=== PATIENT | male | born 1950 | race Caucasian/White ===

== ENCOUNTER → 2020-10-25 | Outpatient (CLI) | payer OTHER ==
[2020-10-25 14:40] LABS: HGB 14.5 gm/dL (13.0-17.5); MCV 93.8 fL (80.0-100.0); Mean Platelet Volume 6.9; Platelet Count 216 k/uL (150-450); RBC 4.69 m/uL (4.30-5.90); WBC 6.5 k/uL (3.8-10.6)
[2020-10-25 14:48] LABS: Potassium 4.5 mmol/L (3.5-5.1)
== END | disposition home or self-care (01) ==
LOC: LABPAT 14:10
PROVIDERS: ATTEND Internal Medicine Interventional Cardiology
DX: Z01.818 Encounter for other preprocedural examination (principal)
CPT/HCPCS: 36415; 80051; 82565; 84520; 85027

== ENCOUNTER 2020-11-03 06:25 | Day surgery (SDC) | payer OTHER ==
[2020-10-31 11:20] VITALS: BMI 23.3
[~2020-11-03 06:25] MED LIST: ALPRAZolam 0.25 MG TAB PO PRN; ALPRAZolam 0.5 MG TAB PO PRN; ASPIRIN 325 MG TAB PO STA; ATORVASTATIN 80 MG TAB PO STA; HEPARIN SODIUM,PORCINE 10,000 UNIT in SODIUM CHLORIDE 0.9% 1,000 ML IRRIGATION PRN; HEPARIN SODIUM,PORCINE 2,500 UNIT in SODIUM CHLORIDE 0.9% 250 ML IRRIGATION PRN; NITROGLYCERIN SL TABS 0.4 MG TAB SUBLINGUAL PRN; SODIUM CHLORIDE 0.9% 1,000 ML in EMPTY BAG 1 BAG IV ONE
[2020-11-03] MEDS ORDERED: fentaNYL (PF) 50 MCG/ML 2 ML AMP ONE (07:14)
[2020-11-03 07:17] VITALS: TEMP 98.1
[2020-11-03] MEDS ORDERED: SODIUM CHLORIDE 0.9% 1,000 ML IV ONE (07:24)
[2020-11-03] MEDS ORDERED: BENZOCAINE SPRAY 1 CAN TOPICAL ONE (07:24)
[2020-11-03] MEDS ORDERED: fentaNYL (PF) 50 MCG/ML 2 ML AMP IV ONE (07:31)
[2020-11-03] MEDS ORDERED: MIDAZOLAM 2 MG/2 ML VIAL IV ONE ×2 (07:31→07:40)
[2020-11-03 07:48] VITALS: RESP 17
[2020-11-03] MEDS ORDERED: LIDOCAINE 1% INJ 10MG/ML (20 ML MDV) ONE (07:57)
[2020-11-03] MEDS ORDERED: VERAPAMIL 2.5 MG/ML 2 ML AMP ONE (07:57)
--- NOTE | 2020-11-03 08:11 | P.TEE ---
Indications for Procedure(s): Assessment the mitral regurgitation Date of Procedure: 11/03/20 Preoperative Diagnosis: Nonrheumatic mitral regurgitation Postoperative Diagnosis: 3-4+ mitral regurgitation. Prolapse of the posterior leaflet with possible ruptured cord. Left atrial enlargement. Moderate aortic stenosis Procedure(s) Performed: JOSE Description of Procedure(s): INDICATION: This 70-year-old gentleman with history of non-rheumatic mitral regurgitation who is been experiencing exertional shortness of breath. A JOSE examination is recommended to assess mitral regurgitation CONSENT: . Informed consent was obtained from the patient verbally PROCEDURE: Patient was brought to the lab in a fasting state. He was prepped and draped in the usual fashion. The throat was sprayed with Hurricaine. A lubricated Omni probe was introduced in the oropharynx and was advanced into the esophagus. Multiple views were obtained both from the stomach and esophagus. Patient tolerated the procedure well. There were multiple attempts at intubation. Color, pulsed and continuous Doppler studies were performed. Saline contrast bubble injection was also performed. FINDINGS: The aortic valve is tricuspid with mild calcification and restricted opening. By planimetry valve area of 1.32 cm was obtained. A peak gradient of about 35 was obtained suggestive of moderate aortic stenosis. The mitral valve showed evidence of mild coarctation with eccentric mitral regurgitation directed anteriorly and toward septum.PISA value was about 0.8-1 cm. There appears to be prolapsing of the middle scallop of the posterior leaflet with possibly small ruptured chordae. The left atrium is severely enlarged. The left atrial appendage is free of any clot. The interatrial septum appeared to be intact without any spontaneous shunt. Saline contrast bubble injection did not reveal crossing of the bubbles across the interatrial septum. Left ankle function appear to be normal. A peak gradient of about 35 was obtained across the aortic valve with mean value of about 20-22 suggestive of moderate aortic stenosis IMPRESSION: . #1. 3-4+ eccentric mitral regurgitation with evidence of prolapse of the middle scallop of the posterior leaflet, probably small ruptured chordae #2. Moderate aortic stenosis. #3. Left atrial enlargement #4. No PFO #5. No clot in the left atrial appendage. #5. Preserved LV function. #6. No plaque in the aorta PLAN: Proceed with cardiac catheterization. May require mitral valve repair plus or minus aortic valve replacement.
[2020-11-03] MEDS ORDERED: SODIUM CHLORIDE 0.9% 1,000 ML IV SCH ×2 (08:15→10:00)
[2020-11-03] MEDS ORDERED: LIDOCAINE 1% INJ 10MG/ML (20 ML MDV) SQ ONE (08:40)
[2020-11-03] MEDS ORDERED: HEPARIN SODIUM 1,000 UN/ML (10ML VL) IV ONE (08:46)
[2020-11-03] MEDS ORDERED: VERAPAMIL SYRINGE (5 MG/10 ML) INTRAARTER ONE (08:48)
[2020-11-03] MEDS ORDERED: NITROGLYCERIN 1000MCG/10ML SYRINGE INTRAARTER ONE (08:58)
[2020-11-03 08:59] LABS: O2 Sat Blood Gas 96.3 %
[2020-11-03 09:01] LABS: O2 Sat Blood Gas 75.5 %
[2020-11-03] MEDS ORDERED: IOPAMIDOL-370 100ML BTL INJ ONE (09:12)
--- NOTE | 2020-11-03 10:13 | CC ---
CARDIAC CATHETERIZATION REPORT DATE OF SERVICE: 11/03/2020 PROCEDURE: Right and left heart catheterization and coronary angiography. PERFORMED BY: Dr. Jenny Galindo. Moderate conscious sedation time was 40 minutes. Patient was administered Versed. Oxygen saturation, hemodynamics and EKG were monitored closely. CLINICAL INFORMATION: Mr. Eloy Aguilar is a 70-year-old gentleman with a known history of mitral valve prolapse syndrome, which was being followed noninvasively. He also has a moderate aortic stenosis with a gradient in the mid 20s. Because of a change in his symptomatology with more shortness of breath, I evaluated him in the office, performed an echocardiogram and advised coronary angiography. His complaints were increasing fatigue and shortness of breath. He had a transesophageal echo which revealed severe mitral regurgitation with prolapse of the posterior mitral leaflet middle scallop. He was advised right and left heart catheterization. On the transesophageal echo, there was moderate aortic stenosis with a gradient of about 27 mmHg. PROCEDURE NOTE: Under local anesthesia and strict aseptic precautions, a 6-Tamazight introducer was placed in the right radial artery using a micropuncture needle technique. There was already a brachial IV in place and through this IV using the micropuncture needle, I exchanged and placed a 6-Tamazight introducer in the right brachial artery. Right heart catheterization was performed using a 6-Tamazight balloon tipped catheter and the hemodynamics and saturations were obtained. Subsequently I performed coronary angiography with a JL3.5 and JR4 catheters and the same right catheter was used to check LV pressures but LV gram was not performed. I used a Glidewire because of some spasm. The patient tolerated the procedure well without complications. The TR band was applied as per protocol and manual compression used for the venous site. Saturation of the fingers of the right hand was 94%. Results were discussed with the patient as well as his . CARDIAC CATHETERIZATION FINDINGS: The right atrial pressure was 4 mmHg, right ventricular pressure was 35/4. Pulmonary artery pressure was 35/11 with a mean of 20. Pulmonary capillary wedge pressure was 10 mmHg. The left ventricular end-diastolic pressure was 10 mmHg and a gradient across the aortic valve, mean gradient was about 25 mmHg. The radial arterial saturation was 96%. Pulmonary artery saturation was 75% and right atrial saturation was 79%. There was no oxygen step-up. The thermodilution cardiac output was 6.5 L and the Anthony cardiac output was 7.7 L. CORONARY ANGIOGRAPHY FINDINGS: RIGHT CORONARY ARTERY: Large dominant vessel. No significant disease. Bifurcates into a large PDA and PLV system, both of which supplies a sizable amount of myocardium. No significant disease. LEFT MAIN CORONARY ARTERY: Short patent vessel free of significant disease that bifurcates into LAD and circumflex. LEFT ANTERIOR DESCENDING CORONARY ARTERY: This gives off a large diagonal branch proximally, runs all the way to the apex supplying a sizable amount of myocardium. It gives off septal and diagonal branches. No significant disease in the very good caliber large distribution LAD system. LEFT POSTERIOR CIRCUMFLEX CORONARY ARTERY: Small nondominant vessel small in caliber and distribution. No significant disease, gives off a single obtuse marginal that runs laterally. Circumflex is therefore nondominant. No significant disease. LEFT VENTRICULOGRAM: LV-gram was not performed. FINAL IMPRESSION: 1. This patient has no significant pulmonary hypertension. 2. Cardiac output is normal. 3. There is no oxygen step-up. 4. There is moderate aortic stenosis of 25 mmHg mean gradient across aortic valve. 5. No significant obstructive coronary artery disease noted. 6. A right-dominant system. Transesophageal echo however revealed severe mitral regurgitation. RECOMMENDATION: Patient will require elective mitral valve repair and aortic valve replacement. No coronary intervention will be necessary. Findings were discussed with the patient and his . I will speak to the cardiac surgeon and make an appointment electively. I expect he will be discharged today and I will see him on Saturday. MMODL / IJN: [id number] /
--- NOTE | 2020-11-03 11:27 | US ---
EXAMINATION TYPE: US carotid duplex BILAT DATE OF EXAM: 11/03/2020 COMPARISON: NONE CLINICAL HISTORY: R/O CAROTID DX. open heart surgery EXAM MEASUREMENTS: RIGHT: Peak Systolic Velocity (PSV) cm/sec ----- Right CCA: 57.5 ----- Right ICA: 105.5 ----- Right ECA: 130.2 ICA/CCA ratio: 1.8 RIGHT: End Diastole cm/sec ----- Right CCA: 18.3 ----- Right ICA: 37.2 ----- Right ECA: 17.1 LEFT: Peak Systolic Velocity (PSV) cm/sec ----- Left CCA: 65.6 ----- Left ICA: 93.0 ----- Left ECA: 107.6 ICA/CCA ratio: 1.4 LEFT: End Diastole cm/sec ----- Left CCA: 18.7 ----- Left ICA: 33.3 ----- Left ECA: 15.5 VERTEBRALS (direction of flow): Right Vertebral: Antegrade Left Vertebral: Antegrade Rhythm: Normal Grayscale, color Doppler, spectral Doppler imaging performed of the carotid arteries. Waveform analys is does not show significant stenosis of the proximal internal carotid arteries. Atheromatous changes are present in carotid bulbs. No significant stenosis seen IMPRESSION: No hemodynamic significant stenosis of the proximal internal carotid arteries by Doppler criteria, an indirect measurement of carotid stenosis Criteria for Assigning % of Stenosis / Diameter reduction (Estimation based on the indirect measurements of the internal carotid artery velocities (ICA PSV). 1. Normal (no stenosis)=ICA PSV < 125 cm/s: ratio < 2.0: ICA EDV<40 cm/s. 2. Less than 50% stenosis=ICA PSV < 125 cm/s: ratio < 2.0: ICA EDV<40 cm/s. 3. 50 to 69% stenosis=ICA PSV of 125 to 230 cm/s: ration 2.0 ? 4.0: ICA EDV 40-100 cm/s. 4. Greater than 70% stenosis to near occlusion= ICA PSV > 230 cm/s: ratio > 4.0: ICA EDV > 100 cm/s. 5. Near occlusion= ICA PSV velocities may be low or undetectable: variable ratio and ICA EDV. 6. Total occlusion=unable to detect flow.
--- NOTE | 2020-11-03 11:40 | XR ---
EXAMINATION TYPE: XR chest 1V portable DATE OF EXAM: 11/03/2020 COMPARISON: Prior chest x-ray dated 05/12/2012 HISTORY: Preop valve surgery TECHNIQUE: Single frontal view of the chest is obtained. FINDINGS: There is no focal air space opacity, pleural effusion, or pneumothorax seen. The cardiac silhouette size is within normal limits. The aorta is dense. The osseous structures are intact. IMPRESSION: No acute process. Stable exam.
--- NOTE | 2020-11-03 12:00 | ECHOF ---
Referral Reason:R/O VALVE DX MEASUREMENTS -------- HEIGHT: 167.6 cm WEIGHT: 65.8 kg BP: 122/67 RVIDd: 2.9 cm (< 3.3) IVSd: 1.2 cm (0.6 - 1.1) LVIDd: 4.8 cm (3.9 - 5.3) LVPWd: 1.3 cm (0.6 - 1.1) IVSs: 1.6 cm LVIDs: 3.0 cm LVPWs: 1.5 cm LAESV Index (A-L): 64.24 ml/m Ao Diam: 2.2 cm (2.0 - 3.7) AV Cusp: 0.8 cm (1.5 - 2.6) MV EXCURSION: 14.378 mm (> 18.000) MV EF SLOPE: 77 mm/s (70 - 150) EPSS: 0.3 cm MV E José: 1.20 m/s MV DecT: 298 ms MV A José: 1.21 m/s MV E/A Ratio: 0.99 AV maxP.16 mmHg AV meanP.87 mmHg RAP: 5.00 mmHg RVSP: 41.06 mmHg FINDINGS -------- Sinus rhythm. This was a technically adequate study. The left ventricular size is normal. There is mild concentric left ventricular hypertrophy. Overa ll left ventricular systolic function is normal with, an EF between 55 - 60 %. Left ventricular noel limg pressure cannot be estimated due to severe mitral regurgitation. The right ventricle is normal in size. LA is severely dilated >40 ml/m2 The right atrium is mildly enlarged. Interatrial and interventricular septum intact. There is no evidence of aortic regurgitation. There is mild aortic stenosis present. Peak/mean gr adient across the Aortic Valve is 30.16mmHg / 13.87mmHg. Severe mitral regurgitation is present. Moderate prolapse of the posterior mitral valve leaflet. Moderate tricuspid regurgitation present. There is mild pulmonary hypertension. The right ventric ular systolic pressure, as measured by Doppler, is 41.06mmHg. There is no pulmonic regurgitation present. The aortic root size is normal. Normal inferior vena cava with normal inspiratory collapse consistent with estimated right atrial pre ssure of 5 mmHg. There is no pericardial effusion. CONCLUSIONS -------- 1. There is mild concentric left ventricular hypertrophy. 2. Overall left ventricular systolic function is normal with, an EF between 55 - 60 %. 3. LA is severely dilated >40 ml/m2 4. There is mild aortic stenosis present. 5. Peak/mean gradient across the Aortic Valve is 30.16mmHg / 13.87mmHg. 6. Severe mitral regurgitation is present. 7. Moderate prolapse of the posterior mitral valve leaflet. 8. Moderate tricuspid regurgitation present. 9. There is mild pulmonary hypertension. 10. There is no pericardial effusion. COIL TESTER: Yanely Galeano RDCS
[2020-11-03 12:21] LABS: Appearance,Urine Clear (Clear); Bilirubin,Urine Negative (Negative); Blood,Urine Negative (Negative); Color,Urine Light Yellow; Glucose,Urine (UA) Negative (Negative); Ketones,Urine Negative (Negative); Leukocyte Esterase,Urine Negative (Negative); Nitrite,Urine Negative (Negative); Protein,Urine Negative (Negative); Urobilinogen,Urine <2.0 mg/dL (<2.0)
--- NOTE | 2020-11-03 12:57 | P.GSCN ---
History of Present Illness Consult date: 11/03/20 Reason for Consult: Aortic stenosis, mitral regurgitation Requesting physician: Joseph Galindo History of present illness: This is a 70-year-old active gentleman who follows on an outpatient basis with Dr. Crowell for primary care and Dr. SHEREE Galindo for cardiology. He has a previous medical history of mitral valve prolapse with mitral regurgitation, obstructive sleep apnea without CPAP use, previous tobacco dependence, left knee surgery, and recent tooth extraction. He states he has been in normal health except that he has had increased fatigue lately. He denies any chest pain or pressure, shortness of breath, lightheadedness or dizziness, or any syncopal episodes. He has been following routinely with Dr. Galindo for his mitral valve, had a recent transthoracic echocardiogram revealing moderate to severe mitral regurgitation with myxomatous mitral valve and prolapse, no significant pulmonary hypertension. Due to his symptom of increasing fatigue and findings on echocardiogram the patient was recommended to undergo transesophageal echocardiogram and cardiac catheterization for further evaluation. He was brought in today electively. His heart catheterization demonstrated no significant obstructive coronary artery disease. Transesophageal echocardiogram demonstrated 3-4+ anteriorly directed mitral regurgitation, prolapse of the posterior leaflet with possible ruptured chordae, left atrial enlargement, and moderate aortic stenosis with aortic valve area 1.32 cm by planimetry and peak gradient 35 mmHg. Due to these findings the patient was referred to Dr. Ortiz for surgical recommendations. Review of Systems Review of systems was completed and was negative except as noted - Constitutional Reports as per HPI, Reports fatigue - Cardiovascular Cardiovascular Comment(s): Denies chest pain, shortness of breath, syncope - Gastrointestinal Gastrointestinal Comment(s): Denies any GI symptoms - Musculoskeletal Musculoskeleta Comment(s): Denies musculoskeletal symptoms - Neurological Neurologic Comment(s): Denies neurological symptoms Past Medical History Past Medical History: Mitral Valve Prolapse (MVP), Sleep Apnea/CPAP/BIPAP Additional Past Medical History / Comment(s): aortic stenosis, short term memory issues and [place]- request to be present for consents and instructions; moderate aortic stenosis, severe mitral regurgitation History of Any Multi-Drug Resistant Organisms: None Reported Past Surgical History: Appendectomy, Orthopedic Surgery, Tonsillectomy Additional Past Surgical History / Comment(s): knee surgery meniscus. colonoscopy Past Anesthesia/Blood Transfusion Reactions: No Reported Reaction, Motion Sickness Additional Past Anesthesia/Blood Transfusion Reaction / Comm: blood transfusion without reaction Past Psychological History: No Psychological Hx Reported Smoking Status: Former smoker Past Alcohol Use History: None Reported Past Drug Use History: None Reported Additional History: No known family history of premature coronary artery disease - Past Family History Mother Family Medical History: No Reported History Additional Family Medical History / Comment(s): Mother at 70 of unknown reasons Father Family Medical History: COPD, Coronary Artery Disease (CAD) Additional Family Medical History / Comment(s): Father at 82 Medications and Allergies Home Medications Medication Instructions Recorded Confirmed Type Furosemide [Lasix] 20 mg PO DAILY 10/31/20 11/03/20 History Losartan [Cozaar] 25 mg PO HS 10/31/20 11/03/20 History Allergies Allergy/AdvReac Type Severity Reaction Status Date / Time Penicillins Allergy Unknown Verified 11/03/20 06:50 Surgical - Exam Vital Signs Temp Pulse Resp BP Pulse Ox 98.1 F 75 18 131/73 97 11/03/20 07:16 11/03/20 07:16 11/03/20 07:16 11/03/20 07:16 11/03/20 07:16 - General well developed, well nourished, no distress, no pain - Eyes PERRL, normal ocular movement - ENT decreased hearing - Neck no masses, trachea midline carotid bruit: bilateral - Respiratory Lungs sounds clear bilaterally. Respirations even, nonlabored. Currently on room air with oxygen saturation 96%. No chest wall deformities. No clubbing or cyanosis present. - Cardiovascular S1 present, quite S2 present. Loud systolic murmur present. Regular rate and rhythm, sinus rhythm on telemetry. Palpable peripheral pulses bilaterally. No edema present. No calf pain or tenderness noted. - Abdomen Abdomen: soft, non tender, bowel sounds - Genitourinary Deferred - Rectum Deferred - Integumentary no rash, no growths - Neurologic normal coordination, normal sensation - Musculoskeletal normal posture - Psychiatric oriented to time, oriented to person, oriented to place, speech is normal Results - Imaging Chest x-ray: report reviewed, image reviewed Additional studies: Cardiac catheterization films, transesophageal echocardiogram, and carotid Doppler studies reviewed Assessment and Plan Assessment: 1. Severe anterior lead directed mitral regurgitation, prolapse of the posterior leaflet with possible ruptured chordae, left atrial enlargement, and moderate aortic stenosis per JOSE 2. History of obstructive sleep apnea without CPAP use 3. Previous tobacco dependence 4. Recent tooth extraction without regular dental visits Plan: The patient was seen and examined in the extended stay unit. Chart cyst diagnostics were discussed with Dr. Ortiz and Dr. Galindo. The usual perioperative course of open heart surgery was discussed in detail with the patient and his , risks and benefits were reviewed, all questions were answered. Preoperative testing was initiated. The patient may be discharged to home to follow-up in the office next week, November [address] Ortiz to discuss valve surgery. The patient was encouraged to obtain dental clearance. Our contact information was given to the patient and his . We'll calculate STS risk score. Continue current medication regimen. More recommendations to follow once seen by Dr. Ortiz. Thank you Dr. Galindo for this consult. Time with Patient: Greater than 30
[2020-11-03 14:51] LABS: Albumin 3.6 g/dL (3.5-5.0); Calcium 8.6 mg/dL (8.4-10.2); Potassium 4.3 mmol/L (3.5-5.1); Total Bilirubin 0.4 mg/dL (0.2-1.3); Total Protein 6.1 g/dL (6.3-8.2)
[2020-11-03 14:53] LABS: Partial Thromboplastin Time 27.6 sec (22.0-30.0); Prothrombin Time 10.8 sec (9.0-12.0)
[2020-11-03 14:54] VITALS: BP 132/68; PULSE 68
[2020-11-03 23:53] LABS: Hemoglobin A1C 5.1 % (4.0-6.0)
[2020-11-04 12:31] LABS: Hepatitis A Antibody IgM Non-Reactive (Non-Reactive); Hepatitis B Core IgM Non-Reactive (Non-Reactive); Hepatitis B Surface Antigen Non-Reactive (Non-Reactive); Hepatitis C IgG Antibody Non-Reactive (Non-Reactive)
== END 2020-11-03 14:42 | disposition home or self-care (01) ==
LOC: CATHCVL 06:25
PROVIDERS: ATTEND Internal Medicine Cardiovascular Disease
DX: I08.3 Combined rheumatic disorders of mitral, aortic and tricuspid valves (principal); R00.2 Palpitations; G47.33 Obstructive sleep apnea (adult) (pediatric); Z72.0 Tobacco use
CPT/HCPCS: 94150; 93312; 93320; 93325; 93460; 80061; 80053; 80074; 85018; 84443; 82810; 83735; 85610; 85730; 81003; 83036; 71045; 93880; C1769 ×3; C1751; C1894 ×2; J2250; J2001; J3010; J1644; Q9967; 93306

== ENCOUNTER → 2020-12-05 | Outpatient (CLI) | payer OTHER ==
[2020-12-05 10:47] LABS: HCT 44.6 % (39.0-53.0); HGB 14.1 gm/dL (13.0-17.5); MCH 29.8 pg (25.0-35.0); MCHC 31.6 g/dL (31.0-37.0); MCV 94.4 fL (80.0-100.0); Mean Platelet Volume 7.1; Platelet Count 209 k/uL (150-450); RBC 4.72 m/uL (4.30-5.90); RDW 13.4 % (11.5-15.5); WBC 4.5 k/uL (3.8-10.6)
[2020-12-05 10:52] LABS: Partial Thromboplastin Time 27.3 sec (22.0-30.0); Prothrombin Time 10.7 sec (9.0-12.0)
[2020-12-05 10:53] LABS: Albumin 4.3 g/dL (3.5-5.0); Potassium 4.4 mmol/L (3.5-5.1); Total Bilirubin 0.5 mg/dL (0.2-1.3); Total Protein 7.1 g/dL (6.3-8.2)
--- NOTE | 2020-12-05 11:05 | XR ---
EXAMINATION TYPE: XR chest 2V DATE OF EXAM: 12/05/2020 COMPARISON: NONE TECHNIQUE: PA and lateral views submitted. HISTORY: Presurgical FINDINGS: The lungs are clear and there is no pneumothorax, pleural effusion, or focal pneumonia. Atheroscler otic change of the aorta. No overt failure. Hypertrophic change of the spine. IMPRESSION: 1. No acute process.
== END | disposition home or self-care (01) ==
LOC: LABPAT 07:54
PROVIDERS: ATTEND Thoracic Surgery (Cardiothoracic Vascular Surgery)
DX: Z01.812 Encounter for preprocedural laboratory examination (principal); U07.1 COVID-19; R00.1 Bradycardia, unspecified
CPT/HCPCS: 80053; 85027; 85610; 85730; 87070; 71046; 93005; 36415; U0003; C9803; U0005

== ENCOUNTER 2020-12-09 08:00 | Inpatient (IN) | payer OTHER ==
[2021-01-30] MEDS ORDERED: propofoL 1,000 MG/100 ML VIAL IV ONE (05:00)
[2021-01-30] MEDS ORDERED: NITROGLYCERIN SL TABS 0.4 MG TAB SUBLINGUAL ONE (05:00)
[2021-01-30] MEDS ORDERED: MANNITOL 25% 12.5 GM/50 ML VIAL IV ONE (05:00)
[2021-01-30] MEDS ORDERED: PHENYLEPHRINE 10 MG/ML VIAL IV ONE (05:00)
[2021-01-30] MEDS ORDERED: ATORVASTATIN 10 MG TAB PO ONE (05:00)
[2021-01-30] MEDS ORDERED: NITROGLYCERIN-D5W PMX 50 MG in DEXTROSE/WATER 1 250ML.BAG IV ONE (05:00)
[2021-01-30] MEDS ORDERED: CALCIUM CHLORIDE 100 MG/ML 10 ML SYRINGE IV ONE (05:00)
[2021-01-30] MEDS ORDERED: ASPIRIN 325 MG TAB PO ONE (05:00)
[2021-01-30] MEDS ORDERED: NOREPINEPHRINE 4 MG in SODIUM CHLORIDE 0.9% 250 ML IV ONE (05:00)
[2021-01-30] MEDS ORDERED: NITROGLYCERIN-D5W PMX 25 MG/250 ML BTL IV ONE (05:00)
[2021-01-30] MEDS ORDERED: ELECTROLYTE-A SOLUTION 1,000 ML with POTASSIUM CHLORIDE 40 MEQ, MAGNESIUM SULFATE 16 ME... IV ONE ×5 (05:00)
[2021-01-30] MEDS ORDERED: ALBUMIN HUMAN 5% 500 ML IVPB ONE (05:00)
[2021-01-30] MEDS ORDERED: PAPAVERINE 360 MG in SODIUM CHLORIDE 0.9% 90 ML IV ONE (05:00)
[2021-01-30] MEDS ORDERED: INSULIN REGULAR 100 UNIT in SODIUM CHLORIDE 0.9% 100 ML IV ONE (05:00)
[2021-01-30] MEDS ORDERED: METOPROLOL TARTRATE 12.5 MG TAB PO ONE (05:00)
[2021-01-30] MEDS ORDERED: MAGNESIUM SULFATE MG 500 MG/ML IV ONE (05:00)
[2021-01-30] MEDS ORDERED: ELECTROLYTE-A SOLUTION 1,000 ML with POTASSIUM CHLORIDE 100 MEQ, MAGNESIUM SULFATE 16 M... IV ONE ×5 (05:00)
[2021-01-30] MEDS ORDERED: SODIUM CHLORIDE 0.9% 1,000 ML IV ONE (05:00)
[2021-01-30] MEDS ORDERED: CLEVIDIPINE BUTYRATE 25 MG in EMPTY BAG 1 BAG IV ONE (05:00)
[2021-01-30] MEDS ORDERED: PROTAMINE SULFATE 10 MG/ML 25 ML VIAL IV ONE ×2 (05:00→07:12)
[2021-01-30] MEDS ORDERED: HEPARIN SODIUM 1,000 UN/ML (10ML VL) IV ONE (05:00)
[2021-01-30] MEDS ORDERED: HEPARIN SODIUM,PORCINE 5,000 UNIT in SODIUM CHLORIDE 0.9% 500 ML 500 ML IV ONE (05:00)
[2021-01-30] MEDS ORDERED: ALBUMIN HUMAN 25% 50 ML IV ONE (05:00)
[2021-01-30] MEDS ORDERED: CHLORHEXIDINE GLUCONATE 15 ML CUP MUCOUS MEM ONE (05:00)
[2021-01-30] MEDS ORDERED: PROTAMINE SULFATE 250 MG in EMPTY BAG 1 BAG IV ONE (05:00)
[2021-01-30] MEDS ORDERED: SODIUM BICARB 8.4% 50 ML SYR (1 MEQ/ML) IV ONE (05:00)
[2021-01-30] MEDS ORDERED: LACTATED RINGERS 1,000 ML IV ONE ×2 (05:00→06:10)
[2021-01-30] MEDS ORDERED: ceFAZolin 1,000 MG in SODIUM CHLORIDE 0.9% IRRIGATIO 1,000 ML IRRIGATION ONE (05:00)
[2021-01-30] MEDS ORDERED: TRANEXAMIC ACID 2,000 MG in SODIUM CHLORIDE 0.9% 80 ML IV ONE (05:00)
[2021-01-30] MEDS ORDERED: PHENYLEPHRINE 40 MG in SODIUM CHLORIDE 0.9% 250 ML IV ONE (05:00)
[2021-01-30] MEDS ORDERED: PROPOFOL 10 MG/ML 20 ML VIAL IV ONE (07:12)
[2021-01-30] MEDS ORDERED: HEPARIN SODIUM,PORCINE 10,000 UNIT/ML 1 ML VIAL ONE (07:12)
[2021-01-30] MEDS ORDERED: LIDOCAINE 2% SYG (PF) 100 MG/5 ML ONE (07:12)
[2021-01-30] MEDS ORDERED: fentaNYL (PF) 50 MCG/ML 50 ML VIAL ONE (07:12)
[2021-01-30] MEDS ORDERED: fentaNYL (PF) 50 MCG/ML 2 ML AMP ONE (07:12)
[2021-01-30] MEDS ORDERED: SODIUM CHLORIDE 0.9% (PF) 10 ML VIAL ONE (07:12)
[2021-01-30] MEDS ORDERED: MIDAZOLAM 2 MG/2 ML VIAL ONE (07:12)
[2021-01-30] MEDS ORDERED: METOPROLOL TARTRATE 5 MG/5 ML VIAL IVP ONE (07:12)
[2021-01-30] MEDS ORDERED: SODIUM CHLORIDE 0.9% IRRIG 1,000 ML BTL IRRIGATION ONE (07:12)
[2021-01-30] MEDS ORDERED: MAGNESIUM SULFATE 4 MEQ/ML 10ML VIAL ONE (07:12)
[2021-01-30] MEDS ORDERED: NITROGLYCERIN-D5W PMX 50 MG/250 ML BOTTLE IV ONE (07:12)
[2021-01-30] MEDS ORDERED: ELECTROLYTE-R (PH 7.4) 1,000 ML IV.SOLN IV ONE (07:12)
[2021-01-30] MEDS ORDERED: ALBUMIN HUMAN 5% (25gm) 500 ML VIAL IVPB ONE (07:12)
[2021-01-30] MEDS ORDERED: VECURONIUM 10 MG VIAL IV ONE (07:12)
[2021-01-30] MEDS ORDERED: TRANEXAMIC ACID 1,000 MG/10 ML VIAL ONE (07:12)
[2021-01-30] MEDS ORDERED: CALCIUM CHLORIDE 100 MG/ML 10 ML SYRINGE ONE (07:12)
[2021-01-30] MEDS ORDERED: SODIUM CHLORIDE 0.9% 250 ML BAG ONE (07:12)
[2021-01-30] MEDS ORDERED: EPINEPHrine 4 MG in DEXTROSE 5% IN WATER 250 ML IV SCH ×2 (08:45)
[2021-01-30 08:56] LABS: ABG Base Excess 3.7 mmol/L; ABG Glucose Whole Blood 88 mg/dL (75-99); ABG HCO3 28 mmol/L (21-25); ABG Hematocrit 37 % (34.0-46.0); ABG Ionized Calcium 4.6 mg/dL (4.5-5.3); ABG Lactic Acid Whole Blood 0.9 mmol/L (0.5-1.6); ABG PCO2 43 mmHg (35-45); ABG PH 7.43 (7.35-7.45); ABG Sodium Whole Blood 141 mmol/L (135-146); ABG TCO2 30 mmol/L (19-24)
[2021-01-30 09:35] LABS: ABG Base Excess 2.8 mmol/L; ABG Glucose Whole Blood 108 mg/dL (75-99); ABG HCO3 26 mmol/L (21-25); ABG Hematocrit 34 % (34.0-46.0); ABG Ionized Calcium 4.5 mg/dL (4.5-5.3); ABG Lactic Acid Whole Blood 1.7 mmol/L (0.5-1.6); ABG PCO2 35 mmHg (35-45); ABG PH 7.49 (7.35-7.45); ABG Sodium Whole Blood 139 mmol/L (135-146); ABG TCO2 27 mmol/L (19-24)
[2021-01-30 10:02] LABS: ABG Base Excess 1.6 mmol/L; ABG Glucose Whole Blood 110 mg/dL (75-99); ABG HCO3 26 mmol/L (21-25); ABG Hematocrit 26 % (34.0-46.0); ABG Lactic Acid Whole Blood 1.2 mmol/L (0.5-1.6); ABG PCO2 39 mmHg (35-45); ABG PH 7.43 (7.35-7.45); ABG PO2 414 mmHg (83-108); ABG Potassium Whole Blood 4.9 mmol/L (3.4-4.5); ABG Sodium Whole Blood 137 mmol/L (135-146); ABG TCO2 27 mmol/L (19-24)
[2021-01-30 10:40] LABS: ABG Base Excess 2.2 mmol/L; ABG Glucose Whole Blood 116 mg/dL (75-99); ABG HCO3 27 mmol/L (21-25); ABG Hematocrit 26 % (34.0-46.0); ABG Ionized Calcium 4.2 mg/dL (4.5-5.3); ABG Lactic Acid Whole Blood 1.2 mmol/L (0.5-1.6); ABG PCO2 41 mmHg (35-45); ABG PH 7.43 (7.35-7.45); ABG PO2 308 mmHg (83-108); ABG Potassium Whole Blood 4.7 mmol/L (3.4-4.5); ABG Sodium Whole Blood 138 mmol/L (135-146); ABG TCO2 28 mmol/L (19-24)
--- NOTE | 2021-01-30 10:45 | P.ANPRN ---
Procedure Note - Anesthesia - Invasive Line Right Central Line Time Out Performed: Yes Date of Procedure: 01/30/21 Time of Procedure: 07:28 Location of Patient: Phase I Preparation: Sterile Prep, Sterile Dressing Ultrasound Used: Yes Purpose - Visualization and Identification of Vasculature: Yes Needle Guage: 18 Image Stored and Saved: Yes Narrative: Central line placement per sterile protocol utilized. Left Arterial Line Time Out Performed: Yes Date of Procedure: 01/30/21 Time of Procedure: 07:15 Location of Patient: Phase II Preparation: Sterile Prep, Sterile Dressing Arterial Line Location: Radial Ultrasound Used: No Needle Guage: 20 Narrative: Radial arterial line placement under sterile conditions by [employer] Right Sims Willem Time Out Performed: Yes Date of Procedure: 01/30/21 Time of Procedure: 07:35 Location of Patient: Phase II Preparation: Sterile Prep, Sterile Dressing Narrative: R Sims Willem placed via cordis w/o difficulty. All ports flushed and balloon tested. Line advanced until RV and then PA waveform obtained. Secured at 40 cm
[2021-01-30 11:04] LABS: ABG Base Excess 2.4 mmol/L; ABG Glucose Whole Blood 118 mg/dL (75-99); ABG HCO3 28 mmol/L (21-25); ABG Hematocrit 27 % (34.0-46.0); ABG Ionized Calcium 4.3 mg/dL (4.5-5.3); ABG PCO2 46 mmHg (35-45); ABG PH 7.39 (7.35-7.45); ABG PO2 287 mmHg (83-108); ABG Potassium Whole Blood 4.8 mmol/L (3.4-4.5); ABG Sodium Whole Blood 139 mmol/L (135-146); ABG TCO2 29 mmol/L (19-24)
[2021-01-30 12:06] LABS: ABG Base Excess 2.5 mmol/L; ABG Glucose Whole Blood 126 mg/dL (75-99); ABG HCO3 26 mmol/L (21-25); ABG Hematocrit 31 % (34.0-46.0); ABG Ionized Calcium 3.9 mg/dL (4.5-5.3); ABG Lactic Acid Whole Blood 1.8 mmol/L (0.5-1.6); ABG PCO2 36 mmHg (35-45); ABG PH 7.47 (7.35-7.45); ABG Potassium Whole Blood 4.3 mmol/L (3.4-4.5); ABG Sodium Whole Blood 140 mmol/L (135-146); ABG TCO2 27 mmol/L (19-24)
[2021-01-30 12:15] LABS: ABG PO2 >420 mmHg (83-108)
[2021-01-30 12:15] LABS: ABG PO2 >420 mmHg (83-108)
[2021-01-30 12:17] LABS: ABG PO2 >420 mmHg (83-108)
[2021-01-30] MEDS ORDERED: BENZOCAINE/MENTHOL LOZENG 1 EACH LOZENGE MUCOUS MEM PRN (12:28)
[2021-01-30] MEDS ORDERED: hydrALAZINE HCL 20 MG/ML 1 ML VIAL IVP PRN (12:28)
[2021-01-30] MEDS ORDERED: DEXTROSE 5% IN WATER 100 ML with AMIODARONE 150 MG IV PRN (12:28)
[2021-01-30] MEDS ORDERED: INSULIN REGULAR 100 UNIT in SODIUM CHLORIDE 0.9% 100 ML IV SCH (12:28)
[2021-01-30] MEDS ORDERED: Phosphorus Replacement Protoco 1 EACH MISC MISCELLANE PRN (12:28)
[2021-01-30] MEDS ORDERED: IPRATROPIUM-ALBUTEROL 3 ML NEB INHALATION PRN (12:28)
[2021-01-30] MEDS ORDERED: Potassium Replacement Protocol 1 EACH MISC MISCELLANE PRN (12:28)
[2021-01-30] MEDS ORDERED: AMIODARONE 450 MG in DEXTROSE 5% IN WATER 250 ML IV PRN ×2 (12:28)
[2021-01-30] MEDS ORDERED: DEXMEDETOMIDINE/0.9% NACL(PMX) 400 MCG in EMPTY BAG 1 BAG IV SCH (12:28)
[2021-01-30] MEDS ORDERED: ALPRAZolam 0.25 MG TAB PO PRN (12:28)
[2021-01-30] MEDS ORDERED: METOCLOPRAMIDE 5 MG/ML 2 ML VIAL IVP PRN (12:28)
[2021-01-30] MEDS ORDERED: Magnesium Replacement Protocol 1 EACH MISC MISCELLANE PRN (12:28)
[2021-01-30] MEDS ORDERED: CALCIUM GLUCONATE 2 GM in SODIUM CHLORIDE 0.9% 100 ML IVPB PRN (12:28)
[2021-01-30 13:13] LABS: Glucose,Whole Blood 106 mg/dL (75-99)
[2021-01-30] MEDS: CLEVIDIPINE BUTYRATE 25 MG in EMPTY BAG 1 BAG IV SCH ×3 (13:20→22:43)
--- NOTE | 2021-01-30 13:34 | P.ANPRN ---
Procedure Note - Anesthesia - JOSE Intraop Pre Bypass JOSE Intraop - Anesthesia Indication: Mitral regurgitation and aortic stenosis Date of Procedure: 01/30/21 Pre-operative Diagnosis: MR and Post-operative Diagnosis: Same Surgeon: Alex Ortiz Left Ventricle: EF 65%, LVH Ejection Fraction: Normal Regional Wall Motion Abnormalities: None Left Ventricle Hypertrophy: Yes R. Ventricle Function: Normal Anatomy: Trileaflet Aortic Stenosis: Moderate Aortic Regurgitation: None Mitral Valve: Cord rupture with flail P2 Mitral Stenosis: None Mitral Regurgitation: Severe Tricuspid Stenosis: None Tricuspid Regurgitation: None Pulmonic Stenosis: None Pulmonic Regurgitation: None R. Atrial PFO: No L. Atrial Dilation: Yes Aortic Dissection: No Aortic Calcification: Mild Plural Effusion: None - JOSE Intraop Post Bypass JOSE Intraop Post Bypass Procedure Performed: Quadrangular MV resection w/ Annuloplasty + bioprosthetic AVR 21 mm Left Ventricle: 65% + LVH Ejection Fraction: Normal Regional Wall Motion Abnormalities: None R. Ventricle Function: Normal Aortic Valve: Bioprosthetic AV Peak 14 mmHg Mean 8 mm Hg. No perivalvular leak. Mitral Valve: No MR. Peak 11 mm Hg mean 6 mmHg Tricuspid: Mild TR Pulmonic: Unchanged Aortic Dissection: No
[2021-01-30 13:41] LABS: Basophils % (A) 0 %; Eosinophils # (A) 0.1 k/uL (0-0.7); Eosinophils % (A) 1 %; HCT 26.8 % (39.0-53.0); Lymphocytes % (A) 14 %; MCHC 34.2 g/dL (31.0-37.0); MCV 90.5 fL (80.0-100.0); Mean Platelet Volume 7.7; Monocytes # (A) 0.3 k/uL (0-1.0); Monocytes % (A) 4 %; Neutrophils # (A) 5.8 k/uL (1.3-7.7); Neutrophils % (A) 81 %; RBC 2.96 m/uL (4.30-5.90); WBC 7.1 k/uL (3.8-10.6)
--- NOTE | 2021-01-30 13:42 | XR ---
EXAMINATION TYPE: XR chest 1V portable DATE OF EXAM: 01/30/2021 COMPARISON: 12/05/2020 HISTORY: Postop TECHNIQUE: Single frontal view of the chest is obtained. FINDINGS: ET tube 4.5 cm above wilman. NG tube seen in extending into the stomach. Epicardial lead, mediastinal tube and [place]-Willem catheter are noted. Coarsened interstitium with no sizable pneumothora x. Linear changes involving the lungs most typical of atelectasis. Heart size normal. Air along the s oft tissues of the neck compatible soft tissue emphysema and suspected small amount of pneumomediasti num. IMPRESSION: 1. Suspect a small amount of pneumomediastinum with soft tissue emphysema along the soft tissues left neck correlate clinically. 2. Postsurgical changes. 3. Correlate for chronic interstitial lung disease or mild venous congestion.
[2021-01-30 13:44] LABS: ABG Base Excess 2.4 mmol/L; ABG HCO3 26 mmol/L (21-25); ABG Oxygen Saturation 99.4 % (94-97); ABG PCO2 38 mmHg (35-45); ABG PH 7.45 (7.35-7.45); ABG PO2 >400 mmHg (83-108); ABG TCO2 28 mmol/L (19-24)
[2021-01-30] MEDS: LACTATED RINGERS 1,000 ML IV SCH (13:45)
[2021-01-30 13:46] LABS: Allen Test Performed? no
[2021-01-30 13:50] LABS: HGB 9.2 gm/dL (13.0-17.5)
[2021-01-30 13:52] LABS: Glucose,Whole Blood 101 mg/dL (75-99)
[2021-01-30 13:57] LABS: INR 1.4 (<1.2); Partial Thromboplastin Time 43.1 sec (22.0-30.0)
[2021-01-30 14:01] LABS: Ionized Calcium 4.6 mg/dL (4.5-5.3)
[2021-01-30] MEDS: ALBUMIN HUMAN 5% 250 ML in EMPTY BAG 1 BAG IVPB PRN (14:05)
[2021-01-30 14:13] LABS: ALT 11 U/L (4-49); AST 41 U/L (17-59); African American GFR (CKD) >90 (>60 ml/min/1.73 sqM); Albumin 2.3 g/dL (3.5-5.0); Alkaline Phosphatase 40 U/L (38-126); Anion Gap 4 mmol/L; Blood Urea Nitrogen 12 mg/dL (9-20); Calcium 8.1 mg/dL (8.4-10.2); Carbon Dioxide 25 mmol/L (22-30); Chloride 108 mmol/L (98-107); Glucose 94 mg/dL (74-99); Magnesium 2.3 mg/dL (1.6-2.3); Non-African American GFR(CKD) >90 (>60 ml/min/1.73 sqM); Potassium 4.2 mmol/L (3.5-5.1); Sodium 137 mmol/L (137-145); Total Bilirubin 0.6 mg/dL (0.2-1.3)
[2021-01-30 14:15] LABS: Platelet Count 94 k/uL (150-450)
--- NOTE | 2021-01-30 14:45 | P.CNPUL ---
History of Present Illness Consult date: 01/30/21 Requesting physician: Alex Ortiz Chief complaint: ICU management, ventilator management. History of present illness: Pulmonary consult dated 01/30/2021. 70-year-old male, postop day #0, status post aortic valve replacement and mitral valve repair. The surgery was done by Dr. Ortiz. Currently, the patient's resting comfortably in the ICU. He is obviously still on the ventilator. He is getting lactated Ringer's at 50 mL an hour, Cleveprex at 4 mg an hour, and propofol at 25 mcg/kg/m. The patient's vent settings include the volume assist control, rate 12, tidal volume 500, FiO2 40%, and PEEP of 5. Blood gases show pO2 of greater than 400, a pCO2 38, and a pH is 7.45. The FiO2 was turned down to 40%. Currently, the patient is hemodynamically stable and a bit hypertensive. Hence, the Cleveprex. He initially came back from the operating room on IV nitroglycerin. The patient's home medications include only on losartan, and Tylenol. In addition, the patient has a history of mitral valve prolapse, mitral regurgitation, obstructive sleep apnea syndrome, and previous history of tobacco use. His cardiac catheterization revealed no significant a productive coronary disease, the patient had 3-4+ mitral regurgitation, and moderate aortic stenosis with a valve surface area of 1.32 cm. Review of Systems Patient is currently sedated and on the ventilator. The patient cannot provide any review of systems at this time. Past Medical History Past Medical History: Memory Impairment, Mitral Valve Prolapse (MVP), Sleep Apnea/CPAP/BIPAP Additional Past Medical History / Comment(s): no CPAP use, aortic stenosis, short term memory issues & [place] per spouse, mitral regurgitation, some SOB w/exertion @times, fully vaccinated for covid History of Any Multi-Drug Resistant Organisms: None Reported Past Surgical History: Appendectomy, Heart Catheterization, Orthopedic Surgery, Tonsillectomy Additional Past Surgical History / Comment(s): meniscus knee surg., colonoscopy, recent cardiac cath. & JOSE Past Anesthesia/Blood Transfusion Reactions: No Reported Reaction, Motion Sickness Additional Past Anesthesia/Blood Transfusion Reaction / Comment(s): blood transfusion without reaction Smoking Status: Former smoker - Past Family History Mother Family Medical History: No Reported History Father Family Medical History: COPD, Coronary Artery Disease (CAD) Medications and Allergies Home Medications Medication Instructions Recorded Confirmed Type Losartan [Cozaar] 25 mg PO HS 10/31/20 01/20/21 History Acetaminophen Tab [Tylenol] 650 mg PO Q6H PRN 12/06/20 01/20/21 History Allergies Allergy/AdvReac Type Severity Reaction Status Date / Time Penicillins Allergy Unknown Verified 01/20/21 09:11 Physical Exam Osteopathic Statement: *. No significant issues noted on an osteopathic structural exam other than those noted in the History and Physical/Consult. Vitals: Vital Signs Temp Pulse Pulse Resp BP BP Pulse Ox 01/30/21 14:15 75 12 98 01/30/21 14:00 75 12 118/75 97 01/30/21 13:45 73 12 98 01/30/21 13:30 73 12 98 01/30/21 13:15 93.9 F L 71 12 104/70 99 01/30/21 06:00 97.8 F 62 18 154/86 97 Intake and Output 01/29/21 01/30/21 01/30/21 22:59 06:59 14:59 Intake Total 100 53 Output Total 1600 Balance 100 -1547 Intake: IV 100 53 Output: Urine 600 Estimated Blood Loss 1000 Other: Weight 65.7 kg ABP, PAP, CO, CI - Last 8 Hours Arterial Blood Pressure 110/55 Arterial Blood Pressure 104/53 Arterial Blood Pressure 106/52 Arterial Blood Pressure 139/66 Arterial Blood Pressure 132/70 Pulmonary Artery Pressure 27/19 Pulmonary Artery Pressure 26/18 Pulmonary Artery Pressure 27/19 Pulmonary Artery Pressure 22/15 Pulmonary Artery Pressure 35/19 Cardiac Output 5.0 Cardiac Output 5.4 Cardiac Output 4.8 Cardiac Index 2.9 Cardiac Index 3.1 Cardiac Index 2.7 No acute distress, sedated, with an orally placed endotracheal tube. HEENT examination is grossly unremarkable. Neck supple. Full range of motion. No adenopathy thyromegaly or neck vein distention. Cardiovascular examination reveals regular rhythm rate. S1-S2 normal. No S3 or S4. No discernible murmur noted. Lungs reveal clear breath sounds. Breath sounds are equal bilaterally. No adventitious lung sounds including wheezes rhonchi or crackles. Abdomen soft bowel sounds are heard. No masses or tenderness. Extremities are intact. No cyanosis clubbing or edema. Skin is without rash or lesion. Neurologic examination could not be assessed. Results - Laboratory Findings CBC and BMP: 01/30/21 13:15 01/30/21 13:15 ABG ABG pH 7.45 (7.35-7.45) 01/30/21 13:41 ABG pCO2 38 mmHg (35-45) 01/30/21 13:41 ABG pO2 >400 mmHg (83-108) H 01/30/21 13:41 ABG O2 Saturation 99.4 % (94-97) H 01/30/21 13:41 PT/INR, D-dimer PT 14.0 sec (9.0-12.0) H 01/30/21 13:15 INR 1.4 (<1.2) H 01/30/21 13:15 Abnormal lab findings: Abnormal Labs 12/05/20 01/20/21 01/30/21 09:00 07:58 08:58 RBC Hgb Hct Plt Count PT INR APTT ABG pH ABG pCO2 ABG pO2 >420 H ABG HCO3 28 H ABG Total CO2 30 H ABG O2 Saturation 100.0 H ABG Hematocrit ABG Potassium ABG Ionized Calcium ABG Glucose ABG Lactic Acid Hemoglobin 12.1 L Chloride POC Glucose (mg/dL) Calcium Total Protein Albumin Arterial Blood Potassium Arterial Blood Glucose Crossmatch See Detail See Detail 01/30/21 01/30/21 01/30/21 09:37 10:04 10:42 RBC Hgb Hct Plt Count PT INR APTT ABG pH 7.49 H ABG pCO2 ABG pO2 >420 H 414 H 308 H ABG HCO3 26 H 26 H 27 H ABG Total CO2 27 H 27 H 28 H ABG O2 Saturation 100.0 H 100.0 H 100.0 H ABG Hematocrit 26 L 26 L ABG Potassium 4.9 H 4.7 H ABG Ionized Calcium 4.0 L 4.2 L ABG Glucose 108 H 110 H 116 H ABG Lactic Acid 1.7 H Hemoglobin 11.0 L 8.6 L 8.6 L Chloride POC Glucose (mg/dL) Calcium Total Protein Albumin Arterial Blood Potassium 4.9 H 4.7 H Arterial Blood Glucose 108 H 110 H 116 H Crossmatch 01/30/21 01/30/21 01/30/21 11:06 12:08 13:11 RBC Hgb Hct Plt Count PT INR APTT ABG pH 7.47 H ABG pCO2 46 H ABG pO2 287 H >420 H ABG HCO3 28 H 26 H ABG Total CO2 29 H 27 H ABG O2 Saturation 100.0 H 100.0 H ABG Hematocrit 27 L 31 L ABG Potassium 4.8 H ABG Ionized Calcium 4.3 L 3.9 L ABG Glucose 118 H 126 H ABG Lactic Acid 1.8 H Hemoglobin 8.7 L 10.1 L Chloride POC Glucose (mg/dL) 106 H Calcium Total Protein Albumin Arterial Blood Potassium 4.8 H Arterial Blood Glucose 118 H 126 H Crossmatch 01/30/21 01/30/21 01/30/21 13:15 13:15 13:15 RBC 2.96 L Hgb 9.2 L D Hct 26.8 L Plt Count 94 L D PT 14.0 H INR 1.4 H APTT 43.1 H ABG pH ABG pCO2 ABG pO2 ABG HCO3 ABG Total CO2 ABG O2 Saturation ABG Hematocrit ABG Potassium ABG Ionized Calcium ABG Glucose ABG Lactic Acid Hemoglobin Chloride 108 H POC Glucose (mg/dL) Calcium 8.1 L Total Protein 4.0 L Albumin 2.3 L Arterial Blood Potassium Arterial Blood Glucose Crossmatch 01/30/21 01/30/21 13:41 13:41 RBC Hgb Hct Plt Count PT INR APTT ABG pH ABG pCO2 ABG pO2 >400 H ABG HCO3 26 H ABG Total CO2 28 H ABG O2 Saturation 99.4 H ABG Hematocrit ABG Potassium ABG Ionized Calcium ABG Glucose ABG Lactic Acid Hemoglobin Chloride POC Glucose (mg/dL) 101 H Calcium Total Protein Albumin Arterial Blood Potassium Arterial Blood Glucose Crossmatch - Diagnostic Findings Chest x-ray: image reviewed Assessment and Plan Assessment: Postop day #0, status post mitral valve repair and aortic valve replacement. Routine postoperative ventilator management. History of sleep apnea syndrome. History of myxomatous mitral valve prolapse and mitral regurgitation. History of moderate aortic stenosis. History of prior tobacco dependence. Plan: Plan dated 01/30/2021. The patient's initial oxygenation was excellent. His blood gases showed a pO2 greater than 400, PaCO2 38, and a pH is 7.448. The patient is currently on Cleveprex for blood pressure control. The patient should be able to be weaned and extubated rapidly. Additional recommendations and suggestions are forthcoming. We will continue to follow make recommendations along the way. Time with Patient: Greater than 30
[2021-01-30 14:50] LABS: Glucose,Whole Blood 111 mg/dL (75-99)
[2021-01-30 15:14] LABS: Glucose,Whole Blood 119 mg/dL (75-99)
[2021-01-30] MEDS ORDERED: fentaNYL (PF) 50 MCG/ML 2 ML AMP IVP ONE (15:48)
[2021-01-30] MEDS ORDERED: IPRATROPIUM-ALBUTEROL 3 ML NEB INHALATION SCH (16:00)
[2021-01-30 16:16] LABS: Glucose,Whole Blood 146 mg/dL (75-99)
[2021-01-30 16:21] LABS: Basophils % (A) 0 %; Eosinophils # (A) 0.1 k/uL (0-0.7); Eosinophils % (A) 1 %; HCT 32.2 % (39.0-53.0); HGB 11.2 gm/dL (13.0-17.5); Lymphocytes # (A) 0.8 k/uL (1.0-4.8); Lymphocytes % (A) 9 %; MCH 31.3 pg (25.0-35.0); MCHC 34.8 g/dL (31.0-37.0); Mean Platelet Volume 7.4; Monocytes # (A) 0.5 k/uL (0-1.0); Monocytes % (A) 5 %; Neutrophils % (A) 84 %; Platelet Count 119 k/uL (150-450); RBC 3.58 m/uL (4.30-5.90); RDW 12.9 % (11.5-15.5); WBC 9.5 k/uL (3.8-10.6)
[2021-01-30] MEDS: HEPARIN SODIUM,PORCINE/PF 5,000 UNIT/0.5 ML SYRINGE SQ SCH (16:25)
[2021-01-30] MEDS: ACETAMINOPHEN IV (For NPO) 1,000 MG in EMPTY BAG 1 BAG IVPB SCH (16:26)
[2021-01-30 17:07] LABS: Glucose,Whole Blood 152 mg/dL (75-99)
[2021-01-30 18:28] LABS: Glucose,Whole Blood 152 mg/dL (75-99)
[2021-01-30] MEDS: KETOROLAC 15 MG/ML 1 ML VIAL IVP SCH ×2 (18:46→23:02)
[2021-01-30] MEDS: IPRATROPIUM-ALBUTEROL 3 ML NEB INHALATION SCH (19:02)
[2021-01-30 19:12] LABS: Glucose,Whole Blood 139 mg/dL (75-99)
[2021-01-30 19:20] LABS: Basophils % (A) 0 %; Eosinophils % (A) 0 %; HCT 33.2 % (39.0-53.0); HGB 11.5 gm/dL (13.0-17.5); Lymphocytes # (A) 0.3 k/uL (1.0-4.8); Lymphocytes % (A) 4 %; MCH 31.3 pg (25.0-35.0); MCHC 34.6 g/dL (31.0-37.0); MCV 90.5 fL (80.0-100.0); Mean Platelet Volume 8.4; Monocytes # (A) 0.3 k/uL (0-1.0); Monocytes % (A) 4 %; Neutrophils # (A) 7.8 k/uL (1.3-7.7); Neutrophils % (A) 91 %; RBC 3.67 m/uL (4.30-5.90); WBC 8.5 k/uL (3.8-10.6)
[2021-01-30 19:23] LABS: Platelet Count 97 k/uL (150-450)
[2021-01-30 20:03] LABS: Glucose,Whole Blood 126 mg/dL (75-99)
[2021-01-30 20:28] LABS: ABG Base Excess 0.9 mmol/L; ABG HCO3 25 mmol/L (21-25); ABG Oxygen Saturation 99.5 % (94-97); ABG PCO2 36 mmHg (35-45); ABG PH 7.45 (7.35-7.45); ABG PO2 175 mmHg (83-108); ABG TCO2 26 mmol/L (19-24); Allen Test Performed? Yes
[2021-01-30] MEDS: CHLORHEXIDINE GLUCONATE 15 ML CUP MUCOUS MEM SCH (21:04)
[2021-01-30 21:08] LABS: Glucose,Whole Blood 105 mg/dL (75-99)
[2021-01-30] MEDS: POTASSIUM CHLORIDE 10 MEQ in WATER FOR INJECTION 1 100ML.BAG IVPB SCH ×2 (21:36→23:07)
--- NOTE | 2021-01-30 21:37 | OP ---
OPERATIVE REPORT DATE OF PROCEDURE: 01/30/2021. ATTENDING SURGEON: Dr. Alex Ortiz. ASSIST: Gus Dunham and Mariam. PREOPERATIVE DIAGNOSIS: Severe eccentric mitral regurgitation, moderate aortic stenosis. POSTOPERATIVE DIAGNOSIS: Torn chordae P2 of the posterior leaflet with moderate degenerative aortic stenosis. PROCEDURE: Aortic valve replacement with a #21 mm Mckeon in Spheris bioprosthetic aortic valve complex mitral valve repair with ring using a #30 mm [employer] annular flex band, quadrangular resection of P2 of the posterior leaflet and closure of P1, P2 cleft, clip ligation of the left atrial appendage with a 35 mm AtriClip and intraoperative JOSE. ANESTHESIA: General. BLOOD LOSS: 500 mL. DESCRIPTION OF PROCEDURE: The patient was brought to the operating room, placed in supine position. After administration of general endotracheal anesthetic, placement of [place]m catheter arterial line adequate IV access, Fisher catheter, patient is carefully prepped and draped in a sterile fashion using chlorhexidine paint and sterile towels. A midline incision in the chest made sternum divided pericardium was opened. Heart size was normal caliber. The aorta was soft. The patient was heparinized in ACT rhythm for the aorta. Two single stage venous cannulas were placed antegrade and retrograde cardioplegic catheters positioned in the ascending aorta and the coronary sinus. The patient is placed on bypass, cross-clamp placed, heart arrested with 1 L of antegrade followed by 500 mL retrograde cardioplegia. Retrograde cardioplegia was delivered 300- 500 mL at the end of each 20 minute intervals. First the base of the left atrial appendage was measured, a 35 mm AtriClip was secured at the base officially obliterating the left atrial appendage. Next the left atrium was entered at the junction of the right superior pulmonary vein. A handheld retractor was placed. The mitral valve was identified and there was a torn chordae right at the midportion of P2. Quadrangular triangular type resection was done down to the P2 anulus and the resected segment was sent to pathology. At this point, the edges were primarily closed with interrupted 5-0 Prolene horizontal mattress sutures, followed by a running 5-0 Prolene suture. At this point, it sized to 0 mm [employer] annular flex band. Dictation ended here. MMODL / IJN: [id number] /
--- NOTE | 2021-01-30 21:49 | P.CONS ---
History of Present Illness - Reason for Consult Consult date: 01/30/21 Medical management Requesting physician: Alex Ortiz - Chief Complaint Valvular surgery - History of Present Illness Consultation: This is a pleasant 70-year-old patient who follows with Dr. Paul Crowell. Patient has undergone bioprosthetic aortic valve replacement and a annuloplasty for mitral valve replacement. Currently in the ICU. 2 mediastinal chest tubes in place. Sinus rhythm. Patient had previously undergone a JOSE that showed: 3- 4+ mitral regurgitation, mitral valve flow prolapse of the posterior leaf left and a possibly ruptured chordae. Moderate aortic stenosis with the area of 1.32 cm with a negative bubble study. Cardiac catheterization was unremarkable. Patient's currently got a Fisher catheter. Tired, awake. Chronic stable medical conditions include some hard of hearing, obstructive sleep apnea does not use CPAP, some memory impairment. Review of systems: Cannot be done patient rather tired. Past medical history to include: Memory impairment, 3-4+ mitral valve regurgitation with posterior leaflet prolapse, moderate aortic stenosis, obstructive sleep apnea does not use CPAP, short term memory loss, hard of hearing, Social history: Patient stopped smoking in 1970. No alcohol. . Family history: Reviewed, noncontributory to presentation Physical examination: VITAL SIGNS: Afebrile, 80, 16, 129/73, 99% on nasal cannula] GENERAL: BMI 23.4, reclining in bed, tired. EYES: Pupils equal. Conjunctiva normal. HEENT: External appearance of nose and ears normal, oral cavity grossly normal. NECK: JVD not raised; masses not palpable. HEART: First and second heart sounds are normal; no edema. LUNGS: Respiratory rate increased decreased breath sounds. , 2 mediastinal chest tubes ABDOMEN: Soft, nontender, liver spleen not palpable, no masses palpable. Fisher catheter PSYCH: [Lethargic but arousable, rest cannot be assessed l. NEUROLOGICAL: Cranial nerves grossly intact; no facial asymmetry, power and sensation grossly intact. LYMPHATICS: No lymph nodes palpable in the axilla and neck INVESTIGATIONS, reviewed in the clinical context: WBC 8.5 hemoglobin 11.5 platelets 97 Potassium 3.6 creatinine 0.71 albumin 2.3 Chest x-ray: Small amount of pneumomediastinum, soft tissue emphysema along the soft tissue left neck, postsurgical changes course interstitium Labs from 01/20/2021: Hemoglobin 14.1 platelets 226 Assessment and plan: -Bioprosthetic aortic valve replacement for moderate aortic stenosis with the preoperative 80 of 1.2 cm -Mitral valvular pro-air with annuloplasty for mitral regurgitation 3-4+, posterior leaflet prolapse, possible ruptured cord -Cognitive impairment -Chronic hard of hearing -Acute postprocedure blood loss anemia, as expected from surgery Follow H&H -Dilutional thrombocytopenia, following surgery Follow H&H -Essential hypertension On Cozaar at home. Currently on Lopressor. Follow closely Diet to be advanced per surgery as tolerated. Continue supportive care. H&H to be followed. Thank you Dr. Ortiz Past Medical History Past Medical History: Memory Impairment, Mitral Valve Prolapse (MVP), Sleep Apnea/CPAP/BIPAP Additional Past Medical History / Comment(s): no CPAP use, aortic stenosis, short term memory issues & FOND DU LAC per spouse, mitral regurgitation, some SOB w/exertion @times, fully vaccinated for covid History of Any Multi-Drug Resistant Organisms: None Reported Past Surgical History: Appendectomy, Heart Catheterization, Orthopedic Surgery, Tonsillectomy Additional Past Surgical History / Comment(s): meniscus knee surg., colonoscopy, recent cardiac cath. & JOSE Past Anesthesia/Blood Transfusion Reactions: No Reported Reaction, Motion Sickness Additional Past Anesthesia/Blood Transfusion Reaction / Comm: blood transfusion without reaction Smoking Status: Former smoker - Past Family History Mother Family Medical History: No Reported History Father Family Medical History: COPD, Coronary Artery Disease (CAD) Medications and Allergies Home Medications Medication Instructions Recorded Confirmed Type Losartan [Cozaar] 25 mg PO HS 10/31/20 01/20/21 History Acetaminophen Tab [Tylenol] 650 mg PO Q6H PRN 12/06/20 01/20/21 History Allergies Allergy/AdvReac Type Severity Reaction Status Date / Time Penicillins Allergy Unknown Verified 01/20/21 09:11 Physical Exam Vitals: Vital Signs Temp Pulse Pulse Resp BP BP Pulse Ox 01/30/21 21:00 77 14 115/76 98 01/30/21 20:30 79 12 115/76 98 01/30/21 20:00 79 12 114/59 99 01/30/21 19:30 82 14 127/76 99 01/30/21 19:18 80 01/30/21 19:02 80 01/30/21 19:00 80 16 129/73 99 01/30/21 18:45 80 16 99 01/30/21 18:30 81 18 90/54 99 01/30/21 18:15 80 17 98 01/30/21 18:00 81 16 139/78 100 01/30/21 17:45 84 16 100 01/30/21 17:30 84 18 135/77 100 01/30/21 17:15 86 18 135/77 100 01/30/21 17:00 85 20 124/71 100 01/30/21 16:45 84 20 100 01/30/21 16:30 85 19 100 01/30/21 16:15 85 21 99 01/30/21 16:00 82 25 H 110/62 100 01/30/21 15:45 84 18 97 01/30/21 15:30 84 15 98 01/30/21 15:26 82 01/30/21 15:15 81 12 102/63 99 01/30/21 15:00 78 12 101/64 97 01/30/21 14:58 78 01/30/21 14:45 78 12 98 01/30/21 14:30 77 12 98 01/30/21 14:15 75 12 98 01/30/21 14:00 75 12 118/75 97 01/30/21 13:45 73 12 98 01/30/21 13:30 73 12 98 01/30/21 13:15 93.9 F L 71 12 104/70 99 01/30/21 06:00 97.8 F 62 18 154/86 97 Intake and Output 01/30/21 01/30/21 01/30/21 06:59 14:59 22:59 Intake Total 100 496.127 836.613 Output Total 1790 1370 Balance 100 -1293.873 -533.387 Intake: IV 100 481 723 ACETAMINOPHEN IV (For NPO 100 ) 1,000 mg In Empty Bag 1 bag @ 400 mls/hr IVPB Q6HR GISELLA Rx#:[id number] Albumin Human 5% 250 ml 250 In Empty Bag 1 bag @ 250 mls/hr IVPB Q1HR PRN Rx#: [id number] CO/CI 60 160 Lactated Ringers 1,000 ml 100 350 @ 50 mls/hr IV .Q20H GISELLA Rx#:[id number] Pressure Bags 18 63 ceFAZolin 2 gm In Sodium 50 Chloride 0.9% 50 ml @ 100 mls/hr IVPB Q8H GISELLA Rx#: [id number] Intake, IV Titration 15.127 113.613 Amount Clevidipine Butyrate 25 5.6 71.466 mg In Empty Bag 1 bag @ 1 MG/HR 2 mls/hr IV .Q24H GISELLA Rx#:[id number] Dexmedetomidine/0.9% NaCl 23.955 (Pmx) 400 mcg In Empty Bag 1 bag @ Titrate IV . Q0M GISELLA Rx#:[id number] Insulin Regular 100 unit 11.491 In Sodium Chloride 0.9% 100 ml @ Per Protocol IV .Q0M GISELLA Rx#:[id number] propofoL 1,000 mg In 9.527 6.701 Empty Bag 1 bag @ Titrate IV .Q0M GISELLA Rx#: [id number] Output: Chest Tube Drainage 90 220 Mediastinal 90 220 Urine 700 1150 Estimated Blood Loss 1000 Other: Voiding Method Indwelling Catheter Weight 65.7 kg ABP, PAP, CO, CI - Last 8 Hours Arterial Blood Pressure 135/63 Arterial Blood Pressure 127/62 Arterial Blood Pressure 108/51 Arterial Blood Pressure 135/64 Arterial Blood Pressure 145/69 Arterial Blood Pressure 131/62 Arterial Blood Pressure 88/46 Arterial Blood Pressure 109/53 Arterial Blood Pressure 121/58 Arterial Blood Pressure 147/71 Arterial Blood Pressure 143/69 Arterial Blood Pressure 141/67 Arterial Blood Pressure 132/64 Arterial Blood Pressure 122/60 Arterial Blood Pressure 156/79 Arterial Blood Pressure 136/69 Arterial Blood Pressure 122/60 Arterial Blood Pressure 97/53 Arterial Blood Pressure 124/62 Arterial Blood Pressure 103/52 Arterial Blood Pressure 108/54 Arterial Blood Pressure 110/55 Arterial Blood Pressure 110/55 Arterial Blood Pressure 104/53 Arterial Blood Pressure 106/52 Pulmonary Artery Pressure 30/16 Pulmonary Artery Pressure 29/17 Pulmonary Artery Pressure 27/19 Pulmonary Artery Pressure 25/18 Pulmonary Artery Pressure 26/19 Pulmonary Artery Pressure 27/18 Pulmonary Artery Pressure 26/17 Pulmonary Artery Pressure 30/20 Pulmonary Artery Pressure 33/21 Pulmonary Artery Pressure 33/24 Pulmonary Artery Pressure 38/23 Pulmonary Artery Pressure 36/24 Pulmonary Artery Pressure 35/23 Pulmonary Artery Pressure 34/23 Pulmonary Artery Pressure 39/25 Pulmonary Artery Pressure 33/24 Pulmonary Artery Pressure 36/22 Pulmonary Artery Pressure 31/19 Pulmonary Artery Pressure 29/20 Pulmonary Artery Pressure 32/19 Pulmonary Artery Pressure 31/21 Pulmonary Artery Pressure 30/19 Pulmonary Artery Pressure 27/19 Pulmonary Artery Pressure 26/18 Pulmonary Artery Pressure 27/19 Cardiac Output 5.2 Cardiac Output 5.8 Cardiac Output 5.3 Cardiac Output 5.7 Cardiac Output 5.5 Cardiac Output 5.8 Cardiac Output 5.8 Cardiac Output 5.0 Cardiac Output 5.4 Cardiac Index 3.0 Cardiac Index 3.3 Cardiac Index 3.0 Cardiac Index 3.3 Cardiac Index 3.1 Cardiac Index 3.3 Cardiac Index 3.3 Cardiac Index 2.9 Cardiac Index 3.1 Results CBC & Chem 7: 01/30/21 19:10 01/30/21 19:10 Labs: Abnormal Lab Results - Last 24 Hours (Table) 01/20/21 01/30/21 01/30/21 Range/Units 07:58 08:58 09:37 RBC (4.30-5.90) m/uL Hgb (13.0-17.5) gm/dL Hct (39.0-53.0) % Plt Count (150-450) k/uL Neutrophils # (1.3-7.7) k/uL Lymphocytes # (1.0-4.8) k/uL PT (9.0-12.0) sec INR (<1.2) APTT (22.0-30.0) sec ABG pH 7.49 H (7.35-7.45) ABG pCO2 (35-45) mmHg ABG pO2 >420 H >420 H (83-108) mmHg ABG HCO3 28 H 26 H (21-25) mmol/L ABG Total CO2 30 H 27 H (19-24) mmol/L ABG O2 Saturation 100.0 H 100.0 H (94-97) % ABG Hematocrit (34.0-46.0) % ABG Potassium (3.4-4.5) mmol/L ABG Ionized Calcium (4.5-5.3) mg/dL ABG Glucose 108 H (75-99) mg/dL ABG Lactic Acid 1.7 H (0.5-1.6) mmol/L Hemoglobin 12.1 L 11.0 L (13.0-17.5) gm/dL Chloride (98-107) mmol/L POC Glucose (mg/dL) (75-99) mg/dL Calcium (8.4-10.2) mg/dL Total Protein (6.3-8.2) g/dL Albumin (3.5-5.0) g/dL Arterial Blood Potassium (3.4-4.5) mmol/L Arterial Blood Glucose 108 H (75-99) mg/dL Crossmatch See Detail 01/30/21 01/30/21 01/30/21 Range/Units 10:04 10:42 11:06 RBC (4.30-5.90) m/uL Hgb (13.0-17.5) gm/dL Hct (39.0-53.0) % Plt Count (150-450) k/uL Neutrophils # (1.3-7.7) k/uL Lymphocytes # (1.0-4.8) k/uL PT (9.0-12.0) sec INR (<1.2) APTT (22.0-30.0) sec ABG pH (7.35-7.45) ABG pCO2 46 H (35-45) mmHg ABG pO2 414 H 308 H 287 H (83-108) mmHg ABG HCO3 26 H 27 H 28 H (21-25) mmol/L ABG Total CO2 27 H 28 H 29 H (19-24) mmol/L ABG O2 Saturation 100.0 H 100.0 H 100.0 H (94-97) % ABG Hematocrit 26 L 26 L 27 L (34.0-46.0) % ABG Potassium 4.9 H 4.7 H 4.8 H (3.4-4.5) mmol/L ABG Ionized Calcium 4.0 L 4.2 L 4.3 L (4.5-5.3) mg/dL ABG Glucose 110 H 116 H 118 H (75-99) mg/dL ABG Lactic Acid (0.5-1.6) mmol/L Hemoglobin 8.6 L 8.6 L 8.7 L (13.0-17.5) gm/dL Chloride (98-107) mmol/L POC Glucose (mg/dL) (75-99) mg/dL Calcium (8.4-10.2) mg/dL Total Protein (6.3-8.2) g/dL Albumin (3.5-5.0) g/dL Arterial Blood Potassium 4.9 H 4.7 H 4.8 H (3.4-4.5) mmol/L Arterial Blood Glucose 110 H 116 H 118 H (75-99) mg/dL Crossmatch 01/30/21 01/30/21 01/30/21 Range/Units 12:08 13:11 13:15 RBC 2.96 L (4.30-5.90) m/uL Hgb 9.2 L D (13.0-17.5) gm/dL Hct 26.8 L (39.0-53.0) % Plt Count 94 L D (150-450) k/uL Neutrophils # (1.3-7.7) k/uL Lymphocytes # (1.0-4.8) k/uL PT (9.0-12.0) sec INR (<1.2) APTT (22.0-30.0) sec ABG pH 7.47 H (7.35-7.45) ABG pCO2 (35-45) mmHg ABG pO2 >420 H (83-108) mmHg ABG HCO3 26 H (21-25) mmol/L ABG Total CO2 27 H (19-24) mmol/L ABG O2 Saturation 100.0 H (94-97) % ABG Hematocrit 31 L (34.0-46.0) % ABG Potassium (3.4-4.5) mmol/L ABG Ionized Calcium 3.9 L (4.5-5.3) mg/dL ABG Glucose 126 H (75-99) mg/dL ABG Lactic Acid 1.8 H (0.5-1.6) mmol/L Hemoglobin 10.1 L (13.0-17.5) gm/dL Chloride (98-107) mmol/L POC Glucose (mg/dL) 106 H (75-99) mg/dL Calcium (8.4-10.2) mg/dL Total Protein (6.3-8.2) g/dL Albumin (3.5-5.0) g/dL Arterial Blood Potassium (3.4-4.5) mmol/L Arterial Blood Glucose 126 H (75-99) mg/dL Crossmatch 01/30/21 01/30/21 01/30/21 Range/Units 13:15 13:15 13:41 RBC (4.30-5.90) m/uL Hgb (13.0-17.5) gm/dL Hct (39.0-53.0) % Plt Count (150-450) k/uL Neutrophils # (1.3-7.7) k/uL Lymphocytes # (1.0-4.8) k/uL PT 14.0 H (9.0-12.0) sec INR 1.4 H (<1.2) APTT 43.1 H (22.0-30.0) sec ABG pH (7.35-7.45) ABG pCO2 (35-45) mmHg ABG pO2 >400 H (83-108) mmHg ABG HCO3 26 H (21-25) mmol/L ABG Total CO2 28 H (19-24) mmol/L ABG O2 Saturation 99.4 H (94-97) % ABG Hematocrit (34.0-46.0) % ABG Potassium (3.4-4.5) mmol/L ABG Ionized Calcium (4.5-5.3) mg/dL ABG Glucose (75-99) mg/dL ABG Lactic Acid (0.5-1.6) mmol/L Hemoglobin (13.0-17.5) gm/dL Chloride 108 H (98-107) mmol/L POC Glucose (mg/dL) (75-99) mg/dL Calcium 8.1 L (8.4-10.2) mg/dL Total Protein 4.0 L (6.3-8.2) g/dL Albumin 2.3 L (3.5-5.0) g/dL Arterial Blood Potassium (3.4-4.5) mmol/L Arterial Blood Glucose (75-99) mg/dL Crossmatch 01/30/21 01/30/21 01/30/21 Range/Units 13:41 14:39 15:03 RBC (4.30-5.90) m/uL Hgb (13.0-17.5) gm/dL Hct (39.0-53.0) % Plt Count (150-450) k/uL Neutrophils # (1.3-7.7) k/uL Lymphocytes # (1.0-4.8) k/uL PT (9.0-12.0) sec INR (<1.2) APTT (22.0-30.0) sec ABG pH (7.35-7.45) ABG pCO2 (35-45) mmHg ABG pO2 (83-108) mmHg ABG HCO3 (21-25) mmol/L ABG Total CO2 (19-24) mmol/L ABG O2 Saturation (94-97) % ABG Hematocrit (34.0-46.0) % ABG Potassium (3.4-4.5) mmol/L ABG Ionized Calcium (4.5-5.3) mg/dL ABG Glucose (75-99) mg/dL ABG Lactic Acid (0.5-1.6) mmol/L Hemoglobin (13.0-17.5) gm/dL Chloride (98-107) mmol/L POC Glucose (mg/dL) 101 H 111 H 119 H (75-99) mg/dL Calcium (8.4-10.2) mg/dL Total Protein (6.3-8.2) g/dL Albumin (3.5-5.0) g/dL Arterial Blood Potassium (3.4-4.5) mmol/L Arterial Blood Glucose (75-99) mg/dL Crossmatch 01/30/21 01/30/21 01/30/21 Range/Units 16:04 16:15 17:01 RBC 3.58 L (4.30-5.90) m/uL Hgb 11.2 L (13.0-17.5) gm/dL Hct 32.2 L (39.0-53.0) % Plt Count 119 L (150-450) k/uL Neutrophils # 8.0 H (1.3-7.7) k/uL Lymphocytes # 0.8 L (1.0-4.8) k/uL PT (9.0-12.0) sec INR (<1.2) APTT (22.0-30.0) sec ABG pH (7.35-7.45) ABG pCO2 (35-45) mmHg ABG pO2 (83-108) mmHg ABG HCO3 (21-25) mmol/L ABG Total CO2 (19-24) mmol/L ABG O2 Saturation (94-97) % ABG Hematocrit (34.0-46.0) % ABG Potassium (3.4-4.5) mmol/L ABG Ionized Calcium (4.5-5.3) mg/dL ABG Glucose (75-99) mg/dL ABG Lactic Acid (0.5-1.6) mmol/L Hemoglobin (13.0-17.5) gm/dL Chloride (98-107) mmol/L POC Glucose (mg/dL) 146 H 152 H (75-99) mg/dL Calcium (8.4-10.2) mg/dL Total Protein (6.3-8.2) g/dL Albumin (3.5-5.0) g/dL Arterial Blood Potassium (3.4-4.5) mmol/L Arterial Blood Glucose (75-99) mg/dL Crossmatch 01/30/21 01/30/21 01/30/21 Range/Units 18:17 19:03 19:10 RBC 3.67 L (4.30-5.90) m/uL Hgb 11.5 L (13.0-17.5) gm/dL Hct 33.2 L (39.0-53.0) % Plt Count 97 L (150-450) k/uL Neutrophils # 7.8 H (1.3-7.7) k/uL Lymphocytes # 0.3 L (1.0-4.8) k/uL PT (9.0-12.0) sec INR (<1.2) APTT (22.0-30.0) sec ABG pH (7.35-7.45) ABG pCO2 (35-45) mmHg ABG pO2 (83-108) mmHg ABG HCO3 (21-25) mmol/L ABG Total CO2 (19-24) mmol/L ABG O2 Saturation (94-97) % ABG Hematocrit (34.0-46.0) % ABG Potassium (3.4-4.5) mmol/L ABG Ionized Calcium (4.5-5.3) mg/dL ABG Glucose (75-99) mg/dL ABG Lactic Acid (0.5-1.6) mmol/L Hemoglobin (13.0-17.5) gm/dL Chloride (98-107) mmol/L POC Glucose (mg/dL) 152 H 139 H (75-99) mg/dL Calcium (8.4-10.2) mg/dL Total Protein (6.3-8.2) g/dL Albumin (3.5-5.0) g/dL Arterial Blood Potassium (3.4-4.5) mmol/L Arterial Blood Glucose (75-99) mg/dL Crossmatch 01/30/21 01/30/21 01/30/21 Range/Units 20:00 20:24 21:07 RBC (4.30-5.90) m/uL Hgb (13.0-17.5) gm/dL Hct (39.0-53.0) % Plt Count (150-450) k/uL Neutrophils # (1.3-7.7) k/uL Lymphocytes # (1.0-4.8) k/uL PT (9.0-12.0) sec INR (<1.2) APTT (22.0-30.0) sec ABG pH (7.35-7.45) ABG pCO2 (35-45) mmHg ABG pO2 175 H (83-108) mmHg ABG HCO3 (21-25) mmol/L ABG Total CO2 26 H (19-24) mmol/L ABG O2 Saturation 99.5 H (94-97) % ABG Hematocrit (34.0-46.0) % ABG Potassium (3.4-4.5) mmol/L ABG Ionized Calcium (4.5-5.3) mg/dL ABG Glucose (75-99) mg/dL ABG Lactic Acid (0.5-1.6) mmol/L Hemoglobin (13.0-17.5) gm/dL Chloride (98-107) mmol/L POC Glucose (mg/dL) 126 H 105 H (75-99) mg/dL Calcium (8.4-10.2) mg/dL Total Protein (6.3-8.2) g/dL Albumin (3.5-5.0) g/dL Arterial Blood Potassium (3.4-4.5) mmol/L Arterial Blood Glucose (75-99) mg/dL Crossmatch
--- NOTE | 2021-01-30 22:09 | OP ---
OPERATIVE REPORT DATE OF THE OPERATION: 01/30/2021. ATTENDING SURGEON: Dr. Alex Ortiz. ASSISTANTS: Melody and Macey. POSTOP DIAGNOSIS: Severe eccentric mitral regurgitation and moderate aortic stenosis. POSTOPERATIVE: Torn chordate P2 of the posterior leaflet and moderate degenerative aortic stenosis. PROCEDURE: 1. Aortic valve replacement with a #21 mm mid Mckeon Inspira bioprosthetic aortic valve. 2. Complex mitral valve repair with a 30 mm Carbomedics annular flex band. 3. Quadrangular resection of P2 of the posterior leaflet. 4. Closure of P1 and P2 cleft posteriorly. 5. Ring annuloplasty. 6. Clip ligation of the left atrial appendage with a 35 mm AtriClip and intraoperative JOSE. ANESTHESIA: General. BLOOD LOSS: 500 mL. SUMMARY: Patient was brought to the operating room, placed supine position. From jew of a general endotracheal anesthetic, placement of a [place]-Willem catheter arterial line adequate IV access and a Fisher catheter, patient was carefully prepped and draped in normal sterile fashion using chlorhexidine paint and sterile towels. Midline incision in the chest made, sternum divided. Pericardium was opened. Heart size was mildly enlarged. The aorta was soft. The patient was heparinized to an ACT of greater than 480. The aorta and vena cava were cannulated with 2 single stage venous cannulas. Antegrade and retrograde cardioplegic catheters positioned in the ascending aorta and the coronary sinus. The patient was placed on bypass cross-clamp placed. Heart arrested with 1 L of antegrade followed by 500 mL of retrograde cardioplegia. Retrograde cardioplegia was delivered 3-500 mL at the end of each 20 minute interval. First the base of the left atrial appendage was measured. A 35 mm AtriClip was secured at the base officially obliterating the left atrial appendage. Next, the left atrium was entered at the junction of the right superior pulmonary vein in the interatrial groove. A handheld retractor was placed. The mitral valve was identified. There was definitely a torn cord right at the midportion of P2 of the posterior leaflet. A quadrangular to triangular type resection of the midportion of P2 was performed and the edges were reapproximated using interrupted 5-0 Prolene horizontal mattress followed by a 5-0 Prolene running suture. Next a cleft between P1 and P2 was closed with interrupted horizontal mattress 5-0 Prolene suture. It sized to a 30 mm Shippteromedics AnnuloFlex band. 2-0 Tycron non pledgeted sutures were placed from trigone to trigone along the posterior anulus. This was then passed through the band, which was seated and seated well. All sutures were then secured using the cor knot ligature system device. They tested with a handheld gillian and tested well. The left atrium was then closed in a double layered pledgeted 4 Prolene vertical mattress followed by an over- and over stitch from both sites. At this point, a transverse aortotomy incision was made 2 cm distal to the takeoff of the right coronary artery. Handheld retractors was placed. The aortic valve was a trileaflet and moderately calcified valve. All 3 leaflets were excised. The anulus debrided and it was irrigated copiously with 2 L of cold saline. It sized to a 21 mm Mckeon Inspira bioprosthetic aortic valve. 2-0 Tycron pledgeted sutures were placed ventricularly based circumferentially. These were then passed through the sewing cuff of the valve which was seated and seated well. All sutures were then secured, tied and cut using the cor knot ligature system device. At this point, it was irrigated again and the aortotomy incision was closed with 2 felt strips on the edges buttresses using a 4-0 Prolene vertical mattress followed by an over- and over stitch from both sides. At this point, the patient was placed head down complete de-airing maneuvers performed three times. 1 L of warm blood retrograde cardioplegia was run. Cross-clamp was then removed. The patient was de-aired some more than once beating normal sinus rhythm, he was brought. Came off bypass uneventfully with good hemodynamics. Protamine delivered. Patient decannulated. Atrial ventricular pacing wires were placed. Mediastinal chest tubes x2 were placed. At this point, the sternum was closed with 4 #6 sternal wires and 2 [id number] Dodge sternal cable closure devices. Skin clips to the subcutaneous tissue, fascia closed in 3 layers. No complications. Patient the procedure well. Postoperative JOSE showed excellent mitral valve function with no mitral regurgitation. Mild mitral stenosis and the aortic valve was well functioning, well seated with no perivalvular leak. MMODL / IJN: [id number] /
[2021-01-30 22:11] LABS: Glucose,Whole Blood 119 mg/dL (75-99)
[2021-01-30] MEDS: ONDANSETRON 4 MG/2 ML VIAL IVP PRN (22:18)
[2021-01-30 23:08] LABS: Glucose,Whole Blood 172 mg/dL (75-99)
[2021-01-31] MEDS: HEPARIN SODIUM,PORCINE/PF 5,000 UNIT/0.5 ML SYRINGE SQ SCH ×3 (00:04→15:51)
[2021-01-31] MEDS: ACETAMINOPHEN IV (For NPO) 1,000 MG in EMPTY BAG 1 BAG IVPB SCH (00:04)
[2021-01-31 00:10] LABS: Glucose,Whole Blood 166 mg/dL (75-99)
[2021-01-31] MEDS ORDERED: HYDROcodone/APAP 5-325MG 1 EACH TAB PO PRN (00:15)
[2021-01-31] MEDS: HYDROcodone/APAP 5-325MG 1 EACH TAB PO PRN ×4 (01:03→15:51)
[2021-01-31 01:05] LABS: Glucose,Whole Blood 161 mg/dL (75-99)
[2021-01-31 01:50] LABS: Glucose,Whole Blood 146 mg/dL (75-99)
[2021-01-31] MEDS: POTASSIUM CHLORIDE 10 MEQ in WATER FOR INJECTION 1 100ML.BAG IVPB SCH ×2 (02:50→04:22)
[2021-01-31 03:07] LABS: Glucose,Whole Blood 130 mg/dL (75-99)
[2021-01-31] MEDS: CLEVIDIPINE BUTYRATE 25 MG in EMPTY BAG 1 BAG IV SCH ×4 (03:16→10:28)
[2021-01-31 04:11] LABS: Glucose,Whole Blood 136 mg/dL (75-99)
[2021-01-31 04:31] LABS: Basophils % (A) 0 %; Eosinophils % (A) 0 %; HCT 35.9 % (39.0-53.0); HGB 12.5 gm/dL (13.0-17.5); Lymphocytes # (A) 0.3 k/uL (1.0-4.8); Lymphocytes % (A) 2 %; MCH 31.6 pg (25.0-35.0); MCHC 34.7 g/dL (31.0-37.0); MCV 91.1 fL (80.0-100.0); Mean Platelet Volume 7.6; Monocytes # (A) 0.7 k/uL (0-1.0); Monocytes % (A) 5 %; Neutrophils # (A) 13.5 k/uL (1.3-7.7); Neutrophils % (A) 92 %; Platelet Count 117 k/uL (150-450); RBC 3.95 m/uL (4.30-5.90); WBC 14.6 k/uL (3.8-10.6)
[2021-01-31 04:41] LABS: Ionized Calcium 4.9 mg/dL (4.5-5.3)
[2021-01-31 04:49] LABS: ALT 19 U/L (4-49); AST 74 U/L (17-59); African American GFR (CKD) >90 (>60 ml/min/1.73 sqM); Albumin 3.8 g/dL (3.5-5.0); Alkaline Phosphatase 46 U/L (38-126); Anion Gap 6 mmol/L; Blood Urea Nitrogen 12 mg/dL (9-20); Calcium 8.6 mg/dL (8.4-10.2); Carbon Dioxide 27 mmol/L (22-30); Chloride 103 mmol/L (98-107); Glucose 120 mg/dL (74-99); Magnesium 1.8 mg/dL (1.6-2.3); Non-African American GFR(CKD) >90 (>60 ml/min/1.73 sqM); Sodium 136 mmol/L (137-145); Total Bilirubin 0.6 mg/dL (0.2-1.3); Total Protein 5.8 g/dL (6.3-8.2)
[2021-01-31 05:27] LABS: Glucose,Whole Blood 120 mg/dL (75-99)
[2021-01-31 06:04] LABS: Glucose,Whole Blood 119 mg/dL (75-99)
--- NOTE | 2021-01-31 06:22 | P.PN ---
Subjective Progress Note Date: 01/31/21 Principal diagnosis: Status post aortic valve replacement. Pulmonary consult dated 01/30/2021. 70-year-old male, postop day #0, status post aortic valve replacement and mitral valve repair. The surgery was done by Dr. Ortiz. Currently, the patient's resting comfortably in the ICU. He is obviously still on the ventilator. He is getting lactated Ringer's at 50 mL an hour, Cleveprex at 4 mg an hour, and propofol at 25 mcg/kg/m. The patient's vent settings include the volume assist control, rate 12, tidal volume 500, FiO2 40%, and PEEP of 5. Blood gases show pO2 of greater than 400, a pCO2 38, and a pH is 7.45. The FiO2 was turned down to 40%. Currently, the patient is hemodynamically stable and a bit hypertensive. Hence, the Cleveprex. He initially came back from the operating room on IV nitroglycerin. The patient's home medications include only on losartan, and Tylenol. In addition, the patient has a history of mitral valve prolapse, mitral regurgitation, obstructive sleep apnea syndrome, and previous history of tobacco use. His cardiac catheterization revealed no significant a productive coronary disease, the patient had 3-4+ mitral regurgitation, and moderate aortic stenosis with a valve surface area of 1.32 cm. Progress note dated 01/31/2021. This is a 70-year-old male postop day #1, status post aortic valve replacement and mitral valve repair. The surgery was done by Dr. Ortiz. Currently, the patient's doing well. He was extubated fairly quickly. The patient is on 2 L nasal cannula. He's receiving lactated Ringer's at 50 mL an hour. He is on an insulin drip at 3.5 units per hour, and receiving Cleveprex for blood pressure control and 18 mg an hour. White count 14.6, hemoglobin 12.5, hematocrit 35.9, platelet count 117,000. Sodium 136, with a normal potassium, chloride, CO2, anion gap, BUN, and creatinine. Chest x-ray is currently pending. Objective - Vital Signs Vital signs: Vital Signs Temp 93.9 F L 01/30/21 13:15 Pulse 80 01/31/21 03:00 Resp 12 01/31/21 03:00 BP 143/73 01/31/21 03:00 Pulse Ox 98 01/31/21 03:00 Intake & Output 01/30/21 01/30/21 01/31/21 06:59 18:59 06:59 Intake Total 100 3246.964 5638.634 Output Total 2725 1510 Balance 100 -1657.035 -313.366 Weight 65.7 kg Intake: IV 100 967 979 ACETAMINOPHEN IV (For NPO 100 ) 1,000 mg In Empty Bag 1 bag @ 400 mls/hr IVPB Q6HR [facility] Rx#:[id number] Albumin Human 5% 250 ml 250 In Empty Bag 1 bag @ 250 mls/hr IVPB Q1HR PRN Rx#: [id number] CO/CI 160 100 Lactated Ringers 1,000 ml 300 480 @ 50 mls/hr IV .Q20H [facility] Rx#:[id number] Potassium Chloride 10 meq 200 In Water For Injection 1 100ml.bag @ 100 mls/hr IVPB Q1H [facility] Rx#: [id number] Pressure Bags 54 99 ceFAZolin 2 gm In Sodium 50 100 Chloride 0.9% 50 ml @ 100 mls/hr IVPB Q8H [facility] Rx#: [id number] Intake, IV Titration 100.965 117.634 Amount Clevidipine Butyrate 25 69.733 70.067 mg In Empty Bag 1 bag @ 1 MG/HR 2 mls/hr IV .Q24H [facility] Rx#:[id number] Dexmedetomidine/0.9% NaCl 11.471 12.484 (Pmx) 400 mcg In Empty Bag 1 bag @ Titrate IV . Q0M [facility] Rx#:[id number] Insulin Regular 100 unit 3.533 35.083 In Sodium Chloride 0.9% 100 ml @ Per Protocol IV .Q0M [facility] Rx#:[id number] propofoL 1,000 mg In 16.228 Empty Bag 1 bag @ Titrate IV .Q0M [facility] Rx#: [id number] Oral 100 Output: Chest Tube Drainage 250 225 Mediastinal 250 225 Urine 1475 1285 Estimated Blood Loss 1000 Other: Voiding Method Indwelling Catheter Indwelling Catheter ABP, PAP, CO, CI - Last Documented Arterial Blood Pressure 146/54 Pulmonary Artery Pressure 28/10 Cardiac Output 5.5 Cardiac Index 3.1 - Exam No acute distress, oriented 3. Currently on 2 L nasal cannula. HEENT examination is grossly unremarkable. Neck supple. Full range of motion. No adenopathy thyromegaly or neck vein distention. Cardiovascular examination reveals regular rhythm rate. S1-S2 normal. No S3 or S4. No discernible murmur noted. Heart rate 80 bpm. Heart sounds are distant. Lungs reveal mild scattered rhonchi. No wheezes or crackles. Breath sounds are diminished bilaterally. Breath sounds are equal bilaterally. Abdomen soft bowel sounds are heard. No masses or tenderness. Extremities are intact. No cyanosis clubbing or edema. Skin is without rash or lesion. Neurologic examination is brief but nonfocal. - Labs CBC & Chem 7: 01/31/21 04:05 01/31/21 04:05 Labs: Abnormal Lab Results - Last 24 Hours (Table) 01/20/21 01/30/21 01/30/21 Range/Units 07:58 08:58 09:37 WBC (3.8-10.6) k/uL RBC (4.30-5.90) m/uL Hgb (13.0-17.5) gm/dL Hct (39.0-53.0) % Plt Count (150-450) k/uL Neutrophils # (1.3-7.7) k/uL Lymphocytes # (1.0-4.8) k/uL PT (9.0-12.0) sec INR (<1.2) APTT (22.0-30.0) sec ABG pH 7.49 H (7.35-7.45) ABG pCO2 (35-45) mmHg ABG pO2 >420 H >420 H (83-108) mmHg ABG HCO3 28 H 26 H (21-25) mmol/L ABG Total CO2 30 H 27 H (19-24) mmol/L ABG O2 Saturation 100.0 H 100.0 H (94-97) % ABG Hematocrit (34.0-46.0) % ABG Potassium (3.4-4.5) mmol/L ABG Ionized Calcium (4.5-5.3) mg/dL ABG Glucose 108 H (75-99) mg/dL ABG Lactic Acid 1.7 H (0.5-1.6) mmol/L Hemoglobin 12.1 L 11.0 L (13.0-17.5) gm/dL Sodium (137-145) mmol/L Chloride (98-107) mmol/L Glucose (74-99) mg/dL POC Glucose (mg/dL) (75-99) mg/dL Calcium (8.4-10.2) mg/dL AST (17-59) U/L Total Protein (6.3-8.2) g/dL Albumin (3.5-5.0) g/dL Arterial Blood Potassium (3.4-4.5) mmol/L Arterial Blood Glucose 108 H (75-99) mg/dL Crossmatch See Detail 01/30/21 01/30/21 01/30/21 Range/Units 10:04 10:42 11:06 WBC (3.8-10.6) k/uL RBC (4.30-5.90) m/uL Hgb (13.0-17.5) gm/dL Hct (39.0-53.0) % Plt Count (150-450) k/uL Neutrophils # (1.3-7.7) k/uL Lymphocytes # (1.0-4.8) k/uL PT (9.0-12.0) sec INR (<1.2) APTT (22.0-30.0) sec ABG pH (7.35-7.45) ABG pCO2 46 H (35-45) mmHg ABG pO2 414 H 308 H 287 H (83-108) mmHg ABG HCO3 26 H 27 H 28 H (21-25) mmol/L ABG Total CO2 27 H 28 H 29 H (19-24) mmol/L ABG O2 Saturation 100.0 H 100.0 H 100.0 H (94-97) % ABG Hematocrit 26 L 26 L 27 L (34.0-46.0) % ABG Potassium 4.9 H 4.7 H 4.8 H (3.4-4.5) mmol/L ABG Ionized Calcium 4.0 L 4.2 L 4.3 L (4.5-5.3) mg/dL ABG Glucose 110 H 116 H 118 H (75-99) mg/dL ABG Lactic Acid (0.5-1.6) mmol/L Hemoglobin 8.6 L 8.6 L 8.7 L (13.0-17.5) gm/dL Sodium (137-145) mmol/L Chloride (98-107) mmol/L Glucose (74-99) mg/dL POC Glucose (mg/dL) (75-99) mg/dL Calcium (8.4-10.2) mg/dL AST (17-59) U/L Total Protein (6.3-8.2) g/dL Albumin (3.5-5.0) g/dL Arterial Blood Potassium 4.9 H 4.7 H 4.8 H (3.4-4.5) mmol/L Arterial Blood Glucose 110 H 116 H 118 H (75-99) mg/dL Crossmatch 01/30/21 01/30/21 01/30/21 Range/Units 12:08 13:11 13:15 WBC (3.8-10.6) k/uL RBC 2.96 L (4.30-5.90) m/uL Hgb 9.2 L D (13.0-17.5) gm/dL Hct 26.8 L (39.0-53.0) % Plt Count 94 L D (150-450) k/uL Neutrophils # (1.3-7.7) k/uL Lymphocytes # (1.0-4.8) k/uL PT (9.0-12.0) sec INR (<1.2) APTT (22.0-30.0) sec ABG pH 7.47 H (7.35-7.45) ABG pCO2 (35-45) mmHg ABG pO2 >420 H (83-108) mmHg ABG HCO3 26 H (21-25) mmol/L ABG Total CO2 27 H (19-24) mmol/L ABG O2 Saturation 100.0 H (94-97) % ABG Hematocrit 31 L (34.0-46.0) % ABG Potassium (3.4-4.5) mmol/L ABG Ionized Calcium 3.9 L (4.5-5.3) mg/dL ABG Glucose 126 H (75-99) mg/dL ABG Lactic Acid 1.8 H (0.5-1.6) mmol/L Hemoglobin 10.1 L (13.0-17.5) gm/dL Sodium (137-145) mmol/L Chloride (98-107) mmol/L Glucose (74-99) mg/dL POC Glucose (mg/dL) 106 H (75-99) mg/dL Calcium (8.4-10.2) mg/dL AST (17-59) U/L Total Protein (6.3-8.2) g/dL Albumin (3.5-5.0) g/dL Arterial Blood Potassium (3.4-4.5) mmol/L Arterial Blood Glucose 126 H (75-99) mg/dL Crossmatch 01/30/21 01/30/21 01/30/21 Range/Units 13:15 13:15 13:41 WBC (3.8-10.6) k/uL RBC (4.30-5.90) m/uL Hgb (13.0-17.5) gm/dL Hct (39.0-53.0) % Plt Count (150-450) k/uL Neutrophils # (1.3-7.7) k/uL Lymphocytes # (1.0-4.8) k/uL PT 14.0 H (9.0-12.0) sec INR 1.4 H (<1.2) APTT 43.1 H (22.0-30.0) sec ABG pH (7.35-7.45) ABG pCO2 (35-45) mmHg ABG pO2 >400 H (83-108) mmHg ABG HCO3 26 H (21-25) mmol/L ABG Total CO2 28 H (19-24) mmol/L ABG O2 Saturation 99.4 H (94-97) % ABG Hematocrit (34.0-46.0) % ABG Potassium (3.4-4.5) mmol/L ABG Ionized Calcium (4.5-5.3) mg/dL ABG Glucose (75-99) mg/dL ABG Lactic Acid (0.5-1.6) mmol/L Hemoglobin (13.0-17.5) gm/dL Sodium (137-145) mmol/L Chloride 108 H (98-107) mmol/L Glucose (74-99) mg/dL POC Glucose (mg/dL) (75-99) mg/dL Calcium 8.1 L (8.4-10.2) mg/dL AST (17-59) U/L Total Protein 4.0 L (6.3-8.2) g/dL Albumin 2.3 L (3.5-5.0) g/dL Arterial Blood Potassium (3.4-4.5) mmol/L Arterial Blood Glucose (75-99) mg/dL Crossmatch 01/30/21 01/30/21 01/30/21 Range/Units 13:41 14:39 15:03 WBC (3.8-10.6) k/uL RBC (4.30-5.90) m/uL Hgb (13.0-17.5) gm/dL Hct (39.0-53.0) % Plt Count (150-450) k/uL Neutrophils # (1.3-7.7) k/uL Lymphocytes # (1.0-4.8) k/uL PT (9.0-12.0) sec INR (<1.2) APTT (22.0-30.0) sec ABG pH (7.35-7.45) ABG pCO2 (35-45) mmHg ABG pO2 (83-108) mmHg ABG HCO3 (21-25) mmol/L ABG Total CO2 (19-24) mmol/L ABG O2 Saturation (94-97) % ABG Hematocrit (34.0-46.0) % ABG Potassium (3.4-4.5) mmol/L ABG Ionized Calcium (4.5-5.3) mg/dL ABG Glucose (75-99) mg/dL ABG Lactic Acid (0.5-1.6) mmol/L Hemoglobin (13.0-17.5) gm/dL Sodium (137-145) mmol/L Chloride (98-107) mmol/L Glucose (74-99) mg/dL POC Glucose (mg/dL) 101 H 111 H 119 H (75-99) mg/dL Calcium (8.4-10.2) mg/dL AST (17-59) U/L Total Protein (6.3-8.2) g/dL Albumin (3.5-5.0) g/dL Arterial Blood Potassium (3.4-4.5) mmol/L Arterial Blood Glucose (75-99) mg/dL Crossmatch 01/30/21 01/30/21 01/30/21 Range/Units 16:04 16:15 17:01 WBC (3.8-10.6) k/uL RBC 3.58 L (4.30-5.90) m/uL Hgb 11.2 L (13.0-17.5) gm/dL Hct 32.2 L (39.0-53.0) % Plt Count 119 L (150-450) k/uL Neutrophils # 8.0 H (1.3-7.7) k/uL Lymphocytes # 0.8 L (1.0-4.8) k/uL PT (9.0-12.0) sec INR (<1.2) APTT (22.0-30.0) sec ABG pH (7.35-7.45) ABG pCO2 (35-45) mmHg ABG pO2 (83-108) mmHg ABG HCO3 (21-25) mmol/L ABG Total CO2 (19-24) mmol/L ABG O2 Saturation (94-97) % ABG Hematocrit (34.0-46.0) % ABG Potassium (3.4-4.5) mmol/L ABG Ionized Calcium (4.5-5.3) mg/dL ABG Glucose (75-99) mg/dL ABG Lactic Acid (0.5-1.6) mmol/L Hemoglobin (13.0-17.5) gm/dL Sodium (137-145) mmol/L Chloride (98-107) mmol/L Glucose (74-99) mg/dL POC Glucose (mg/dL) 146 H 152 H (75-99) mg/dL Calcium (8.4-10.2) mg/dL AST (17-59) U/L Total Protein (6.3-8.2) g/dL Albumin (3.5-5.0) g/dL Arterial Blood Potassium (3.4-4.5) mmol/L Arterial Blood Glucose (75-99) mg/dL Crossmatch 01/30/21 01/30/21 01/30/21 Range/Units 18:17 19:03 19:10 WBC (3.8-10.6) k/uL RBC 3.67 L (4.30-5.90) m/uL Hgb 11.5 L (13.0-17.5) gm/dL Hct 33.2 L (39.0-53.0) % Plt Count 97 L (150-450) k/uL Neutrophils # 7.8 H (1.3-7.7) k/uL Lymphocytes # 0.3 L (1.0-4.8) k/uL PT (9.0-12.0) sec INR (<1.2) APTT (22.0-30.0) sec ABG pH (7.35-7.45) ABG pCO2 (35-45) mmHg ABG pO2 (83-108) mmHg ABG HCO3 (21-25) mmol/L ABG Total CO2 (19-24) mmol/L ABG O2 Saturation (94-97) % ABG Hematocrit (34.0-46.0) % ABG Potassium (3.4-4.5) mmol/L ABG Ionized Calcium (4.5-5.3) mg/dL ABG Glucose (75-99) mg/dL ABG Lactic Acid (0.5-1.6) mmol/L Hemoglobin (13.0-17.5) gm/dL Sodium (137-145) mmol/L Chloride (98-107) mmol/L Glucose (74-99) mg/dL POC Glucose (mg/dL) 152 H 139 H (75-99) mg/dL Calcium (8.4-10.2) mg/dL AST (17-59) U/L Total Protein (6.3-8.2) g/dL Albumin (3.5-5.0) g/dL Arterial Blood Potassium (3.4-4.5) mmol/L Arterial Blood Glucose (75-99) mg/dL Crossmatch 01/30/21 01/30/21 01/30/21 Range/Units 20:00 20:24 21:07 WBC (3.8-10.6) k/uL RBC (4.30-5.90) m/uL Hgb (13.0-17.5) gm/dL Hct (39.0-53.0) % Plt Count (150-450) k/uL Neutrophils # (1.3-7.7) k/uL Lymphocytes # (1.0-4.8) k/uL PT (9.0-12.0) sec INR (<1.2) APTT (22.0-30.0) sec ABG pH (7.35-7.45) ABG pCO2 (35-45) mmHg ABG pO2 175 H (83-108) mmHg ABG HCO3 (21-25) mmol/L ABG Total CO2 26 H (19-24) mmol/L ABG O2 Saturation 99.5 H (94-97) % ABG Hematocrit (34.0-46.0) % ABG Potassium (3.4-4.5) mmol/L ABG Ionized Calcium (4.5-5.3) mg/dL ABG Glucose (75-99) mg/dL ABG Lactic Acid (0.5-1.6) mmol/L Hemoglobin (13.0-17.5) gm/dL Sodium (137-145) mmol/L Chloride (98-107) mmol/L Glucose (74-99) mg/dL POC Glucose (mg/dL) 126 H 105 H (75-99) mg/dL Calcium (8.4-10.2) mg/dL AST (17-59) U/L Total Protein (6.3-8.2) g/dL Albumin (3.5-5.0) g/dL Arterial Blood Potassium (3.4-4.5) mmol/L Arterial Blood Glucose (75-99) mg/dL Crossmatch 01/30/21 01/30/21 01/31/21 Range/Units 22:10 23:07 00:08 WBC (3.8-10.6) k/uL RBC (4.30-5.90) m/uL Hgb (13.0-17.5) gm/dL Hct (39.0-53.0) % Plt Count (150-450) k/uL Neutrophils # (1.3-7.7) k/uL Lymphocytes # (1.0-4.8) k/uL PT (9.0-12.0) sec INR (<1.2) APTT (22.0-30.0) sec ABG pH (7.35-7.45) ABG pCO2 (35-45) mmHg ABG pO2 (83-108) mmHg ABG HCO3 (21-25) mmol/L ABG Total CO2 (19-24) mmol/L ABG O2 Saturation (94-97) % ABG Hematocrit (34.0-46.0) % ABG Potassium (3.4-4.5) mmol/L ABG Ionized Calcium (4.5-5.3) mg/dL ABG Glucose (75-99) mg/dL ABG Lactic Acid (0.5-1.6) mmol/L Hemoglobin (13.0-17.5) gm/dL Sodium (137-145) mmol/L Chloride (98-107) mmol/L Glucose (74-99) mg/dL POC Glucose (mg/dL) 119 H 172 H 166 H (75-99) mg/dL Calcium (8.4-10.2) mg/dL AST (17-59) U/L Total Protein (6.3-8.2) g/dL Albumin (3.5-5.0) g/dL Arterial Blood Potassium (3.4-4.5) mmol/L Arterial Blood Glucose (75-99) mg/dL Crossmatch 01/31/21 01/31/21 01/31/21 Range/Units 01:04 01:48 03:06 WBC (3.8-10.6) k/uL RBC (4.30-5.90) m/uL Hgb (13.0-17.5) gm/dL Hct (39.0-53.0) % Plt Count (150-450) k/uL Neutrophils # (1.3-7.7) k/uL Lymphocytes # (1.0-4.8) k/uL PT (9.0-12.0) sec INR (<1.2) APTT (22.0-30.0) sec ABG pH (7.35-7.45) ABG pCO2 (35-45) mmHg ABG pO2 (83-108) mmHg ABG HCO3 (21-25) mmol/L ABG Total CO2 (19-24) mmol/L ABG O2 Saturation (94-97) % ABG Hematocrit (34.0-46.0) % ABG Potassium (3.4-4.5) mmol/L ABG Ionized Calcium (4.5-5.3) mg/dL ABG Glucose (75-99) mg/dL ABG Lactic Acid (0.5-1.6) mmol/L Hemoglobin (13.0-17.5) gm/dL Sodium (137-145) mmol/L Chloride (98-107) mmol/L Glucose (74-99) mg/dL POC Glucose (mg/dL) 161 H 146 H 130 H (75-99) mg/dL Calcium (8.4-10.2) mg/dL AST (17-59) U/L Total Protein (6.3-8.2) g/dL Albumin (3.5-5.0) g/dL Arterial Blood Potassium (3.4-4.5) mmol/L Arterial Blood Glucose (75-99) mg/dL Crossmatch 01/31/21 01/31/21 01/31/21 Range/Units 04:05 04:05 04:09 WBC 14.6 H (3.8-10.6) k/uL RBC 3.95 L (4.30-5.90) m/uL Hgb 12.5 L (13.0-17.5) gm/dL Hct 35.9 L (39.0-53.0) % Plt Count 117 L (150-450) k/uL Neutrophils # 13.5 H (1.3-7.7) k/uL Lymphocytes # 0.3 L (1.0-4.8) k/uL PT (9.0-12.0) sec INR (<1.2) APTT (22.0-30.0) sec ABG pH (7.35-7.45) ABG pCO2 (35-45) mmHg ABG pO2 (83-108) mmHg ABG HCO3 (21-25) mmol/L ABG Total CO2 (19-24) mmol/L ABG O2 Saturation (94-97) % ABG Hematocrit (34.0-46.0) % ABG Potassium (3.4-4.5) mmol/L ABG Ionized Calcium (4.5-5.3) mg/dL ABG Glucose (75-99) mg/dL ABG Lactic Acid (0.5-1.6) mmol/L Hemoglobin (13.0-17.5) gm/dL Sodium 136 L (137-145) mmol/L Chloride (98-107) mmol/L Glucose 120 H (74-99) mg/dL POC Glucose (mg/dL) 136 H (75-99) mg/dL Calcium (8.4-10.2) mg/dL AST 74 H (17-59) U/L Total Protein 5.8 L (6.3-8.2) g/dL Albumin (3.5-5.0) g/dL Arterial Blood Potassium (3.4-4.5) mmol/L Arterial Blood Glucose (75-99) mg/dL Crossmatch 01/31/21 01/31/21 Range/Units 05:26 06:04 WBC (3.8-10.6) k/uL RBC (4.30-5.90) m/uL Hgb (13.0-17.5) gm/dL Hct (39.0-53.0) % Plt Count (150-450) k/uL Neutrophils # (1.3-7.7) k/uL Lymphocytes # (1.0-4.8) k/uL PT (9.0-12.0) sec INR (<1.2) APTT (22.0-30.0) sec ABG pH (7.35-7.45) ABG pCO2 (35-45) mmHg ABG pO2 (83-108) mmHg ABG HCO3 (21-25) mmol/L ABG Total CO2 (19-24) mmol/L ABG O2 Saturation (94-97) % ABG Hematocrit (34.0-46.0) % ABG Potassium (3.4-4.5) mmol/L ABG Ionized Calcium (4.5-5.3) mg/dL ABG Glucose (75-99) mg/dL ABG Lactic Acid (0.5-1.6) mmol/L Hemoglobin (13.0-17.5) gm/dL Sodium (137-145) mmol/L Chloride (98-107) mmol/L Glucose (74-99) mg/dL POC Glucose (mg/dL) 120 H 119 H (75-99) mg/dL Calcium (8.4-10.2) mg/dL AST (17-59) U/L Total Protein (6.3-8.2) g/dL Albumin (3.5-5.0) g/dL Arterial Blood Potassium (3.4-4.5) mmol/L Arterial Blood Glucose (75-99) mg/dL Crossmatch Assessment and Plan Assessment: Postop day #1, status post mitral valve repair and aortic valve replacement. Routine postoperative ventilator management, status post extubation on 01/30/2021. History of sleep apnea syndrome. History of myxomatous mitral valve prolapse and mitral regurgitation. History of moderate aortic stenosis. History of prior tobacco dependence. Plan: Plan dated 01/30/2021. The patient's initial oxygenation was excellent. His blood gases showed a pO2 greater than 400, PaCO2 38, and a pH is 7.448. The patient is currently on Cl eveprex for blood pressure control. The patient should be able to be weaned and extubated rapidly. Additional recommendations and suggestions are forthcoming. We will continue to follow make recommendations along the way. Plan dated 01/31/2021. The patient was extubated without difficulty. The patient's currently on 2 L nasal cannula. He remains on an insulin drip at 3.5 units an hour and Cleveprex at 18 mg an hour. The patient's receiving lactated Ringer's at 50 mL an hour. X-rays, labs and medications are all reviewed. Prognosis remains guarded. We will continue to follow this patient and make recommendations were appropriate. We do encourage deep breathing, coughing, and clearing of secretions, as well as hourly use of the incentive spirometer. Time with Patient: Less than 30
[2021-01-31] MEDS: KETOROLAC 15 MG/ML 1 ML VIAL IVP SCH ×3 (06:41→18:34)
[2021-01-31 07:11] LABS: Glucose,Whole Blood 115 mg/dL (75-99)
[2021-01-31] MEDS: IPRATROPIUM-ALBUTEROL 3 ML NEB INHALATION SCH ×4 (08:04→20:53)
[2021-01-31 08:15] LABS: Glucose,Whole Blood 115 mg/dL (75-99)
--- NOTE | 2021-01-31 08:17 | XR ---
EXAMINATION TYPE: XR chest 1V portable DATE OF EXAM: 01/31/2021 COMPARISON: 01/30/2021 HISTORY: Postop TECHNIQUE: Single frontal view of the chest is obtained. FINDINGS: Epicardial lead, mediastinal tube and [place]-Willem catheter are noted. Coarsened interstitium with no sizable pneumothorax. Linear changes involving the lungs most typical of atelectasis. Heart size normal. Air along the soft tissues of the neck compatible soft tissue emphysema and suspected sm all amount of pneumomediastinum. ET and NG tube have been IMPRESSION: 1. Bibasilar atelectasis favored over infiltrate correlate clinically.
[2021-01-31] MEDS: MAGNESIUM SULFATE-D5W PMX 1 GM in DEXTROSE/WATER 1 100ML.BAG IVPB SCH ×2 (08:24→09:51)
[2021-01-31] MEDS: ATORVASTATIN 40 MG TAB PO SCH (08:25)
[2021-01-31] MEDS: ASPIRIN 325 MG TAB PO SCH (08:25)
[2021-01-31] MEDS: LACTATED RINGERS 1,000 ML IV SCH ×2 (08:25→22:39)
[2021-01-31] MEDS: CHLORHEXIDINE GLUCONATE 15 ML CUP MUCOUS MEM SCH (08:25)
[2021-01-31] MEDS: CLOPIDOGREL 75 MG TAB PO SCH (08:25)
[2021-01-31] MEDS: METOPROLOL TARTRATE 25 MG TAB PO SCH ×2 (08:26→21:39)
[2021-01-31] MEDS: ONDANSETRON 4 MG/2 ML VIAL IVP PRN (08:30)
[2021-01-31] MEDS: MAGNESIUM HYDROXIDE 2,400 MG/10 ML CUP PO PRN (08:30)
[2021-01-31] MEDS ORDERED: PANTOPRAZOLE 40 MG/10 ML VIAL IVP SCH (09:00)
[2021-01-31] MEDS ORDERED: METOPROLOL TARTRATE 12.5 MG TAB PO SCH (09:00)
[2021-01-31 09:29] LABS: Glucose,Whole Blood 144 mg/dL (75-99)
[2021-01-31 09:43] VITALS: BMI 25.3
--- NOTE | 2021-01-31 09:47 | P.PN ---
Subjective Progress Note Date: 01/31/21 Principal diagnosis: Moderate degenerative aortic stenosis, severe eccentric mitral regurgitation with torn chordae P2 of the posterior leaflet. History of hypertension, objective sleep apnea without CPAP use, previous tobacco dependence, significant short-term memory loss. Patient did Covid vaccine. POD #1 aortic valve replacement with a #21 mm Mckeon Inspiris bioprosthetic aortic valve, complex mitral valve repair with a 30 mm CarboMedics AnnuloFlex band, quadrangular resection of P2 of the posterior leaflet, closure of PEEP 1 and P2 cleft posteriorly, ring annuloplasty, clip ligation of the left atrial appendage with a 35 mm AtriClip and intraoperative transesophageal echocardiogram Postoperative acute blood loss anemia and thrombocytopenia, expected outcomes di lution and cardiopulmonary bypass pump The patient is currently sitting up in a recliner in the intensive care unit in no acute distress. He was successfully extubated last night at 20:49. Currentl y in normal sinus rhythm, hemodynamically stable although a little hypertensive likely pain related, on IV Cleviprex. He does complain of postoperative pain and difficulty taking a deep breath. He is oxygenating well on room air and able to achieve 1500 mL on his incentive spirometry. He had a relatively uneventful night. Mediastinal chest tube, right internal jugular [place]/Cordis, left radial arterial line all present. No other new concerns. Objective - Vital Signs Vital signs: Vital Signs Temp 93.9 F L 01/30/21 13:15 Pulse 87 01/31/21 08:12 Resp 9 L 01/31/21 08:00 BP 126/66 01/31/21 07:00 Pulse Ox 96 01/31/21 08:00 Intake & Output 01/30/21 01/31/21 01/31/21 18:59 06:59 18:59 Intake Total 6371.651 2482.634 259.391 Output Total 2725 1635 160 Balance -1657.035 -139.366 99.391 Weight 71.3 kg Intake: IV 967 1128 158 ACETAMINOPHEN IV (For NPO 100 ) 1,000 mg In Empty Bag 1 bag @ 400 mls/hr IVPB Q6HR GISELLA Rx#:[id number] Albumin Human 5% 250 ml 250 In Empty Bag 1 bag @ 250 mls/hr IVPB Q1HR PRN Rx#: [id number] CO/CI 160 100 40 Lactated Ringers 1,000 ml 300 520 100 @ 20 mls/hr IV .Q24H GISELLA Rx#:[id number] Potassium Chloride 10 meq 300 In Water For Injection 1 100ml.bag @ 100 mls/hr IVPB Q1H GISELLA Rx#: [id number] Pressure Bags 54 108 18 ceFAZolin 2 gm In Sodium 50 100 Chloride 0.9% 50 ml @ 100 mls/hr IVPB Q8H GISELLA Rx#: [id number] Intake, IV Titration 100.965 167.634 101.391 Amount Clevidipine Butyrate 25 69.733 120.067 90.133 mg In Empty Bag 1 bag @ 1 MG/HR 2 mls/hr IV .Q24H GISELLA Rx#:[id number] Dexmedetomidine/0.9% NaCl 11.471 12.484 (Pmx) 400 mcg In Empty Bag 1 bag @ Titrate IV . Q0M GISELLA Rx#:[id number] Insulin Regular 100 unit 3.533 35.083 11.258 In Sodium Chloride 0.9% 100 ml @ Per Protocol IV .Q0M GISELLA Rx#:[id number] propofoL 1,000 mg In 16.228 Empty Bag 1 bag @ Titrate IV .Q0M GISELLA Rx#: [id number] Oral 200 Output: Chest Tube Drainage 250 275 70 Mediastinal 250 275 70 Urine 1475 1360 90 Estimated Blood Loss 1000 Other: Voiding Method Indwelling Catheter Indwelling Catheter ABP, PAP, CO, CI - Last Documented Arterial Blood Pressure 152/52 Pulmonary Artery Pressure 29/12 Cardiac Output 6.3 Cardiac Index 3.5 - Exam CONSTITUTIONAL: Appears comfortable, cooperative, no acute distress RESPIRATORY: Lungs sounds diminished bilaterally. Respirations even, nonlabored. Currently on room air with oxygen saturation 100%. Able to achieve 1500 mL on incentive spirometry. Strong cough. CARDIOVASCULAR: S1, S2 present. Regular rate and rhythm, sinus rhythm on telemetry. Sternum stable. Palpable peripheral pulses bilaterally. No edema present. No calf pain or tenderness noted. Heart hugger in place with patient demonstrating appropriate use. Antiembolism stockings, SCDs present. GASTROINTESTINAL: Abdomen soft, nontender, nondistended. Active bowel sounds present 4 quadrants. Tolerating minimal clear liquids. Negative flatus GENITOURINARY: Fisher present draining clear, yellow urine. Output overnight 80-150 mL per hour INTEGUMENTARY: Skin is warm and dry with evidence of good perfusion. Anterior chest incision well approximated and covered with dry intact dressing. EVH site well approximated without redness or drainage. NEUROLOGIC: Cranial nerves II through XII intact MUSKULOSKELETAL: Able to move all extremities, strength equal bilaterally, gait normal PSYCHIATRIC: Alert and oriented to person place and time, appropriate affect, intact judgment and insight INVASIVE LINES AND TUBES: Mediastinal chest tube present and connected to wall suction, no air leaks present, 184 mL serosanguineous drainage overnight, 550 mL since surgery. A/V epicardial pacemaker wires present, connected to generator, AAI mode with backup rate 50 bpm. Right internal jugular [place]/Cordis, left radial arterial line present. Last CO/CI 5.5/3.1, PA , CVP 7. - Labs CBC & Chem 7: 01/31/21 04:05 01/31/21 04:05 Labs: Abnormal Lab Results - Last 24 Hours (Table) 01/20/21 01/30/21 01/30/21 Range/Units 07:58 08:58 09:37 WBC (3.8-10.6) k/uL RBC (4.30-5.90) m/uL Hgb (13.0-17.5) gm/dL Hct (39.0-53.0) % Plt Count (150-450) k/uL Neutrophils # (1.3-7.7) k/uL Lymphocytes # (1.0-4.8) k/uL PT (9.0-12.0) sec INR (<1.2) APTT (22.0-30.0) sec ABG pH 7.49 H (7.35-7.45) ABG pCO2 (35-45) mmHg ABG pO2 >420 H >420 H (83-108) mmHg ABG HCO3 28 H 26 H (21-25) mmol/L ABG Total CO2 30 H 27 H (19-24) mmol/L ABG O2 Saturation 100.0 H 100.0 H (94-97) % ABG Hematocrit (34.0-46.0) % ABG Potassium (3.4-4.5) mmol/L ABG Ionized Calcium (4.5-5.3) mg/dL ABG Glucose 108 H (75-99) mg/dL ABG Lactic Acid 1.7 H (0.5-1.6) mmol/L Hemoglobin 12.1 L 11.0 L (13.0-17.5) gm/dL Sodium (137-145) mmol/L Chloride (98-107) mmol/L Glucose (74-99) mg/dL POC Glucose (mg/dL) (75-99) mg/dL Calcium (8.4-10.2) mg/dL AST (17-59) U/L Total Protein (6.3-8.2) g/dL Albumin (3.5-5.0) g/dL Arterial Blood Potassium (3.4-4.5) mmol/L Arterial Blood Glucose 108 H (75-99) mg/dL Crossmatch See Detail 01/30/21 01/30/21 01/30/21 Range/Units 10:04 10:42 11:06 WBC (3.8-10.6) k/uL RBC (4.30-5.90) m/uL Hgb (13.0-17.5) gm/dL Hct (39.0-53.0) % Plt Count (150-450) k/uL Neutrophils # (1.3-7.7) k/uL Lymphocytes # (1.0-4.8) k/uL PT (9.0-12.0) sec INR (<1.2) APTT (22.0-30.0) sec ABG pH (7.35-7.45) ABG pCO2 46 H (35-45) mmHg ABG pO2 414 H 308 H 287 H (83-108) mmHg ABG HCO3 26 H 27 H 28 H (21-25) mmol/L ABG Total CO2 27 H 28 H 29 H (19-24) mmol/L ABG O2 Saturation 100.0 H 100.0 H 100.0 H (94-97) % ABG Hematocrit 26 L 26 L 27 L (34.0-46.0) % ABG Potassium 4.9 H 4.7 H 4.8 H (3.4-4.5) mmol/L ABG Ionized Calcium 4.0 L 4.2 L 4.3 L (4.5-5.3) mg/dL ABG Glucose 110 H 116 H 118 H (75-99) mg/dL ABG Lactic Acid (0.5-1.6) mmol/L Hemoglobin 8.6 L 8.6 L 8.7 L (13.0-17.5) gm/dL Sodium (137-145) mmol/L Chloride (98-107) mmol/L Glucose (74-99) mg/dL POC Glucose (mg/dL) (75-99) mg/dL Calcium (8.4-10.2) mg/dL AST (17-59) U/L Total Protein (6.3-8.2) g/dL Albumin (3.5-5.0) g/dL Arterial Blood Potassium 4.9 H 4.7 H 4.8 H (3.4-4.5) mmol/L Arterial Blood Glucose 110 H 116 H 118 H (75-99) mg/dL Crossmatch 01/30/21 01/30/21 01/30/21 Range/Units 12:08 13:11 13:15 WBC (3.8-10.6) k/uL RBC 2.96 L (4.30-5.90) m/uL Hgb 9.2 L D (13.0-17.5) gm/dL Hct 26.8 L (39.0-53.0) % Plt Count 94 L D (150-450) k/uL Neutrophils # (1.3-7.7) k/uL Lymphocytes # (1.0-4.8) k/uL PT (9.0-12.0) sec INR (<1.2) APTT (22.0-30.0) sec ABG pH 7.47 H (7.35-7.45) ABG pCO2 (35-45) mmHg ABG pO2 >420 H (83-108) mmHg ABG HCO3 26 H (21-25) mmol/L ABG Total CO2 27 H (19-24) mmol/L ABG O2 Saturation 100.0 H (94-97) % ABG Hematocrit 31 L (34.0-46.0) % ABG Potassium (3.4-4.5) mmol/L ABG Ionized Calcium 3.9 L (4.5-5.3) mg/dL ABG Glucose 126 H (75-99) mg/dL ABG Lactic Acid 1.8 H (0.5-1.6) mmol/L Hemoglobin 10.1 L (13.0-17.5) gm/dL Sodium (137-145) mmol/L Chloride (98-107) mmol/L Glucose (74-99) mg/dL POC Glucose (mg/dL) 106 H (75-99) mg/dL Calcium (8.4-10.2) mg/dL AST (17-59) U/L Total Protein (6.3-8.2) g/dL Albumin (3.5-5.0) g/dL Arterial Blood Potassium (3.4-4.5) mmol/L Arterial Blood Glucose 126 H (75-99) mg/dL Crossmatch 01/30/21 01/30/21 01/30/21 Range/Units 13:15 13:15 13:41 WBC (3.8-10.6) k/uL RBC (4.30-5.90) m/uL Hgb (13.0-17.5) gm/dL Hct (39.0-53.0) % Plt Count (150-450) k/uL Neutrophils # (1.3-7.7) k/uL Lymphocytes # (1.0-4.8) k/uL PT 14.0 H (9.0-12.0) sec INR 1.4 H (<1.2) APTT 43.1 H (22.0-30.0) sec ABG pH (7.35-7.45) ABG pCO2 (35-45) mmHg ABG pO2 >400 H (83-108) mmHg ABG HCO3 26 H (21-25) mmol/L ABG Total CO2 28 H (19-24) mmol/L ABG O2 Saturation 99.4 H (94-97) % ABG Hematocrit (34.0-46.0) % ABG Potassium (3.4-4.5) mmol/L ABG Ionized Calcium (4.5-5.3) mg/dL ABG Glucose (75-99) mg/dL ABG Lactic Acid (0.5-1.6) mmol/L Hemoglobin (13.0-17.5) gm/dL Sodium (137-145) mmol/L Chloride 108 H (98-107) mmol/L Glucose (74-99) mg/dL POC Glucose (mg/dL) (75-99) mg/dL Calcium 8.1 L (8.4-10.2) mg/dL AST (17-59) U/L Total Protein 4.0 L (6.3-8.2) g/dL Albumin 2.3 L (3.5-5.0) g/dL Arterial Blood Potassium (3.4-4.5) mmol/L Arterial Blood Glucose (75-99) mg/dL Crossmatch 01/30/21 01/30/21 01/30/21 Range/Units 13:41 14:39 15:03 WBC (3.8-10.6) k/uL RBC (4.30-5.90) m/uL Hgb (13.0-17.5) gm/dL Hct (39.0-53.0) % Plt Count (150-450) k/uL Neutrophils # (1.3-7.7) k/uL Lymphocytes # (1.0-4.8) k/uL PT (9.0-12.0) sec INR (<1.2) APTT (22.0-30.0) sec ABG pH (7.35-7.45) ABG pCO2 (35-45) mmHg ABG pO2 (83-108) mmHg ABG HCO3 (21-25) mmol/L ABG Total CO2 (19-24) mmol/L ABG O2 Saturation (94-97) % ABG Hematocrit (34.0-46.0) % ABG Potassium (3.4-4.5) mmol/L ABG Ionized Calcium (4.5-5.3) mg/dL ABG Glucose (75-99) mg/dL ABG Lactic Acid (0.5-1.6) mmol/L Hemoglobin (13.0-17.5) gm/dL Sodium (137-145) mmol/L Chloride (98-107) mmol/L Glucose (74-99) mg/dL POC Glucose (mg/dL) 101 H 111 H 119 H (75-99) mg/dL Calcium (8.4-10.2) mg/dL AST (17-59) U/L Total Protein (6.3-8.2) g/dL Albumin (3.5-5.0) g/dL Arterial Blood Potassium (3.4-4.5) mmol/L Arterial Blood Glucose (75-99) mg/dL Crossmatch 01/30/21 01/30/21 01/30/21 Range/Units 16:04 16:15 17:01 WBC (3.8-10.6) k/uL RBC 3.58 L (4.30-5.90) m/uL Hgb 11.2 L (13.0-17.5) gm/dL Hct 32.2 L (39.0-53.0) % Plt Count 119 L (150-450) k/uL Neutrophils # 8.0 H (1.3-7.7) k/uL Lymphocytes # 0.8 L (1.0-4.8) k/uL PT (9.0-12.0) sec INR (<1.2) APTT (22.0-30.0) sec ABG pH (7.35-7.45) ABG pCO2 (35-45) mmHg ABG pO2 (83-108) mmHg ABG HCO3 (21-25) mmol/L ABG Total CO2 (19-24) mmol/L ABG O2 Saturation (94-97) % ABG Hematocrit (34.0-46.0) % ABG Potassium (3.4-4.5) mmol/L ABG Ionized Calcium (4.5-5.3) mg/dL ABG Glucose (75-99) mg/dL ABG Lactic Acid (0.5-1.6) mmol/L Hemoglobin (13.0-17.5) gm/dL Sodium (137-145) mmol/L Chloride (98-107) mmol/L Glucose (74-99) mg/dL POC Glucose (mg/dL) 146 H 152 H (75-99) mg/dL Calcium (8.4-10.2) mg/dL AST (17-59) U/L Total Protein (6.3-8.2) g/dL Albumin (3.5-5.0) g/dL Arterial Blood Potassium (3.4-4.5) mmol/L Arterial Blood Glucose (75-99) mg/dL Crossmatch 01/30/21 01/30/21 01/30/21 Range/Units 18:17 19:03 19:10 WBC (3.8-10.6) k/uL RBC 3.67 L (4.30-5.90) m/uL Hgb 11.5 L (13.0-17.5) gm/dL Hct 33.2 L (39.0-53.0) % Plt Count 97 L (150-450) k/uL Neutrophils # 7.8 H (1.3-7.7) k/uL Lymphocytes # 0.3 L (1.0-4.8) k/uL PT (9.0-12.0) sec INR (<1.2) APTT (22.0-30.0) sec ABG pH (7.35-7.45) ABG pCO2 (35-45) mmHg ABG pO2 (83-108) mmHg ABG HCO3 (21-25) mmol/L ABG Total CO2 (19-24) mmol/L ABG O2 Saturation (94-97) % ABG Hematocrit (34.0-46.0) % ABG Potassium (3.4-4.5) mmol/L ABG Ionized Calcium (4.5-5.3) mg/dL ABG Glucose (75-99) mg/dL ABG Lactic Acid (0.5-1.6) mmol/L Hemoglobin (13.0-17.5) gm/dL Sodium (137-145) mmol/L Chloride (98-107) mmol/L Glucose (74-99) mg/dL POC Glucose (mg/dL) 152 H 139 H (75-99) mg/dL Calcium (8.4-10.2) mg/dL AST (17-59) U/L Total Protein (6.3-8.2) g/dL Albumin (3.5-5.0) g/dL Arterial Blood Potassium (3.4-4.5) mmol/L Arterial Blood Glucose (75-99) mg/dL Crossmatch 01/30/21 01/30/21 01/30/21 Range/Units 20:00 20:24 21:07 WBC (3.8-10.6) k/uL RBC (4.30-5.90) m/uL Hgb (13.0-17.5) gm/dL Hct (39.0-53.0) % Plt Count (150-450) k/uL Neutrophils # (1.3-7.7) k/uL Lymphocytes # (1.0-4.8) k/uL PT (9.0-12.0) sec INR (<1.2) APTT (22.0-30.0) sec ABG pH (7.35-7.45) ABG pCO2 (35-45) mmHg ABG pO2 175 H (83-108) mmHg ABG HCO3 (21-25) mmol/L ABG Total CO2 26 H (19-24) mmol/L ABG O2 Saturation 99.5 H (94-97) % ABG Hematocrit (34.0-46.0) % ABG Potassium (3.4-4.5) mmol/L ABG Ionized Calcium (4.5-5.3) mg/dL ABG Glucose (75-99) mg/dL ABG Lactic Acid (0.5-1.6) mmol/L Hemoglobin (13.0-17.5) gm/dL Sodium (137-145) mmol/L Chloride (98-107) mmol/L Glucose (74-99) mg/dL POC Glucose (mg/dL) 126 H 105 H (75-99) mg/dL Calcium (8.4-10.2) mg/dL AST (17-59) U/L Total Protein (6.3-8.2) g/dL Albumin (3.5-5.0) g/dL Arterial Blood Potassium (3.4-4.5) mmol/L Arterial Blood Glucose (75-99) mg/dL Crossmatch 01/30/21 01/30/21 01/31/21 Range/Units 22:10 23:07 00:08 WBC (3.8-10.6) k/uL RBC (4.30-5.90) m/uL Hgb (13.0-17.5) gm/dL Hct (39.0-53.0) % Plt Count (150-450) k/uL Neutrophils # (1.3-7.7) k/uL Lymphocytes # (1.0-4.8) k/uL PT (9.0-12.0) sec INR (<1.2) APTT (22.0-30.0) sec ABG pH (7.35-7.45) ABG pCO2 (35-45) mmHg ABG pO2 (83-108) mmHg ABG HCO3 (21-25) mmol/L ABG Total CO2 (19-24) mmol/L ABG O2 Saturation (94-97) % ABG Hematocrit (34.0-46.0) % ABG Potassium (3.4-4.5) mmol/L ABG Ionized Calcium (4.5-5.3) mg/dL ABG Glucose (75-99) mg/dL ABG Lactic Acid (0.5-1.6) mmol/L Hemoglobin (13.0-17.5) gm/dL Sodium (137-145) mmol/L Chloride (98-107) mmol/L Glucose (74-99) mg/dL POC Glucose (mg/dL) 119 H 172 H 166 H (75-99) mg/dL Calcium (8.4-10.2) mg/dL AST (17-59) U/L Total Protein (6.3-8.2) g/dL Albumin (3.5-5.0) g/dL Arterial Blood Potassium (3.4-4.5) mmol/L Arterial Blood Glucose (75-99) mg/dL Crossmatch 01/31/21 01/31/21 01/31/21 Range/Units 01:04 01:48 03:06 WBC (3.8-10.6) k/uL RBC (4.30-5.90) m/uL Hgb (13.0-17.5) gm/dL Hct (39.0-53.0) % Plt Count (150-450) k/uL Neutrophils # (1.3-7.7) k/uL Lymphocytes # (1.0-4.8) k/uL PT (9.0-12.0) sec INR (<1.2) APTT (22.0-30.0) sec ABG pH (7.35-7.45) ABG pCO2 (35-45) mmHg ABG pO2 (83-108) mmHg ABG HCO3 (21-25) mmol/L ABG Total CO2 (19-24) mmol/L ABG O2 Saturation (94-97) % ABG Hematocrit (34.0-46.0) % ABG Potassium (3.4-4.5) mmol/L ABG Ionized Calcium (4.5-5.3) mg/dL ABG Glucose (75-99) mg/dL ABG Lactic Acid (0.5-1.6) mmol/L Hemoglobin (13.0-17.5) gm/dL Sodium (137-145) mmol/L Chloride (98-107) mmol/L Glucose (74-99) mg/dL POC Glucose (mg/dL) 161 H 146 H 130 H (75-99) mg/dL Calcium (8.4-10.2) mg/dL AST (17-59) U/L Total Protein (6.3-8.2) g/dL Albumin (3.5-5.0) g/dL Arterial Blood Potassium (3.4-4.5) mmol/L Arterial Blood Glucose (75-99) mg/dL Crossmatch 01/31/21 01/31/21 01/31/21 Range/Units 04:05 04:05 04:09 WBC 14.6 H (3.8-10.6) k/uL RBC 3.95 L (4.30-5.90) m/uL Hgb 12.5 L (13.0-17.5) gm/dL Hct 35.9 L (39.0-53.0) % Plt Count 117 L (150-450) k/uL Neutrophils # 13.5 H (1.3-7.7) k/uL Lymphocytes # 0.3 L (1.0-4.8) k/uL PT (9.0-12.0) sec INR (<1.2) APTT (22.0-30.0) sec ABG pH (7.35-7.45) ABG pCO2 (35-45) mmHg ABG pO2 (83-108) mmHg ABG HCO3 (21-25) mmol/L ABG Total CO2 (19-24) mmol/L ABG O2 Saturation (94-97) % ABG Hematocrit (34.0-46.0) % ABG Potassium (3.4-4.5) mmol/L ABG Ionized Calcium (4.5-5.3) mg/dL ABG Glucose (75-99) mg/dL ABG Lactic Acid (0.5-1.6) mmol/L Hemoglobin (13.0-17.5) gm/dL Sodium 136 L (137-145) mmol/L Chloride (98-107) mmol/L Glucose 120 H (74-99) mg/dL POC Glucose (mg/dL) 136 H (75-99) mg/dL Calcium (8.4-10.2) mg/dL AST 74 H (17-59) U/L Total Protein 5.8 L (6.3-8.2) g/dL Albumin (3.5-5.0) g/dL Arterial Blood Potassium (3.4-4.5) mmol/L Arterial Blood Glucose (75-99) mg/dL Crossmatch 01/31/21 01/31/21 01/31/21 Range/Units 05:26 06:04 07:09 WBC (3.8-10.6) k/uL RBC (4.30-5.90) m/uL Hgb (13.0-17.5) gm/dL Hct (39.0-53.0) % Plt Count (150-450) k/uL Neutrophils # (1.3-7.7) k/uL Lymphocytes # (1.0-4.8) k/uL PT (9.0-12.0) sec INR (<1.2) APTT (22.0-30.0) sec ABG pH (7.35-7.45) ABG pCO2 (35-45) mmHg ABG pO2 (83-108) mmHg ABG HCO3 (21-25) mmol/L ABG Total CO2 (19-24) mmol/L ABG O2 Saturation (94-97) % ABG Hematocrit (34.0-46.0) % ABG Potassium (3.4-4.5) mmol/L ABG Ionized Calcium (4.5-5.3) mg/dL ABG Glucose (75-99) mg/dL ABG Lactic Acid (0.5-1.6) mmol/L Hemoglobin (13.0-17.5) gm/dL Sodium (137-145) mmol/L Chloride (98-107) mmol/L Glucose (74-99) mg/dL POC Glucose (mg/dL) 120 H 119 H 115 H (75-99) mg/dL Calcium (8.4-10.2) mg/dL AST (17-59) U/L Total Protein (6.3-8.2) g/dL Albumin (3.5-5.0) g/dL Arterial Blood Potassium (3.4-4.5) mmol/L Arterial Blood Glucose (75-99) mg/dL Crossmatch 01/31/21 01/31/21 Range/Units 08:13 09:27 WBC (3.8-10.6) k/uL RBC (4.30-5.90) m/uL Hgb (13.0-17.5) gm/dL Hct (39.0-53.0) % Plt Count (150-450) k/uL Neutrophils # (1.3-7.7) k/uL Lymphocytes # (1.0-4.8) k/uL PT (9.0-12.0) sec INR (<1.2) APTT (22.0-30.0) sec ABG pH (7.35-7.45) ABG pCO2 (35-45) mmHg ABG pO2 (83-108) mmHg ABG HCO3 (21-25) mmol/L ABG Total CO2 (19-24) mmol/L ABG O2 Saturation (94-97) % ABG Hematocrit (34.0-46.0) % ABG Potassium (3.4-4.5) mmol/L ABG Ionized Calcium (4.5-5.3) mg/dL ABG Glucose (75-99) mg/dL ABG Lactic Acid (0.5-1.6) mmol/L Hemoglobin (13.0-17.5) gm/dL Sodium (137-145) mmol/L Chloride (98-107) mmol/L Glucose (74-99) mg/dL POC Glucose (mg/dL) 115 H 144 H (75-99) mg/dL Calcium (8.4-10.2) mg/dL AST (17-59) U/L Total Protein (6.3-8.2) g/dL Albumin (3.5-5.0) g/dL Arterial Blood Potassium (3.4-4.5) mmol/L Arterial Blood Glucose (75-99) mg/dL Crossmatch - Imaging and Cardiology Chest x-ray: report reviewed, image reviewed Assessment and Plan Assessment: 1. Moderate degenerative aortic stenosis, status post bioprosthetic aortic valve replacement 2. Severe eccentric mitral regurgitation with torn chordae P2 of the posterior leaflet, status post complex mitral valve repair 3. Hypertension 4. Obstructive sleep apnea without CPAP use 5. Previous tobacco dependence, preoperative FEV1 95% of predicted 6. Significant short-term memory loss. 7. Postoperative acute blood loss anemia and thrombocytopenia Plan: 1. Continue aspirin, statin, Plavix, beta kike therapy. Will increase beta kike therapy as tolerated. Will start low-dose ARB for afterload reduction 2. Wean O2 as tolerated. Encourage incentive spirometry use 10 times every hour while awake. Bronchodilators per pulmonology 3. Increase activity, ambulate as tolerated. PT/OT/cardiac rehab consulted 4. Will monitor daily labs and x-rays. Electrolyte replacement per protocol. 5. GI/DVT prophylaxis 6. Pain control with current medication regimen 7. Insulin management per primary care service. Patient is not diabetic, preoperative hemoglobin A1c 5.1% 8. Discontinue [place]. Connect Cordis to continuous CVP monitoring 9. Continue mediastinal chest tube, Cordis, arterial line for another 24 hours 10. Continue Fisher catheter for another 24 hours for strict accurate intake and output. Daily weights 11. More recommendations to follow based on patient's progress Time with Patient: Greater than 30
[2021-01-31 10:26] LABS: Glucose,Whole Blood 138 mg/dL (75-99)
--- NOTE | 2021-01-31 10:41 | P.CRDCN ---
History of Present Illness History of present illness: HISTORY OF PRESENTING ILLNESS This is a pleasant 70-year-old male past medical history significant for obstructive sleep apnea, former smoker, severe mitral valve regurgitation with prolapse of posterior mitral leaflet, moderate aortic stenosis. He follows in the office with Dr. Galindo. We have been asked to see in consultation for post cardiac surgery management. Patient is POD #1 aortic valve replacement, mitral valve repair, quadrangular resection of P2 of the posterior leaflet, closure of PEEP 1 and P2 cleft posteriorly, ring annuloplasty, clip ligation of the left atrial appendage and intraoperative transesophageal echocardiogram. Patient is seen and examined in the intensive care unit. Sitting up in the bedside recliner. He was extubated yesterday night. He is currently maintaining sinus mechanism. He is hemodynamically stable. He does have some chest pain and some mild shortness of breath. He is using his incentive spirometer with 1500mL. He is currently being maintained on aspirin 325 mg daily, atorvastatin 40 mg daily, IV Cleviprex, Plavix 75 mg daily, metoprolol 25 mg twice a day, losartan 12.5mg daily DIAGNOSTICS JOSE 10/2020- 3-4+ eccentric mitral regurgitation with evidence of prolapse of the middle scallop of the posterior leaflet, probably small ruptured chordae, moderate aortic stenosis, left atrial enlargement Cardiac Catheterization 10/2020- moderate aortic stenosis of 25mmHg mean gradient, no significant obstructive coronary artery disease, no significant pulmonary hypertension Carotid Doppler 10/2020- no significant stenosis of the proximal internal carotid arteries Echocardiogram 10/2020- EF 55-60%, LA severely dilated, severe mitral regur gitation, mild aortic stenosis with peak/mean gradient 30mmHg/13mmHg, moderate prolapse of the posterior mitral valve leaflet, moderate tricuspid regurgitation Telemetry tracings indicate sinus mechanism Hr 70-80s Chest xray 01/31 bibasal atelectasis Laboratory reviewed, WBC 14.6, hemoglobin 12.5, platelets 117, sodium 136, potassium 4.0, BUN 12, serum creatinine 0.67, magnesium 1.8 Current home cardiac medications include losartan 25mg nightly REVIEW OF SYSTEMS At the time of my exam: CONSTITUTIONAL: Denies fever or chills. CARDIOVASCULAR: +postoperative chest pain, + shortness of breath, Denies orthopnea, PND or palpitations. RESPIRATORY: Denies cough. GASTROINTESTINAL: Denies abdominal pain, diarrhea, constipation, nausea or vomiting. MUSCULOSKELETAL: Denies myalgias. NEUROLOGIC: Denies numbness, tingling, headacbe or weakness. ENDOCRINE: Denies fatigue, weight change, polydipsia or polyurina. GENITOURINARY: Denies burning, hematuria or urgency with micturation. HEMATOLOGIC: Denies history of anemia or bleeding. PHYSICAL EXAMINATION Blood pressure 145/53 heart rate 81 afebrile and maintaining oxygen saturation 98% on room air CONSTITUTIONAL: No apparent distress. HEENT: Head is normocephalic. Pupils are equal, round. Sclerae anicteric. Mucous membranes of the mouth are moist. No JVD. Left IJ swan/cordis catheter present. CHEST EXAMINATION: Lungs are clear to auscultation. No chest wall tenderness is noted on palpation or with deep breathing. Anterior chest incision covered in dressing, clean dry intact. Mediastinal chest tube present with serosanguinous drainage. HEART EXAMINATION: Regular rate and rhythm. S1, S2 heard. Systolic murmur, no gallops or rub. Epicardial pacemaker wires present. ABDOMEN: Soft, nontender. Positive bowel sounds. EXTREMITIES: 2+ peripheral pulses, no lower extremity edema and no calf tenderness. Left radial A line present NEUROLOGIC EXAMINATION: Patient is awake, alert and oriented x3. ASSESSMENT -Moderate aortic stenosis, status post bioprosthetic aortic valve replacement -Severe mitral regurgitation with prolapse of posterior mitral leaflet, status post mitral valve repair -Hypertension -Obstructive sleep apnea PLAN -Continue current medical therapy with aspirin 325 mg daily, atorvastatin 40 mg daily, Plavix 75 mg daily, metoprolol 25 mg twice a day -Post operative management per CT surgery -Continue incentive spirometer every hour -Increase activity as tolerated -We will continue to follow patient Nurse Practitioner note has been reviewed, I agree with a documented findings and plan of care. Patient was seen and examined. Past Medical History Past Medical History: Memory Impairment, Mitral Valve Prolapse (MVP), Sleep Apnea/CPAP/BIPAP Additional Past Medical History / Comment(s): no CPAP use, aortic stenosis, short term memory issues & [place] per spouse, mitral regurgitation, some SOB w/exertion @times, fully vaccinated for covid History of Any Multi-Drug Resistant Organisms: None Reported Past Surgical History: Appendectomy, Heart Catheterization, Orthopedic Surgery, Tonsillectomy Additional Past Surgical History / Comment(s): meniscus knee surg., colonoscopy, recent cardiac cath. & JOSE Past Anesthesia/Blood Transfusion Reactions: No Reported Reaction, Motion Sickness Additional Past Anesthesia/Blood Transfusion Reaction / Comment(s): blood transfusion without reaction Smoking Status: Former smoker - Past Family History Mother Family Medical History: No Reported History Father Family Medical History: COPD, Coronary Artery Disease (CAD) Medications and Allergies Home Medications Medication Instructions Recorded Confirmed Type Losartan [Cozaar] 25 mg PO HS 10/31/20 01/20/21 History Acetaminophen Tab [Tylenol] 650 mg PO Q6H PRN 12/06/20 01/20/21 History Allergies Allergy/AdvReac Type Severity Reaction Status Date / Time Penicillins Allergy Unknown Verified 01/20/21 09:11 Physical Exam Vitals: Vital Signs Temp Pulse Resp BP Pulse Ox 01/31/21 10:00 81 15 120/63 92 L 01/31/21 09:30 81 18 94 L 01/31/21 09:00 89 21 98 01/31/21 08:30 82 14 97 01/31/21 08:12 87 01/31/21 08:06 86 01/31/21 08:00 84 9 L 96 01/31/21 07:30 81 18 97 01/31/21 07:00 80 18 126/66 94 L 01/31/21 06:30 82 12 95 01/31/21 06:00 83 8 L 94 L 01/31/21 05:30 80 13 99 01/31/21 05:00 81 11 L 99 01/31/21 04:30 80 19 98 01/31/21 04:00 82 19 143/73 98 01/31/21 03:30 80 18 97 01/31/21 03:00 80 12 143/73 98 01/31/21 02:30 81 14 99 01/31/21 02:00 80 21 143/73 99 01/31/21 01:30 82 15 98 01/31/21 01:00 80 17 98 01/31/21 00:30 80 18 99 01/31/21 00:00 79 17 148/75 99 01/30/21 23:30 76 12 98 01/30/21 23:00 77 21 154/80 98 01/30/21 22:30 77 22 98 01/30/21 22:00 74 14 124/71 98 06/07/21 21:30 75 12 97 01/30/21 21:00 77 14 115/76 98 01/30/21 20:30 79 12 98 01/30/21 20:00 79 12 114/59 99 01/30/21 19:30 82 14 127/76 99 01/30/21 19:18 80 01/30/21 19:02 80 01/30/21 19:00 80 16 129/73 99 01/30/21 18:45 80 16 99 01/30/21 18:30 81 18 90/54 99 01/30/21 18:15 80 17 98 01/30/21 18:00 81 16 139/78 100 01/30/21 17:45 84 16 100 01/30/21 17:30 84 18 135/77 100 01/30/21 17:15 86 18 135/77 100 01/30/21 17:00 85 20 124/71 100 01/30/21 16:45 84 20 100 01/30/21 16:30 85 19 100 01/30/21 16:15 85 21 99 01/30/21 16:00 82 25 H 110/62 100 01/30/21 15:45 84 18 97 01/30/21 15:30 84 15 98 01/30/21 15:26 82 01/30/21 15:15 81 12 102/63 99 01/30/21 15:00 78 12 101/64 97 01/30/21 14:58 78 01/30/21 14:45 78 12 98 01/30/21 14:30 77 12 98 01/30/21 14:15 75 12 98 01/30/21 14:00 75 12 118/75 97 01/30/21 13:45 73 12 98 01/30/21 13:30 73 12 98 01/30/21 13:15 93.9 F L 71 12 104/70 99 Intake and Output 01/30/21 01/31/21 01/31/21 22:59 06:59 14:59 Intake Total 722.882 6420.592 448.391 Output Total 1480 1090 280 Balance -567.120 64.592 168.391 Intake: IV 782 832 347 ACETAMINOPHEN IV (For NPO 100 ) 1,000 mg In Empty Bag 1 bag @ 400 mls/hr IVPB Q6HR [facility] Rx#:[id number] CO/CI 160 40 40 Lactated Ringers 1,000 ml 400 320 130 @ 20 mls/hr IV .Q24H [facility] Rx#:[id number] Magnesium Sulfate-D5w Pmx 100 1 gm In Dextrose/Water 1 100ml.bag @ 100 mls/hr IVPB Q1H [facility] Rx#: [id number] Potassium Chloride 10 meq 300 In Water For Injection 1 100ml.bag @ 100 mls/hr IVPB Q1H [facility] Rx#: [id number] Pressure Bags 72 72 27 ceFAZolin 2 gm In Sodium 50 100 50 Chloride 0.9% 50 ml @ 100 mls/hr IVPB Q8H [facility] Rx#: [id number] Intake, IV Titration 130.880 122.592 101.391 Amount Clevidipine Butyrate 25 88.733 95.467 90.133 mg In Empty Bag 1 bag @ 1 MG/HR 2 mls/hr IV .Q24H [facility] Rx#:[id number] Dexmedetomidine/0.9% NaCl 23.955 (Pmx) 400 mcg In Empty Bag 1 bag @ Titrate IV . Q0M [facility] Rx#:[id number] Insulin Regular 100 unit 11.491 27.125 11.258 In Sodium Chloride 0.9% 100 ml @ Per Protocol IV .Q0M [facility] Rx#:[id number] propofoL 1,000 mg In 6.701 Empty Bag 1 bag @ Titrate IV .Q0M [facility] Rx#: [id number] Oral 200 Output: Chest Tube Drainage 250 185 130 Mediastinal 250 185 130 Urine 1230 905 150 Other: Voiding Method Indwelling Catheter Indwelling Catheter Indwelling Catheter Weight 71.3 kg 71.3 kg ABP, PAP, CO, CI - Last 8 Hours Arterial Blood Pressure 145/53 Arterial Blood Pressure 141/50 Arterial Blood Pressure 154/54 Arterial Blood Pressure 149/58 Arterial Blood Pressure 152/52 Arterial Blood Pressure 155/55 Arterial Blood Pressure 136/56 Arterial Blood Pressure 127/49 Arterial Blood Pressure 119/48 Arterial Blood Pressure 141/52 Arterial Blood Pressure 138/51 Arterial Blood Pressure 147/50 Arterial Blood Pressure 152/52 Arterial Blood Pressure 154/57 Arterial Blood Pressure 146/54 Arterial Blood Pressure 155/56 Pulmonary Artery Pressure 35/17 Pulmonary Artery Pressure 30/16 Pulmonary Artery Pressure 29/12 Pulmonary Artery Pressure 32/10 Pulmonary Artery Pressure 29/11 Pulmonary Artery Pressure 28/12 Pulmonary Artery Pressure 30/8 Pulmonary Artery Pressure 31/10 Pulmonary Artery Pressure 28/9 Pulmonary Artery Pressure 27/10 Pulmonary Artery Pressure 29/9 Pulmonary Artery Pressure 29/11 Pulmonary Artery Pressure 28/10 Pulmonary Artery Pressure 32/10 Cardiac Output 6.3 Cardiac Output 5.5 Cardiac Output 5.8 Cardiac Index 3.5 Cardiac Index 3.1 Cardiac Index 3.3 Results 01/31/21 04:05 01/31/21 04:05 Cardiac Enzymes 01/30/21 01/31/21 Range/Units 13:15 04:05 AST 41 74 H (17-59) U/L Coagulation 01/30/21 Range/Units 13:15 PT 14.0 H (9.0-12.0) sec APTT 43.1 H (22.0-30.0) sec CBC 01/30/21 01/30/21 01/30/21 Range/Units 13:15 16:15 19:10 WBC 7.1 9.5 8.5 (3.8-10.6) k/uL RBC 2.96 L 3.58 L 3.67 L (4.30-5.90) m/uL Hgb 9.2 L D 11.2 L 11.5 L (13.0-17.5) gm/dL Hct 26.8 L 32.2 L 33.2 L (39.0-53.0) % Plt Count 94 L D 119 L 97 L (150-450) k/uL 01/31/21 Range/Units 04:05 WBC 14.6 H (3.8-10.6) k/uL RBC 3.95 L (4.30-5.90) m/uL Hgb 12.5 L (13.0-17.5) gm/dL Hct 35.9 L (39.0-53.0) % Plt Count 117 L (150-450) k/uL Comprehensive Metabolic Panel 01/30/21 01/30/21 01/31/21 Range/Units 13:15 19:10 01:49 Sodium 137 (137-145) mmol/L Potassium 4.2 3.6 3.8 (3.5-5.1) mmol/L Chloride 108 H (98-107) mmol/L Carbon Dioxide 25 (22-30) mmol/L BUN 12 (9-20) mg/dL Creatinine 0.71 (0.66-1.25) mg/dL Glucose 94 (74-99) mg/dL Calcium 8.1 L (8.4-10.2) mg/dL AST 41 (17-59) U/L ALT 11 (4-49) U/L Alkaline Phosphatase 40 (38-126) U/L Total Protein 4.0 L (6.3-8.2) g/dL Albumin 2.3 L (3.5-5.0) g/dL 01/31/21 Range/Units 04:05 Sodium 136 L (137-145) mmol/L Potassium 4.0 (3.5-5.1) mmol/L Chloride 103 (98-107) mmol/L Carbon Dioxide 27 (22-30) mmol/L BUN 12 (9-20) mg/dL Creatinine 0.67 (0.66-1.25) mg/dL Glucose 120 H (74-99) mg/dL Calcium 8.6 (8.4-10.2) mg/dL AST 74 H (17-59) U/L ALT 19 (4-49) U/L Alkaline Phosphatase 46 (38-126) U/L Total Protein 5.8 L (6.3-8.2) g/dL Albumin 3.8 (3.5-5.0) g/dL Current Medications Generic Name Dose Route Start Last Admin Trade Name Freq PRN Reason Stop Dose Admin Acetaminophen 650 mg 01/31/21 07:40 Acetaminophen Tab 325 Mg Tab PO Q4HR PRN Fever and/ or Pain Hydrocodone Bitart/Acetaminophen 2 each 01/31/21 00:15 01/31/21 08:26 Hydrocodone/Apap 5-325mg 1 Each Tab PO 2 each Q4HR PRN Administration Severe Pain Hydrocodone Bitart/Acetaminophen 1 each 01/31/21 00:15 Hydrocodone/Apap 5-325mg 1 Each Tab PO Q4HR PRN Moderate Pain Albuterol/Ipratropium 3 ml 01/30/21 12:28 Ipratropium-Albuterol 3 Ml Neb INHALATION RT-Q2H PRN Shortness Of Breath Or Wheezing Albuterol/Ipratropium 3 ml 01/30/21 20:00 01/31/21 08:04 Ipratropium-Albuterol 3 Ml Neb INHALATION 3 ml RT-QID [facility] Administration Aspirin 325 mg 01/31/21 09:00 01/31/21 08:25 Aspirin 325 Mg Tab PO 325 mg DAILY [facility] Administration Atorvastatin Calcium 40 mg 01/31/21 09:00 01/31/21 08:25 Atorvastatin 40 Mg Tab PO 40 mg DAILY [facility] Administration Benzocaine/Menthol 1 each 01/30/21 12:28 Benzocaine/Menthol Lozeng 1 Each Lozenge MUCOUS MEM Q2H PRN Sore Throat Bisacodyl 10 mg 01/31/21 09:00 Bisacodyl 10 Mg Supp RECTAL DAILY PRN Constipation Clopidogrel Bisulfate 75 mg 01/31/21 09:00 01/31/21 08:25 Clopidogrel 75 Mg Tab PO 75 mg DAILY [facility] Administration Heparin Sodium (Porcine) 5,000 unit 01/30/21 16:00 01/31/21 08:24 Heparin Sodium,Porcine/Pf 5,000 Unit/0.5 Ml Syringe SQ 5,000 unit Q8HR [facility] Administration Hydralazine HCl 10 mg 01/30/21 12:28 Hydralazine Hcl 20 Mg/Ml 1 Ml Vial IVP Q1H PRN Blood Pressure - High Amiodarone HCl 150 mg/ 103 mls @ 618 mls/hr 01/30/21 12:28 Dextrose/Water IV .Q10M PRN A.FIB/FLUTTER Protocol Albumin Human 250 ml/ IV 250 mls @ 250 mls/hr 01/30/21 12:28 01/30/21 14:05 Solution IVPB 02/01/21 12:29 250 mls/hr Q1HR PRN Administration For Volume Clevidipine 25 mg/ IV Solution 50 mls @ 2 mls/hr 01/30/21 12:28 01/31/21 08:40 IV 21 mg/hr .Q24H [facility] 42 mls/hr Titration Protocol 1 MG/HR Amiodarone HCl 360 mg/ 207.2 mls @ 34.533 mls/hr 01/30/21 12:28 Dextrose/Water IV .Q6H PRN A.FIB/FLUTTER Protocol 1 MG/MIN Amiodarone HCl 450 mg/ 250 mls @ 16.667 mls/hr 01/30/21 12:28 Dextrose/Water IV .Q15H PRN A.FIB/FLUTTER Protocol 0.5 MG/MIN Lactated Ringer's 1,000 mls @ 20 mls/hr 01/30/21 12:28 01/31/21 08:25 Lactated Ringers IV 20 mls/hr .Q24H [facility] Administration Calcium Gluconate 2 gm/ Sodium 120 mls @ 100 mls/hr 01/30/21 12:28 Chloride IVPB 02/22/21 12:29 ONCE PRN Ionized Calcium less than 4.4 Insulin Human Regular 100 unit 101 mls @ 0 mls/hr 01/30/21 12:28 01/31/21 08:40 / Sodium Chloride IV 3.5 ml/hr .Q0M [facility] 3.5 mls/hr Titration Protocol Per Protocol Ketorolac Tromethamine 15 mg 01/30/21 18:00 01/31/21 06:41 Ketorolac 15 Mg/Ml 1 Ml Vial IVP 02/02/21 16:26 15 mg Q6HR [facility] Administration Losartan Potassium 12.5 mg 01/31/21 12:00 Losartan 25 Mg Tab PO DAILY@1200 [facility] Magnesium Hydroxide 2,400 mg 01/31/21 09:00 01/31/21 08:30 Magnesium Hydroxide 2,400 Mg/10 Ml Cup PO 2,400 mg BID PRN Administration Constipation Metoclopramide HCl 10 mg 01/30/21 12:28 Metoclopramide 5 Mg/Ml 2 Ml Vial IVP Q4H PRN Nausea And Vomiting Metoprolol Tartrate 25 mg 01/31/21 09:00 01/31/21 08:26 Metoprolol Tartrate 25 Mg Tab PO 25 mg BID [facility] Administration Miscellaneous Information 1 each 01/30/21 12:28 Potassium Replacement Protocol 1 Each Misc MISCELLANE DAILY PRN Per Protocol Protocol Miscellaneous Information 1 each 01/30/21 12:28 Magnesium Replacement Protocol 1 Each Misc MISCELLANE DAILY PRN Per Protocol Protocol Miscellaneous Information 1 each 01/30/21 12:28 Phosphorus Replacement Protoco 1 Each Misc MISCELLANE DAILY PRN Per Protocol Protocol Ondansetron HCl 4 mg 01/30/21 12:28 01/31/21 08:30 Ondansetron 4 Mg/2 Ml Vial IVP 4 mg Q6HR PRN Administration Nausea And Vomiting Pantoprazole Sodium 40 mg 02/01/21 07:30 Pantoprazole 40 Mg Tablet PO [id number] [facility] Senna/Docusate Sodium 2 each 01/31/21 21:00 Sennosides-Docusate Sodium 1 Each Tab PO HS [facility] Sodium Chloride 10 ml 01/30/21 21:00 01/31/21 08:26 Sodium Chloride 0.9% Flush 10 Ml Syringe IV 10 ml BID [facility] Administration Intake and Output 01/30/21 01/31/21 01/31/21 22:59 06:59 14:59 Intake Total 510.814 4594.592 448.391 Output Total 1480 1090 280 Balance -567.120 64.592 168.391 Intake: IV 782 832 347 ACETAMINOPHEN IV (For NPO 100 ) 1,000 mg In Empty Bag 1 bag @ 400 mls/hr IVPB Q6HR [facility] Rx#:[id number] CO/CI 160 40 40 Lactated Ringers 1,000 ml 400 320 130 @ 20 mls/hr IV .Q24H [facility] Rx#:[id number] Magnesium Sulfate-D5w Pmx 100 1 gm In Dextrose/Water 1 100ml.bag @ 100 mls/hr IVPB Q1H [facility] Rx#: [id number] Potassium Chloride 10 meq 300 In Water For Injection 1 100ml.bag @ 100 mls/hr IVPB Q1H [facility] Rx#: [id number] Pressure Bags 72 72 27 ceFAZolin 2 gm In Sodium 50 100 50 Chloride 0.9% 50 ml @ 100 mls/hr IVPB Q8H [facility] Rx#: [id number] Intake, IV Titration 130.880 122.592 101.391 Amount Clevidipine Butyrate 25 88.733 95.467 90.133 mg In Empty Bag 1 bag @ 1 MG/HR 2 mls/hr IV .Q24H [facility] Rx#:[id number] Dexmedetomidine/0.9% NaCl 23.955 (Pmx) 400 mcg In Empty Bag 1 bag @ Titrate IV . Q0M [facility] Rx#:[id number] Insulin Regular 100 unit 11.491 27.125 11.258 In Sodium Chloride 0.9% 100 ml @ Per Protocol IV .Q0M [facility] Rx#:[id number] propofoL 1,000 mg In 6.701 Empty Bag 1 bag @ Titrate IV .Q0M [facility] Rx#: [id number] Oral 200 Output: Chest Tube Drainage 250 185 130 Mediastinal 250 185 130 Urine 1230 905 150 Other: Voiding Method Indwelling Catheter Indwelling Catheter Indwelling Catheter Weight 71.3 kg 71.3 kg Patient Weight 02/01/21 06:59 Weight 71.3 kg 01/31/21 04:05 01/31/21 04:05
[2021-01-31 11:31] LABS: Glucose,Whole Blood 140 mg/dL (75-99)
[2021-01-31 12:10] LABS: Glucose,Whole Blood 114 mg/dL (75-99)
[2021-01-31] MEDS: LOSARTAN 25 MG TAB PO SCH (12:18)
[2021-01-31 17:01] LABS: Glucose,Whole Blood 100 mg/dL (75-99)
[2021-01-31] MEDS: INSULIN ASPART (NovoLOG) 100 UNIT/ML VIAL SQ SCH ×2 (18:32→21:38)
[2021-01-31 20:51] LABS: Glucose,Whole Blood 116 mg/dL (75-99)
--- NOTE | 2021-01-31 21:12 | P.PN ---
Progress Note - Text Progress Note Date: 01/31/21 - Chief Complaint Valvular surgery - History of Present Illness Consultation: This is a pleasant 70-year-old patient who follows with Dr. Paul Crowell. Patient has undergone bioprosthetic aortic valve replacement and a annuloplasty for mitral valve replacement. Currently in the ICU. 2 mediastinal chest tubes in place. Sinus rhythm. Patient had previously undergone a JOSE that showed: 3- 4+ mitral regurgitation, mitral valve flow prolapse of the posterior leaf left and a possibly ruptured chordae. Moderate aortic stenosis with the area of 1.32 cm with a negative bubble study. Cardiac catheterization was unremarkable. Patient's currently got a Fisher catheter. Tired, awake. Chronic stable medical conditions include some hard of hearing, obstructive sleep apnea does not use CPAP, some memory impairment. Today: Sitting up in a chair. Nasal cannula. On insulin drip. Some shortness of breath. Review of systems: Was done for constitutional, cardiovascular, GI, pulmonary. relevant finding as above Active Medications Acetaminophen (Acetaminophen Tab 325 Mg Tab) 650 mg PO Q4HR PRN PRN Reason: Fever and/ or Pain Hydrocodone Bitart/Acetaminophen (Hydrocodone/Apap 5-325mg 1 Each Tab) 2 each PO Q4HR PRN PRN Reason: Severe Pain Last Admin: 01/31/21 15:51 Dose: 2 each Documented by: Hydrocodone Bitart/Acetaminophen (Hydrocodone/Apap 5-325mg 1 Each Tab) 1 each PO Q4HR PRN PRN Reason: Moderate Pain Albuterol/Ipratropium (Ipratropium-Albuterol 3 Ml Neb) 3 ml INHALATION RT-Q2H PRN PRN Reason: Shortness Of Breath Or Wheezing Albuterol/Ipratropium (Ipratropium-Albuterol 3 Ml Neb) 3 ml INHALATION RT-QID [facility] Last Admin: 01/31/21 20:53 Dose: Not Given Documented by: Aspirin (Aspirin 325 Mg Tab) 325 mg PO DAILY [facility] Last Admin: 01/31/21 08:25 Dose: 325 mg Documented by: Atorvastatin Calcium (Atorvastatin 40 Mg Tab) 40 mg PO DAILY [facility] Last Admin: 01/31/21 08:25 Dose: 40 mg Documented by: Benzocaine/Menthol (Benzocaine/Menthol Lozeng 1 Each Lozenge) 1 each MUCOUS MEM Q2H PRN PRN Reason: Sore Throat Bisacodyl (Bisacodyl 10 Mg Supp) 10 mg RECTAL DAILY PRN PRN Reason: Constipation Clopidogrel Bisulfate (Clopidogrel 75 Mg Tab) 75 mg PO DAILY [facility] Last Admin: 01/31/21 08:25 Dose: 75 mg Documented by: Heparin Sodium (Porcine) (Heparin Sodium,Porcine/Pf 5,000 Unit/0.5 Ml Syringe) 5,000 unit SQ Q8HR [facility] Last Admin: 01/31/21 15:51 Dose: 5,000 unit Documented by: Hydralazine HCl (Hydralazine Hcl 20 Mg/Ml 1 Ml Vial) 10 mg IVP Q1H PRN PRN Reason: Blood Pressure - High Last Admin: 01/31/21 10:33 Dose: 10 mg Documented by: Amiodarone HCl 150 mg/ (Dextrose/Water) 103 mls @ 618 mls/hr IV .Q10M PRN; Protocol PRN Reason: A.FIB/FLUTTER Albumin Human 250 ml/ IV (Solution) 250 mls @ 250 mls/hr IVPB Q1HR PRN PRN Reason: For Volume Stop: 02/01/21 12:29 Last Admin: 01/30/21 14:05 Dose: 250 mls/hr Documented by: Clevidipine 25 mg/ IV Solution 50 mls @ 2 mls/hr IV .Q24H [facility]; Protocol Last Titration: 01/31/21 10:50 Dose: 0 mg/hr, 0 mls/hr Documented by: Amiodarone HCl 360 mg/ (Dextrose/Water) 207.2 mls @ 34.533 mls/hr IV .Q6H PRN; Protocol PRN Reason: A.FIB/FLUTTER Amiodarone HCl 450 mg/ (Dextrose/Water) 250 mls @ 16.667 mls/hr IV .Q15H PRN; Protocol PRN Reason: A.FIB/FLUTTER Lactated Ringer's (Lactated Ringers) 1,000 mls @ 20 mls/hr IV .Q24H [facility] Last Admin: 01/31/21 08:25 Dose: 20 mls/hr Documented by: Calcium Gluconate 2 gm/ Sodium (Chloride) 120 mls @ 100 mls/hr IVPB ONCE PRN PRN Reason: Ionized Calcium less than 4.4 Stop: 02/22/21 12:29 Insulin Aspart (Insulin Aspart (Novolog) 100 Unit/Ml Vial) 0 unit SQ [facility]; Protocol Last Admin: 01/31/21 18:32 Dose: Not Given Documented by: Ketorolac Tromethamine (Ketorolac 15 Mg/Ml 1 Ml Vial) 15 mg IVP Q6HR [facility] Stop: 02/02/21 16:26 Last Admin: 01/31/21 18:34 Dose: 15 mg Documented by: Losartan Potassium (Losartan 25 Mg Tab) 12.5 mg PO DAILY@1200 [facility] Last Admin: 01/31/21 12:18 Dose: 12.5 mg Documented by: Magnesium Hydroxide (Magnesium Hydroxide 2,400 Mg/10 Ml Cup) 2,400 mg PO BID PRN PRN Reason: Constipation Last Admin: 01/31/21 08:30 Dose: 2,400 mg Documented by: Metoclopramide HCl (Metoclopramide 5 Mg/Ml 2 Ml Vial) 10 mg IVP Q4H PRN PRN Reason: Nausea And Vomiting Metoprolol Tartrate (Metoprolol Tartrate 25 Mg Tab) 25 mg PO BID [facility] Last Admin: 01/31/21 08:26 Dose: 25 mg Documented by: Miscellaneous Information (Potassium Replacement Protocol 1 Each Misc) 1 each MISCELLANE DAILY PRN; Protocol PRN Reason: Per Protocol Miscellaneous Information (Magnesium Replacement Protocol 1 Each Misc) 1 each MISCELLANE DAILY PRN; Protocol PRN Reason: Per Protocol Miscellaneous Information (Phosphorus Replacement Protoco 1 Each Misc) 1 each MISCELLANE DAILY PRN; Protocol PRN Reason: Per Protocol Ondansetron HCl (Ondansetron 4 Mg/2 Ml Vial) 4 mg IVP Q6HR PRN PRN Reason: Nausea And Vomiting Last Admin: 01/31/21 08:30 Dose: 4 mg Documented by: Pantoprazole Sodium (Pantoprazole 40 Mg Tablet) 40 mg PO AC-BRKFST [facility] Senna/Docusate Sodium (Sennosides-Docusate Sodium 1 Each Tab) 2 each PO HS [facility] Sodium Chloride (Sodium Chloride 0.9% Flush 10 Ml Syringe) 10 ml IV BID [facility] Last Admin: 01/31/21 08:26 Dose: 10 ml Documented by: Past medical history to include: Memory impairment, 3-4+ mitral valve regurgitation with posterior leaflet prolapse, moderate aortic stenosis, obstructive sleep apnea does not use CPAP, short term memory loss, hard of hearing, Social history: Patient stopped smoking in 1970. No alcohol. . Family history: Reviewed, noncontributory to presentation Physical examination: VITAL SIGNS: 97.1, 93, 16, 109/46, 94% GENERAL: Sitting up in a chair, awake, tired. EYES: Pupils equal. Conjunctiva pale. HEENT: External appearance of nose and ears normal, oral cavity grossly normal. NECK: JVD unable to assess; masses not palpable. HEART: First and second heart sounds are normal; no edema. LUNGS: Respiratory rate increased decreased breath sounds. , 2 mediastinal chest tubes ABDOMEN: Soft, nontender, liver spleen not palpable, no masses palpable. Fisher catheter PSYCH: Answering questions INVESTIGATIONS, reviewed in the clinical context: January 31: WBC 14.6 hemoglobin 12.5 platelets 117 potassium 4 creatinine 0.67 WBC 8.5 hemoglobin 11.5 platelets 97 Potassium 3.6 creatinine 0.71 albumin 2.3 Chest x-ray: Small amount of pneumomediastinum, soft tissue emphysema along the soft tissue left neck, postsurgical changes course interstitium Labs from 01/20/2021: Hemoglobin 14.1 platelets 226 Assessment and plan: -Bioprosthetic aortic valve replacement for moderate aortic stenosis with the preoperative area of 1.2 cm -Mitral valvular repair with annuloplasty for mitral regurgitation 3-4+, posterior leaflet prolapse, possible ruptured cord -Mild Cognitive impairment -Chronic hard of hearing -Acute postprocedure blood loss anemia, as expected from surgery Follow H&H -Dilutional thrombocytopenia, following surgery Follow H&H -Essential hypertension Cozaar, Lopressor. Follow closely Diet advanced this afternoon. Will DC Lasix drip. Follow Accu-Cheks with sliding scale. Thank you Dr. Ortiz
[2021-01-31] MEDS: SENNOSIDES-DOCUSATE SODIUM 1 EACH TAB PO SCH (21:34)
[2021-01-31] MEDS: ALBUMIN HUMAN 5% 250 ML in EMPTY BAG 1 BAG IVPB PRN ×2 (21:46→22:37)
[2021-02-01] MEDS: HEPARIN SODIUM,PORCINE/PF 5,000 UNIT/0.5 ML SYRINGE SQ SCH ×4 (00:24→23:50)
[2021-02-01] MEDS: KETOROLAC 15 MG/ML 1 ML VIAL IVP SCH (00:24)
[2021-02-01 04:34] LABS: Basophils % (A) 0 %; Eosinophils % (A) 0 %; HCT 28.4 % (39.0-53.0); Lymphocytes # (A) 0.7 k/uL (1.0-4.8); Lymphocytes % (A) 6 %; MCHC 33.7 g/dL (31.0-37.0); MCV 92.1 fL (80.0-100.0); Mean Platelet Volume 8.7; Monocytes # (A) 0.5 k/uL (0-1.0); Monocytes % (A) 4 %; Neutrophils # (A) 11.7 k/uL (1.3-7.7); Neutrophils % (A) 90 %; RBC 3.08 m/uL (4.30-5.90); RDW 13.5 % (11.5-15.5); WBC 13.1 k/uL (3.8-10.6)
[2021-02-01 04:37] LABS: Ionized Calcium 4.7 mg/dL (4.5-5.3)
[2021-02-01 04:45] LABS: Albumin 3.3 g/dL (3.5-5.0); Calcium 8.4 mg/dL (8.4-10.2); Magnesium 2.7 mg/dL (1.6-2.3); Potassium 4.8 mmol/L (3.5-5.1); Total Bilirubin 0.6 mg/dL (0.2-1.3); Total Protein 5.1 g/dL (6.3-8.2)
[2021-02-01 04:59] LABS: HGB 9.6 gm/dL (13.0-17.5)
[2021-02-01 06:05] LABS: Platelet Count 86 k/uL (150-450)
[2021-02-01 06:37] LABS: Glucose,Whole Blood 126 mg/dL (75-99)
[2021-02-01] MEDS: PANTOPRAZOLE 40 MG TABLET PO SCH (06:41)
[2021-02-01] MEDS: IPRATROPIUM-ALBUTEROL 3 ML NEB INHALATION SCH ×4 (07:56→21:52)
--- NOTE | 2021-02-01 08:44 | XR ---
EXAMINATION TYPE: XR chest 1V portable DATE OF EXAM: 02/01/2021 COMPARISON: 01/31/2021 HISTORY: Postop TECHNIQUE: Single frontal view of the chest is obtained. FINDINGS: Compton-Willem catheter is been removed. Mediastinal drain and cardiomegaly persist with bilate ral infiltrate and pleural effusion. Mild central interstitial prominence. Subcutaneous emphysema du ng the left neck drain noted. There is no sizable pneumothorax. Heart size stable. Arthropathy of the shoulders. IMPRESSION: 1. Correlate for mild CHF. 2. Postsurgical changes
[2021-02-01] MEDS: ASPIRIN 325 MG TAB PO SCH (08:45)
[2021-02-01] MEDS: MAGNESIUM HYDROXIDE 2,400 MG/10 ML CUP PO PRN (08:45)
[2021-02-01] MEDS: METOPROLOL TARTRATE 25 MG TAB PO SCH ×2 (08:45→21:18)
[2021-02-01] MEDS: ATORVASTATIN 40 MG TAB PO SCH (08:45)
[2021-02-01] MEDS: CLOPIDOGREL 75 MG TAB PO SCH (08:45)
[2021-02-01] MEDS: INSULIN ASPART (NovoLOG) 100 UNIT/ML VIAL SQ SCH ×4 (08:45→21:13)
[2021-02-01] MEDS: HYDROcodone/APAP 5-325MG 1 EACH TAB PO PRN ×2 (08:46→21:18)
--- NOTE | 2021-02-01 09:11 | P.PN ---
Subjective Progress Note Date: 02/01/21 Principal diagnosis: Moderate degenerative aortic stenosis, severe eccentric mitral regurgitation with torn chordae P2 of the posterior leaflet. History of hypertension, objective sleep apnea without CPAP use, previous tobacco dependence, significant short-term memory loss. Patient did Covid vaccine. POD #2 aortic valve replacement with a #21 mm Mckeon Inspiris bioprosthetic aortic valve, complex mitral valve repair with a 30 mm CarboMedics AnnuloFlex band, quadrangular resection of P2 of the posterior leaflet, closure of PEEP 1 and P2 cleft posteriorly, ring annuloplasty, clip ligation of the left atrial appendage with a 35 mm AtriClip and intraoperative transesophageal echocardiogram Postoperative acute blood loss anemia and thrombocytopenia, expected outcomes di lution and cardiopulmonary bypass pump The patient is currently sitting up in a recliner in the intensive care unit in no acute distress. Currently in normal sinus rhythm, hemodynamically stable. S taterika pain is controlled on current medication regimen, denies shortness of breath. He is oxygenating well on room air and able to achieve 1000 mL on his incentive spirometry. Mediastinal chest tube, right internal jugular Cordis, left radial arterial line all present. He did ambulate this morning with nursing staff. No other new concerns. Objective - Vital Signs Vital signs: Vital Signs Temp 98.4 F 02/01/21 04:00 Pulse 88 02/01/21 07:58 Resp 19 02/01/21 07:00 BP 87/55 01/31/21 20:00 Pulse Ox 94 L 02/01/21 07:00 Intake & Output 01/31/21 02/01/21 02/01/21 18:59 06:59 18:59 Intake Total 431.923 9904 Output Total 695 408 Balance 196.658 860 Weight 71.3 kg 72.6 kg Intake: IV 765 968 Albumin Human 5% 250 ml 500 In Empty Bag 1 bag @ 250 mls/hr IVPB Q1HR PRN Rx#: [id number] CO/CI 40 Lactated Ringers 1,000 ml 400 390 @ 20 mls/hr IV .Q24H [facility] Rx#:[id number] Magnesium Sulfate-D5w Pmx 200 1 gm In Dextrose/Water 1 100ml.bag @ 100 mls/hr IVPB Q1H [facility] Rx#: [id number] Pressure Bags 75 78 ceFAZolin 2 gm In Sodium 50 Chloride 0.9% 50 ml @ 100 mls/hr IVPB Q8H [facility] Rx#: [id number] Intake, IV Titration 126.658 Amount Clevidipine Butyrate 25 115.400 mg In Empty Bag 1 bag @ 1 MG/HR 2 mls/hr IV .Q24H [facility] Rx#:[id number] Insulin Regular 100 unit 11.258 In Sodium Chloride 0.9% 100 ml @ Per Protocol IV .Q0M [facility] Rx#:[id number] Oral 300 Output: Chest Tube Drainage 210 130 Mediastinal 210 130 Urine 485 278 Other: Voiding Method Indwelling Catheter Indwelling Catheter ABP, PAP, CO, CI - Last Documented Arterial Blood Pressure 143/53 Pulmonary Artery Pressure 35/17 Cardiac Output 6.1 Cardiac Index 3.5 - Exam CONSTITUTIONAL: Appears comfortable, cooperative, no acute distress RESPIRATORY: Lungs sounds diminished bilaterally. Respirations even, nonlabored. Currently on room air with oxygen saturation 94%. Able to achieve 1000 mL on incentive spirometry. Strong cough. CARDIOVASCULAR: S1, S2 present. Regular rate and rhythm, sinus rhythm on telem etry. Sternum stable. Palpable peripheral pulses bilaterally. No edema present. No calf pain or tenderness noted. Heart hugger in place with patient demonstrating appropriate use. Antiembolism stockings, SCDs present. GASTROINTESTINAL: Abdomen soft, nontender, nondistended. Active bowel sounds present 4 quadrants. Tolerating diet. Negative flatus GENITOURINARY: Fisher present draining clear, yellow urine. Output overnight 30 mL per hour INTEGUMENTARY: Skin is warm and dry with evidence of good perfusion. Anterior chest incision well approximated and covered with dry intact dressing. NEUROLOGIC: Cranial nerves II through XII intact MUSKULOSKELETAL: Able to move all extremities, strength equal bilaterally, gait normal PSYCHIATRIC: Alert and oriented to person place and time, appropriate affect, intact judgment and insight INVASIVE LINES AND TUBES: Mediastinal chest tube present and connected to wall suction, no air leaks present, 60 mL serosanguineous drainage overnight, 250 mL in the last 24 hours. A/V epicardial pacemaker wires present, grounded. Right internal jugular Cordis, left radial arterial line present. - Labs CBC & Chem 7: 02/01/21 04:10 02/01/21 04:10 Labs: Abnormal Lab Results - Last 24 Hours (Table) 01/31/21 01/31/21 01/31/21 Range/Units 08:13 09:27 10:24 WBC (3.8-10.6) k/uL RBC (4.30-5.90) m/uL Hgb (13.0-17.5) gm/dL Hct (39.0-53.0) % Plt Count (150-450) k/uL Neutrophils # (1.3-7.7) k/uL Lymphocytes # (1.0-4.8) k/uL Sodium (137-145) mmol/L BUN (9-20) mg/dL Creatinine (0.66-1.25) mg/dL Glucose (74-99) mg/dL POC Glucose (mg/dL) 115 H 144 H 138 H (75-99) mg/dL Magnesium (1.6-2.3) mg/dL Total Protein (6.3-8.2) g/dL Albumin (3.5-5.0) g/dL 01/31/21 01/31/21 01/31/21 Range/Units 11:29 12:05 17:00 WBC (3.8-10.6) k/uL RBC (4.30-5.90) m/uL Hgb (13.0-17.5) gm/dL Hct (39.0-53.0) % Plt Count (150-450) k/uL Neutrophils # (1.3-7.7) k/uL Lymphocytes # (1.0-4.8) k/uL Sodium (137-145) mmol/L BUN (9-20) mg/dL Creatinine (0.66-1.25) mg/dL Glucose (74-99) mg/dL POC Glucose (mg/dL) 140 H 114 H 100 H (75-99) mg/dL Magnesium (1.6-2.3) mg/dL Total Protein (6.3-8.2) g/dL Albumin (3.5-5.0) g/dL 01/31/21 02/01/21 02/01/21 Range/Units 20:50 04:10 04:10 WBC 13.1 H (3.8-10.6) k/uL RBC 3.08 L (4.30-5.90) m/uL Hgb 9.6 L D (13.0-17.5) gm/dL Hct 28.4 L (39.0-53.0) % Plt Count 86 L (150-450) k/uL Neutrophils # 11.7 H (1.3-7.7) k/uL Lymphocytes # 0.7 L (1.0-4.8) k/uL Sodium 133 L (137-145) mmol/L BUN 27 H (9-20) mg/dL Creatinine 1.39 H (0.66-1.25) mg/dL Glucose 118 H (74-99) mg/dL POC Glucose (mg/dL) 116 H (75-99) mg/dL Magnesium 2.7 H (1.6-2.3) mg/dL Total Protein 5.1 L (6.3-8.2) g/dL Albumin 3.3 L (3.5-5.0) g/dL 02/01/21 Range/Units 06:35 WBC (3.8-10.6) k/uL RBC (4.30-5.90) m/uL Hgb (13.0-17.5) gm/dL Hct (39.0-53.0) % Plt Count (150-450) k/uL Neutrophils # (1.3-7.7) k/uL Lymphocytes # (1.0-4.8) k/uL Sodium (137-145) mmol/L BUN (9-20) mg/dL Creatinine (0.66-1.25) mg/dL Glucose (74-99) mg/dL POC Glucose (mg/dL) 126 H (75-99) mg/dL Magnesium (1.6-2.3) mg/dL Total Protein (6.3-8.2) g/dL Albumin (3.5-5.0) g/dL - Imaging and Cardiology Chest x-ray: report reviewed, image reviewed Assessment and Plan Assessment: 1. Moderate degenerative aortic stenosis, status post bioprosthetic aortic valve replacement 2. Severe eccentric mitral regurgitation with torn chordae P2 of the posterior leaflet, status post complex mitral valve repair 3. Hypertension 4. Obstructive sleep apnea without CPAP use 5. Previous tobacco dependence, preoperative FEV1 95% of predicted 6. Significant short-term memory loss. 7. Postoperative acute blood loss anemia and thrombocytopenia Plan: 1. Continue aspirin, statin, Plavix, Cozaar, beta kike therapy. Will increase beta kike therapy as tolerated. 2. Encourage incentive spirometry use 10 times every hour while awake. Bronchodilators per pulmonology 3. Increase activity, ambulate as tolerated. PT/OT/cardiac rehab consulted 4. Will monitor daily labs and x-rays. Electrolyte replacement per protocol. No Lasix today. 5. GI/DVT prophylaxis 6. Pain control with current medication regimen, Toradol discontinued due to elevated BUN/creatinine 7. Insulin management per primary care service. Patient is not diabetic, preoperative hemoglobin A1c 5.1% 8. Will get a limited echo to evaluate valves 9. Likely will discontinue mediastinal chest tube. Keep cordis, arterial line for another 24 hours 10. Discontinue Fisher catheter, made bladder scan and straight cath for greater than 300 mL residual 11. Strict accurate intake and output. Daily weights 12. More recommendations to follow based on patient's progress Time with Patient: Greater than 30
--- NOTE | 2021-02-01 09:13 | P.PN ---
Subjective Progress Note Date: 02/01/21 Principal diagnosis: Severe eccentric mitral regurgitation and moderate aortic stenosis, status post aortic valve replacement, mitral valve repair Pulmonary consult dated 01/30/2021. 70-year-old male, postop day #0, status post aortic valve replacement and mitral valve repair. The surgery was done by Dr. Ortiz. Currently, the patient's resting comfortably in the ICU. He is obviously still on the ventilator. He is getting lactated Ringer's at 50 mL an hour, Cleveprex at 4 mg an hour, and propofol at 25 mcg/kg/m. The patient's vent settings include the volume assist control, rate 12, tidal volume 500, FiO2 40%, and PEEP of 5. Blood gases show pO2 of greater than 400, a pCO2 38, and a pH is 7.45. The FiO2 was turned down to 40%. Currently, the patient is hemodynamically stable and a bit hypertensive. Hence, the Cleveprex. He initially came back from the operating room on IV nitroglycerin. The patient's home medications include only on losartan, and Tylenol. In addition, the patient has a history of mitral valve prolapse, mitral regurgitation, obstructive sleep apnea syndrome, and previous history of tobacco use. His cardiac catheterization revealed no significant a productive coronary disease, the patient had 3-4+ mitral regurgitation, and moderate aortic stenosis with a valve surface area of 1.32 cm. Progress note dated 01/31/2021. This is a 70-year-old male postop day #1, status post aortic valve replacement and mitral valve repair. The surgery was done by Dr. Ortiz. Currently, the patient's doing well. He was extubated fairly quickly. The patient is on 2 L nasal cannula. He's receiving lactated Ringer's at 50 mL an hour. He is on an insulin drip at 3.5 units per hour, and receiving Cleveprex for blood pressure control and 18 mg an hour. White count 14.6, hemoglobin 12.5, hematocrit 35.9, platelet count 117,000. Sodium 136, with a normal potassium, chloride, CO2, anion gap, BUN, and creatinine. Chest x-ray is currently pending. The patient is seen today 02/01/2021 in follow-up in the intensive care unit. This is postoperative day #2 of aortic valve replacement and mitral valve repair. He is currently sitting up in a chair at the bedside. Maintaining O2 saturations in the 90s on room air. Chest x-ray reveals mediastinal chest tube in place. Cardiomegaly with bilateral infiltrates/effusions. Mild central int erstitial prominence. Some subcutaneous emphysema along the left neck strain. No sizable pneumothorax. He has lactated Ringer's at 30 MLS per hour. No other drips. Off cleviprex. He is doing quite well. His pain is well managed. Working well with the incentive spirometer. Fisher catheters have been removed. Plan is for possible chest tube to be removed today. White count 13.1. Hemoglobin 9.6. Platelet count 86,000. Sodium 133. Potassium 4.8. Creatinine 1.39. Magnesium 2.7. He remains on bronchodilators, heparin for DVT prophylaxis. Protonix for GI prophylaxis. Objective - Vital Signs Vital signs: Vital Signs Temp 98.4 F 02/01/21 04:00 Pulse 85 02/01/21 08:04 Resp 19 02/01/21 07:00 BP 87/55 01/31/21 20:00 Pulse Ox 94 L 02/01/21 07:00 Intake & Output 01/31/21 02/01/21 02/01/21 18:59 06:59 18:59 Intake Total 810.243 1813 Output Total 695 408 Balance 196.658 860 Weight 71.3 kg 72.6 kg Intake: IV 765 968 Albumin Human 5% 250 ml 500 In Empty Bag 1 bag @ 250 mls/hr IVPB Q1HR PRN Rx#: [id number] CO/CI 40 Lactated Ringers 1,000 ml 400 390 @ 20 mls/hr IV .Q24H [facility] Rx#:[id number] Magnesium Sulfate-D5w Pmx 200 1 gm In Dextrose/Water 1 100ml.bag @ 100 mls/hr IVPB Q1H [facility] Rx#: [id number] Pressure Bags 75 78 ceFAZolin 2 gm In Sodium 50 Chloride 0.9% 50 ml @ 100 mls/hr IVPB Q8H [facility] Rx#: [id number] Intake, IV Titration 126.658 Amount Clevidipine Butyrate 25 115.400 mg In Empty Bag 1 bag @ 1 MG/HR 2 mls/hr IV .Q24H [facility] Rx#:[id number] Insulin Regular 100 unit 11.258 In Sodium Chloride 0.9% 100 ml @ Per Protocol IV .Q0M [facility] Rx#:[id number] Oral 300 Output: Chest Tube Drainage 210 130 Mediastinal 210 130 Urine 485 278 Other: Voiding Method Indwelling Catheter Indwelling Catheter ABP, PAP, CO, CI - Last Documented Arterial Blood Pressure 143/53 Pulmonary Artery Pressure 35/17 Cardiac Output 6.1 Cardiac Index 3.5 - Exam GENERAL EXAM: Alert, very pleasant 70-year-old gentleman, on room air, fairly comfortable in no apparent distress. HEAD: Normocephalic. EYES: Normal reaction of pupils, equal size. NOSE: Clear with pink turbinates. THROAT: No erythema or exudates. NECK: Cordis remains in place. No masses, no JVD. CHEST: Sternal dressing dry and intact. Heart and place. Mediastinal chest tube. LUNGS: Equal air entry with faint crackles in the posterior bases CVS: S1 and S2 normal with no audible murmur, regular rhythm. ABDOMEN: No hepatosplenomegaly, normal bowel sounds, no guarding or rigidity. SPINE: No scoliosis or deformity SKIN: No rashes CENTRAL NERVOUS SYSTEM: No focal deficits, tone is normal in all 4 extremities. EXTREMITIES: SCDs in place. There is no peripheral edema. No clubbing, no cyanosis. Peripheral pulses are intact. - Labs CBC & Chem 7: 02/01/21 04:10 02/01/21 04:10 Labs: Abnormal Lab Results - Last 24 Hours (Table) 01/31/21 01/31/21 01/31/21 Range/Units 09:27 10:24 11:29 WBC (3.8-10.6) k/uL RBC (4.30-5.90) m/uL Hgb (13.0-17.5) gm/dL Hct (39.0-53.0) % Plt Count (150-450) k/uL Neutrophils # (1.3-7.7) k/uL Lymphocytes # (1.0-4.8) k/uL Sodium (137-145) mmol/L BUN (9-20) mg/dL Creatinine (0.66-1.25) mg/dL Glucose (74-99) mg/dL POC Glucose (mg/dL) 144 H 138 H 140 H (75-99) mg/dL Magnesium (1.6-2.3) mg/dL Total Protein (6.3-8.2) g/dL Albumin (3.5-5.0) g/dL 01/31/21 01/31/21 01/31/21 Range/Units 12:05 17:00 20:50 WBC (3.8-10.6) k/uL RBC (4.30-5.90) m/uL Hgb (13.0-17.5) gm/dL Hct (39.0-53.0) % Plt Count (150-450) k/uL Neutrophils # (1.3-7.7) k/uL Lymphocytes # (1.0-4.8) k/uL Sodium (137-145) mmol/L BUN (9-20) mg/dL Creatinine (0.66-1.25) mg/dL Glucose (74-99) mg/dL POC Glucose (mg/dL) 114 H 100 H 116 H (75-99) mg/dL Magnesium (1.6-2.3) mg/dL Total Protein (6.3-8.2) g/dL Albumin (3.5-5.0) g/dL 02/01/21 02/01/21 02/01/21 Range/Units 04:10 04:10 06:35 WBC 13.1 H (3.8-10.6) k/uL RBC 3.08 L (4.30-5.90) m/uL Hgb 9.6 L D (13.0-17.5) gm/dL Hct 28.4 L (39.0-53.0) % Plt Count 86 L (150-450) k/uL Neutrophils # 11.7 H (1.3-7.7) k/uL Lymphocytes # 0.7 L (1.0-4.8) k/uL Sodium 133 L (137-145) mmol/L BUN 27 H (9-20) mg/dL Creatinine 1.39 H (0.66-1.25) mg/dL Glucose 118 H (74-99) mg/dL POC Glucose (mg/dL) 126 H (75-99) mg/dL Magnesium 2.7 H (1.6-2.3) mg/dL Total Protein 5.1 L (6.3-8.2) g/dL Albumin 3.3 L (3.5-5.0) g/dL Assessment and Plan Assessment: 1 Severe eccentric mitral regurgitation and moderate aortic stenosis. Status post aortic valve replacement, mitral valve repair. Postoperative day #2. 2 History of obstructive sleep apnea 3 History of previous tobacco dependence Plan: The patient was seen and evaluated by Dr. Andino Chest x-ray, labs reviewed Stable from the pulmonary standpoint, on room air Continues to work with the incentive spirometer Increase his activity as tolerated We'll continue to follow I, the cosigning physician, performed a history & physical examination of the patient. Lungs sounds faint crackles in the posterior bases. Maintaining good O2 saturations in the 90s on room air. I discussed the assessment and plan of care with my nurse practitioner, Destinee Mccurdy. I attest to the above note as dictated by her.
--- NOTE | 2021-02-01 09:51 | P.PN ---
Subjective This is a pleasant 70-year-old male past medical history significant for obstructive sleep apnea, former smoker, severe mitral valve regurgitation with prolapse of posterior mitral leaflet, moderate aortic stenosis. He follows in the office with Dr. Galindo. We have been asked to see in consultation for post cardiac surgery management. Patient is POD #2 aortic valve replacement, mitral valve repair, quadrangular resection of P2 of the posterior leaflet, closure of PEEP 1 and P2 cleft posteriorly, ring annuloplasty, clip ligation of the left atrial appendage and intraoperative transesophageal echocardiogram. 02/01/21 Patient is seen and examined in the intensive care unit. He was extubated 6/. Sitting up in the bedside recliner. He is currently maintaining sinus mechanism. He is hemodynamically stable. He continues to c/o abdominal bloating, feels constipated. Has not had a bowel movement. But is passing flatus. Feels that he is unable to take a deep breath. He is using his incentive spirometer with 1500mL. Currently maintaining sinus mechanism. Yesterday morning around 1030am patient was hypertensive BP 175/67 receiving 10mg IV hydralazine. Overnight the patient was hypotensive requiring 750mL of albumin. He is currently being maintained on aspirin 325 mg daily, atorvastatin 40 mg daily, Plavix 75 mg daily, metoprolol 25 mg twice a day, losartan 12.5mg daily. Laboratory reviewed, WBC 13.1, hemoglobin 9.6, platelets 86, sodium 133, potassium 4.8, BUN 27, serum creatinine 1.39, magnesium 2.7 PHYSICAL EXAMINATION Blood pressure 129/48 heart rate 88 afebrile and maintaining oxygen saturation 100% on room air. CVP is 13-14 at bedside CONSTITUTIONAL: No apparent distress. HEENT: Head is normocephalic. No JVD. Left IJ catheter present. CHEST EXAMINATION: Lungs are clear to auscultation. No chest wall tenderness is noted on palpation or with deep breathing. Anterior chest incision covered in dressing, clean dry intact. Mediastinal chest tube present with serosanguinous drainage. HEART EXAMINATION: Regular rate and rhythm. S1, S2 heard. Systolic murmur, no gallops or rub. ABDOMEN: Soft, Tenderness throughout. Positive bowel sounds. EXTREMITIES: 2+ peripheral pulses, no lower extremity edema and no calf tenderne ss. Left radial A line present NEUROLOGIC EXAMINATION: Patient is awake, alert and oriented x3. ASSESSMENT -Moderate aortic stenosis, status post bioprosthetic aortic valve replacement -Severe mitral regurgitation with prolapse of posterior mitral leaflet, status post mitral valve repair -Hypertension -Obstructive sleep apnea -Post operative constipation -Acute Kidney Injury PLAN -Continue current medical therapy with aspirin 325 mg daily, atorvastatin 40 mg daily, Plavix 75 mg daily, metoprolol 25 mg twice a day -Continue losartan -Plan for Repeat limited echocardiogram today -Post operative management per CT surgery -Continue incentive spirometer every hour -Increase activity as tolerated -We will continue to follow patient Nurse Practitioner note has been reviewed, I agree with a documented findings and plan of care. Patient was seen and examined. Objective - Vital Signs Vital signs: Vital Signs Temp 97.7 F 02/01/21 08:00 Pulse 85 02/01/21 08:04 Resp 8 L 02/01/21 08:00 BP 102/52 02/01/21 08:00 Pulse Ox 100 02/01/21 08:00 Intake & Output 01/31/21 02/01/21 02/01/21 18:59 06:59 18:59 Intake Total 676.532 8040 Output Total 695 408 Balance 196.658 860 Weight 71.3 kg 72.6 kg Intake: IV 765 968 Albumin Human 5% 250 ml 500 In Empty Bag 1 bag @ 250 mls/hr IVPB Q1HR PRN Rx#: [id number] CO/CI 40 Lactated Ringers 1,000 ml 400 390 @ 20 mls/hr IV .Q24H [facility] Rx#:[id number] Magnesium Sulfate-D5w Pmx 200 1 gm In Dextrose/Water 1 100ml.bag @ 100 mls/hr IVPB Q1H [facility] Rx#: [id number] Pressure Bags 75 78 ceFAZolin 2 gm In Sodium 50 Chloride 0.9% 50 ml @ 100 mls/hr IVPB Q8H [facility] Rx#: [id number] Intake, IV Titration 126.658 Amount Clevidipine Butyrate 25 115.400 mg In Empty Bag 1 bag @ 1 MG/HR 2 mls/hr IV .Q24H [facility] Rx#:[id number] Insulin Regular 100 unit 11.258 In Sodium Chloride 0.9% 100 ml @ Per Protocol IV .Q0M [facility] Rx#:[id number] Oral 300 Output: Chest Tube Drainage 210 130 Mediastinal 210 130 Urine 485 278 Other: Voiding Method Indwelling Catheter Indwelling Catheter ABP, PAP, CO, CI - Last Documented Arterial Blood Pressure 129/48 Pulmonary Artery Pressure 35/17 Cardiac Output 6.1 Cardiac Index 3.5 - Labs CBC & Chem 7: 02/01/21 04:10 02/01/21 04:10 Labs: Abnormal Lab Results - Last 24 Hours (Table) 01/31/21 01/31/21 01/31/21 Range/Units 10:24 11:29 12:05 WBC (3.8-10.6) k/uL RBC (4.30-5.90) m/uL Hgb (13.0-17.5) gm/dL Hct (39.0-53.0) % Plt Count (150-450) k/uL Neutrophils # (1.3-7.7) k/uL Lymphocytes # (1.0-4.8) k/uL Sodium (137-145) mmol/L BUN (9-20) mg/dL Creatinine (0.66-1.25) mg/dL Glucose (74-99) mg/dL POC Glucose (mg/dL) 138 H 140 H 114 H (75-99) mg/dL Magnesium (1.6-2.3) mg/dL Total Protein (6.3-8.2) g/dL Albumin (3.5-5.0) g/dL 01/31/21 01/31/21 02/01/21 Range/Units 17:00 20:50 04:10 WBC 13.1 H (3.8-10.6) k/uL RBC 3.08 L (4.30-5.90) m/uL Hgb 9.6 L D (13.0-17.5) gm/dL Hct 28.4 L (39.0-53.0) % Plt Count 86 L (150-450) k/uL Neutrophils # 11.7 H (1.3-7.7) k/uL Lymphocytes # 0.7 L (1.0-4.8) k/uL Sodium (137-145) mmol/L BUN (9-20) mg/dL Creatinine (0.66-1.25) mg/dL Glucose (74-99) mg/dL POC Glucose (mg/dL) 100 H 116 H (75-99) mg/dL Magnesium (1.6-2.3) mg/dL Total Protein (6.3-8.2) g/dL Albumin (3.5-5.0) g/dL 02/01/21 02/01/21 Range/Units 04:10 06:35 WBC (3.8-10.6) k/uL RBC (4.30-5.90) m/uL Hgb (13.0-17.5) gm/dL Hct (39.0-53.0) % Plt Count (150-450) k/uL Neutrophils # (1.3-7.7) k/uL Lymphocytes # (1.0-4.8) k/uL Sodium 133 L (137-145) mmol/L BUN 27 H (9-20) mg/dL Creatinine 1.39 H (0.66-1.25) mg/dL Glucose 118 H (74-99) mg/dL POC Glucose (mg/dL) 126 H (75-99) mg/dL Magnesium 2.7 H (1.6-2.3) mg/dL Total Protein 5.1 L (6.3-8.2) g/dL Albumin 3.3 L (3.5-5.0) g/dL
[2021-02-01 11:42] LABS: Glucose,Whole Blood 132 mg/dL (75-99)
[2021-02-01] MEDS: LOSARTAN 25 MG TAB PO SCH (12:04)
--- NOTE | 2021-02-01 12:55 | ECHOF ---
Referral Reason:assess AV, MV MEASUREMENTS -------- HEIGHT: 167.6 cm WEIGHT: 72.6 kg BP: 129/48 LAESV Index (A-L): 23.28 ml/m MV E José: 1.40 m/s MV DecT: 409 ms MV A José: 1.34 m/s MV E/A Ratio: 1.04 AV maxP.28 mmHg AV meanP.15 mmHg RAP: 5.00 mmHg RVSP: 38.18 mmHg FINDINGS -------- Sinus rhythm. Limited Study Left ventricular systolic function is hyperdynamic with an estimated EF of >70%. Echodensity was seen in the LVOT Peak/mean gradient across the Aortic Valve is 25.28mmHg / 14.15mmHg. Normally functioning bioprosth etic valve. The peak and mean MV gradients are 15.46mmHg 6.26mmHg as measured by doppler. MV Repair. Mild tricuspid regurgitation present. There is mild pulmonary hypertension. The right ventricular systolic pressure, as measured by Doppler, is 38.18mmHg. CONCLUSIONS -------- 1. Limited Study 2. Left ventricular systolic function is hyperdynamic with an estimated EF of >70%. 3. Echodensity was seen in the LVOT 4. Peak/mean gradient across the Aortic Valve is 25.28mmHg / 14.15mmHg. 5. Normally functioning bioprosthetic valve. 6. The peak and mean MV gradients are 15.46mmHg 6.26mmHg as measured by doppler. 7. MV Repair. 8. Mild tricuspid regurgitation present. 9. There is mild pulmonary hypertension. 10. The right ventricular systolic pressure, as measured by Doppler, is 38.18mmHg. SURVEYOR HELPER ROD: Isadora Restrepo RDCS
[2021-02-01] MEDS: bisacodyL 10 MG SUPP RECTAL PRN (13:17)
[2021-02-01 17:06] LABS: Glucose,Whole Blood 126 mg/dL (75-99)
--- NOTE | 2021-02-01 18:55 | P.PN ---
Progress Note - Text Progress Note Date: 02/01/21 - Chief Complaint Valvular surgery Consultation: This is a pleasant 70-year-old patient who follows with Dr. Paul Crowell. Patient has undergone bioprosthetic aortic valve replacement/annuloplasty for mitral valve replacement. Currently in the ICU. 2 mediastinal chest tubes in place. Sinus rhythm. Patient had previously undergone a JOSE that showed: 3-4+ mitral regurgitation, mitral valve flow prolapse of the posterior leaf left and a possibly ruptured chordae. Moderate aortic stenosis with the area of 1.32 cm with a negative bubble study. Cardiac catheterization was unremarkable. Chronic stable medical conditions include some hard of hearing, obstructive sleep apnea does not use CPAP, some memory impairment. Today: Sitting up in a chair. at the bedside. Chest tube in place. Sinus rhythm. Advanced to a regular diet. He did walk with the staff. Sinus rhythm. Review of systems: Was done for constitutional, cardiovascular, GI, pulmonary. relevant finding as above Active Medications Acetaminophen (Acetaminophen Tab 325 Mg Tab) 650 mg PO Q4HR PRN PRN Reason: Fever and/ or Pain Hydrocodone Bitart/Acetaminophen (Hydrocodone/Apap 5-325mg 1 Each Tab) 2 each PO Q4HR PRN PRN Reason: Severe Pain Last Admin: 02/01/21 08:46 Dose: 2 each Documented by: Hydrocodone Bitart/Acetaminophen (Hydrocodone/Apap 5-325mg 1 Each Tab) 1 each PO Q4HR PRN PRN Reason: Moderate Pain Albuterol/Ipratropium (Ipratropium-Albuterol 3 Ml Neb) 3 ml INHALATION RT-Q2H PRN PRN Reason: Shortness Of Breath Or Wheezing Albuterol/Ipratropium (Ipratropium-Albuterol 3 Ml Neb) 3 ml INHALATION RT-QID [facility] Last Admin: 02/01/21 15:02 Dose: 3 ml Documented by: Aspirin (Aspirin 325 Mg Tab) 325 mg PO DAILY [facility] Last Admin: 02/01/21 08:45 Dose: 325 mg Documented by: Atorvastatin Calcium (Atorvastatin 40 Mg Tab) 40 mg PO DAILY [facility] Last Admin: 02/01/21 08:45 Dose: 40 mg Documented by: Benzocaine/Menthol (Benzocaine/Menthol Lozeng 1 Each Lozenge) 1 each MUCOUS MEM Q2H PRN PRN Reason: Sore Throat Last Admin: 02/01/21 17:17 Dose: 1 each Documented by: Bisacodyl (Bisacodyl 10 Mg Supp) 10 mg RECTAL DAILY PRN PRN Reason: Constipation Last Admin: 02/01/21 13:17 Dose: 10 mg Documented by: Clopidogrel Bisulfate (Clopidogrel 75 Mg Tab) 75 mg PO DAILY [facility] Last Admin: 02/01/21 08:45 Dose: 75 mg Documented by: Heparin Sodium (Porcine) (Heparin Sodium,Porcine/Pf 5,000 Unit/0.5 Ml Syringe) 5,000 unit SQ Q8HR [facility] Last Admin: 02/01/21 17:10 Dose: 5,000 unit Documented by: Hydralazine HCl (Hydralazine Hcl 20 Mg/Ml 1 Ml Vial) 10 mg IVP Q1H PRN PRN Reason: Blood Pressure - High Last Admin: 01/31/21 10:33 Dose: 10 mg Documented by: Amiodarone HCl 150 mg/ (Dextrose/Water) 103 mls @ 618 mls/hr IV .Q10M PRN; Protocol PRN Reason: A.FIB/FLUTTER Amiodarone HCl 360 mg/ (Dextrose/Water) 207.2 mls @ 34.533 mls/hr IV .Q6H PRN; Protocol PRN Reason: A.FIB/FLUTTER Amiodarone HCl 450 mg/ (Dextrose/Water) 250 mls @ 16.667 mls/hr IV .Q15H PRN; Protocol PRN Reason: A.FIB/FLUTTER Lactated Ringer's (Lactated Ringers) 1,000 mls @ 20 mls/hr IV .Q24H [facility] Last Admin: 01/31/21 22:39 Dose: 20 mls/hr Documented by: Calcium Gluconate 2 gm/ Sodium (Chloride) 120 mls @ 100 mls/hr IVPB ONCE PRN PRN Reason: Ionized Calcium less than 4.4 Stop: 02/22/21 12:29 Insulin Aspart (Insulin Aspart (Novolog) 100 Unit/Ml Vial) 0 unit SQ ACHS [facility]; Protocol Last Admin: 02/01/21 17:11 Dose: Not Given Documented by: Losartan Potassium (Losartan 25 Mg Tab) 12.5 mg PO DAILY@1200 [facility] Last Admin: 02/01/21 12:04 Dose: Not Given Documented by: Magnesium Hydroxide (Magnesium Hydroxide 2,400 Mg/10 Ml Cup) 2,400 mg PO BID PRN PRN Reason: Constipation Last Admin: 02/01/21 08:45 Dose: 2,400 mg Documented by: Metoclopramide HCl (Metoclopramide 5 Mg/Ml 2 Ml Vial) 10 mg IVP Q4H PRN PRN Reason: Nausea And Vomiting Metoprolol Tartrate (Metoprolol Tartrate 25 Mg Tab) 25 mg PO BID [facility] Last Admin: 02/01/21 08:45 Dose: 25 mg Documented by: Miscellaneous Information (Potassium Replacement Protocol 1 Each Mis) 1 each MISCELLANE DAILY PRN; Protocol PRN Reason: Per Protocol Miscellaneous Information (Magnesium Replacement Protocol 1 Each [facility]) 1 each MISCELLANE DAILY PRN; Protocol PRN Reason: Per Protocol Miscellaneous Information (Phosphorus Replacement Protoco 1 Each [facility]) 1 each MISCELLANE DAILY PRN; Protocol PRN Reason: Per Protocol Ondansetron HCl (Ondansetron 4 Mg/2 Ml Vial) 4 mg IVP Q6HR PRN PRN Reason: Nausea And Vomiting Last Admin: 01/31/21 08:30 Dose: 4 mg Documented by: Pantoprazole Sodium (Pantoprazole 40 Mg Tablet) 40 mg PO AC-BRKFST [facility] Last Admin: 02/01/21 06:41 Dose: 40 mg Documented by: Senna/Docusate Sodium (Sennosides-Docusate Sodium 1 Each Tab) 2 each PO HS [facility] Last Admin: 01/31/21 21:34 Dose: 2 each Documented by: Sodium Chloride (Sodium Chloride 0.9% Flush 10 Ml Syringe) 10 ml IV BID [facility] Last Admin: 02/01/21 08:52 Dose: 10 ml Documented by: Past medical history to include: Memory impairment, 3-4+ mitral valve regurgitation with posterior leaflet prolapse, moderate aortic stenosis, obstructive sleep apnea does not use CPAP, short term memory loss, hard of hearing, Social history: Patient stopped smoking in 1970. No alcohol. . Family history: Reviewed, noncontributory to presentation Physical examination: VITAL SIGNS: 97.1, 90, 13, 123/54, 94% on nasal cannula GENERAL: Sitting up in a chair, awake, EYES: Pupils equal. Conjunctiva pale. HEENT: External appearance of nose and ears normal, oral cavity grossly normal. NECK: JVD unable to assess; masses not palpable. HEART: First and second heart sounds are normal; no edema. LUNGS: Respiratory rate increased decreased breath sounds. , mediastinal chest tubes ABDOMEN: Soft, nontender, liver spleen not palpable, no masses palpable. Fisher catheter PSYCH: AO - times three. Mood and affect normal INVESTIGATIONS, reviewed in the clinical context: February 01: WBC 13.1 hemoglobin 9.6 platelets 86 BUN 27 creatinine 1.39 January 31: WBC 14.6 hemoglobin 12.5 platelets 117 potassium 4 creatinine 0.67 WBC 8.5 hemoglobin 11.5 platelets 97 Potassium 3.6 creatinine 0.71 albumin 2.3 Chest x-ray: Small amount of pneumomediastinum, soft tissue emphysema along the soft tissue left neck, postsurgical changes course interstitium Labs from 01/20/2021: Hemoglobin 14.1 platelets 226 Assessment and plan: -Bioprosthetic aortic valve replacement for moderate aortic stenosis with the preoperative area of 1.2 cm -Mitral valvular repair with annuloplasty for mitral regurgitation 3-4+, posterior leaflet prolapse, possible ruptured cord -Mild Cognitive impairment -Chronic hard of hearing -Acute postprocedure blood loss anemia, as expected from surgery Follow H&H -Dilutional thrombocytopenia, following surgery Follow H&H -Essential hypertension Cozaar, Lopressor. Follow closely -Acute kidney injury, possibly cardiorenal. Creatinine has gone from 0.67-1.39 Continue Cozaar today. Repeat labs in the morning. The blood pressure still running low consider holding Cozaar. Repeat labs in the morning. Hold Cozaar if worsening of renal function. Follow eyes and nose. Discussed with the patient and his .. Thank you Dr. Ortiz
[2021-02-01 21:12] LABS: Glucose,Whole Blood 126 mg/dL (75-99)
[2021-02-01] MEDS: SENNOSIDES-DOCUSATE SODIUM 1 EACH TAB PO SCH (21:17)
[2021-02-01] MEDS: LACTATED RINGERS 1,000 ML IV SCH (21:19)
[2021-02-02] MEDS: HYDROcodone/APAP 5-325MG 1 EACH TAB PO PRN ×2 (03:37→15:35)
[2021-02-02 06:22] LABS: Basophils % (A) 0 %; Eosinophils % (A) 0 %; HGB 9.5 gm/dL (13.0-17.5); Lymphocytes # (A) 0.4 k/uL (1.0-4.8); Lymphocytes % (A) 5 %; MCH 31.6 pg (25.0-35.0); MCHC 33.8 g/dL (31.0-37.0); MCV 93.6 fL (80.0-100.0); Mean Platelet Volume 7.8; Monocytes # (A) 0.5 k/uL (0-1.0); Monocytes % (A) 6 %; Neutrophils # (A) 8.5 k/uL (1.3-7.7); Neutrophils % (A) 88 %; Platelet Count 102 k/uL (150-450); RDW 13.5 % (11.5-15.5); WBC 9.7 k/uL (3.8-10.6)
[2021-02-02 06:26] LABS: Albumin 3.1 g/dL (3.5-5.0); Calcium 8.1 mg/dL (8.4-10.2); Potassium 4.7 mmol/L (3.5-5.1); Total Bilirubin 0.7 mg/dL (0.2-1.3); Total Protein 5.1 g/dL (6.3-8.2)
[2021-02-02 06:34] LABS: Glucose,Whole Blood 110 mg/dL (75-99)
[2021-02-02] MEDS: INSULIN ASPART (NovoLOG) 100 UNIT/ML VIAL SQ SCH ×4 (06:35→21:12)
[2021-02-02] MEDS: PANTOPRAZOLE 40 MG TABLET PO SCH (06:37)
[2021-02-02] MEDS: IPRATROPIUM-ALBUTEROL 3 ML NEB INHALATION SCH ×4 (07:52→21:13)
--- NOTE | 2021-02-02 09:02 | P.PN ---
Subjective Progress Note Date: 02/02/21 Principal diagnosis: Moderate degenerative aortic stenosis, severe eccentric mitral regurgitation with torn chordae P2 of the posterior leaflet. Past medical history significant for hypertension, obstructive sleep apnea without CPAP use, previous tobacco dependence, significant short-term memory loss. Patient did Covid vaccine. POD #3 aortic valve replacement with a #21 mm Mckeon Inspiris bioprosthetic aortic valve, complex mitral valve repair with a 30 mm CarboMedics AnnuloFlex band, quadrangular resection of P2 of the posterior leaflet, closure of PEEP 1 and P2 cleft posteriorly, ring annuloplasty, clip ligation of the left atrial appendage with a 35 mm AtriClip and intraoperative transesophageal echocardiogram Postoperative acute blood loss anemia and thrombocytopenia, expected outcomes dilution and cardiopulmonary bypass pump The patient was seen in follow-up today 02/02/2021 at his bedside in the intensive care unit. Currently he is sitting up to the bedside chair, is awake, alert and oriented 3 and is in no acute distress. Denies any complaints of shortness of breath although is complaining of some surgical type pain to his chest tube insertion sites. Rating his pain 3 out of 10 on the pain scale. Bedside telemetry showing normal sinus rhythm heart rate 85 BPM. Oxygen saturation are 96% on 2 L nasal cannula and he is achieving 750 mL on his incentive spirometry. Right IJ Cordis in place with current CVP showing 16 mmHg. The patient reports he had been up ambulating in the intensive care unit hallway with minimal assistance from therapy and nursing staff. Mediastinal chest tubes remain in place to low continuous wall suction -20 cm H2O. No air leak is present. Draining thin serosanguineous drainage with 200 mL output in the last 8 hours and 600 mL output since surgery. Left radial arterial line in place and functioning. Objective - Vital Signs Vital signs: Vital Signs Temp 98.4 F 02/02/21 08:00 Pulse 88 02/02/21 08:01 Resp 17 02/02/21 08:00 BP 111/64 02/02/21 08:00 Pulse Ox 97 02/02/21 08:00 Intake & Output 02/01/21 02/02/21 02/02/21 18:59 06:59 18:59 Intake Total 396 253 252 Output Total 760 950 130 Balance -364 -697 122 Weight 73.2 kg Intake: IV 396 253 52 Lactated Ringers 1,000 ml 330 220 40 @ 20 mls/hr IV .Q24H [facility] Rx#:[id number] Pressure Bags 66 33 12 Oral 200 Output: Chest Tube Drainage 320 200 130 Mediastinal 320 200 130 Urine 440 750 Other: Voiding Method Toilet Toilet Urinal # Voids 1 # Bowel Movements 1 ABP, PAP, CO, CI - Last Documented Arterial Blood Pressure 100/83 Pulmonary Artery Pressure 35/17 Cardiac Output 6.1 Cardiac Index 3.5 - Exam CONSTITUTIONAL: Sitting up to the bedside chair in the intensive care unit, appears comfortable, cooperative, no apparent acute distress. HEENT: Neck is supple, no JVD, no lymphadenopathy. Right IJ Cordis in place and functioning. RESPIRATORY: Lungs sounds essentially clear throughout, diminished to his bilateral bases. Respirations are symmetrical and nonlabored. Currently on 2 L nasal cannula with oxygen saturations 96%. Able to achieve 750 mL on their incentive spirometry. Strong cough. CARDIOVASCULAR: Regular rhythm and rate. S1 and S2 present, negative for S3, gallop or murmur. Pericardial rub present. Sternum is stable. Palpable peripheral pulses bilaterally, No calf pain or tenderness noted. Heart hugger in place with patient demonstrating appropriate use. Knee-high JESSICA hose and sequential compression devices in place to his bilateral lower extremities. GASTROINTESTINAL: Abdomen soft, nontender, nondistended. Active bowel sounds present 4 quadrants. Tolerating diet. Passing flatus. No guarding or rigidity. GENITOURINARY: Continues to void. Output 750 mL in the last 8 hours. INTEGUMENTARY: Skin is warm and dry with evidence of good perfusion. Midline sternal incision clean dry and well approximated, covered with dry intact dressing. NEUROLOGIC: Cranial nerves II through XII intact. No focal deficits. MUSKULOSKELETAL: Able to move all extremities, strength equal bilaterally, generalized weakness. PSYCHIATRIC: Alert and oriented to person place and time, appropriate affect, intact judgment and insight. INVASIVE LINES AND TUBES: Mediastinal chest tubes present and connected to low continuous wall suction, no air leaks present. Mediastinal tube with 200 mL of thin serosanguineous drainage overnight, 600 mL output in the last 24 hours. Atrial and ventricular epicardial pacemaker wires present, are grounded. Right internal jugular Cordis with current CVP pressure 16 mmHg. Left radial arterial line present and functioning. - Labs CBC & Chem 7: 02/02/21 05:50 02/02/21 05:50 Labs: Abnormal Lab Results - Last 24 Hours (Table) 02/01/21 02/01/21 02/01/21 Range/Units 11:40 17:04 21:10 RBC (4.30-5.90) m/uL Hgb (13.0-17.5) gm/dL Hct (39.0-53.0) % Plt Count (150-450) k/uL Neutrophils # (1.3-7.7) k/uL Lymphocytes # (1.0-4.8) k/uL Sodium (137-145) mmol/L BUN (9-20) mg/dL Creatinine (0.66-1.25) mg/dL Glucose (74-99) mg/dL POC Glucose (mg/dL) 132 H 126 H 126 H (75-99) mg/dL Calcium (8.4-10.2) mg/dL AST (17-59) U/L Total Protein (6.3-8.2) g/dL Albumin (3.5-5.0) g/dL 02/02/21 02/02/21 02/02/21 Range/Units 05:50 05:50 06:32 RBC 3.00 L (4.30-5.90) m/uL Hgb 9.5 L (13.0-17.5) gm/dL Hct 28.0 L (39.0-53.0) % Plt Count 102 L (150-450) k/uL Neutrophils # 8.5 H (1.3-7.7) k/uL Lymphocytes # 0.4 L (1.0-4.8) k/uL Sodium 132 L (137-145) mmol/L BUN 33 H (9-20) mg/dL Creatinine 1.35 H (0.66-1.25) mg/dL Glucose 108 H (74-99) mg/dL POC Glucose (mg/dL) 110 H (75-99) mg/dL Calcium 8.1 L (8.4-10.2) mg/dL AST 60 H (17-59) U/L Total Protein 5.1 L (6.3-8.2) g/dL Albumin 3.1 L (3.5-5.0) g/dL Assessment and Plan Assessment: 1. Moderate degenerative aortic valve stenosis, status post bioprosthetic aortic valve replacement 2. Severe eccentric mitral regurgitation with torn chordae P2 of the posterior leaflet, status post complex mitral valve repair 3. Hypertension 4. Obstructive sleep apnea without CPAP use 5. Previous tobacco dependence, preoperative FEV1 95% of predicted 6. Significant short-term memory loss. 7. Postoperative acute blood loss anemia and thrombocytopenia Plan: 1. Continue aspirin, statin, Plavix, Cozaar, and beta kike. Will increase beta kike therapy as tolerated. 2. Wean oxygen as tolerated. Encourage incentive spirometry use 10 times every hour while awake. Bronchodilators per pulmonology 3. Increase activity, ambulate as tolerated. PT/OT/cardiac rehab following. 4. Will monitor daily labs and x-rays. Electrolyte replacement per protocol. 5. GI/DVT prophylaxis. 6. Pain control with current medication regimen, continue to hold Toradol due an elevated BUN/creatinine. 7. Insulin management per primary care service. Patient is not diabetic, preoperative hemoglobin A1c 5.1% 8. Remove right IJ Cordis. 9. Removed left radial arterial line. 10. Continue to record strict and accurate I's and O's. May bladder scan and straight cath for greater than 300 mL residual. 11. Continue to obtain daily weights. 12. Limited 2-D echocardiogram was completed yesterday which shows him to have a left ventricular systolic function to be hyperdynamic with an estimated ejection fraction of greater than 70%. Peak and mean gradient across aortic valve measured 25.28 mmHg /14.15 mmHg with a normally functioning bioprosthetic valve and the peak and mean gradient across his mitral valve showed 15.46 mmHg/6.26 mmHg. 13. Transferred to third floor cardiac stepdown unit orders placed. 14. Continued mediastinal chest tubes to low continuous wall suction -20 cm H2O. 15. More recommendations to follow based on patient's progress. Time with Patient: Greater than 30
[2021-02-02] MEDS: ASPIRIN 325 MG TAB PO SCH (09:05)
[2021-02-02] MEDS: HEPARIN SODIUM,PORCINE/PF 5,000 UNIT/0.5 ML SYRINGE SQ SCH ×3 (09:06→23:46)
[2021-02-02] MEDS: CLOPIDOGREL 75 MG TAB PO SCH (09:06)
[2021-02-02] MEDS: METOPROLOL TARTRATE 25 MG TAB PO SCH ×2 (09:06→21:14)
[2021-02-02] MEDS: ATORVASTATIN 40 MG TAB PO SCH (09:06)
--- NOTE | 2021-02-02 09:16 | P.PN ---
Subjective Progress Note Date: 02/02/21 Principal diagnosis: Severe eccentric mitral regurgitation and moderate aortic stenosis, status post aortic valve replacement, mitral valve repair Pulmonary consult dated 01/30/2021. 70-year-old male, postop day #0, status post aortic valve replacement and mitral valve repair. The surgery was done by Dr. Ortiz. Currently, the patient's resting comfortably in the ICU. He is obviously still on the ventilator. He is getting lactated Ringer's at 50 mL an hour, Cleveprex at 4 mg an hour, and propofol at 25 mcg/kg/m. The patient's vent settings include the volume assist control, rate 12, tidal volume 500, FiO2 40%, and PEEP of 5. Blood gases show pO2 of greater than 400, a pCO2 38, and a pH is 7.45. The FiO2 was turned down to 40%. Currently, the patient is hemodynamically stable and a bit hypertensive. Hence, the Cleveprex. He initially came back from the operating room on IV nitroglycerin. The patient's home medications include only on losartan, and Tylenol. In addition, the patient has a history of mitral valve prolapse, mitral regurgitation, obstructive sleep apnea syndrome, and previous history of tobacco use. His cardiac catheterization revealed no significant a productive coronary disease, the patient had 3-4+ mitral regurgitation, and moderate aortic stenosis with a valve surface area of 1.32 cm. Progress note dated 01/31/2021. This is a 70-year-old male postop day #1, status post aortic valve replacement and mitral valve repair. The surgery was done by Dr. Ortiz. Currently, the patient's doing well. He was extubated fairly quickly. The patient is on 2 L nasal cannula. He's receiving lactated Ringer's at 50 mL an hour. He is on an insulin drip at 3.5 units per hour, and receiving Cleveprex for blood pressure control and 18 mg an hour. White count 14.6, hemoglobin 12.5, hematocrit 35.9, platelet count 117,000. Sodium 136, with a normal potassium, chloride, CO2, anion gap, BUN, and creatinine. Chest x-ray is currently pending. The patient is seen today 02/01/2021 in follow-up in the intensive care unit. This is postoperative day #2 of aortic valve replacement and mitral valve repair. He is currently sitting up in a chair at the bedside. Maintaining O2 saturations in the 90s on room air. Chest x-ray reveals mediastinal chest tube in place. Cardiomegaly with bilateral infiltrates/effusions. Mild central int erstitial prominence. Some subcutaneous emphysema along the left neck strain. No sizable pneumothorax. He has lactated Ringer's at 30 MLS per hour. No other drips. Off cleviprex. He is doing quite well. His pain is well managed. Working well with the incentive spirometer. Fisher catheters have been removed. Plan is for possible chest tube to be removed today. White count 13.1. Hemoglobin 9.6. Platelet count 86,000. Sodium 133. Potassium 4.8. Creatinine 1.39. Magnesium 2.7. He remains on bronchodilators, heparin for DVT prophylaxis. Protonix for GI prophylaxis. The patient is seen today 02/02/2021 in follow-up in the intensive care unit. This is postoperative day #3 of aortic valve replacement and mitral valve repair. He is sitting up in a chair at the bedside. Awake and alert in no acute distress. Maintaining good O2 saturations in the 90s on 2 L/m per nasal cannula. Chest x-ray shows some limited bilateral infiltrates/effusions. He remains in sinus rhythm. He is afebrile. Hemodynamically stable. Lactated Ringer's at 20 mL per hour. No other drips. White count 9.7. Hemoglobin 9.5. Platelet count 102. Sodium 132. Potassium 4.7. Creatinine 1.35. Working well with the incentive spirometer. Up with assistance. Objective - Vital Signs Vital signs: Vital Signs Temp 98.4 F 02/02/21 08:00 Pulse 90 02/02/21 09:00 Resp 14 02/02/21 09:00 BP 117/60 02/02/21 09:00 Pulse Ox 95 02/02/21 09:00 Intake & Output 02/01/21 02/02/21 02/02/21 18:59 06:59 18:59 Intake Total 396 253 252 Output Total 760 950 150 Balance -352 -505 102 Weight 73.2 kg Intake: IV 396 253 52 Lactated Ringers 1,000 ml 330 220 40 @ 20 mls/hr IV .Q24H [facility] Rx#:[id number] Pressure Bags 66 33 12 Oral 200 Output: Chest Tube Drainage 320 200 150 Mediastinal 320 200 150 Urine 440 750 Other: Voiding Method Toilet Toilet Toilet Urinal Urinal # Voids 1 # Bowel Movements 1 ABP, PAP, CO, CI - Last Documented Arterial Blood Pressure 100/83 Pulmonary Artery Pressure 35/17 Cardiac Output 6.1 Cardiac Index 3.5 - Exam GENERAL EXAM: Alert, very pleasant 70-year-old gentleman, on 2 L nasal cannula, up in a chair, fairly comfortable in no apparent distress. HEAD: Normocephalic. EYES: Normal reaction of pupils, equal size. NOSE: Clear with pink turbinates. THROAT: No erythema or exudates. NECK: Cordis remains in place. No masses, no JVD. CHEST: Sternal dressing dry and intact. Heart and place. Mediastinal chest tube. LUNGS: Equal air entry with faint crackles in the posterior bases CVS: S1 and S2 normal with no audible murmur, regular rhythm. ABDOMEN: No hepatosplenomegaly, normal bowel sounds, no guarding or rigidity. SPINE: No scoliosis or deformity SKIN: No rashes CENTRAL NERVOUS SYSTEM: No focal deficits, tone is normal in all 4 extremities. EXTREMITIES: SCDs in place. There is no peripheral edema. No clubbing, no cyan osis. Peripheral pulses are intact. - Labs CBC & Chem 7: 02/02/21 05:50 02/02/21 05:50 Labs: Abnormal Lab Results - Last 24 Hours (Table) 02/01/21 02/01/21 02/01/21 Range/Units 11:40 17:04 21:10 RBC (4.30-5.90) m/uL Hgb (13.0-17.5) gm/dL Hct (39.0-53.0) % Plt Count (150-450) k/uL Neutrophils # (1.3-7.7) k/uL Lymphocytes # (1.0-4.8) k/uL Sodium (137-145) mmol/L BUN (9-20) mg/dL Creatinine (0.66-1.25) mg/dL Glucose (74-99) mg/dL POC Glucose (mg/dL) 132 H 126 H 126 H (75-99) mg/dL Calcium (8.4-10.2) mg/dL AST (17-59) U/L Total Protein (6.3-8.2) g/dL Albumin (3.5-5.0) g/dL 02/02/21 02/02/21 02/02/21 Range/Units 05:50 05:50 06:32 RBC 3.00 L (4.30-5.90) m/uL Hgb 9.5 L (13.0-17.5) gm/dL Hct 28.0 L (39.0-53.0) % Plt Count 102 L (150-450) k/uL Neutrophils # 8.5 H (1.3-7.7) k/uL Lymphocytes # 0.4 L (1.0-4.8) k/uL Sodium 132 L (137-145) mmol/L BUN 33 H (9-20) mg/dL Creatinine 1.35 H (0.66-1.25) mg/dL Glucose 108 H (74-99) mg/dL POC Glucose (mg/dL) 110 H (75-99) mg/dL Calcium 8.1 L (8.4-10.2) mg/dL AST 60 H (17-59) U/L Total Protein 5.1 L (6.3-8.2) g/dL Albumin 3.1 L (3.5-5.0) g/dL Assessment and Plan Assessment: 1 Severe eccentric mitral regurgitation and moderate aortic stenosis. Status post aortic valve replacement, mitral valve repair. Postoperative day #3. 2 History of obstructive sleep apnea 3 History of previous tobacco dependence Plan: The patient was seen and evaluated by Dr. Andino Chest x-ray, labs reviewed Continues to work with the incentive spirometer Titrate the FiO2 as tolerated Increase his activity as tolerated We'll continue to follow I, the cosigning physician, performed a history & physical examination of the patient. Lungs sounds faint crackles in the posterior bases. Maintaining good O2 saturations in the 90s on 2 L/m per nasal cannula. I discussed the assessment and plan of care with my nurse practitioner, Destinee Mccurdy. I attest to the above note as dictated by her.
--- NOTE | 2021-02-02 09:59 | XR ---
EXAMINATION TYPE: XR chest 1V portable DATE OF EXAM: 02/02/2021 COMPARISON: 02/01/2021 HISTORY: Postop TECHNIQUE: Single frontal view of the chest is obtained. FINDINGS: Moyers-Willem catheter has been removed. Bilateral infiltrate and pleural effusion with postop erative change. Epicardial lead and mediastinal drains. Findings are suggestive of the left 5% right apical pneumothorax new from prior exam. Underlying mild venous congestion suspected. IMPRESSION: 1. Less than 5% right apical pneumothorax is new. 2. Correlate for mild CHF with bilateral infiltrate and pleural effusion.
[2021-02-02 11:23] LABS: Glucose,Whole Blood 107 mg/dL (75-99)
[2021-02-02] MEDS: LOSARTAN 25 MG TAB PO SCH (12:18)
--- NOTE | 2021-02-02 14:05 | P.PN ---
Subjective This is a pleasant 70-year-old male past medical history significant for obstructive sleep apnea, former smoker, severe mitral valve regurgitation with prolapse of posterior mitral leaflet, moderate aortic stenosis. He follows in the office with Dr. Galindo. We have been asked to see in consultation for post cardiac surgery management. Patient is POD #3 aortic valve replacement, mitral valve repair, quadrangular resection of P2 of the posterior leaflet, closure of PEEP 1 and P2 cleft posteriorly, ring annuloplasty, clip ligation of the left atrial appendage and intraoperative transesophageal echocardiogram. 01/31: Morning around 1030am patient was hypertensive BP 175/67 receiving 10mg IV hydralazine. Overnight the patient was hypotensive requiring 750mL of albumin. 02/02/21 Patient is seen and examined in the intensive care unit. He was extubated 01/30. Sitting up in the bedside recliner. He is currently maintaining sinus mechanism. He is hemodynamically stable. He continues to c/o abdominal bloating, feels constipated. Able to have a small bowel movement yesterday. Is passing flatus. He states his breathing has improved from yesterday. He is using his incentive spirometer with 1000mL. Currently maintaining sinus mechanism. He is currently being maintained on aspirin 325 mg daily, atorvastatin 40 mg daily, Plavix 75 mg daily, metoprolol 25 mg twice a day, losartan 12.5mg daily. Laboratory reviewed, WBC 9.7, hemoglobin 9.5, platelets 102, sodium 132, potassium 4.7, BUN 33, serum creatinine 1.35. Limited 2-D echocardiogram was completed yesterday which shows him to have a left ventricular systolic function to be hyperdynamic with an estimated ejection fraction of greater than 70%. Peak and mean gradient across aortic valve measured 25.28 mmHg /14.15 mmHg with a normally functioning bioprosthetic valve and the peak and mean gradient across his mitral valve showed 15.46 mmHg/6.26 mmHg. PHYSICAL EXAMINATION Blood pressure 111/64 heart rate 86 afebrile and maintaining oxygen saturation 100% on room air. CONSTITUTIONAL: No apparent distress. HEENT: Head is normocephalic. No JVD. Left IJ catheter present. CHEST EXAMINATION: Lungs are clear to auscultation. No chest wall tenderness is noted on palpation or with deep breathing. Anterior chest incision covered in dressing, clean dry intact. Mediastinal chest tube present with serosanguinous drainage. HEART EXAMINATION: Regular rate and rhythm. S1, S2 heard. Systolic murmur, no gallops or rub. ABDOMEN: Soft, Tenderness throughout. Positive bowel sounds. EXTREMITIES: 2+ peripheral pulses, no lower extremity edema and no calf tenderness. Left radial A line present NEUROLOGIC EXAMINATION: Patient is awake, alert and oriented x3. ASSESSMENT -Moderate aortic stenosis, status post bioprosthetic aortic valve replacement -Severe mitral regurgitation with prolapse of posterior mitral leaflet, status post mitral valve repair -Hypertension -Obstructive sleep apnea -Post operative constipation -Acute Kidney Injury PLAN -Continue current medical therapy with aspirin 325 mg daily, atorvastatin 40 mg daily, Plavix 75 mg daily, metoprolol 25 mg twice a day -Continue losartan -Post operative management per CT surgery -Continue incentive spirometer every hour -Increase activity as tolerated -We will continue to follow patient Nurse Practitioner note has been reviewed, I agree with a documented findings and plan of care. Patient was seen and examined. Objective - Vital Signs Vital signs: Vital Signs Temp 98.5 F 02/02/21 12:00 Pulse 95 02/02/21 12:00 Resp 21 02/02/21 12:00 BP 121/71 02/02/21 12:00 Pulse Ox 96 02/02/21 12:00 Intake & Output 02/01/21 02/02/21 02/02/21 18:59 06:59 18:59 Intake Total 396 253 878 Output Total 760 950 595 Balance -364 -697 283 Weight 73.2 kg Intake: IV 396 253 78 Lactated Ringers 1,000 ml 330 220 60 @ 20 mls/hr IV .Q24H [facility] Rx#:[id number] Pressure Bags 66 33 18 Oral 800 Output: Chest Tube Drainage 320 200 345 Mediastinal 320 200 345 Urine 440 750 250 Other: Voiding Method Toilet Toilet Toilet Urinal Urinal # Voids 1 # Bowel Movements 1 ABP, PAP, CO, CI - Last Documented Arterial Blood Pressure 100/83 Pulmonary Artery Pressure 35/17 Cardiac Output 6.1 Cardiac Index 3.5 - Labs CBC & Chem 7: 02/02/21 05:50 02/02/21 05:50 Labs: Abnormal Lab Results - Last 24 Hours (Table) 02/01/21 02/01/21 02/02/21 Range/Units 17:04 21:10 05:50 RBC 3.00 L (4.30-5.90) m/uL Hgb 9.5 L (13.0-17.5) gm/dL Hct 28.0 L (39.0-53.0) % Plt Count 102 L (150-450) k/uL Neutrophils # 8.5 H (1.3-7.7) k/uL Lymphocytes # 0.4 L (1.0-4.8) k/uL Sodium (137-145) mmol/L BUN (9-20) mg/dL Creatinine (0.66-1.25) mg/dL Glucose (74-99) mg/dL POC Glucose (mg/dL) 126 H 126 H (75-99) mg/dL Calcium (8.4-10.2) mg/dL AST (17-59) U/L Total Protein (6.3-8.2) g/dL Albumin (3.5-5.0) g/dL 02/02/21 02/02/21 02/02/21 Range/Units 05:50 06:32 11:21 RBC (4.30-5.90) m/uL Hgb (13.0-17.5) gm/dL Hct (39.0-53.0) % Plt Count (150-450) k/uL Neutrophils # (1.3-7.7) k/uL Lymphocytes # (1.0-4.8) k/uL Sodium 132 L (137-145) mmol/L BUN 33 H (9-20) mg/dL Creatinine 1.35 H (0.66-1.25) mg/dL Glucose 108 H (74-99) mg/dL POC Glucose (mg/dL) 110 H 107 H (75-99) mg/dL Calcium 8.1 L (8.4-10.2) mg/dL AST 60 H (17-59) U/L Total Protein 5.1 L (6.3-8.2) g/dL Albumin 3.1 L (3.5-5.0) g/dL
--- NOTE | 2021-02-02 14:57 | P.PN ---
Progress Note - Text Progress Note Date: 02/02/21 - Chief Complaint Valvular surgery Consultation: This is a pleasant 70-year-old patient who follows with Dr. Paul Crowell. Patient has undergone bioprosthetic aortic valve replacement/annuloplasty for mitral valve replacement. Currently in the ICU. 2 medi[address] tubes in place. Sinus rhythm. Patient had previously undergone a JOSE that showed: 3-4+ mitral regurgitation, mitral valve flow prolapse of the posterior leaf left and a possibly ruptured chordae. Moderate aortic stenosis with the area of 1.32 cm with a negative bubble study. Cardiac catheterization was unremarkable. Chronic stable medical conditions include some hard of hearing, obstructive sleep apnea does not use CPAP, some memory impairment. Patient has developed acute kidney injury. Today: Sitting up in a chair. at the bedside. Chest tube in place. Sinus rhythm. Eating better. Did walk around the ICU. Breathing better. Mediastinal chest tube putting out about 200 mL in the last shift and 800 since surgery Review of systems: Was done for constitutional, cardiovascular, GI, pulmonary. relevant finding as above Active Medications Acetaminophen (Acetaminophen Tab 325 Mg Tab) 650 mg PO Q4HR PRN PRN Reason: Fever and/ or Pain Hydrocodone Bitart/Acetaminophen (Hydrocodone/Apap 5-325mg 1 Each Tab) 2 each PO Q4HR PRN PRN Reason: Severe Pain Last Admin: 02/02/21 03:37 Dose: 2 each Documented by: Hydrocodone Bitart/Acetaminophen (Hydrocodone/Apap 5-325mg 1 Each Tab) 1 each PO Q4HR PRN PRN Reason: Moderate Pain Albuterol/Ipratropium (Ipratropium-Albuterol 3 Ml Neb) 3 ml INHALATION RT-Q2H PRN PRN Reason: Shortness Of Breath Or Wheezing Albuterol/Ipratropium (Ipratropium-Albuterol 3 Ml Neb) 3 ml INHALATION RT-QID [facility] Last Admin: 02/02/21 11:24 Dose: 3 ml Documented by: Aspirin (Aspirin 325 Mg Tab) 325 mg PO DAILY [facility] Last Admin: 02/02/21 09:05 Dose: 325 mg Documented by: Atorvastatin Calcium (Atorvastatin 40 Mg Tab) 40 mg PO DAILY [facility] Last Admin: 02/02/21 09:06 Dose: 40 mg Documented by: Benzocaine/Menthol (Benzocaine/Menthol Lozeng 1 Each Lozenge) 1 each MUCOUS MEM Q2H PRN PRN Reason: Sore Throat Last Admin: 02/01/21 17:17 Dose: 1 each Documented by: Bisacodyl (Bisacodyl 10 Mg Supp) 10 mg RECTAL DAILY PRN PRN Reason: Constipation Last Admin: 02/01/21 13:17 Dose: 10 mg Documented by: Clopidogrel Bisulfate (Clopidogrel 75 Mg Tab) 75 mg PO DAILY [facility] Last Admin: 02/02/21 09:06 Dose: 75 mg Documented by: Heparin Sodium (Porcine) (Heparin Sodium,Porcine/Pf 5,000 Unit/0.5 Ml Syringe) 5,000 unit SQ Q8HR [facility] Last Admin: 02/02/21 09:06 Dose: 5,000 unit Documented by: Amiodarone HCl 150 mg/ (Dextrose/Water) 103 mls @ 618 mls/hr IV .Q10M PRN; Protocol PRN Reason: A.FIB/FLUTTER Amiodarone HCl 360 mg/ (Dextrose/Water) 207.2 mls @ 34.533 mls/hr IV .Q6H PRN; Protocol PRN Reason: A.FIB/FLUTTER Amiodarone HCl 450 mg/ (Dextrose/Water) 250 mls @ 16.667 mls/hr IV .Q15H PRN; Protocol PRN Reason: A.FIB/FLUTTER Insulin Aspart (Insulin Aspart (Novolog) 100 Unit/Ml Vial) 0 unit SQ ACHS [facility]; Protocol Last Admin: 02/02/21 11:31 Dose: Not Given Documented by: Losartan Potassium (Losartan 25 Mg Tab) 12.5 mg PO DAILY@1200 GISELLA Last Admin: 02/02/21 12:18 Dose: 12.5 mg Documented by: Magnesium Hydroxide (Magnesium Hydroxide 2,400 Mg/10 Ml Cup) 2,400 mg PO BID PRN PRN Reason: Constipation Last Admin: 02/01/21 08:45 Dose: 2,400 mg Documented by: Metoclopramide HCl (Metoclopramide 5 Mg/Ml 2 Ml Vial) 10 mg IVP Q4H PRN PRN Reason: Nausea And Vomiting Metoprolol Tartrate (Metoprolol Tartrate 25 Mg Tab) 25 mg PO BID [facility] Last Admin: 02/02/21 09:06 Dose: 25 mg Documented by: Miscellaneous Information (Potassium Replacement Protocol 1 Each Misc) 1 each MISCELLANE DAILY PRN; Protocol PRN Reason: Per Protocol Miscellaneous Information (Magnesium Replacement Protocol 1 Each Misc) 1 each MISCELLANE DAILY PRN; Protocol PRN Reason: Per Protocol Miscellaneous Information (Phosphorus Replacement Protoco 1 Each Mis) 1 each MISCELLANE DAILY PRN; Protocol PRN Reason: Per Protocol Ondansetron HCl (Ondansetron 4 Mg/2 Ml Vial) 4 mg IVP Q6HR PRN PRN Reason: Nausea And Vomiting Last Admin: 01/31/21 08:30 Dose: 4 mg Documented by: Pantoprazole Sodium (Pantoprazole 40 Mg Tablet) 40 mg PO AC-BRKFST [facility] Last Admin: 02/02/21 06:37 Dose: 40 mg Documented by: Senna/Docusate Sodium (Sennosides-Docusate Sodium 1 Each Tab) 2 each PO HS [facility] Last Admin: 02/01/21 21:17 Dose: 2 each Documented by: Sodium Chloride (Sodium Chloride 0.9% Flush 10 Ml Syringe) 10 ml IV BID [facility] Last Admin: 02/02/21 09:08 Dose: Not Given Documented by: Past medical history to include: Memory impairment, 3-4+ mitral valve regurgitation with posterior leaflet prolapse, moderate aortic stenosis, obstructive sleep apnea does not use CPAP, short term memory loss, hard of hearing, Social history: Patient stopped smoking in 1970. No alcohol. . Family history: Reviewed, noncontributory to presentation Physical examination: VITAL SIGNS: 98.5, 95, 21, 121/71, 96% on 2 L GENERAL: Sitting up in a chair, more comfortable EYES: Pupils equal. Conjunctiva pale. HEENT: External appearance of nose and ears normal, oral cavity grossly normal. NECK: JVD unable to assess; masses not palpable. HEART: First and second heart sounds are normal; no edema. LUNGS: Respiratory rate increased decreased breath sounds. , mediastinal chest tubes ABDOMEN: Soft, nontender, liver spleen not palpable, no masses palpable. Fisher catheter PSYCH: AO - times three. Mood and affect normal INVESTIGATIONS, reviewed in the clinical context: February 02: WBC 9.7 hemoglobin 9.5 platelets 102 potassium 4.7 creatinine 1.35 February 01: WBC 13.1 hemoglobin 9.6 platelets 86 BUN 27 creatinine 1.39 January 31: WBC 14.6 hemoglobin 12.5 platelets 117 potassium 4 creatinine 0.67 WBC 8.5 hemoglobin 11.5 platelets 97 Potassium 3.6 creatinine 0.71 albumin 2.3 Chest x-ray: Small amount of pneumomediastinum, soft tissue emphysema along the soft tissue left neck, postsurgical changes course interstitium Labs from 01/20/2021: Hemoglobin 14.1 platelets 226 Assessment and plan: -Bioprosthetic aortic valve replacement for moderate aortic stenosis with the preoperative area of 1.2 cm -Mitral valvular repair with annuloplasty for mitral regurgitation 3-4+, posterior leaflet prolapse, possible ruptured cord -Mild Cognitive impairment -Chronic hard of hearing -Acute postprocedure blood loss anemia, as expected from surgery Follow H&H -Dilutional thrombocytopenia, following surgery Follow H&H -Essential hypertension Cozaar, Lopressor. Follow closely -Acute kidney injury, possibly cardiorenal. Creatinine has gone from 0.67-1.39 Creatinine 1.35. Follow BMP. Continue current medication treatment plan. Thank you Dr. Ortiz
[2021-02-02] MEDS: bisacodyL 10 MG SUPP RECTAL PRN (15:35)
[2021-02-02 17:02] LABS: Glucose,Whole Blood 123 mg/dL (75-99)
[2021-02-02 21:12] LABS: Glucose,Whole Blood 108 mg/dL (75-99)
[2021-02-02] MEDS: SENNOSIDES-DOCUSATE SODIUM 1 EACH TAB PO SCH (21:14)
[2021-02-03 05:43] LABS: HCT 27.3 % (39.0-53.0); HGB 9.2 gm/dL (13.0-17.5); MCH 31.4 pg (25.0-35.0); MCHC 33.5 g/dL (31.0-37.0); MCV 93.7 fL (80.0-100.0); Mean Platelet Volume 8.1; Platelet Count 140 k/uL (150-450); RBC 2.91 m/uL (4.30-5.90); RDW 13.4 % (11.5-15.5); WBC 8.7 k/uL (3.8-10.6)
[2021-02-03 06:02] LABS: Albumin 3.1 g/dL (3.5-5.0); Calcium 8.5 mg/dL (8.4-10.2); Potassium 4.9 mmol/L (3.5-5.1); Total Bilirubin 0.9 mg/dL (0.2-1.3); Total Protein 5.3 g/dL (6.3-8.2)
--- NOTE | 2021-02-03 06:02 | P.PN ---
Subjective Progress Note Date: 02/03/21 Principal diagnosis: Status post aortic valve replacement. Pulmonary consult dated 01/30/2021. 70-year-old male, postop day #0, status post aortic valve replacement and mitral valve repair. The surgery was done by Dr. Ortiz. Currently, the patient's resting comfortably in the ICU. He is obviously still on the ventilator. He is getting lactated Ringer's at 50 mL an hour, Cleveprex at 4 mg an hour, and propofol at 25 mcg/kg/m. The patient's vent settings include the volume assist control, rate 12, tidal volume 500, FiO2 40%, and PEEP of 5. Blood gases show pO2 of greater than 400, a pCO2 38, and a pH is 7.45. The FiO2 was turned down to 40%. Currently, the patient is hemodynamically stable and a bit hypertensive. Hence, the Cleveprex. He initially came back from the operating room on IV nitroglycerin. The patient's home medications include only on losartan, and Tylenol. In addition, the patient has a history of mitral valve prolapse, mitral regurgitation, obstructive sleep apnea syndrome, and previous history of tobacco use. His cardiac catheterization revealed no significant a productive coronary disease, the patient had 3-4+ mitral regurgitation, and moderate aortic stenosis with a valve surface area of 1.32 cm. Progress note dated 01/31/2021. This is a 70-year-old male postop day #1, status post aortic valve replacement and mitral valve repair. The surgery was done by Dr. Ortiz. Currently, the patient's doing well. He was extubated fairly quickly. The patient is on 2 L nasal cannula. He's receiving lactated Ringer's at 50 mL an hour. He is on an insulin drip at 3.5 units per hour, and receiving Cleveprex for blood pressure control and 18 mg an hour. White count 14.6, hemoglobin 12.5, hematocrit 35.9, platelet count 117,000. Sodium 136, with a normal potassium, chloride, CO2, anion gap, BUN, and creatinine. Chest x-ray is currently pending. The patient is seen today 02/01/2021 in follow-up in the intensive care unit. This is postoperative day #2 of aortic valve replacement and mitral valve repair. He is currently sitting up in a chair at the bedside. Maintaining O2 saturations in the 90s on room air. Chest x-ray reveals mediastinal chest tube in place. Cardiomegaly with bilateral infiltrates/effusions. Mild central interstitial prominence. Some subcutaneous emphysema along the left neck strain. No sizable pneumothorax. He has lactated Ringer's at 30 MLS per hour. No other drips. Off cleviprex. He is doing quite well. His pain is well managed. Working well with the incentive spirometer. Fisher catheters have been removed. Plan is for possible chest tube to be removed today. White count 13.1. Hemoglobin 9.6. Platelet count 86,000. Sodium 133. Potassium 4.8. Creatinine 1.39. Magnesium 2.7. He remains on bronchodilators, heparin for DVT prophylaxis. Protonix for GI prophylaxis. The patient is seen today 02/02/2021 in follow-up in the intensive care unit. This is postoperative day #3 of aortic valve replacement and mitral valve repair. He is sitting up in a chair at the bedside. Awake and alert in no acute distress. Maintaining good O2 saturations in the 90s on 2 L/m per nasal cannula. Chest x-ray shows some limited bilateral infiltrates/effusions. He remains in sinus rhythm. He is afebrile. Hemodynamically stable. Lactated Ringer's at 20 mL per hour. No other drips. White count 9.7. Hemoglobin 9.5. Platelet count 102. Sodium 132. Potassium 4.7. Creatinine 1.35. Working well with the incentive spirometer. Up with assistance. Progress note dated 02/03/2021. This is a 70-year-old male, who is postop day #4, status post aortic valve replacement, and mitral valve repair. The patient is currently doing well. He is on 2 L nasal cannula. He's not receiving any IV fluids. He is seen this morning in room 255. He has no major complaints. He had an uneventful night according to the nurses. White count 8.7, hemoglobin 9.2, hematocrit 27.3, platelet count 140,000. Chest x-ray this morning shows postoperative changes including some basilar atelectasis and small bilateral pleural effusions. Objective - Vital Signs Vital signs: Vital Signs Temp 98.6 F 02/03/21 04:00 Pulse 85 02/03/21 04:00 Resp 14 02/03/21 04:00 BP 112/65 02/03/21 04:00 Pulse Ox 96 02/03/21 04:00 Intake & Output 02/02/21 02/02/21 02/03/21 06:59 18:59 06:59 Intake Total 253 878 Output Total 950 815 865 Balance -697 63 -865 Weight 73.2 kg Intake: IV 253 78 Lactated Ringers 1,000 ml 220 60 @ 20 mls/hr IV .Q24H [facility] Rx#:[id number] Pressure Bags 33 18 Oral 800 Output: Chest Tube Drainage 200 365 340 Mediastinal 200 365 340 Urine 750 450 525 Other: Voiding Method Toilet Toilet Toilet Urinal Urinal # Bowel Movements 1 ABP, PAP, CO, CI - Last Documented Arterial Blood Pressure 100/83 Pulmonary Artery Pressure 35/17 Cardiac Output 6.1 Cardiac Index 3.5 - Exam No acute distress, oriented 3. Currently on 2 L nasal cannula. HEENT examination is grossly unremarkable. Neck supple. Full range of motion. No adenopathy thyromegaly or neck vein distention. Cardiovascular examination reveals regular rhythm rate. S1-S2 normal. No S3 or S4. No discernible murmur noted. Heart rate 85 bpm. Heart sounds are distant. Lungs reveal mild scattered rhonchi. No wheezes or crackles. Breath sounds are diminished bilaterally. Breath sounds are equal bilaterally. Abdomen soft bowel sounds are heard. No masses or tenderness. Extremities are intact. No cyanosis clubbing or edema. Skin is without rash or lesion. Neurologic examination is brief but nonfocal. - Labs CBC & Chem 7: 02/03/21 05:03 02/02/21 05:50 Labs: Abnormal Lab Results - Last 24 Hours (Table) 02/02/21 02/02/21 02/02/21 Range/Units 05:50 05:50 06:32 RBC 3.00 L (4.30-5.90) m/uL Hgb 9.5 L (13.0-17.5) gm/dL Hct 28.0 L (39.0-53.0) % Plt Count 102 L (150-450) k/uL Neutrophils # 8.5 H (1.3-7.7) k/uL Lymphocytes # 0.4 L (1.0-4.8) k/uL Sodium 132 L (137-145) mmol/L BUN 33 H (9-20) mg/dL Creatinine 1.35 H (0.66-1.25) mg/dL Glucose 108 H (74-99) mg/dL POC Glucose (mg/dL) 110 H (75-99) mg/dL Calcium 8.1 L (8.4-10.2) mg/dL AST 60 H (17-59) U/L Total Protein 5.1 L (6.3-8.2) g/dL Albumin 3.1 L (3.5-5.0) g/dL 02/02/21 02/02/21 02/02/21 Range/Units 11:21 17:00 21:11 RBC (4.30-5.90) m/uL Hgb (13.0-17.5) gm/dL Hct (39.0-53.0) % Plt Count (150-450) k/uL Neutrophils # (1.3-7.7) k/uL Lymphocytes # (1.0-4.8) k/uL Sodium (137-145) mmol/L BUN (9-20) mg/dL Creatinine (0.66-1.25) mg/dL Glucose (74-99) mg/dL POC Glucose (mg/dL) 107 H 123 H 108 H (75-99) mg/dL Calcium (8.4-10.2) mg/dL AST (17-59) U/L Total Protein (6.3-8.2) g/dL Albumin (3.5-5.0) g/dL 02/03/21 Range/Units 05:03 RBC 2.91 L (4.30-5.90) m/uL Hgb 9.2 L (13.0-17.5) gm/dL Hct 27.3 L (39.0-53.0) % Plt Count 140 L (150-450) k/uL Neutrophils # (1.3-7.7) k/uL Lymphocytes # (1.0-4.8) k/uL Sodium (137-145) mmol/L BUN (9-20) mg/dL Creatinine (0.66-1.25) mg/dL Glucose (74-99) mg/dL POC Glucose (mg/dL) (75-99) mg/dL Calcium (8.4-10.2) mg/dL AST (17-59) U/L Total Protein (6.3-8.2) g/dL Albumin (3.5-5.0) g/dL Assessment and Plan Assessment: Postop day #4, status post mitral valve repair and aortic valve replacement. Routine postoperative ventilator management, status post extubation on 01/30/2021. History of sleep apnea syndrome. History of myxomatous mitral valve prolapse and mitral regurgitation. History of moderate aortic stenosis. History of prior tobacco dependence. Plan: Plan dated 01/30/2021. The patient's initial oxygenation was excellent. His blood gases showed a pO2 greater than 400, PaCO2 38, and a pH is 7.448. The patient is currently on Cleveprex for blood pressure control. The patient should be able to be weaned and extubated rapidly. Additional recommendations and suggestions are forthcoming. We will continue to follow make recommendations along the way. Plan dated 01/31/2021. The patient was extubated without difficulty. The patient's currently on 2 L nasal cannula. He remains on an insulin drip at 3.5 units an hour and Cleveprex at 18 mg an hour. The patient's receiving lactated Ringer's at 50 mL an hour. X-rays, labs and medications are all reviewed. Prognosis remains guarded. We will continue to follow this patient and make recommendations were appropriate. We do encourage deep breathing, coughing, and clearing of secretions, as well as hourly use of the incentive spirometer. Plan dated 02/03/2021. The patient continues to do well. He is on 2 L. No IV fluids. We encourage deep breathing, coughing, and clearing of secretions. He should also be using the incentive spirometer every hour while awake. Chest x-ray looks reasonable. This morning's CBC looks fine. We will continue to follow make recommendations where appropriate. Time with Patient: Less than 30
[2021-02-03 06:38] LABS: Glucose,Whole Blood 104 mg/dL (75-99)
[2021-02-03] MEDS: INSULIN ASPART (NovoLOG) 100 UNIT/ML VIAL SQ SCH ×4 (07:03→20:06)
[2021-02-03] MEDS: PANTOPRAZOLE 40 MG TABLET PO SCH (07:08)
[2021-02-03] MEDS: ACETAMINOPHEN TAB 325 MG TAB PO PRN (08:08)
[2021-02-03] MEDS: ATORVASTATIN 40 MG TAB PO SCH (08:08)
[2021-02-03] MEDS: ASPIRIN 325 MG TAB PO SCH (08:08)
[2021-02-03] MEDS: METOPROLOL TARTRATE 25 MG TAB PO SCH ×2 (08:09→20:06)
[2021-02-03] MEDS: MAGNESIUM HYDROXIDE 2,400 MG/10 ML CUP PO PRN (08:09)
[2021-02-03] MEDS: CLOPIDOGREL 75 MG TAB PO SCH (08:09)
[2021-02-03] MEDS: HEPARIN SODIUM,PORCINE/PF 5,000 UNIT/0.5 ML SYRINGE SQ SCH ×3 (08:09→22:57)
[2021-02-03] MEDS: IPRATROPIUM-ALBUTEROL 3 ML NEB INHALATION SCH ×4 (08:38→20:36)
--- NOTE | 2021-02-03 08:57 | XR ---
EXAMINATION TYPE: XR chest 1V portable DATE OF EXAM: 02/03/2021 COMPARISON: 02/02/2021 HISTORY: Post cardiac surgery TECHNIQUE: Single frontal view of the chest is obtained. FINDINGS: Bilateral infiltrate and pleural effusion stable. Interstitial pattern noted. Postsurgical changes with mediastinal drain and epicardial lead noted. No sizable pneumothorax. IMPRESSION: 1. Resolution Of 5% right-sided pneumothorax. 2. Stable bilateral infiltrate and pleural effusion correlate for mild venous congestion.
--- NOTE | 2021-02-03 09:52 | P.PN ---
Subjective Progress Note Date: 02/03/21 Principal diagnosis: Moderate degenerative aortic stenosis, severe eccentric mitral regurgitation with torn chordae P2 of the posterior leaflet. History of hypertension, objective sleep apnea without CPAP use, previous tobacco dependence, significant short-term memory loss. Patient did Covid vaccine. POD #4 aortic valve replacement with a #21 mm Mckeon Inspiris bioprosthetic aortic valve, complex mitral valve repair with a 30 mm CarboMedics AnnuloFlex band, quadrangular resection of P2 of the posterior leaflet, closure of PEEP 1 and P2 cleft posteriorly, ring annuloplasty, clip ligation of the left atrial appendage with a 35 mm AtriClip and intraoperative transesophageal echocardiogram Postoperative acute blood loss anemia and thrombocytopenia, expected outcome giv en hemodilution and cardiopulmonary bypass pump The patient is currently sitting up in a recliner in the intensive care unit in no acute distress. Currently in normal sinus rhythm, hemodynamically stable. States pain is controlled on current medication regimen, denies shortness of breath. He is oxygenating well on room air and able to achieve 1000 mL on his incentive spirometry. Mediastinal chest tube present. He has ambulated in the hallway without difficulty. No other new concerns. Objective - Vital Signs Vital signs: Vital Signs Temp 98.1 F 02/03/21 07:56 Pulse 88 02/03/21 08:47 Resp 15 02/03/21 07:56 BP 117/72 02/03/21 07:56 Pulse Ox 95 02/03/21 07:56 Intake & Output 02/02/21 02/03/21 02/03/21 18:59 06:59 18:59 Intake Total 878 Output Total 815 1165 Balance 63 -1165 Weight 72.9 kg Intake: IV 78 Lactated Ringers 1,000 ml 60 @ 20 mls/hr IV .Q24H [facility] Rx#:[id number] Pressure Bags 18 Oral 800 Output: Chest Tube Drainage 365 340 Mediastinal 365 340 Urine 450 825 Other: Voiding Method Toilet Toilet Toilet Urinal Urinal # Bowel Movements 1 ABP, PAP, CO, CI - Last Documented Arterial Blood Pressure 100/83 Pulmonary Artery Pressure 35/17 Cardiac Output 6.1 Cardiac Index 3.5 - Exam CONSTITUTIONAL: Appears comfortable, cooperative, no acute distress RESPIRATORY: Lungs sounds diminished bilaterally. Respirations even, nonlabored. Currently on room air with oxygen saturation 98%. Able to achieve 1000 mL on incentive spirometry. Strong cough. CARDIOVASCULAR: S1, S2 present. Regular rate and rhythm, sinus rhythm on telemetry. Sternum stable. Palpable peripheral pulses bilaterally. No edema present. No calf pain or tenderness noted. Heart hugger in place with patient demonstrating appropriate use. Antiembolism stockings, SCDs present. GASTROINTESTINAL: Abdomen soft, nontender, nondistended. Active bowel sounds present 4 quadrants. Tolerating diet. Positive bowel movement 6/10 GENITOURINARY: Voiding clear yellow urine INTEGUMENTARY: Skin is warm and dry with evidence of good perfusion. Anterior chest incision well approximated and covered with dry intact dressing. NEUROLOGIC: Cranial nerves II through XII intact MUSKULOSKELETAL: Able to move all extremities, strength equal bilaterally, gait normal PSYCHIATRIC: Alert and oriented to person place and time, appropriate affect, intact judgment and insight INVASIVE LINES AND TUBES: Mediastinal chest tube present and connected to wall suction, no air leaks present, 70 mL serous drainage overnight, [address] 24 hours. A/V epicardial pacemaker wires present, grounded. - Allied health notes Allied health notes reviewed: nursing - Labs CBC & Chem 7: 02/03/21 05:03 02/03/21 05:03 Labs: Abnormal Lab Results - Last 24 Hours (Table) 02/02/21 02/02/21 02/02/21 Range/Units 11: 17:00 21:11 RBC (4.30-5.90) m/uL Hgb (13.0-17.5) gm/dL Hct (39.0-53.0) % Plt Count (150-450) k/uL Sodium (137-145) mmol/L BUN (9-20) mg/dL Creatinine (0.66-1.25) mg/dL Glucose (74-99) mg/dL POC Glucose (mg/dL) 107 H 123 H 108 H (75-99) mg/dL Total Protein (6.3-8.2) g/dL Albumin (3.5-5.0) g/dL 02/03/21 02/03/21 02/03/21 Range/Units 05:03 05:03 06:36 RBC 2.91 L (4.30-5.90) m/uL Hgb 9.2 L (13.0-17.5) gm/dL Hct 27.3 L (39.0-53.0) % Plt Count 140 L (150-450) k/uL Sodium 132 L (137-145) mmol/L BUN 36 H (9-20) mg/dL Creatinine 1.35 H (0.66-1.25) mg/dL Glucose 100 H (74-99) mg/dL POC Glucose (mg/dL) 104 H (75-99) mg/dL Total Protein 5.3 L (6.3-8.2) g/dL Albumin 3.1 L (3.5-5.0) g/dL - Imaging and Cardiology Chest x-ray: report reviewed, image reviewed Assessment and Plan Assessment: 1. Moderate degenerative aortic stenosis, status post bioprosthetic aortic valve replacement 2. Severe eccentric mitral regurgitation with torn chordae P2 of the posterior leaflet, status post complex mitral valve repair 3. Hypertension 4. Obstructive sleep apnea without CPAP use 5. Previous tobacco dependence, preoperative FEV1 95% of predicted 6. Significant short-term memory loss. 7. Postoperative acute blood loss anemia and thrombocytopenia Plan: 1. Continue aspirin, statin, Plavix, Cozaar, beta kike therapy. Will increase beta kike therapy as tolerated. 2. Encourage incentive spirometry use 10 times every hour while awake. Bronchodilators per pulmonology 3. Increase activity, ambulate as tolerated. PT/OT/cardiac rehab consulted 4. Will monitor daily labs and x-rays. Electrolyte replacement per protocol. No Lasix today. 5. GI/DVT prophylaxis 6. Pain control with current medication regimen 7. Insulin management per primary care service. Patient is not diabetic, preoperative hemoglobin A1c 5.1% 8. Mediastinal chest tube discontinued without incident 9. Will discontinue epicardial pacemaker wires. To remain on bedrest for 1 hour post wire removal 10. Tranfer orders placed for cardiac stepdown yesterday, may transfer when bed available 11. Strict accurate intake and output. Daily weights 12. DC planning in progress. Anticipate discharge to home with home care in the next 24-48 hours 13. More recommendations to follow based on patient's progress Time with Patient: Greater than 30
[2021-02-03 11:18] LABS: Glucose,Whole Blood 126 mg/dL (75-99)
[2021-02-03] MEDS: LOSARTAN 25 MG TAB PO SCH (11:19)
--- NOTE | 2021-02-03 11:24 | PN ---
PROGRESS NOTE HISTORY: Eloy is a 70-year-old gentleman with history of aortic stenosis and mitral regurgitation and underwent aortic valve replacement with mitral valve repair. The patient is doing well and is free of symptoms. PHYSICAL EXAMINATION: On exam, heart rate is 88 beats per minute. Blood pressure is 107/72, respiratory rate is 15. O2 saturation is 95% on room air. There is no jugular venous distention. Carotid upstroke is normal. There is no bruit. Chest exam reveals good air entry bilaterally. Heart exam reveals first and second heart sounds. No gallop. Abdomen is soft. Examination of extremities did not reveal any edema. Peripheral pulses are felt. LABORATORY DATA: Lab show a potassium of 4.9, creatinine of 1.3. hemoglobin is 9.2. MEDICATIONS: The patient is currently on aspirin, Plavix, insulin, Cozaar and Lopressor. ASSESSMENT: 1. Aortic stenosis status post aortic valve replacement. 2. Mitral regurgitation status post mitral valve repair. PLAN: Patient is doing well. The patient is on aspirin, statin, and Plavix, Cozaar, and a beta kike. He has been encouraged to do incentive spirometry. Chest tubes have been removed. Stable to be transferred to [facility] care. MMODL / IJN: [id number] /
--- NOTE | 2021-02-03 16:42 | P.PN ---
Progress Note - Text Progress Note Date: 02/03/21 - Chief Complaint Valvular surgery Consultation: This is a pleasant 70-year-old patient who follows with Dr. Paul Crowell. Patient has undergone bioprosthetic aortic valve replacement/annuloplasty for mitral valve replacement. Currently in the ICU. [address] tubes in place. Sinus rhythm. Patient had previously undergone a JOSE that showed: 3-4+ mitral regurgitation, mitral valve flow prolapse of the posterior leaf left and a possibly ruptured chordae. Moderate aortic stenosis with the area of 1.32 cm with a negative bubble study. Cardiac catheterization was unremarkable. Chronic stable medical conditions include some hard of hearing, obstructive sleep apnea does not use CPAP, some memory impairment. Patient has developed acute kidney injury. Today: Mediastinal chest tube and epicardial lead wires removed earlier today. Oral intake improving. at the bedside. Did walk. Breathing better. Using incentive spirometry. Review of systems: Was done for constitutional, cardiovascular, GI, pulmonary. relevant finding as above Active Medications Acetaminophen (Acetaminophen Tab 325 Mg Tab) 650 mg PO Q4HR PRN PRN Reason: Fever and/ or Pain Last Admin: 02/03/21 08:08 Dose: 650 mg Documented by: Albuterol/Ipratropium (Ipratropium-Albuterol 3 Ml Neb) 3 ml INHALATION RT-Q2H PRN PRN Reason: Shortness Of Breath Or Wheezing Albuterol/Ipratropium (Ipratropium-Albuterol 3 Ml Neb) 3 ml INHALATION RT-QID [facility] Last Admin: 02/03/21 15:59 Dose: 3 ml Documented by: Aspirin (Aspirin 325 Mg Tab) 325 mg PO DAILY [facility] Last Admin: 02/03/21 08:08 Dose: 325 mg Documented by: Atorvastatin Calcium (Atorvastatin 40 Mg Tab) 40 mg PO DAILY [facility] Last Admin: 02/03/21 08:08 Dose: 40 mg Documented by: Benzocaine/Menthol (Benzocaine/Menthol Lozeng 1 Each Lozenge) 1 each MUCOUS MEM Q2H PRN PRN Reason: Sore Throat Last Admin: 02/01/21 17:17 Dose: 1 each Documented by: Bisacodyl (Bisacodyl 10 Mg Supp) 10 mg RECTAL DAILY PRN PRN Reason: Constipation Last Admin: 02/02/21 15:35 Dose: 10 mg Documented by: Clopidogrel Bisulfate (Clopidogrel 75 Mg Tab) 75 mg PO DAILY [facility] Last Admin: 02/03/21 08:09 Dose: 75 mg Documented by: Heparin Sodium (Porcine) (Heparin Sodium,Porcine/Pf 5,000 Unit/0.5 Ml Syringe) 5,000 unit SQ Q8HR [facility] Last Admin: 02/03/21 08:09 Dose: 5,000 unit Documented by: Amiodarone HCl 150 mg/ (Dextrose/Water) 103 mls @ 618 mls/hr IV .Q10M PRN; Protocol PRN Reason: A.FIB/FLUTTER Amiodarone HCl 360 mg/ (Dextrose/Water) 207.2 mls @ 34.533 mls/hr IV .Q6H PRN; Protocol PRN Reason: A.FIB/FLUTTER Amiodarone HCl 450 mg/ (Dextrose/Water) 250 mls @ 16.667 mls/hr IV .Q15H PRN; Protocol PRN Reason: A.FIB/FLUTTER Insulin Aspart (Insulin Aspart (Novolog) 100 Unit/Ml Vial) 0 unit SQ ACHS [facility]; Protocol Last Admin: 02/03/21 11:19 Dose: Not Given Documented by: Losartan Potassium (Losartan 25 Mg Tab) 12.5 mg PO DAILY@1200 [facility] Last Admin: 02/03/21 11:19 Dose: 12.5 mg Documented by: Magnesium Hydroxide (Magnesium Hydroxide 2,400 Mg/10 Ml Cup) 2,400 mg PO BID P RN PRN Reason: Constipation Last Admin: 02/03/21 08:09 Dose: 2,400 mg Documented by: Metoclopramide HCl (Metoclopramide 5 Mg/Ml 2 Ml Vial) 10 mg IVP Q4H PRN PRN Reason: Nausea And Vomiting Metoprolol Tartrate (Metoprolol Tartrate 25 Mg Tab) 25 mg PO BID [facility] Last Admin: 02/03/21 08:09 Dose: 25 mg Documented by: Miscellaneous Information (Potassium Replacement Protocol 1 Each Misc) 1 each MISCELLANE DAILY PRN; Protocol PRN Reason: Per Protocol Miscellaneous Information (Magnesium Replacement Protocol 1 Each Misc) 1 each MISCELLANE DAILY PRN; Protocol PRN Reason: Per Protocol Miscellaneous Information (Phosphorus Replacement Protoco 1 Each Misc) 1 each MISCELLANE DAILY PRN; Protocol PRN Reason: Per Protocol Ondansetron HCl (Ondansetron 4 Mg/2 Ml Vial) 4 mg IVP Q6HR PRN PRN Reason: Nausea And Vomiting Last Admin: 01/31/21 08:30 Dose: 4 mg Documented by: Pantoprazole Sodium (Pantoprazole 40 Mg Tablet) 40 mg PO AC-BRKFST [facility] Last Admin: 02/03/21 07:08 Dose: 40 mg Documented by: Senna/Docusate Sodium (Sennosides-Docusate Sodium 1 Each Tab) 2 each PO HS [facility] Last Admin: 02/02/21 21:14 Dose: 2 each Documented by: Sodium Chloride (Sodium Chloride 0.9% Flush 10 Ml Syringe) 10 ml IV BID [facility] Last Admin: 02/03/21 09:52 Dose: Not Given Documented by: Past medical history to include: Memory impairment, 3-4+ mitral valve regurgitation with posterior leaflet prolapse, moderate aortic stenosis, obstructive sleep apnea does not use CPAP, short term memory loss, hard of hearing, Social history: Patient stopped smoking in 1970. No alcohol. . Family history: Reviewed, noncontributory to presentation Physical examination: VITAL SIGNS: 98.2, 85, 15, 106/61, 95% on room air GENERAL: Sitting up in a chair, eating lunch EYES: Pupils equal. Conjunctiva pale. HEENT: External appearance of nose and ears normal, oral cavity grossly normal. NECK: JVD unable to assess; masses not palpable. HEART: First and second heart sounds are normal; no edema. LUNGS: Respiratory rate increased decreased breath sounds. ABDOMEN: Soft, nontender, liver spleen not palpable, no masses palpable. PSYCH: AO - times three. Mood and affect normal INVESTIGATIONS, reviewed in the clinical context: February 03: WBC 8.7 hemoglobin 9.2 platelets 140 potassium 4.9 creatinine 1.35 February 02: WBC 9.7 hemoglobin 9.5 platelets 102 potassium 4.7 creatinine 1.35 February 01: WBC 13.1 hemoglobin 9.6 platelets 86 BUN 27 creatinine 1.39 January 31: WBC 14.6 hemoglobin 12.5 platelets 117 potassium 4 creatinine 0.67 WBC 8.5 hemoglobin 11.5 platelets 97 Potassium 3.6 creatinine 0.71 albumin 2.3 Chest x-ray: Small amount of pneumomediastinum, soft tissue emphysema along the soft tissue left neck, postsurgical changes course interstitium Labs from 01/20/2021: Hemoglobin 14.1 platelets 226 Assessment and plan: -Bioprosthetic aortic valve replacement for moderate aortic stenosis with the preoperative area of 1.2 cm -Mitral valvular repair with annuloplasty for mitral regurgitation 3-4+, posterior leaflet prolapse, possible ruptured cord -Mild Cognitive impairment -Chronic hard of hearing -Acute postprocedure blood loss anemia, as expected from surgery Follow H&H -Dilutional thrombocytopenia, following surgery Follow H&H -Essential hypertension Cozaar, Lopressor. Follow closely -Acute kidney injury, possibly cardiorenal. Creatinine has gone from 0.67-1.39 Creatinine 1.35. No change in creatinine. We'll consult nephrology who can then follow the patient as an outpatient. Order renal ultrasound and a UA Continue current medication treatment plan. Thank you Dr. Ortiz
[2021-02-03 16:45] LABS: Glucose,Whole Blood 117 mg/dL (75-99)
[2021-02-03 19:14] LABS: Appearance,Urine Clear (Clear); Bilirubin,Urine Negative (Negative); Blood,Urine Negative (Negative); Color,Urine Yellow; Glucose,Urine (UA) Negative (Negative); Ketones,Urine Negative (Negative); Leukocyte Esterase,Urine Negative (Negative); Nitrite,Urine Negative (Negative); PH, Urine 5.5 (5.0-8.0); Protein,Urine Negative (Negative); Specific Gravity,Urine 1.016 (1.001-1.035); Urobilinogen,Urine <2.0 mg/dL (<2.0)
[2021-02-03] MEDS: SENNOSIDES-DOCUSATE SODIUM 1 EACH TAB PO SCH (20:06)
--- NOTE | 2021-02-03 20:37 | US ---
EXAMINATION TYPE: US kidneys/renal and bladder DATE OF EXAM: 02/03/2021 COMPARISON: NONE CLINICAL HISTORY: Acute kidney injury. abnormal labs EXAM MEASUREMENTS: Right Kidney: 9.6 x 4.8 x 5.2 cm Left Kidney: 9.1 x 4.3 x 5.5 cm Right Kidney: No hydronephrosis or masses seen Left Kidney: No hydronephrosis or masses seen Bladder: mildly distended Bilateral Jets not seen IMPRESSION: No evidence of renal mass or obstruction. Urinary bladder not well distended.
--- NOTE | 2021-02-04 05:34 | P.PN ---
Subjective Progress Note Date: 02/04/21 Principal diagnosis: Status post aortic valve replacement. Pulmonary consult dated 01/30/2021. 70-year-old male, postop day #0, status post aortic valve replacement and mitral valve repair. The surgery was done by Dr. Ortiz. Currently, the patient's resting comfortably in the ICU. He is obviously still on the ventilator. He is getting lactated Ringer's at 50 mL an hour, Cleveprex at 4 mg an hour, and propofol at 25 mcg/kg/m. The patient's vent settings include the volume assist control, rate 12, tidal volume 500, FiO2 40%, and PEEP of 5. Blood gases show pO2 of greater than 400, a pCO2 38, and a pH is 7.45. The FiO2 was turned down to 40%. Currently, the patient is hemodynamically stable and a bit hypertensive. Hence, the Cleveprex. He initially came back from the operating room on IV nitroglycerin. The patient's home medications include only on losartan, and Tylenol. In addition, the patient has a history of mitral valve prolapse, mitral regurgitation, obstructive sleep apnea syndrome, and previous history of tobacco use. His cardiac catheterization revealed no significant a productive coronary disease, the patient had 3-4+ mitral regurgitation, and moderate aortic stenosis with a valve surface area of 1.32 cm. Progress note dated 01/31/2021. This is a 70-year-old male postop day #1, status post aortic valve replacement and mitral valve repair. The surgery was done by Dr. Ortiz. Currently, the patient's doing well. He was extubated fairly quickly. The patient is on 2 L nasal cannula. He's receiving lactated Ringer's at 50 mL an hour. He is on an insulin drip at 3.5 units per hour, and receiving Cleveprex for blood pressure control and 18 mg an hour. White count 14.6, hemoglobin 12.5, hematocrit 35.9, platelet count 117,000. Sodium 136, with a normal potassium, chloride, CO2, anion gap, BUN, and creatinine. Chest x-ray is currently pending. The patient is seen today 02/01/2021 in follow-up in the intensive care unit. This is postoperative day #2 of aortic valve replacement and mitral valve repair. He is currently sitting up in a chair at the bedside. Maintaining O2 saturations in the 90s on room air. Chest x-ray reveals mediastinal chest tube in place. Cardiomegaly with bilateral infiltrates/effusions. Mild central interstitial prominence. Some subcutaneous emphysema along the left neck strain. No sizable pneumothorax. He has lactated Ringer's at 30 MLS per hour. No other drips. Off cleviprex. He is doing quite well. His pain is well managed. Working well with the incentive spirometer. Fisher catheters have been removed. Plan is for possible chest tube to be removed today. White count 13.1. Hemoglobin 9.6. Platelet count 86,000. Sodium 133. Potassium 4.8. Creatinine 1.39. Magnesium 2.7. He remains on bronchodilators, heparin for DVT prophylaxis. Protonix for GI prophylaxis. The patient is seen today 02/02/2021 in follow-up in the intensive care unit. This is postoperative day #3 of aortic valve replacement and mitral valve repair. He is sitting up in a chair at the bedside. Awake and alert in no acute distress. Maintaining good O2 saturations in the 90s on 2 L/m per nasal cannula. Chest x-ray shows some limited bilateral infiltrates/effusions. He remains in sinus rhythm. He is afebrile. Hemodynamically stable. Lactated Ringer's at 20 mL per hour. No other drips. White count 9.7. Hemoglobin 9.5. Platelet count 102. Sodium 132. Potassium 4.7. Creatinine 1.35. Working well with the incentive spirometer. Up with assistance. Progress note dated 02/03/2021. This is a 70-year-old male, who is postop day #4, status post aortic valve replacement, and mitral valve repair. The patient is currently doing well. He is on 2 L nasal cannula. He's not receiving any IV fluids. He is seen this morning in room 255. He has no major complaints. He had an uneventful night according to the nurses. White count 8.7, hemoglobin 9.2, hematocrit 27.3, platelet count 140,000. Chest x-ray this morning shows postoperative changes including some basilar atelectasis and small bilateral pleural effusions. Progress note dated 02/04/2021. 70-year-old male, seen in room 383. He is postop day #5, status post aortic valve replacement and mitral valve repair. He is currently doing well. He's not receiving any IV fluids. He is on 2 L nasal cannula. The patient has no major issues including chest pain, chest discomfort, shortness of breath, cough, wheezing, phlegm production, fever, or chills. Temperature 98.5, heart rate 82, respiratory rate 18, blood pressure 144/69, and room air saturation 98%. Labs and x-rays from today are pending. From yesterday, white count 8.7, hemoglobin 9.2, sodium 132, and BUN 36 with a creatinine of 1.35. Chest x-ray from yesterday showed resolution of the small right-sided pneumothorax. There was some evidence of bibasilar atelectasis. Objective - Vital Signs Vital signs: Vital Signs Temp 98.5 F 02/04/21 04:00 Pulse 82 02/04/21 04:00 Resp 18 02/04/21 04:00 BP 144/69 02/04/21 04:00 Pulse Ox 98 02/04/21 04:00 Intake & Output 02/03/21 02/03/21 02/04/21 06:59 18:59 06:59 Intake Total 1000 Output Total 1165 Balance -1165 1000 Weight 72.9 kg Intake: Oral 1000 Output: Chest Tube Drainage 340 Mediastinal 340 Urine 825 Other: Voiding Method Toilet Toilet Toilet Urinal # Voids 2 1 # Bowel Movements 1 ABP, PAP, CO, CI - Last Documented Arterial Blood Pressure 100/83 Pulmonary Artery Pressure 35/17 Cardiac Output 6.1 Cardiac Index 3.5 - Exam No acute distress, oriented 3. Currently on 2 L nasal cannula. Saturations 98%. HEENT examination is grossly unremarkable. Neck supple. Full range of motion. No adenopathy thyromegaly or neck vein distention. Cardiovascular examination reveals regular rhythm rate. S1-S2 normal. No S3 or S4. No discernible murmur noted. Heart rate 82 bpm. Heart sounds are distant. Lungs reveal mild scattered rhonchi. No wheezes or crackles. Breath sounds are diminished bilaterally. Breath sounds are equal bilaterally. Abdomen soft bowel sounds are heard. No masses or tenderness. Extremities are intact. No cyanosis clubbing or edema. Skin is without rash or lesion. Neurologic examination is brief but nonfocal. - Labs CBC & Chem 7: 02/03/21 05:03 02/03/21 05:03 Labs: Abnormal Lab Results - Last 24 Hours (Table) 02/03/21 02/03/21 02/03/21 Range/Units 05:03 05:03 06:36 RBC 2.91 L (4.30-5.90) m/uL Hgb 9.2 L (13.0-17.5) gm/dL Hct 27.3 L (39.0-53.0) % Plt Count 140 L (150-450) k/uL Sodium 132 L (137-145) mmol/L BUN 36 H (9-20) mg/dL Creatinine 1.35 H (0.66-1.25) mg/dL Glucose 100 H (74-99) mg/dL POC Glucose (mg/dL) 104 H (75-99) mg/dL Total Protein 5.3 L (6.3-8.2) g/dL Albumin 3.1 L (3.5-5.0) g/dL 02/03/21 02/03/21 Range/Units 11:16 16:43 RBC (4.30-5.90) m/uL Hgb (13.0-17.5) gm/dL Hct (39.0-53.0) % Plt Count (150-450) k/uL Sodium (137-145) mmol/L BUN (9-20) mg/dL Creatinine (0.66-1.25) mg/dL Glucose (74-99) mg/dL POC Glucose (mg/dL) 126 H 117 H (75-99) mg/dL Total Protein (6.3-8.2) g/dL Albumin (3.5-5.0) g/dL Assessment and Plan Assessment: Postop day #5, status post mitral valve repair and aortic valve replacement. Routine postoperative ventilator management, status post extubation on 01/30/2021. History of sleep apnea syndrome. History of myxomatous mitral valve prolapse and mitral regurgitation. History of moderate aortic stenosis. History of prior tobacco dependence. Plan: Plan dated 01/30/2021. The patient's initial oxygenation was excellent. His blood gases showed a pO2 greater than 400, PaCO2 38, and a pH is 7.448. The patient is currently on Cleveprex for blood pressure control. The patient should be able to be weaned a nd extubated rapidly. Additional recommendations and suggestions are forthcoming. We will continue to follow make recommendations along the way. Plan dated 01/31/2021. The patient was extubated without difficulty. The patient's currently on 2 L nasal cannula. He remains on an insulin drip at 3.5 units an hour and Cleveprex at 18 mg an hour. The patient's receiving lactated Ringer's at 50 mL an hour. X-rays, labs and medications are all reviewed. Prognosis remains guarded. We will continue to follow this patient and make recommendations were appropriate. We do encourage deep breathing, coughing, and clearing of secretions, as well as hourly use of the incentive spirometer. Plan dated 02/03/2021. The patient continues to do well. He is on 2 L. No IV fluids. We encourage deep breathing, coughing, and clearing of secretions. He should also be using the incentive spirometer every hour while awake. Chest x-ray looks reasonable. This morning's CBC looks fine. We will continue to follow make recommendations where appropriate. Plan dated 02/04/2021. The patient is on and off of oxygen. On 2 L, he is 98%. His vital signs are stable. He continues to do well on his incentive spirometer. He denies any chest pain, chest discomfort, shortness of breath, cough, wheezing, or phlegm production. There is no fever or chills. All in all, he's progressing nicely. We will continue to follow, and make recommendations where appropriate. Time with Patient: Less than 30
[2021-02-04] MEDS: AMIODARONE 360 MG in DEXTROSE 5% IN WATER 200 ML IV PRN ×4 (06:36→07:00)
[2021-02-04] MEDS: INSULIN ASPART (NovoLOG) 100 UNIT/ML VIAL SQ SCH ×4 (06:37→21:01)
[2021-02-04] MEDS: PANTOPRAZOLE 40 MG TABLET PO SCH (06:37)
[2021-02-04 06:40] LABS: Glucose,Whole Blood 104 mg/dL (75-99)
--- NOTE | 2021-02-04 08:10 | XR ---
EXAMINATION TYPE: XR chest 2V DATE OF EXAM: 02/04/2021 COMPARISON: 02/03/2021 HISTORY: 70-year-old male postcardiac surgery TECHNIQUE: PA and lateral views FINDINGS: Median sternotomy wires are present with prosthetic aortic valve. Heart mildly enlarged. Mild hyperin flation. Mild bilateral pleural effusions with adjacent bibasilar opacities. Interval removal of medi astinal drains. No appreciable pneumothorax. Dependent perihilar opacity. IMPRESSION: Cardiomegaly and COPD. Continued small pleural effusions with adjacent atelectasis and/or consolidati on. New perihilar bands of opacity, likely areas of atelectasis.
[2021-02-04] MEDS: IPRATROPIUM-ALBUTEROL 3 ML NEB INHALATION SCH ×4 (08:35→19:09)
--- NOTE | 2021-02-04 08:50 | P.NPCON ---
History of Present Illness - Reason for Consult acute renal failure - History of Present Illness Reason for consultation: Acute kidney injury History of present illness: Patient is a 70-year-old male seen in consultation for acute kidney injury. patient's baseline creatinine is near 1 and was up to 1.35 as of yesterday. patient underwent aortic valve replacement and mitral valve repair on 01/30/2021. currently sitting up in chair. Denies chest pain or shortness of breath. has been voiding. no hematuria or dysuria. denies use of nonsteroidals. hemodynamically stable. no history of diabetes. denies family history of renal disease. oral intake is fair. No vomiting or diarrhea. no edema. UA is benign. currently on amiodarone drip for A. fib with RVR. Vital signs are stable. General: The patient appeared well nourished and normally developed. HEENT: Head exam is unremarkable. Neck is without jugular venous distension. LUNGS: Breath sounds decreased. HEART: Rate and Rhythm are regular. delete ABDOMEN: soft, no distention. EXTREMITITES: No edema. Past Medical History Past Medical History: Memory Impairment, Mitral Valve Prolapse (MVP), Sleep Apne a/CPAP/BIPAP Additional Past Medical History / Comment(s): no CPAP use, aortic stenosis, short term memory issues & NINILCHIK per spouse, mitral regurgitation, some SOB w/exertion @times, fully vaccinated for covid History of Any Multi-Drug Resistant Organisms: None Reported Past Surgical History: Appendectomy, Heart Catheterization, Orthopedic Surgery, Tonsillectomy Additional Past Surgical History / Comment(s): meniscus knee surg., colonoscopy, recent cardiac cath. & JOSE Past Anesthesia/Blood Transfusion Reactions: No Reported Reaction, Motion Sickness Additional Past Anesthesia/Blood Transfusion Reaction / Comment(s): blood transfusion without reaction Smoking Status: Former smoker - Past Family History Mother Family Medical History: No Reported History Father Family Medical History: COPD, Coronary Artery Disease (CAD) Medications and Allergies Home Medications Medication Instructions Recorded Confirmed Type Losartan [Cozaar] 25 mg PO HS 10/31/20 01/20/21 History Acetaminophen Tab [Tylenol] 650 mg PO Q6H PRN 12/06/20 01/20/21 History Allergies Allergy/AdvReac Type Severity Reaction Status Date / Time Penicillins Allergy Unknown Verified 01/20/21 09:11 Physical Exam Vitals: Vital Signs Temp Pulse Pulse Pulse Resp BP Pulse Ox 02/04/21 08:37 80 02/04/21 04:00 98.5 F 82 18 144/69 98 02/04/21 01:13 91 16 02/03/21 23:22 98.0 F 91 18 129/60 97 02/03/21 20:00 98.3 F 99 17 109/62 96 02/03/21 16:12 90 02/03/21 16:00 98.2 F 93 15 103/60 95 02/03/21 15:59 88 02/03/21 11:17 98.2 F 85 15 106/61 95 02/03/21 08:47 88 Intake and Output 02/03/21 02/04/21 02/04/21 22:59 06:59 14:59 Intake Total 750 13.813 Balance 750 13.813 Intake: Intake, IV Titration 13.813 Amount Amiodarone 360 mg In 13.813 Dextrose 5% in Water 200 ml @ 1 MG/MIN 34.533 mls/ hr IV .Q6H PRN Rx#: [id number] Oral 750 Other: Voiding Method Toilet Toilet # Voids 2 1 # Bowel Movements 1 Weight 71.5 kg Results - Lab Results Most recent lab results ABG pH 7.45 (7.35-7.45) 01/30/21 20:24 ABG pCO2 36 mmHg (35-45) 01/30/21 20:24 ABG pO2 175 mmHg (83-108) H 01/30/21 20:24 ABG HCO3 25 mmol/L (21-25) 01/30/21 20:24 ABG O2 Saturation 99.5 % (94-97) H 01/30/21 20:24 Calcium 8.5 mg/dL (8.4-10.2) 02/03/21 05:03 Magnesium 2.7 mg/dL (1.6-2.3) H 02/01/21 04:10 02/03/21 05:03 02/03/21 05:03 Assessment and Plan Plan: assessment: 1. Acute kidney injury secondary to ATN secondary to hemodynamic instability. Baseline creatinine near 1 and up to 1.35 as of yesterday. UA benign. No hydronephrosis noted on kidney ultrasound. 2. Status post aortic valve replacement and mitral of repair on 01/30/2021. 3. A. fib with RVR maintained on amiodarone drip. 4. Benign hypertension. Stable. 5. Hyponatremia secondary to acute kidney injury. Plan: Remains off IV fluids and diuretics. Encouraged oral intake. Avoid nephrotoxins. Continue to monitor renal function and urine output. Thank you for the consultation. I will continue to follow the patient with you during his hospital stay.
[2021-02-04 09:01] LABS: Calcium 8.4 mg/dL (8.4-10.2); Potassium 4.8 mmol/L (3.5-5.1)
[2021-02-04 09:04] LABS: HCT 28.2 % (39.0-53.0); HGB 8.9 gm/dL (13.0-17.5); MCH 29.6 pg (25.0-35.0); MCHC 31.6 g/dL (31.0-37.0); MCV 93.6 fL (80.0-100.0); Mean Platelet Volume 7.6; Platelet Count 163 k/uL (150-450); RBC 3.01 m/uL (4.30-5.90); RDW 13.8 % (11.5-15.5); WBC 6.3 k/uL (3.8-10.6)
[2021-02-04] MEDS: ATORVASTATIN 40 MG TAB PO SCH (10:15)
[2021-02-04] MEDS: METOPROLOL TARTRATE 25 MG TAB PO SCH (10:15)
[2021-02-04] MEDS: CLOPIDOGREL 75 MG TAB PO SCH (10:15)
[2021-02-04] MEDS: ASPIRIN 325 MG TAB PO SCH (10:15)
[2021-02-04] MEDS: HEPARIN SODIUM,PORCINE/PF 5,000 UNIT/0.5 ML SYRINGE SQ SCH ×3 (10:16→23:05)
[2021-02-04] MEDS: ACETAMINOPHEN TAB 325 MG TAB PO PRN (10:16)
[2021-02-04] MEDS: AMIODARONE 200 MG TAB PO SCH ×2 (10:49→21:00)
--- NOTE | 2021-02-04 11:39 | P.PN ---
Subjective Progress Note Date: 02/04/21 Principal diagnosis: Moderate degenerative aortic stenosis, severe eccentric mitral regurgitation with torn chordae P2 of the posterior leaflet. Past medical history significant for hypertension, obstructive sleep apnea without CPAP use, previous tobacco dependence, significant short-term memory loss. Patient did Covid vaccine. POD #5 aortic valve replacement with a #21 mm Mckeon Inspiris bioprosthetic aortic valve, complex mitral valve repair with a 30 mm CarboMedics AnnuloFlex band, quadrangular resection of P2 of the posterior leaflet, closure of PEEP 1 and P2 cleft posteriorly, ring annuloplasty, clip ligation of the left atrial appendage with a 35 mm AtriClip and intraoperative transesophageal echocardiogram Postoperative acute blood loss anemia and thrombocytopenia, expected outcomes dilution and cardiopulmonary bypass pump. Paroxysmal atrial fibrillation, a known common occurrence after cardiac surgery. The patient was seen in follow-up today 02/04/2021 at his bedside on the cardiac stepdown unit. Currently he is sitting up to the bedside chair, is awake, alert and oriented 3 and is in no acute distress. The patient denies any complaints of pain or shortness of breath at this time although is complaining of some abdominal bloating and constipation. He reports his last bowel movement was on , 02/02/2021. The patient went into atrial fibrillation with RVR last evening and is currently showing normal sinus rhythm on his remote telemetry with a heart rate 89 BPM. Oxygen saturations are 98% on room air and he is achieving 1000 mL on his incentive spirometry with encouragement. The patient's is present at his bedside and has been updated on his care and discharge instructions have been reviewed with the patient and his . Laboratory results this morning show a WBC count 6.3, hemoglobin 8.9, hematocrit 28.2, platelets 163, sodium 135, BUN 35 and creatinine 1.33 which are trending down. Dr. Lee from nephrology has seen the patient this morning due to a slight elevation in his BUN and creatinine. The patient reports that he has not been a eating or drinking much since having his surgery. The patient atrial and ventricular epicardial pacemaker wires were removed yesterday without incident. Objective - Vital Signs Vital signs: Vital Signs Temp 98.5 F 02/04/21 04:00 Pulse 76 02/04/21 08:46 Resp 18 02/04/21 04:00 BP 144/69 02/04/21 04:00 Pulse Ox 98 02/04/21 04:00 Intake & Output 02/03/21 02/04/21 02/04/21 18:59 06:59 18:59 Intake Total 1000 13.813 Balance 1000 13.813 Weight 71.5 kg Intake: Intake, IV Titration 13.813 Amount Amiodarone 360 mg In 13.813 Dextrose 5% in Water 200 ml @ 1 MG/MIN 34.533 mls/ hr IV .Q6H PRN Rx#: [id number] Oral 1000 0 Other: Voiding Method Toilet Toilet # Voids 2 1 # Bowel Movements 1 ABP, PAP, CO, CI - Last Documented Arterial Blood Pressure 100/83 Pulmonary Artery Pressure 35/17 Cardiac Output 6.1 Cardiac Index 3.5 - Exam CONSTITUTIONAL: Sitting up to the bedside chair on the cardiac stepdown unit, appears comfortable, cooperative, no apparent acute distress. HEENT: Neck is supple, no JVD, no lymphadenopathy. RESPIRATORY: Lungs sounds essentially clear throughout, diminished to his bilateral bases. Respirations are symmetrical and nonlabored. Currently on room air with oxygen saturations 95%. Able to achieve 1000 mL on their incentive spirometry. Strong cough. CARDIOVASCULAR: Regular rhythm and rate. S1 and S2 present, negative for S3, gallop or murmur. Pericardial rub present. Sternum is stable. Palpable peripheral pulses bilaterally, No calf pain or tenderness noted. Heart hugger in place with patient demonstrating appropriate use. Remote telemetry showing normal sinus rhythm heart rate 89 BPM. Knee-high JESSICA hose and sequential compression devices in place to his bilateral lower extremities. GASTROINTESTINAL: Abdomen soft, nontender, nondistended. Active bowel sounds present 4 quadrants. Tolerating diet. Passing flatus. No guarding or rigidity. GENITOURINARY: Continues to void. INTEGUMENTARY: Skin is warm and dry with no clubbing or cyanosis. Midline ster nal incision clean dry and well approximated, covered with dry intact dressing. NEUROLOGIC: Cranial nerves II through XII intact. No focal deficits. MUSKULOSKELETAL: Able to move all extremities, strength equal bilaterally, generalized weakness. PSYCHIATRIC: Alert and oriented to person place and time, appropriate affect, intact judgment and insight. - Labs CBC & Chem 7: 02/04/21 08:26 02/04/21 08:26 Labs: Abnormal Lab Results - Last 24 Hours (Table) 02/03/21 02/04/21 02/04/21 Range/Units 16:43 06:27 08:26 RBC 3.01 L (4.30-5.90) m/uL Hgb 8.9 L (13.0-17.5) gm/dL Hct 28.2 L (39.0-53.0) % Sodium (137-145) mmol/L BUN (9-20) mg/dL Creatinine (0.66-1.25) mg/dL Glucose (74-99) mg/dL POC Glucose (mg/dL) 117 H 104 H (75-99) mg/dL Magnesium (1.6-2.3) mg/dL 02/04/21 02/04/21 Range/Units 08:26 08:26 RBC (4.30-5.90) m/uL Hgb (13.0-17.5) gm/dL Hct (39.0-53.0) % Sodium 135 L (137-145) mmol/L BUN 35 H (9-20) mg/dL Creatinine 1.33 H (0.66-1.25) mg/dL Glucose 100 H (74-99) mg/dL POC Glucose (mg/dL) (75-99) mg/dL Magnesium 2.7 H (1.6-2.3) mg/dL Assessment and Plan Assessment: 1. Moderate degenerative aortic valve stenosis, status post bioprosthetic aortic valve replacement 2. Severe eccentric mitral regurgitation with torn chordae P2 of the posterior leaflet, status post complex mitral valve repair 3. Hypertension 4. Obstructive sleep apnea without CPAP use 5. Previous tobacco dependence, preoperative FEV1 95% of predicted 6. Significant short-term memory loss. 7. Postoperative acute blood loss anemia and thrombocytopenia 8. Paroxysmal atrial fibrillation, a known common occurrence after cardiac surgery Plan: 1. Continue aspirin, statin, Plavix, Cozaar, and beta kike. Will increase beta kike as tolerated. 2. Encourage incentive spirometry use 10 times every hour while awake. Bronchodilators per pulmonology 3. Increase activity, ambulate as tolerated. PT/OT/cardiac rehab following. 4. Will monitor daily labs and x-rays. Electrolyte replacement per protocol. 5. GI/DVT prophylaxis. 6. Pain control with current medication regimen, continue to hold Toradol due an elevated BUN/creatinine. 7. Insulin management per primary care service. Patient is not diabetic, preoperative hemoglobin A1c 5.1% 8. Avoid nephrotoxic agents. Nephrology consult noted and appreciated. 9. Discontinue amiodarone drip, start amiodarone 400 mg by mouth twice a day for atrial fibrillation prophylaxis. 10. Continue to record strict and accurate I's and O's. May bladder scan and straight cath for greater than 300 mL residual. 11. Continue to obtain daily weights. 12. Anticipate discharge home with home health care in the next 24-48 hours. 13. More recommendations to follow based on patient's progress. Time with Patient: Greater than 30
[2021-02-04 12:05] LABS: Glucose,Whole Blood 105 mg/dL (75-99)
--- NOTE | 2021-02-04 12:12 | P.PN ---
Subjective Progress Note Date: 02/04/21 HISTORY OF PRESENT ILLNESS: This is a 70-year-old male, patient of Dr. Galindo, who underwent aortic valve replacement. Patient examined this morning at the bedside. Patient denies ch est pain or pressure. He denies shortness of breath. Patient has been up ambulate in the hallway with his spouse. Patient went into A. fib with RVR and was started on IV amiodarone. Patient has since converted to sinus mechanism. PHYSICAL EXAM: VITAL SIGNS: Reviewed. GENERAL: Well-developed in no acute distress. NECK: Supple. No JVD or thyromegaly LUNGS: Respirations even and unlabored. Lungs diminished bilaterally. HEART: Regular rate and rhythm. S1 and S2 heard. Heart hugger in place. EXTREMITIES: Normal range of motion. No clubbing or cyanosis. Peripheral pul ses intact. No lower extremity edema ASSESSMENT: Moderate degenerative aortic valve stenosis, status post bioprosthetic aortic valve replacement Severe eccentric mitral regurgitation with torn chordae P2 of the posterior leaflet, status post complex mitral valve repair Hypertension Obstructive sleep apnea without CPAP use Previous tobacco dependence Significant short-term memory loss. Postoperative acute blood loss anemia Thrombocytopenia Paroxysmal atrial fibrillation with RVR PLAN: Continue postoperative management per CTS Patient has been started on oral amio per CTS Continue additional cardiac medications Increase activity as tolerated Encourage use of incentive spirometer Further recommendations pending patient's course Nurse practitioner note has been reviewed by physician. Signing provider agrees with the documented findings, assessment, and plan of care. Objective - Vital Signs Vital signs: Vital Signs Temp 98.5 F 02/04/21 04:00 Pulse 76 02/04/21 08:46 Resp 18 02/04/21 08:00 BP 144/69 02/04/21 04:00 Pulse Ox 98 02/04/21 04:00 Intake & Output 02/03/21 02/04/21 02/04/21 18:59 06:59 18:59 Intake Total 1000 13.813 Balance 1000 13.813 Weight 71.5 kg Intake: Intake, IV Titration 13.813 Amount Amiodarone 360 mg In 13.813 Dextrose 5% in Water 200 ml @ 1 MG/MIN 34.533 mls/ hr IV .Q6H PRN Rx#: [id number] Oral 1000 0 Other: Voiding Method Toilet Toilet Toilet # Voids 2 1 # Bowel Movements 1 ABP, PAP, CO, CI - Last Documented Arterial Blood Pressure 100/83 Pulmonary Artery Pressure 35/17 Cardiac Output 6.1 Cardiac Index 3.5 - Labs CBC & Chem 7: 02/04/21 08:26 02/04/21 08:26 Labs: Abnormal Lab Results - Last 24 Hours (Table) 02/03/21 02/04/21 02/04/21 Range/Units 16:43 06:27 08:26 RBC 3.01 L (4.30-5.90) m/uL Hgb 8.9 L (13.0-17.5) gm/dL Hct 28.2 L (39.0-53.0) % Sodium (137-145) mmol/L BUN (9-20) mg/dL Creatinine (0.66-1.25) mg/dL Glucose (74-99) mg/dL POC Glucose (mg/dL) 117 H 104 H (75-99) mg/dL Magnesium (1.6-2.3) mg/dL 02/04/21 02/04/21 02/04/21 Range/Units 08:26 08:26 12:04 RBC (4.30-5.90) m/uL Hgb (13.0-17.5) gm/dL Hct (39.0-53.0) % Sodium 135 L (137-145) mmol/L BUN 35 H (9-20) mg/dL Creatinine 1.33 H (0.66-1.25) mg/dL Glucose 100 H (74-99) mg/dL POC Glucose (mg/dL) 105 H (75-99) mg/dL Magnesium 2.7 H (1.6-2.3) mg/dL
[2021-02-04] MEDS: LOSARTAN 25 MG TAB PO SCH (14:01)
--- NOTE | 2021-02-04 15:00 | P.PN ---
Progress Note - Text Progress Note Date: 02/04/21 - Chief Complaint Valvular surgery Consultation: This is a pleasant 70-year-old patient who follows with Dr. Paul Crowell. Patient has undergone bioprosthetic aortic valve replacement/annuloplasty for mitral valve replacement. Currently in the ICU. 2 medi[address] tubes in place. Sinus rhythm. Patient had previously undergone a JOSE that showed: 3-4+ mitral regurgitation, mitral valve flow prolapse of the posterior leaf left and a possibly ruptured chordae. Moderate aortic stenosis with the area of 1.32 cm with a negative bubble study. Cardiac catheterization was unremarkable. Chronic stable medical conditions include some hard of hearing, obstructive sleep apnea does not use CPAP, some memory impairment. Patient has developed acute kidney injury. Today: Not hungry for breakfast. Some shortness of breath. A bit tired. Review of systems: Was done for constitutional, cardiovascular, GI, pulmonary. relevant finding as above Active Medications Acetaminophen (Acetaminophen Tab 325 Mg Tab) 650 mg PO Q4HR PRN PRN Reason: Fever and/ or Pain Last Admin: 02/04/21 10:16 Dose: 650 mg Documented by: Albuterol/Ipratropium (Ipratropium-Albuterol 3 Ml Neb) 3 ml INHALATION RT-Q2H PRN PRN Reason: Shortness Of Breath Or Wheezing Albuterol/Ipratropium (Ipratropium-Albuterol 3 Ml Neb) 3 ml INHALATION RT-QID [facility] Last Admin: 02/04/21 12:04 Dose: 3 ml Documented by: Amiodarone HCl (Amiodarone 200 Mg Tab) 400 mg PO BID [facility] Last Admin: 02/04/21 10:49 Dose: 400 mg Documented by: Aspirin (Aspirin 325 Mg Tab) 325 mg PO DAILY [facility] Last Admin: 02/04/21 10:15 Dose: 325 mg Documented by: Atorvastatin Calcium (Atorvastatin 40 Mg Tab) 40 mg PO DAILY [facility] Last Admin: 02/04/21 10:15 Dose: 40 mg Documented by: Benzocaine/Menthol (Benzocaine/Menthol Lozeng 1 Each Lozenge) 1 each MUCOUS MEM Q2H PRN PRN Reason: Sore Throat Last Admin: 02/01/21 17:17 Dose: 1 each Documented by: Bisacodyl (Bisacodyl 10 Mg Supp) 10 mg RECTAL DAILY PRN PRN Reason: Constipation Last Admin: 02/02/21 15:35 Dose: 10 mg Documented by: Clopidogrel Bisulfate (Clopidogrel 75 Mg Tab) 75 mg PO DAILY [facility] Last Admin: 02/04/21 10:15 Dose: 75 mg Documented by: Heparin Sodium (Porcine) (Heparin Sodium,Porcine/Pf 5,000 Unit/0.5 Ml Syringe) 5,000 unit SQ Q8HR [facility] Last Admin: 02/04/21 10:16 Dose: 5,000 unit Documented by: Amiodarone HCl 150 mg/ (Dextrose/Water) 103 mls @ 618 mls/hr IV .Q10M PRN; Protocol PRN Reason: A.FIB/FLUTTER Insulin Aspart (Insulin Aspart (Novolog) 100 Unit/Ml Vial) 0 unit SQ ACHS [facility]; Protocol Last Admin: 02/04/21 12:16 Dose: Not Given Documented by: Losartan Potassium (Losartan 25 Mg Tab) 12.5 mg PO DAILY@1200 [facility] Last Admin: 02/04/21 14:01 Dose: 12.5 mg Documented by: Magnesium Hydroxide (Magnesium Hydroxide 2,400 Mg/10 Ml Cup) 2,400 mg PO BID PRN PRN Reason: Constipation Last Admin: 02/03/21 08:09 Dose: 2,400 mg Documented by: Metoclopramide HCl (Metoclopramide 5 Mg/Ml 2 Ml Vial) 10 mg IVP Q4H PRN PRN Reason: Nausea And Vomiting Last Admin: 02/03/21 20:06 Dose: 10 mg Documented by: Metoprolol Tartrate (Metoprolol Tartrate 50 Mg Tab) 50 mg PO BID [facility] Miscellaneous Information (Potassium Replacement Protocol 1 Each Misc) 1 each MISCELLANE DAILY PRN; Protocol PRN Reason: Per Protocol Miscellaneous Information (Magnesium Replacement Protocol 1 Each Misc) 1 each MISCELLANE DAILY PRN; Protocol PRN Reason: Per Protocol Miscellaneous Information (Phosphorus Replacement Protoco 1 Each Misc) 1 each MISCELLANE DAILY PRN; Protocol PRN Reason: Per Protocol Ondansetron HCl (Ondansetron 4 Mg/2 Ml Vial) 4 mg IVP Q6HR PRN PRN Reason: Nausea And Vomiting Last Admin: 01/31/21 08:30 Dose: 4 mg Documented by: Pantoprazole Sodium (Pantoprazole 40 Mg Tablet) 40 mg PO AC-BRKFST [facility] Last Admin: 02/04/21 06:37 Dose: 40 mg Documented by: Senna/Docusate Sodium (Sennosides-Docusate Sodium 1 Each Tab) 2 each PO HS [facility] Last Admin: 02/03/21 20:06 Dose: 2 each Documented by: Sodium Chloride (Sodium Chloride 0.9% Flush 10 Ml Syringe) 10 ml IV BID [facility] Last Admin: 02/03/21 20:06 Dose: 10 ml Documented by: Past medical history to include: Memory impairment, 3-4+ mitral valve regurgitation with posterior leaflet prolapse, moderate aortic stenosis, obstructive sleep apnea does not use CPAP, short term memory loss, hard of hearing, Social history: Patient stopped smoking in 1970. No alcohol. . Family history: Reviewed, noncontributory to presentation Physical examination: VITAL SIGNS: 98.6, 89, 18, 140/75, 93% room air GENERAL: Sitting up in a chair, awake EYES: Pupils equal. Conjunctiva pale. HEENT: External appearance of nose and ears normal, oral cavity grossly normal. NECK: JVD unable to assess; masses not palpable. HEART: First and second heart sounds are normal; no edema. LUNGS: Respiratory rate increased decreased breath sounds. ABDOMEN: Soft, nontender, liver spleen not palpable, no masses palpable. PSYCH: AO - times three. Mood and affect normal INVESTIGATIONS, reviewed in the clinical context: February 04: He will globin 8.9 creatinine 1.33 magnesium 2.7 UA: Negative Renal ultrasound: Unremarkable February 03: WBC 8.7 hemoglobin 9.2 platelets 140 potassium 4.9 creatinine 1.35 February 02: WBC 9.7 hemoglobin 9.5 platelets 102 potassium 4.7 creatinine 1.35 February 01: WBC 13.1 hemoglobin 9.6 platelets 86 BUN 27 creatinine 1.39 January 31: WBC 14.6 hemoglobin 12.5 platelets 117 potassium 4 creatinine 0.67 WBC 8.5 hemoglobin 11.5 platelets 97 Potassium 3.6 creatinine 0.71 albumin 2.3 Chest x-ray: Small amount of pneumomediastinum, soft tissue emphysema along the soft tissue left neck, postsurgical changes course interstitium Labs from 01/20/2021: Hemoglobin 14.1 platelets 226 Assessment and plan: -Bioprosthetic aortic valve replacement for moderate aortic stenosis with the preoperative area of 1.2 cm -Mitral valvular repair with annuloplasty for mitral regurgitation 3-4+, posterior leaflet prolapse, possible ruptured cord -Mild Cognitive impairment -Chronic hard of hearing -Acute postprocedure blood loss anemia, as expected from surgery Follow H&H -Dilutional thrombocytopenia, following surgery Follow H&H -Essential hypertension Cozaar, Lopressor. Follow closely -Acute kidney injury, ATN possibly cardiorenal. Creatinine has gone from 0.67- 1.39 Stabilized at 1.33. Stable weight from nephrotoxic agents. Discussed with the patient. Continue current medication. Plan. Activity as tolerated. Thank you Dr. Ortiz
[2021-02-04 17:15] LABS: Glucose,Whole Blood 115 mg/dL (75-99)
[2021-02-04 20:26] LABS: Glucose,Whole Blood 107 mg/dL (75-99)
[2021-02-04] MEDS: SENNOSIDES-DOCUSATE SODIUM 1 EACH TAB PO SCH (21:00)
[2021-02-04] MEDS: METOPROLOL TARTRATE 50 MG TAB PO SCH (21:00)
[2021-02-05 06:38] LABS: Glucose,Whole Blood 95 mg/dL (75-99)
[2021-02-05] MEDS: INSULIN ASPART (NovoLOG) 100 UNIT/ML VIAL SQ SCH ×3 (06:39→22:11)
[2021-02-05] MEDS: PANTOPRAZOLE 40 MG TABLET PO SCH (06:50)
--- NOTE | 2021-02-05 07:52 | XR ---
EXAMINATION TYPE: XR chest 1V portable DATE OF EXAM: 02/05/2021 Comparison: 02/04/2021 Clinical History: 70 year-old male Postoperative cardiac surgery Findings: Median sternotomy wires. No appreciable pneumothorax. Continued borderline to mild cardiomegaly, hype rinflation, and small bilateral pleural effusions. Impression: Continued small bilateral pleural effusions with adjacent atelectasis and/or consolidation. Perihilar bands of atelectasis have resolved. Background of COPD.
[2021-02-05] MEDS: IPRATROPIUM-ALBUTEROL 3 ML NEB INHALATION SCH ×4 (08:08→19:51)
[2021-02-05 08:57] LABS: HCT 26.2 % (39.0-53.0); HGB 8.9 gm/dL (13.0-17.5); MCH 31.6 pg (25.0-35.0); MCHC 33.9 g/dL (31.0-37.0); MCV 93.2 fL (80.0-100.0); Mean Platelet Volume 7.7; Platelet Count 211 k/uL (150-450); RBC 2.81 m/uL (4.30-5.90); RDW 13.3 % (11.5-15.5)
[2021-02-05] MEDS: HEPARIN SODIUM,PORCINE/PF 5,000 UNIT/0.5 ML SYRINGE SQ SCH ×3 (08:58→23:08)
[2021-02-05] MEDS: ASPIRIN 325 MG TAB PO SCH (08:58)
[2021-02-05] MEDS: CLOPIDOGREL 75 MG TAB PO SCH (08:58)
[2021-02-05] MEDS: AMIODARONE 200 MG TAB PO SCH ×2 (08:58→21:07)
[2021-02-05] MEDS: METOPROLOL TARTRATE 50 MG TAB PO SCH ×2 (08:58→21:07)
[2021-02-05] MEDS: ATORVASTATIN 40 MG TAB PO SCH (08:58)
[2021-02-05 09:06] LABS: Calcium 8.2 mg/dL (8.4-10.2); Magnesium 2.5 mg/dL (1.6-2.3); Potassium 4.9 mmol/L (3.5-5.1)
[2021-02-05] MEDS: ACETAMINOPHEN TAB 325 MG TAB PO PRN (09:10)
[2021-02-05] MEDS ORDERED: FUROSEMIDE 10 MG/ML 2 ML VIAL IV ONE (09:28)
--- NOTE | 2021-02-05 09:30 | P.PN ---
Subjective Patient is seen in follow-up for acute kidney injury. Renal function is fairly stable. Denies chest pain or shortness of breath. Good urine output. Oral intake is good. Vital signs are stable. General: The patient appeared well nourished and normally developed. HEENT: Head exam is unremarkable. Neck is without jugular venous distension. LUNGS: Breath sounds decreased. HEART: Rate and Rhythm are regular. ABDOMEN: Soft, no distention. EXTREMITITES: No edema. Objective - Vital Signs Vital signs: Vital Signs Temp 98.8 F 02/05/21 08:00 Pulse 84 02/05/21 08:21 Resp 18 02/05/21 08:00 BP 120/71 02/05/21 08:00 Pulse Ox 93 L 02/05/21 08:00 Intake & Output 02/04/21 02/05/21 02/05/21 18:59 06:59 18:59 Intake Total 253.813 240 Output Total 600 Balance 253.813 -360 Weight 72.4 kg Intake: Intake, IV Titration 13.813 Amount Amiodarone 360 mg In 13.813 Dextrose 5% in Water 200 ml @ 1 MG/MIN 34.533 mls/ hr IV .Q6H PRN Rx#: [id number] Oral 240 240 Output: Urine 600 Other: Voiding Method Toilet Toilet # Voids 1 ABP, PAP, CO, CI - Last Documented Arterial Blood Pressure 100/83 Pulmonary Artery Pressure 35/17 Cardiac Output 6.1 Cardiac Index 3.5 - Labs CBC & Chem 7: 02/05/21 07:40 02/05/21 07:40 Labs: Abnormal Lab Results - Last 24 Hours (Table) 02/04/21 02/04/21 02/04/21 Range/Units 08:26 12:04 17:13 RBC (4.30-5.90) m/uL Hgb (13.0-17.5) gm/dL Hct (39.0-53.0) % Sodium (137-145) mmol/L BUN (9-20) mg/dL Creatinine (0.66-1.25) mg/dL POC Glucose (mg/dL) 105 H 115 H (75-99) mg/dL Calcium (8.4-10.2) mg/dL Magnesium 2.7 H (1.6-2.3) mg/dL 02/04/21 02/05/21 02/05/21 Range/Units 20:23 07:40 07:40 RBC 2.81 L (4.30-5.90) m/uL Hgb 8.9 L (13.0-17.5) gm/dL Hct 26.2 L (39.0-53.0) % Sodium 132 L (137-145) mmol/L BUN 42 H (9-20) mg/dL Creatinine 1.41 H (0.66-1.25) mg/dL POC Glucose (mg/dL) 107 H (75-99) mg/dL Calcium 8.2 L (8.4-10.2) mg/dL Magnesium 2.5 H (1.6-2.3) mg/dL Assessment and Plan Plan: assessment: 1. Acute kidney injury secondary to ATN secondary to hemodynamic instability. Baseline creatinine near 1 and fairly stable at 1.4 today. UA benign. No hydronephrosis noted on kidney ultrasound. 2. Status post aortic valve replacement and mitral of repair on 01/30/2021. 3. A. fib with RVR maintained on amiodarone and lopressor. 4. Benign hypertension. Stable. 5. Hyponatremia secondary to acute kidney injury. Hypervolemic. 6. Volume overload. Plan: Lasix 20 mg IV once today. Encouraged oral intake. Avoid nephrotoxins. Continue to monitor renal function and urine output.
--- NOTE | 2021-02-05 09:37 | P.PN ---
Subjective Progress Note Date: 02/05/21 HISTORY OF PRESENT ILLNESS: This is a 70-year-old male, patient of Dr. Galindo, who underwent aortic valve replacement. Patient examined this morning at the bedside. Patient denies ch est pain or pressure. He denies shortness of breath. Patient has been up ambulate in the hallway with his spouse. Patient went into A. fib with RVR and was started on IV amiodarone. Patient has since converted to sinus mechanism. 02/05/2021 Patient examined this morning. He is sitting up in the chair. He denies chest pain or pressure. Denies shortness of breath. Telemetry reveals sinus mechanism. Patient pulling 1000cc on IS. Patient is anxious to be discharged home today. PHYSICAL EXAM: VITAL SIGNS: Reviewed. GENERAL: Well-developed in no acute distress. NECK: Supple. No JVD or thyromegaly LUNGS: Respirations even and unlabored. Lungs diminished bilaterally. HEART: Regular rate and rhythm. S1 and S2 heard. Heart hugger in place. EXTREMITIES: Normal range of motion. No clubbing or cyanosis. Peripheral pulses intact. No lower extremity edema ASSESSMENT: Moderate degenerative aortic valve stenosis, status post bioprosthetic aortic valve replacement Severe eccentric mitral regurgitation with torn chordae P2 of the posterior leaflet, status post complex mitral valve repair Hypertension Obstructive sleep apnea without CPAP use Previous tobacco dependence Significant short-term memory loss. Postoperative acute blood loss anemia Thrombocytopenia Paroxysmal atrial fibrillation with RVR PLAN: Continue postoperative management per CTS Continue current cardiac medications Increase activity as tolerated Encourage use of incentive spirometer Patient is stable for discharge home today from a cardiac standpoint Nurse practitioner note has been reviewed by physician. Signing provider agrees with the documented findings, assessment, and plan of care. Objective - Vital Signs Vital signs: Vital Signs Temp 98.8 F 02/05/21 08:00 Pulse 84 02/05/21 08:21 Resp 18 02/05/21 08:00 BP 120/71 02/05/21 08:00 Pulse Ox 93 L 02/05/21 08:00 Intake & Output 02/04/21 02/05/21 02/05/21 18:59 06:59 18:59 Intake Total 253.813 240 Output Total 600 Balance 253.813 -360 Weight 72.4 kg Intake: Intake, IV Titration 13.813 Amount Amiodarone 360 mg In 13.813 Dextrose 5% in Water 200 ml @ 1 MG/MIN 34.533 mls/ hr IV .Q6H PRN Rx#: [id number] Oral 240 240 Output: Urine 600 Other: Voiding Method Toilet Toilet # Voids 1 ABP, PAP, CO, CI - Last Documented Arterial Blood Pressure 100/83 Pulmonary Artery Pressure 35/17 Cardiac Output 6.1 Cardiac Index 3.5 - Labs CBC & Chem 7: 02/05/21 07:40 02/05/21 07:40 Labs: Abnormal Lab Results - Last 24 Hours (Table) 02/04/21 02/04/21 02/04/21 Range/Units 08:26 12:04 17:13 RBC (4.30-5.90) m/uL Hgb (13.0-17.5) gm/dL Hct (39.0-53.0) % Sodium (137-145) mmol/L BUN (9-20) mg/dL Creatinine (0.66-1.25) mg/dL POC Glucose (mg/dL) 105 H 115 H (75-99) mg/dL Calcium (8.4-10.2) mg/dL Magnesium 2.7 H (1.6-2.3) mg/dL 02/04/21 02/05/21 02/05/21 Range/Units 20:23 07:40 07:40 RBC 2.81 L (4.30-5.90) m/uL Hgb 8.9 L (13.0-17.5) gm/dL Hct 26.2 L (39.0-53.0) % Sodium 132 L (137-145) mmol/L BUN 42 H (9-20) mg/dL Creatinine 1.41 H (0.66-1.25) mg/dL POC Glucose (mg/dL) 107 H (75-99) mg/dL Calcium 8.2 L (8.4-10.2) mg/dL Magnesium 2.5 H (1.6-2.3) mg/dL
--- NOTE | 2021-02-05 11:44 | P.PN ---
Subjective Progress Note Date: 02/05/21 Principal diagnosis: Moderate degenerative aortic stenosis, severe eccentric mitral regurgitation with torn chordae P2 of the posterior leaflet. Past medical history significant for hypertension, obstructive sleep apnea without CPAP use, previous tobacco dependence, significant short-term memory loss. Patient did Covid vaccine. POD #6 aortic valve replacement with a #21 mm Mckeon Inspiris bioprosthetic aortic valve, complex mitral valve repair with a 30 mm CarboMedics AnnuloFlex band, quadrangular resection of P2 of the posterior leaflet, closure of PEEP 1 and P2 cleft posteriorly, ring annuloplasty, clip ligation of the left atrial appendage with a 35 mm AtriClip and intraoperative transesophageal echocardiogram Postoperative acute blood loss anemia and thrombocytopenia, expected outcomes dilution and cardiopulmonary bypass pump. Paroxysmal atrial fibrillation, a known common occurrence after cardiac surgery. The patient was seen in follow-up today 02/05/2021 at his bedside on the cardiac stepdown unit. Currently he is sitting up to the bedside chair, is awake, alert and oriented 3 and is in no acute distress. The patient denies any complaints of pain or shortness of breath at this time although continues to complain of abdominal bloating. He reports his bowels have been moving yesterday and also today, denies any diarrhea. His remote telemetry this morning is showing normal sinus rhythm heart rate 85 BPM and no further episodes of atrial fibrillation reported. He was started on amiodarone 400 mg by mouth twice a day yesterday for the atrial fibrillation and also continues on metoprolol 50 mg by mouth twice a day. Oxygen saturations are 93% on room air, he remains hemodynamically stable and is currently on no inotropic or pressor support. Laboratory results this morning show a WBC count 6.0, hemoglobin 8.9, hematocrit 26.2, platelets 211, sodium 132, potassium 4.9, BUN 42 and creatinine 1.41. He is achieving 1250 mL on his incentive spirometry up encouragement. Objective - Vital Signs Vital signs: Vital Signs Temp 98.8 F 02/05/21 08:00 Pulse 84 02/05/21 08:21 Resp 18 02/05/21 08:00 BP 120/71 02/05/21 08:00 Pulse Ox 93 L 02/05/21 08:00 Intake & Output 02/04/21 02/05/21 02/05/21 18:59 06:59 18:59 Intake Total 253.813 240 Output Total 600 Balance 253.813 -360 Weight 72.4 kg Intake: Intake, IV Titration 13.813 Amount Amiodarone 360 mg In 13.813 Dextrose 5% in Water 200 ml @ 1 MG/MIN 34.533 mls/ hr IV .Q6H PRN Rx#: [id number] Oral 240 240 Output: Urine 600 Other: Voiding Method Toilet Toilet # Voids 1 ABP, PAP, CO, CI - Last Documented Arterial Blood Pressure 100/83 Pulmonary Artery Pressure 35/17 Cardiac Output 6.1 Cardiac Index 3.5 - Exam CONSTITUTIONAL: Sitting up to the bedside chair on the cardiac stepdown unit, appears comfortable, cooperative, no apparent acute distress. HEENT: Neck is supple, no JVD, no lymphadenopathy. RESPIRATORY: Lungs sounds essentially clear throughout, diminished to his bilateral bases. Respirations are symmetrical and nonlabored. Currently on room air with oxygen saturations 93%. Able to achieve 1250 mL on their incentive spirometry. Strong cough. CARDIOVASCULAR: Regular rhythm and rate. S1 and S2 present, negative for S3, gallop or murmur. Sternum is stable. Palpable peripheral pulses bilaterally, No calf pain or tenderness noted. Heart hugger in place with patient demonstrating appropriate use. Remote telemetry showing normal sinus rhythm heart rate 85 BPM. Knee-high JESSICA hose and sequential compression devices in place to his bilateral lower extremities. GASTROINTESTINAL: Abdomen soft, nontender, nondistended. Active bowel sounds present 4 quadrants. Tolerating diet. Passing flatus. No guarding or rigidity. GENITOURINARY: Continues to void. 600 mL of urine output in the last 8 hours. INTEGUMENTARY: Skin is warm and dry with no clubbing or cyanosis. Midline sternal incision clean dry and well approximated, no drainage or redness is present. NEUROLOGIC: Cranial nerves II through XII intact. No focal deficits. MUSKULOSKELETAL: Able to move all extremities, strength equal bilaterally, generalized postoperative weakness. PSYCHIATRIC: Alert and oriented to person place and time, appropriate affect, intact judgment and insight. - Labs CBC & Chem 7: 02/05/21 07:40 02/05/21 07:40 Labs: Abnormal Lab Results - Last 24 Hours (Table) 02/04/21 02/04/21 02/04/21 Range/Units 12:04 17:13 20:23 RBC (4.30-5.90) m/uL Hgb (13.0-17.5) gm/dL Hct (39.0-53.0) % Sodium (137-145) mmol/L BUN (9-20) mg/dL Creatinine (0.66-1.25) mg/dL POC Glucose (mg/dL) 105 H 115 H 107 H (75-99) mg/dL Calcium (8.4-10.2) mg/dL Magnesium (1.6-2.3) mg/dL 02/05/21 02/05/21 Range/Units 07:40 07:40 RBC 2.81 L (4.30-5.90) m/uL Hgb 8.9 L (13.0-17.5) gm/dL Hct 26.2 L (39.0-53.0) % Sodium 132 L (137-145) mmol/L BUN 42 H (9-20) mg/dL Creatinine 1.41 H (0.66-1.25) mg/dL POC Glucose (mg/dL) (75-99) mg/dL Calcium 8.2 L (8.4-10.2) mg/dL Magnesium 2.5 H (1.6-2.3) mg/dL Assessment and Plan Assessment: 1. Moderate degenerative aortic valve stenosis, status post bioprosthetic aortic valve replacement 2. Severe eccentric mitral regurgitation with torn chordae P2 of the posterior leaflet, status post complex mitral valve repair 3. Hypertension 4. Obstructive sleep apnea without CPAP use 5. Previous tobacco dependence, preoperative FEV1 95% of predicted 6. Significant short-term memory loss. 7. Postoperative acute blood loss anemia and thrombocytopenia 8. Paroxysmal atrial fibrillation, a known common occurrence after cardiac surgery 9. Acute kidney injury Plan: 1. Continue aspirin, statin, Plavix, and beta kike. Will increase beta kike as tolerated. 2. Encourage incentive spirometry use 10 times every hour while awake. Bronchodilators per pulmonology 3. Increase activity, ambulate as tolerated. PT/OT/cardiac rehab following. 4. Will monitor daily labs and x-rays. Electrolyte replacement per protocol. 5. GI/DVT prophylaxis. 6. Pain control with current medication regimen. 7. Insulin management per primary care service. Patient is not diabetic, preoperative hemoglobin A1c 5.1% 8. Avoid nephrotoxic agents. Nephrology ordered Lasix 20 mg IV 1 today. 9. Continue amiodarone 400 mg by mouth twice a day for atrial fibrillation prophylaxis. 10. Continue to record strict and accurate I's and O's. May bladder scan and straight cath for greater than 300 mL residual. 11. Continue daily weights. 12. Anticipate discharge home with home health care in the next 24 hours. 13. Discontinue his Cozaar as his BUN and creatinine are trending up. 14. Obtain an ultrasound of his chest with marking 4 pleural effusions. 15. More recommendations to follow based on patient's progress. Time with Patient: Greater than 30
--- NOTE | 2021-02-05 11:49 | P.PN ---
Subjective Progress Note Date: 02/05/21 Principal diagnosis: Severe eccentric mitral regurgitation and moderate aortic stenosis, status post aortic valve replacement, mitral valve repair Pulmonary consult dated 01/30/2021. 70-year-old male, postop day #0, status post aortic valve replacement and mitral valve repair. The surgery was done by Dr. Ortiz. Currently, the patient's resting comfortably in the ICU. He is obviously still on the ventilator. He is getting lactated Ringer's at 50 mL an hour, Cleveprex at 4 mg an hour, and propofol at 25 mcg/kg/m. The patient's vent settings include the volume assist control, rate 12, tidal volume 500, FiO2 40%, and PEEP of 5. Blood gases show pO2 of greater than 400, a pCO2 38, and a pH is 7.45. The FiO2 was turned down to 40%. Currently, the patient is hemodynamically stable and a bit hypertensive. Hence, the Cleveprex. He initially came back from the operating room on IV nitroglycerin. The patient's home medications include only on losartan, and Tylenol. In addition, the patient has a history of mitral valve prolapse, mitral regurgitation, obstructive sleep apnea syndrome, and previous history of tobacco use. His cardiac catheterization revealed no significant a productive coronary disease, the patient had 3-4+ mitral regurgitation, and moderate aortic stenosis with a valve surface area of 1.32 cm. Progress note dated 01/31/2021. This is a 70-year-old male postop day #1, status post aortic valve replacement and mitral valve repair. The surgery was done by Dr. Ortiz. Currently, the patient's doing well. He was extubated fairly quickly. The patient is on 2 L nasal cannula. He's receiving lactated Ringer's at 50 mL an hour. He is on an insulin drip at 3.5 units per hour, and receiving Cleveprex for blood pressure control and 18 mg an hour. White count 14.6, hemoglobin 12.5, hematocrit 35.9, platelet count 117,000. Sodium 136, with a normal potassium, chloride, CO2, anion gap, BUN, and creatinine. Chest x-ray is currently pending. The patient is seen today 02/01/2021 in follow-up in the intensive care unit. This is postoperative day #2 of aortic valve replacement and mitral valve repair. He is currently sitting up in a chair at the bedside. Maintaining O2 saturations in the 90s on room air. Chest x-ray reveals mediastinal chest tube in place. Cardiomegaly with bilateral infiltrates/effusions. Mild central int erstitial prominence. Some subcutaneous emphysema along the left neck strain. No sizable pneumothorax. He has lactated Ringer's at 30 MLS per hour. No other drips. Off cleviprex. He is doing quite well. His pain is well managed. Working well with the incentive spirometer. Fisher catheters have been removed. Plan is for possible chest tube to be removed today. White count 13.1. Hemoglobin 9.6. Platelet count 86,000. Sodium 133. Potassium 4.8. Creatinine 1.39. Magnesium 2.7. He remains on bronchodilators, heparin for DVT prophylaxis. Protonix for GI prophylaxis. The patient is seen today 02/02/2021 in follow-up in the intensive care unit. This is postoperative day #3 of aortic valve replacement and mitral valve repair. He is sitting up in a chair at the bedside. Awake and alert in no acute distress. Maintaining good O2 saturations in the 90s on 2 L/m per nasal cannula. Chest x-ray shows some limited bilateral infiltrates/effusions. He remains in sinus rhythm. He is afebrile. Hemodynamically stable. Lactated Ringer's at 20 mL per hour. No other drips. White count 9.7. Hemoglobin 9.5. Platelet count 102. Sodium 132. Potassium 4.7. Creatinine 1.35. Working well with the incentive spirometer. Up with assistance. Progress note dated 02/03/2021. This is a 70-year-old male, who is postop day #4, status post aortic valve replacement, and mitral valve repair. The patient is currently doing well. He is on 2 L nasal cannula. He's not receiving any IV fluids. He is seen this morning in room 255. He has no major complaints. He had an uneventful night according to the nurses. White count 8.7, hemoglobin 9.2, hematocrit 27.3, platelet count 140,000. Chest x-ray this morning shows postoperative changes including some basilar atelectasis and small bilateral pleural effusions. Progress note dated 02/04/2021. 70-year-old male, seen in room 383. He is postop day #5, status post aortic valve replacement and mitral valve repair. He is currently doing well. He's not receiving any IV fluids. He is on 2 L nasal cannula. The patient has no m ajor issues including chest pain, chest discomfort, shortness of breath, cough, wheezing, phlegm production, fever, or chills. Temperature 98.5, heart rate 82, respiratory rate 18, blood pressure 144/69, and room air saturation 98%. Labs and x-rays from today are pending. From yesterday, white count 8.7, hemoglobin 9.2, sodium 132, and BUN 36 with a creatinine of 1.35. Chest x-ray from yesterd ay showed resolution of the small right-sided pneumothorax. There was some evidence of bibasilar atelectasis. The patient is seen today 02/05/2021 in follow-up on the selective care unit. Postoperative day #6 status post aortic valve replacement, mitral valve repair. He is currently sitting up in chair at the bedside. Doing very well. Alert and oriented in no acute distress. Maintaining O2 saturation in the 90s on room air. Chest x-ray shows small bilateral effusions with adjacent atelectasis. He continues to work well with the incentive spirometer. White count 6.0. Hemoglobin 8.9. Sodium 132. Potassium 4.9. Creatinine 1.41. Remains on bronchodilators. On oral Cordarone. Objective - Vital Signs Vital signs: Vital Signs Temp 98.8 F 02/05/21 08:00 Pulse 84 02/05/21 08:21 Resp 18 02/05/21 08:00 BP 120/71 02/05/21 08:00 Pulse Ox 93 L 02/05/21 08:00 Intake & Output 02/04/21 02/05/21 02/05/21 18:59 06:59 18:59 Intake Total 253.813 240 118 Output Total 600 Balance 253.813 -360 118 Weight 72.4 kg Intake: Intake, IV Titration 13.813 Amount Amiodarone 360 mg In .813 Dextrose 5% in Water 200 ml @ 1 MG/MIN 34.533 mls/ hr IV .Q6H PRN Rx#: [id number] Oral 240 240 118 Output: Urine 600 Other: Voiding Method Toilet Toilet # Voids 1 ABP, PAP, CO, CI - Last Documented Arterial Blood Pressure 100/83 Pulmonary Artery Pressure 35/17 Cardiac Output 6.1 Cardiac Index 3.5 - Exam GENERAL EXAM: Alert, very pleasant 70-year-old gentleman, on room air, up in a chair, fairly comfortable in no apparent distress. HEAD: Normocephalic. EYES: Normal reaction of pupils, equal size. NOSE: Clear with pink turbinates. THROAT: No erythema or exudates. NECK: No masses, no JVD. CHEST: Sternal dressing dry and intact. Heart and place. LUNGS: Equal air entry with faint crackles in the posterior bases CVS: S1 and S2 normal with no audible murmur, regular rhythm. ABDOMEN: No hepatosplenomegaly, normal bowel sounds, no guarding or rigidity. SPINE: No scoliosis or deformity SKIN: No rashes CENTRAL NERVOUS SYSTEM: No focal deficits, tone is normal in all 4 extremities. EXTREMITIES: SCDs in place. There is no peripheral edema. No clubbing, no cyanosis. Peripheral pulses are intact. - Labs CBC & Chem 7: 02/05/21 07:40 02/05/21 07:40 Labs: Abnormal Lab Results - Last 24 Hours (Table) 02/04/21 02/04/21 02/04/21 Range/Units 12:04 17:13 20:23 RBC (4.30-5.90) m/uL Hgb (13.0-17.5) gm/dL Hct (39.0-53.0) % Sodium (137-145) mmol/L BUN (9-20) mg/dL Creatinine (0.66-1.25) mg/dL POC Glucose (mg/dL) 105 H 115 H 107 H (75-99) mg/dL Calcium (8.4-10.2) mg/dL Magnesium (1.6-2.3) mg/dL 02/05/21 02/05/21 Range/Units 07:40 07:40 RBC 2.81 L (4.30-5.90) m/uL Hgb 8.9 L (13.0-17.5) gm/dL Hct 26.2 L (39.0-53.0) % Sodium 132 L (137-145) mmol/L BUN 42 H (9-20) mg/dL Creatinine 1.41 H (0.66-1.25) mg/dL POC Glucose (mg/dL) (75-99) mg/dL Calcium 8.2 L (8.4-10.2) mg/dL Magnesium 2.5 H (1.6-2.3) mg/dL Assessment and Plan Assessment: 1 Severe eccentric mitral regurgitation and moderate aortic stenosis. Status post aortic valve replacement, mitral valve repair. 2 History of obstructive sleep apnea 3 History of previous tobacco dependence 4 Bilateral pleural effusions 5 Postoperative atrial fibrillation, common occurrence after cardiac surgery, on oral amiodarone 6 Acute kidney injury Plan: The patient was seen and evaluated by Dr. Andino Chest x-ray, labs reviewed Ultrasound of the chest pending Lasix 20 mg IVP times one per nephrology Continues to work with the incentive spirometer Increase his activity as tolerated We'll continue to follow I, the cosigning physician, performed a history & physical examination of the patient. Lungs sounds faint crackles in the posterior bases. Maintaining good O2 saturations in the 90s on room air. I discussed the assessment and plan of care with my nurse practitioner, Destinee Mccurdy. I attest to the above note as dictated by her.
[2021-02-05 12:09] LABS: Glucose,Whole Blood 94 mg/dL (75-99)
--- NOTE | 2021-02-05 14:07 | US ---
EXAMINATION TYPE: US chest DATE OF EXAM: 02/05/2021 COMPARISON: Radiograph 02/05/2021 CLINICAL HISTORY: 70-year-old male pleural effusion TECHNIQUE: Targeted ultrasound of the posterior lower bilateral hemithoraces FINDINGS: EXAM MEASUREMENTS: Right Pleural Effusion pocket size: 10.3 cm Right skin surface to fluid distance: 2.9 cm Left Pleural Effusion pocket size: 9.1 cm Left skin surface to fluid distance: 2.1 cm Right side marked for possible thoracentesis outside the dept. Left side marked for possible thoracentesis outside the dept. Pulmonologists are able to review the images in the patient?s EMR. IMPRESSIONS: Moderate effusions left greater than right with underlying atelectatic lung.
[2021-02-05 17:22] LABS: Glucose,Whole Blood 99 mg/dL (75-99)
--- NOTE | 2021-02-05 18:18 | P.PN ---
Progress Note - Text Progress Note Date: 02/05/21 - Chief Complaint Valvular surgery Consultation: This is a pleasant 70-year-old patient who follows with Dr. Paul Crowell. Patient has undergone bioprosthetic aortic valve replacement/annuloplasty for mitral valve replacement. Currently in the ICU. 2 mediastinal chest tubes in place. Sinus rhythm. Patient had previously undergone a JOSE that showed: 3-4+ mitral regurgitation, mitral valve flow prolapse of the posterior leaf left and a possibly ruptured chordae. Moderate aortic stenosis with the area of 1.32 cm with a negative bubble study. Cardiac catheterization was unremarkable. Chronic stable medical conditions include some hard of hearing, obstructive sleep apnea does not use CPAP, some memory impairment. Patient has developed acute kidney injury. Today: Feeling better. Has been ambulating. 93% on room air. at the bedside. A bit disappointed because not going home. Pleural effusion on the x- ray. Review of systems: Was done for constitutional, cardiovascular, GI, pulmonary. relevant finding as above Active Medications Acetaminophen (Acetaminophen Tab 325 Mg Tab) 650 mg PO Q4HR PRN PRN Reason: Fever and/ or Pain Last Admin: 02/05/21 09:10 Dose: 650 mg Documented by: Albuterol/Ipratropium (Ipratropium-Albuterol 3 Ml Neb) 3 ml INHALATION RT-Q2H PRN PRN Reason: Shortness Of Breath Or Wheezing Albuterol/Ipratropium (Ipratropium-Albuterol 3 Ml Neb) 3 ml INHALATION RT-QID [facility] Last Admin: 02/05/21 15:11 Dose: Not Given Documented by: Amiodarone HCl (Amiodarone 200 Mg Tab) 400 mg PO BID [facility] Last Admin: 02/05/21 08:58 Dose: 400 mg Documented by: Aspirin (Aspirin 325 Mg Tab) 325 mg PO DAILY [facility] Last Admin: 02/05/21 08:58 Dose: 325 mg Documented by: Atorvastatin Calcium (Atorvastatin 40 Mg Tab) 40 mg PO DAILY [facility] Last Admin: 02/05/21 08:58 Dose: 40 mg Documented by: Benzocaine/Menthol (Benzocaine/Menthol Lozeng 1 Each Lozenge) 1 each MUCOUS MEM Q2H PRN PRN Reason: Sore Throat Last Admin: 02/01/21 17:17 Dose: 1 each Documented by: Bisacodyl (Bisacodyl 10 Mg Supp) 10 mg RECTAL DAILY PRN PRN Reason: Constipation Last Admin: 02/02/21 15:35 Dose: 10 mg Documented by: Clopidogrel Bisulfate (Clopidogrel 75 Mg Tab) 75 mg PO DAILY [facility] Last Admin: 02/05/21 08:58 Dose: 75 mg Documented by: Heparin Sodium (Porcine) (Heparin Sodium,Porcine/Pf 5,000 Unit/0.5 Ml Syringe) 5,000 unit SQ Q8HR [facility] Last Admin: 02/05/21 08:58 Dose: 5,000 unit Documented by: Amiodarone HCl 150 mg/ (Dextrose/Water) 103 mls @ 618 mls/hr IV .Q10M PRN; Protocol PRN Reason: A.FIB/FLUTTER Insulin Aspart (Insulin Aspart (Novolog) 100 Unit/Ml Vial) 0 unit SQ ACHS [facility]; Protocol Last Admin: 02/05/21 18:14 Dose: Not Given Documented by: Magnesium Hydroxide (Magnesium Hydroxide 2,400 Mg/10 Ml Cup) 2,400 mg PO BID PRN PRN Reason: Constipation Last Admin: 02/03/21 08:09 Dose: 2,400 mg Documented by: Metoclopramide HCl (Metoclopramide 5 Mg/Ml 2 Ml Vial) 10 mg IVP Q4H PRN PRN Reason: Nausea And Vomiting Last Admin: 02/03/21 20:06 Dose: 10 mg Documented by: Metoprolol Tartrate (Metoprolol Tartrate 50 Mg Tab) 50 mg PO BID [facility] Last Admin: 02/05/21 08:58 Dose: 50 mg Documented by: Miscellaneous Information (Potassium Replacement Protocol 1 Each Misc) 1 each MISCELLANE DAILY PRN; Protocol PRN Reason: Per Protocol Miscellaneous Information (Magnesium Replacement Protocol 1 Each Misc) 1 each MISCELLANE DAILY PRN; Protocol PRN Reason: Per Protocol Miscellaneous Information (Phosphorus Replacement Protoco 1 Each Misc) 1 each MISCELLANE DAILY PRN; Protocol PRN Reason: Per Protocol Ondansetron HCl (Ondansetron 4 Mg/2 Ml Vial) 4 mg IVP Q6HR PRN PRN Reason: Nausea And Vomiting Last Admin: 01/31/21 08:30 Dose: 4 mg Documented by: Pantoprazole Sodium (Pantoprazole 40 Mg Tablet) 40 mg PO AC-[id number] [facility] Last Admin: 02/05/21 06:50 Dose: 40 mg Documented by: Senna/Docusate Sodium (Sennosides-Docusate Sodium 1 Each Tab) 2 each PO HS [facility] Last Admin: 02/04/21 21:00 Dose: 2 each Documented by: Sodium Chloride (Sodium Chloride 0.9% Flush 10 Ml Syringe) 10 ml IV BID [facility] Last Admin: 02/05/21 08:58 Dose: 10 ml Documented by: Past medical history to include: Mild Memory impairment, 3-4+ mitral valve regurgitation with posterior leaflet prolapse, moderate aortic stenosis, obstructive sleep apnea does not use CPAP, short term memory loss, hard of hearing, Social history: Patient stopped smoking in 1970. No alcohol. . Family history: Reviewed, noncontributory to presentation Physical examination: VITAL SIGNS: aFebrile, 74, 120/76, 93% on room air GENERAL: Sitting up comfortable EYES: Pupils equal. Conjunctiva pale. HEENT: External appearance of nose and ears normal, oral cavity grossly normal. NECK: JVD unable to assess; masses not palpable. HEART: First and second heart sounds are normal; no edema. LUNGS: Respiratory rate normal decreased breath sounds. ABDOMEN: Soft, nontender, liver spleen not palpable, no masses palpable. PSYCH: AO - times three. Mood and affect normal INVESTIGATIONS, reviewed in the clinical context: February 05: Hemoglobin 8.9 creatinine 1.41 Chest x-ray film personally reviewed by me shows: Bilateral pleural effusion February 04: Hemoglobin 8.9 creatinine 1.33 magnesium 2.7 UA: Negative Renal ultrasound: Unremarkable February 03: WBC 8.7 hemoglobin 9.2 platelets 140 potassium 4.9 creatinine 1.35 February 02: WBC 9.7 hemoglobin 9.5 platelets 102 potassium 4.7 creatinine 1.35 February 01: WBC 13.1 hemoglobin 9.6 platelets 86 BUN 27 creatinine 1.39 January 31: WBC 14.6 hemoglobin 12.5 platelets 117 potassium 4 creatinine 0.67 WBC 8.5 hemoglobin 11.5 platelets 97 Potassium 3.6 creatinine 0.71 albumin 2.3 Chest x-ray: Small amount of pneumomediastinum, soft tissue emphysema along the soft tissue left neck, postsurgical changes course interstitium Labs from 01/20/2021: Hemoglobin 14.1 platelets 226 Assessment and plan: -Bioprosthetic aortic valve replacement for moderate aortic stenosis with the preoperative area of 1.2 cm -Mitral valvular repair with annuloplasty for mitral regurgitation 3-4+, posterior leaflet prolapse, possible ruptured cord -Mild Cognitive impairment -Chronic hard of hearing -Acute postprocedure blood loss anemia, as expected from surgery Follow H&H -Dilutional thrombocytopenia, following surgery Follow H&H -Essential hypertension Cozaar, Lopressor. Follow closely -Acute kidney injury, ATN possibly cardiorenal. Creatinine has gone from 0.67- 1.39 1.41. Avoid nephrotoxic agents. Cozaar discontinued by cardiothoracic surgery. -Bilateral pleural effusion, postsurgical Cozaar discontinued by cardiothoracic surgery. Other medications to continue. Discussed with the patient and . Follow Thank you Dr. Ortiz
[2021-02-05] MEDS: SENNOSIDES-DOCUSATE SODIUM 1 EACH TAB PO SCH (21:07)
[2021-02-05 21:20] LABS: Glucose,Whole Blood 98 mg/dL (75-99)
[2021-02-05] MEDS ORDERED: MELATONIN 3 MG TABLET PO PRN (23:11)
[2021-02-06] MEDS: PANTOPRAZOLE 40 MG TABLET PO SCH (06:19)
[2021-02-06] MEDS: ACETAMINOPHEN TAB 325 MG TAB PO PRN (06:20)
[2021-02-06 06:36] LABS: Glucose,Whole Blood 90 mg/dL (75-99)
[2021-02-06] MEDS: INSULIN ASPART (NovoLOG) 100 UNIT/ML VIAL SQ SCH ×3 (06:55→16:56)
[2021-02-06 08:11] LABS: HGB 8.8 gm/dL (13.0-17.5); MCH 31.7 pg (25.0-35.0); MCV 93.1 fL (80.0-100.0); Mean Platelet Volume 8.2; Platelet Count 229 k/uL (150-450); RBC 2.79 m/uL (4.30-5.90); RDW 13.4 % (11.5-15.5); WBC 7.1 k/uL (3.8-10.6)
[2021-02-06] MEDS: ATORVASTATIN 40 MG TAB PO SCH (08:56)
[2021-02-06] MEDS: METOPROLOL TARTRATE 50 MG TAB PO SCH (08:56)
[2021-02-06] MEDS: HEPARIN SODIUM,PORCINE/PF 5,000 UNIT/0.5 ML SYRINGE SQ SCH ×2 (08:56→16:44)
[2021-02-06] MEDS: CLOPIDOGREL 75 MG TAB PO SCH (08:56)
[2021-02-06] MEDS: ASPIRIN 325 MG TAB PO SCH (08:56)
[2021-02-06] MEDS: AMIODARONE 200 MG TAB PO SCH (08:56)
--- NOTE | 2021-02-06 09:02 | XR ---
EXAMINATION TYPE: XR chest 1V portable DATE OF EXAM: 02/06/2021 COMPARISON: 02/05/2021 HISTORY: Post open heart TECHNIQUE: Single frontal view of the chest is obtained. FINDINGS: Bilateral lower lobe infiltrate and small effusion. Heart size normal. Postoperative butler e. No pneumothorax. No interstitial edema. Diffuse osteopenia with arthropathy of the shoulders. IMPRESSION: 1. Bilateral lower lobe infiltrate and small effusion.
[2021-02-06] MEDS: IPRATROPIUM-ALBUTEROL 3 ML NEB INHALATION SCH ×3 (09:07→15:40)
[2021-02-06 09:10] LABS: Albumin 3.3 g/dL (3.5-5.0); Calcium 8.2 mg/dL (8.4-10.2); Potassium 4.5 mmol/L (3.5-5.1); Total Bilirubin 0.8 mg/dL (0.2-1.3); Total Protein 5.8 g/dL (6.3-8.2)
--- NOTE | 2021-02-06 11:17 | P.PN ---
Subjective Progress Note Date: 02/06/21 Severe eccentric mitral regurgitation and moderate aortic stenosis, status post aortic valve replacement, mitral valve repair Pulmonary consult dated 01/30/2021. 70-year-old male, postop day #0, status post aortic valve replacement and mitral valve repair. The surgery was done by Dr. Ortiz. Currently, the patient's resting comfortably in the ICU. He is obviously still on the ventilator. He is getting lactated Ringer's at 50 mL an hour, Cleveprex at 4 mg an hour, and propofol at 25 mcg/kg/m. The patient's vent settings include the volume assist control, rate 12, tidal volume 500, FiO2 40%, and PEEP of 5. Blood gases show pO2 of greater than 400, a pCO2 38, and a pH is 7.45. The FiO2 was turned down to 40%. Currently, the patient is hemodynamically stable and a bit hypertensive. Hence, the Cleveprex. He initially came back from the operating room on IV nitroglycerin. The patient's home medications include only on losartan, and Tylenol. In addition, the patient has a history of mitral valve prolapse, mitral regurgitation, obstructive sleep apnea syndrome, and previous history of tobacco use. His cardiac catheterization revealed no significant a productive coronary disease, the patient had 3-4+ mitral regurgitation, and moderate aortic stenosis with a valve surface area of 1.32 cm. Progress note dated 01/31/2021. This is a 70-year-old male postop day #1, status post aortic valve replacement and mitral valve repair. The surgery was done by Dr. Ortiz. Currently, the patient's doing well. He was extubated fairly quickly. The patient is on 2 L nasal cannula. He's receiving lactated Ringer's at 50 mL an hour. He is on an insulin drip at 3.5 units per hour, and receiving Cleveprex for blood pressure control and 18 mg an hour. White count 14.6, hemoglobin 12.5, hematocrit 35.9, platelet count 117,000. Sodium 136, with a normal potassium, chloride, CO2, anion gap, BUN, and creatinine. Chest x-ray is currently pending. The patient is seen today 02/01/2021 in follow-up in the intensive care unit. This is postoperative day #2 of aortic valve replacement and mitral valve repair. He is currently sitting up in a chair at the bedside. Maintaining O2 saturations in the 90s on room air. Chest x-ray reveals mediastinal chest tube in place. Cardiomegaly with bilateral infiltrates/effusions. Mild central interstitial prominence. Some subcutaneous emphysema along the left neck strain. No sizable pneumothorax. He has lactated Ringer's at 30 MLS per hour. No other drips. Off cleviprex. He is doing quite well. His pain is well managed. Working well with the incentive spirometer. Fisher catheters have been removed. Plan is for possible chest tube to be removed today. White count 13.1. Hemoglobin 9.6. Platelet count 86,000. Sodium 133. Potassium 4.8. Creatinine 1.39. Magnesium 2.7. He remains on bronchodilators, heparin for DVT prophylaxis. Protonix for GI prophylaxis. The patient is seen today 02/02/2021 in follow-up in the intensive care unit. This is postoperative day #3 of aortic valve replacement and mitral valve repair. He is sitting up in a chair at the bedside. Awake and alert in no acute distress. Maintaining good O2 saturations in the 90s on 2 L/m per nasal cannula. Chest x-ray shows some limited bilateral infiltrates/effusions. He remains in sinus rhythm. He is afebrile. Hemodynamically stable. Lactated Ringer's at 20 mL per hour. No other drips. White count 9.7. Hemoglobin 9.5. Platelet count 102. Sodium 132. Potassium 4.7. Creatinine 1.35. Working well with the incentive spirometer. Up with assistance. Progress note dated 02/03/2021. This is a 70-year-old male, who is postop day #4, status post aortic valve replacement, and mitral valve repair. The patient is currently doing well. He is on 2 L nasal cannula. He's not receiving any IV fluids. He is seen this morning in room 255. He has no major complaints. He had an uneventful night according to the nurses. White count 8.7, hemoglobin 9.2, hematocrit 27.3, platelet count 140,000. Chest x-ray this morning shows postoperative changes including some basilar atelectasis and small bilateral pleural effusions. Progress note dated 02/04/2021. 70-year-old male, seen in room 383. He is postop day #5, status post aortic fransico ve replacement and mitral valve repair. He is currently doing well. He's not receiving any IV fluids. He is on 2 L nasal cannula. The patient has no major issues including chest pain, chest discomfort, shortness of breath, cough, wheezing, phlegm production, fever, or chills. Temperature 98.5, heart rate 82, respiratory rate 18, blood pressure 144/69, and room air saturation 98%. Labs and x-rays from today are pending. From yesterday, white count 8.7, hemoglobin 9.2, sodium 132, and BUN 36 with a creatinine of 1.35. Chest x-ray from yesterday showed resolution of the small right-sided pneumothorax. There was some evidence of bibasilar atelectasis. The patient is seen today 02/05/2021 in follow-up on the selective care unit. Postoperative day #6 status post aortic valve replacement, mitral valve repair. He is currently sitting up in chair at the bedside. Doing very well. Alert and oriented in no acute distress. Maintaining O2 saturation in the 90s on room air. Chest x-ray shows small bilateral effusions with adjacent atelectasis. He continues to work well with the incentive spirometer. White count 6.0. Hemoglobin 8.9. Sodium 132. Potassium 4.9. Creatinine 1.41. Remains on bronchodilators. On oral Cordarone. 02/06/2021, the patient is on room air oxygen. Is postop day #7. He does have bilateral pleural effusion. Ultrasound markings have been done for thoracentesis. No other issues otherwise for now. Note chest pain. Surgical wound site is dry clean and intact. No nausea. No vomiting. No diarrhea. No abdominal pain. He is using the incentive spirometer and he is pulling approximately 1200 mL of air on his incentive spirometer. He remains on oral amiodarone. Renal function is stable at creatinine of 1.4. Rest of electrolytes are normal. White cell count is 7.1 with a hemoglobin of 8.8. No other significant events overnight. His cardiac rhythm is sinus. Objective - Vital Signs Vital signs: Vital Signs Temp 97.9 F 02/06/21 08:00 Pulse 82 02/06/21 08:00 Resp 18 02/06/21 08:00 BP 113/56 02/06/21 08:00 Pulse Ox 92 L 02/06/21 08:00 Intake & Output 02/05/21 02/06/21 02/06/21 18:59 06:59 18:59 Intake Total 2636 118 120 Output Total 405 800 Balance 2231 -682 120 Weight 72 kg Intake: Oral 2636 118 120 Output: Urine 405 800 Other: Voiding Method Toilet Toilet Toilet ABP, PAP, CO, CI - Last Documented Arterial Blood Pressure 100/83 Pulmonary Artery Pressure 35/17 Cardiac Output 6.1 Cardiac Index 3.5 - Exam GENERAL EXAM: Alert, very pleasant 70-year-old gentleman, on room air, up in a chair, fairly comfortable in no apparent distress. HEAD: Normocephalic. EYES: Normal reaction of pupils, equal size. NOSE: Clear with pink turbinates. THROAT: No erythema or exudates. NECK: No masses, no JVD. CHEST: Sternal dressing dry and intact. Heart and place. LUNGS: Equal air entry with faint crackles in the posterior bases CVS: S1 and S2 normal with no audible murmur, regular rhythm. ABDOMEN: No hepatosplenomegaly, normal bowel sounds, no guarding or rigidity. SPINE: No scoliosis or deformity SKIN: No rashes CENTRAL NERVOUS SYSTEM: No focal deficits, tone is normal in all 4 extremities. EXTREMITIES: SCDs in place. There is no peripheral edema. No clubbing, no cyanosis. Peripheral pulses are intact. - Labs CBC & Chem 7: 02/06/21 06:59 02/06/21 06:59 Labs: Abnormal Lab Results - Last 24 Hours (Table) 02/06/21 02/06/21 Range/Units 06:59 06:59 RBC 2.79 L (4.30-5.90) m/uL Hgb 8.8 L (13.0-17.5) gm/dL Hct 26.0 L (39.0-53.0) % Sodium 132 L (137-145) mmol/L BUN 36 H (9-20) mg/dL Creatinine 1.42 H (0.66-1.25) mg/dL Calcium 8.2 L (8.4-10.2) mg/dL Alkaline Phosphatase 205 H (38-126) U/L Total Protein 5.8 L (6.3-8.2) g/dL Albumin 3.3 L (3.5-5.0) g/dL Assessment and Plan Plan: 1 Severe eccentric mitral regurgitation and moderate aortic stenosis. Status post aortic valve replacement, mitral valve repair. 2 History of obstructive sleep apnea 3 History of previous tobacco dependence 4 Bilateral pleural effusions 5 Postoperative atrial fibrillation, common occurrence after cardiac surgery, on oral amiodarone 6 Acute kidney injury, creatinine stable Plan: Ultrasound marking of the chest has been obtained We'll proceed with a left-sided thoracentesis Chest x-ray is to follow Continues to work with the incentive spirometer Increase his activity as tolerated We'll continue to follow
--- NOTE | 2021-02-06 11:30 | P.PCN ---
Date of Procedure: 02/06/21 Preoperative Diagnosis: Left-sided pleural effusion Postoperative Diagnosis: Left-sided pleural effusion Procedure(s) Performed: Left-sided thoracentesis Anesthesia: local Surgeon: Sheldon Cheema Pathology: other Condition: stable Disposition: floor Operative Findings: A time out was performed and the chest x-ray was reviewed, the appropriate side was confirmed and marked. My hands were washed immediately prior to the procedure. I wore a surgical cap, mask with protective eyewear, sterile gown and sterile gloves throughout the procedure. The patient was prepped and draped in a sterile manner using chlorhexidine scrub after the appropriate level was percussed and confirmed by ultrasound. 1% lidocaine was used to anesthesize the skin, subcutaneous tissue, superior aspect of the rib periosteum and parietal pleura. A finder needle was then introduced over the superior aspect of the rib to locate the pleural fluid; 2colored fluid was aspirated at a depth of approximately 2 cm. A 10-blade scalpel was used to villa the skin at the insertion site. The Inal-r-Nrseufce needle was then introduced through the skin incision into the pleural space using negative aspiration pressure and the red colometric indicator to confirm appropriate positioning of the needle. The thoracentesis catheter was then threaded without difficulty. 200 ml of turbid colored fluid was removed without difficulty. The catheter was then removed. No immediate complications were noted during the procedure. A post-procedure chest x-ray is pending at the time of this note. The fluid will not be sent for studies. Estimated blood loss is 0cc
[2021-02-06 12:06] LABS: Glucose,Whole Blood 124 mg/dL (75-99)
--- NOTE | 2021-02-06 12:13 | XR ---
EXAMINATION TYPE: XR chest 1V portable DATE OF EXAM: 02/06/2021 COMPARISON: Earlier same date HISTORY: Status post left thoracentesis, status post CABG TECHNIQUE: Single frontal view of the chest is obtained. FINDINGS: There is blunting of the bilateral costophrenic angles which is consistent with bilateral pleural-parenchymal disease. Cardiac silhouette is unchanged with sternotomy changes. IMPRESSION: No significant change in bilateral pleural-parenchymal disease. No definite pneumothorax status post thoracentesis.
--- NOTE | 2021-02-06 13:23 | P.PN ---
Subjective This is a pleasant 70-year-old male past medical history significant for obstructive sleep apnea, former smoker, severe mitral valve regurgitation with prolapse of posterior mitral leaflet, moderate aortic stenosis. He follows in the office with Dr. Galindo. We have been asked to see in consultation for post cardiac surgery management. 01/30/2021 Patient underwent aortic valve replacement, mitral valve repair, quadrangular resection of P2 of the posterior leaflet, closure of PEEP 1 and P2 cleft posteriorly, ring annuloplasty, clip ligation of the left atrial appendage. Extubated 01/30. 01/31: Morning around 1030am patient was hypertensive BP 175/67 receiving 10mg IV hydralazine. Overnight the patient was hypotensive requiring 750mL of albumin. 02/01:Limited 2-D echocardiogram was completed which showed him to have a left ventricular systolic function to be hyperdynamic with an estimated ejection fraction of greater than 70%. Peak and mean gradient across aortic valve measured 25.28 mmHg /14.15 mmHg with a normally functioning bioprosthetic valve and the peak and mean gradient across his mitral valve showed 15.46 mmHg/6.26 mmHg. 02/06: Over the weekend patient went into A. fib with RVR and was started on IV amiodarone, now transitioned to amiodarone 400mg BID. Patient is seen and examined at bedside, no acute distress. Sitting up in the bedside chair. He is using his incentive spirometer with 1000mL. Currently maintaining sinus m echanism HR 70-80s. Chest xray today with bilateral lower lobe infiltrate and small effusion. He is currently being maintained on amiodarone 400mg BID, aspirin 325 mg daily, atorvastatin 40 mg daily, Plavix 75 mg daily, metoprolol 50 mg twice a day. Patient given IV Lasix 20mg dose yesterday. Laboratory reviewed, WBC 7.1, hemoglobin 8.8, platelets 229, sodium 132, potassium 4.5, BUN 36, serum creatinine 1.42. PHYSICAL EXAMINATION Blood pressure 111/64 heart rate 86 afebrile and maintaining oxygen saturation 100% on room air. CONSTITUTIONAL: No apparent distress. HEENT: Head is normocephalic. No JVD. CHEST EXAMINATION: Lungs are clear to auscultation. No chest wall tenderness is noted on palpation or with deep breathing. Anterior chest incision covered in dressing, clean dry intact. HEART EXAMINATION: Regular rate and rhythm. S1, S2 heard. Systolic murmur, no gallops or rub. ABDOMEN: Soft, Tenderness throughout. Positive bowel sounds. EXTREMITIES: 2+ peripheral pulses, no lower extremity edema and no calf tenderness. NEUROLOGIC EXAMINATION: Patient is awake, alert and oriented x3. ASSESSMENT -Moderate aortic stenosis, status post bioprosthetic aortic valve replacement -Severe mitral regurgitation with prolapse of posterior mitral leaflet, status post mitral valve repair -Hypertension -Obstructive sleep apnea -Post operative constipation -Acute Kidney Injury PLAN -Plan for bilateral thoracentesis with pulmonary today -Amiodarone 400mg BID started 6/ morning -Continue current medical therapy with aspirin 325 mg daily, atorvastatin 40 mg daily, Plavix 75 mg daily, metoprolol 50 mg twice a day -Losartan is held due to renal function -Post operative management per CT surgery -Continue incentive spirometer every hour -Increase activity as tolerated -We will continue to follow patient Nurse Practitioner note has been reviewed, I agree with a documented findings and plan of care. Patient was seen and examined. Objective - Vital Signs Vital signs: Vital Signs Temp 97.9 F 02/06/21 08:00 Pulse 82 02/06/21 08:00 Resp 18 02/06/21 08:00 BP 113/56 02/06/21 08:00 Pulse Ox 92 L 02/06/21 08:00 Intake & Output 02/05/21 02/06/21 02/06/21 18:59 06:59 18:59 Intake Total 2636 118 120 Output Total 405 800 Balance 2231 -682 120 Weight 72 kg Intake: Oral 2636 118 120 Output: Urine 405 800 Other: Voiding Method Toilet Toilet Toilet ABP, PAP, CO, CI - Last Documented Arterial Blood Pressure 100/83 Pulmonary Artery Pressure 35/17 Cardiac Output 6.1 Cardiac Index 3.5 - Labs CBC & Chem 7: 02/06/21 06:59 02/06/21 06:59 Labs: Abnormal Lab Results - Last 24 Hours (Table) 02/06/21 02/06/21 02/06/21 Range/Units 06:59 06:59 12:04 RBC 2.79 L (4.30-5.90) m/uL Hgb 8.8 L (13.0-17.5) gm/dL Hct 26.0 L (39.0-53.0) % Sodium 132 L (137-145) mmol/L BUN 36 H (9-20) mg/dL Creatinine 1.42 H (0.66-1.25) mg/dL POC Glucose (mg/dL) 124 H (75-99) mg/dL Calcium 8.2 L (8.4-10.2) mg/dL Alkaline Phosphatase 205 H (38-126) U/L Total Protein 5.8 L (6.3-8.2) g/dL Albumin 3.3 L (3.5-5.0) g/dL
--- NOTE | 2021-02-06 14:01 | P.PN ---
Subjective Progress Note Date: 02/06/21 Principal diagnosis: Moderate degenerative aortic stenosis, severe eccentric mitral regurgitation with torn chordae P2 of the posterior leaflet. History of hypertension, objective sleep apnea without CPAP use, previous tobacco dependence, significant short-term memory loss. Patient did Covid vaccine. POD #7 aortic valve replacement with a #21 mm Mckeon Inspiris bioprosthetic aortic valve, complex mitral valve repair with a 30 mm CarboMedics AnnuloFlex band, quadrangular resection of P2 of the posterior leaflet, closure of PEEP 1 and P2 cleft posteriorly, ring annuloplasty, clip ligation of the left atrial appendage with a 35 mm AtriClip and intraoperative transesophageal echocardiogram Postoperative acute blood loss anemia and thrombocytopenia, expected outcome giv en hemodilution and cardiopulmonary bypass pump Paroxysmal atrial fibrillation, known common occurrence after cardiac surgery Acute kidney injury The patient is currently sitting up in a recliner on the cardiac stepdown unit in no acute distress. Currently in normal sinus rhythm, hemodynamically stable. States pain is controlled on current medication regimen, does complain of some increased shortness of breath with ambulation. He is oxygenating well on room air and able to achieve 1500 mL on his incentive spirometry. He has ambulated in the hallway. at the bedside, patient and with multiple questions, answered to the best my ability. Objective - Vital Signs Vital signs: Vital Signs Temp 97.9 F 02/06/21 08:00 Pulse 82 02/06/21 08:00 Resp 18 02/06/21 08:00 BP 113/56 02/06/21 08:00 Pulse Ox 92 L 02/06/21 08:00 Intake & Output 02/05/21 02/06/21 02/06/21 18:59 06:59 18:59 Intake Total 2636 118 120 Output Total 405 800 Balance 5967 -524 120 Weight 72 kg Intake: Oral 2636 118 120 Output: Urine 405 800 Other: Voiding Method Toilet Toilet Toilet ABP, PAP, CO, CI - Last Documented Arterial Blood Pressure 100/83 Pulmonary Artery Pressure 35/17 Cardiac Output 6.1 Cardiac Index 3.5 - Exam CONSTITUTIONAL: Appears comfortable, cooperative, no acute distress RESPIRATORY: Lungs sounds diminished bilaterally. Respirations even, nonlabored. Currently on room air with oxygen saturation 97%. Able to achieve 1500 mL on incentive spirometry. Strong cough. CARDIOVASCULAR: S1, S2 present. Regular rate and rhythm, sinus rhythm on telemetry. Sternum stable. Palpable peripheral pulses bilaterally. No edema present. No calf pain or tenderness noted. Heart hugger in place with patient demonstrating appropriate use. Antiembolism stockings, SCDs present. GASTROINTESTINAL: Abdomen soft, nontender, nondistended. Active bowel sounds present 4 quadrants. Tolerating diet. Positive bowel movement 02/03 GENITOURINARY: Voiding clear yellow urine INTEGUMENTARY: Skin is warm and dry with evidence of good perfusion. Anterior chest incision well approximated and covered with dry intact dressing. NEUROLOGIC: Cranial nerves II through XII intact MUSKULOSKELETAL: Able to move all extremities, strength equal bilaterally, gait normal PSYCHIATRIC: Alert and oriented to person place and time, appropriate affect, intact judgment and insight - Allied health notes Allied health notes reviewed: nursing - Labs CBC & Chem 7: 02/06/21 06:59 02/06/21 06:59 Labs: Abnormal Lab Results - Last 24 Hours (Table) 02/06/21 02/06/21 02/06/21 Range/Units 06:59 06:59 12:04 RBC 2.79 L (4.30-5.90) m/uL Hgb 8.8 L (13.0-17.5) gm/dL Hct 26.0 L (39.0-53.0) % Sodium 132 L (137-145) mmol/L BUN 36 H (9-20) mg/dL Creatinine 1.42 H (0.66-1.25) mg/dL POC Glucose (mg/dL) 124 H (75-99) mg/dL Calcium 8.2 L (8.4-10.2) mg/dL Alkaline Phosphatase 205 H (38-126) U/L Total Protein 5.8 L (6.3-8.2) g/dL Albumin 3.3 L (3.5-5.0) g/dL - Imaging and Cardiology Chest x-ray: report reviewed, image reviewed Assessment and Plan Assessment: 1. Moderate degenerative aortic stenosis, status post bioprosthetic aortic valve replacement 2. Severe eccentric mitral regurgitation with torn chordae P2 of the posterior leaflet, status post complex mitral valve repair 3. Hypertension 4. Obstructive sleep apnea without CPAP use 5. Previous tobacco dependence, preoperative FEV1 95% of predicted 6. Significant short-term memory loss. 7. Postoperative acute blood loss anemia and thrombocytopenia 8. Paroxysmal atrial fibrillation, known common occurrence after cardiac surgery 9. Acute kidney injury Plan: 1. Continue aspirin, statin, Plavix, beta kike therapy. Will increase beta kike therapy as tolerated. 2. Continue amiodarone for A. fib prophylaxis. No anticoagulation necessary 3. Encourage incentive spirometry use 10 times every hour while awake. Bronchodilators per pulmonology. Thoracentesis per pulmonology, removal of 200 mL fluid from left chest today 4. Increase activity, ambulate as tolerated. PT/OT/cardiac rehab consulted 5. Will monitor daily labs and x-rays. Electrolyte replacement per protocol. 6. GI/DVT prophylaxis 7. Pain control with current medication regimen 8. Insulin management per primary care service. Patient is not diabetic, preoperative hemoglobin A1c 5.1% 9. Strict accurate intake and output. Daily weights 10. DC planning in progress. Anticipate discharge to home with home care in the next 24-48 hours 11. More recommendations to follow based on patient's progress Time with Patient: Greater than 30
[2021-02-06 14:31] VITALS: PULSE 80
[2021-02-06 15:57] VITALS: BP 130/70; RESP 16; TEMP 97.7
[2021-02-06 16:44] LABS: Glucose,Whole Blood 111 mg/dL (75-99)
--- NOTE | 2021-02-06 17:55 | P.DS ---
Providers Date of admission: 01/30/21 05:40 Expected date of discharge: 02/06/21 Attending physician: Alex Ortiz Consults: 01/30/21 12:28 Consult Physician Routine Consulting Provider: Paul Andino Consult Reason/Comments: Fugitive Investigator Consult: post cardiac surgery Do you want consulting provider notified?: Yes Consult Physician Routine Consulting Provider: Bayron Solano Consult Reason/Comments: Ac/Dc Rewinder Consult: post cardiac surgery; Galindo patient Do you want consulting provider notified?: Yes Consult Physician Routine Consulting Provider: Fermin Ewing Consult Reason/Comments: post AVR, MV repair; Preibe patient Do you want consulting provider notified?: Yes 02/03/21 16:41 Consult Physician Routine Consulting Provider: Bradly Lee Consult Reason/Comments: Acute kidney injury Do you want consulting provider notified?: Yes Primary care physician: Fuller Hospital Course: FINAL DIAGNOSIS: 1. Moderate degenerative aortic stenosis 2. Severe eccentric mitral regurgitation with torn chordae, P2 of the posterior leaflet 3. Hypertension 4. Obstructive sleep apnea without CPAP use 5. Previous tobacco dependence 6. Significant short-term memory loss 7. Postoperative acute blood loss anemia and thrombocytopenia, expected 8. Paroxysmal atrial fibrillation, known common occurrence after open heart surgery 9. Acute kidney injury 10. Bilateral pleural effusion PRINCIPAL PROCEDURE: 1. Aortic valve replacement with a #21 mm Mckeon Inspiris bioprosthetic aortic valve 2. Complex mitral valve repair with a 30 mm CarboMedics AnnuloFlex band, quadrangular resection of P2 of the posterior leaflet, closure of P1 and P2 cleft posteriorly, ring annuloplasty 3. Clip ligation of the left atrial appendage with a 35 mm AtriClip 4. Intraoperative transesophageal echocardiogram 5. Left thoracentesis with removal of 200 mL bloody fluid HISTORY OF PRESENT ILLNESS: This is a 70-year-old gentleman who follows on an outpatient basis with the [facility] for primary care and Dr. SHEREE Galindo for cardiology. Normally he is a very active gentleman but had begun to notice increased shortness of breath and significant fatigue. He presented for evaluation to [facility] with Dr. Galindo. He was recommended to undergo heart catheterization and transesophageal echocardiogram. Heart catheterization revealed no significant obstructive coronary artery disease. JOSE demonstrated 3-4+ eccentric mitral regurgitation with evidence of prolapse of the posterior leaflet with ruptured chordae, as well as moderate aortic stenosis. The patient was referred to Dr. Ortiz from cardiothoracic surgery. He was recommended to undergo bioprosthetic aortic valve replacement and mitral valve repair. The usual perioperative course was discussed in detail with the patient and his family, all risks and benefits were explained, all questions were answered, and consent was obtained to proceed with surgery. The patient was scheduled for outpatient surgery once dental clearance was obtained and Covid vaccinations were up-to-date. HOSPITAL COURSE: The patient was brought to the hospital on 01/30/2021, taken to the preoperative area, prepared in the usual fashion, and subsequently taken to the operating room where Dr. Ortiz performed an aortic valve replacement and complex mitral valve repair. Upon completion of surgery the patient was transferred to the cardiovascular intensive care unit where he was recovered and monitored hemodynamically. He was extubated, all lines, tubes, and drips were discontinued when appropriate, and transfer orders were placed for 3 S. cardiac stepdown unit. His oxygen was titrated down, he continued to work with physical and occupational therapy, he was tolerating oral diet, his pain was controlled. He did experience blood loss anemia requiring no tranfusion, atrial fibrillation with conversion to sinus rhythm with amiodarone, acute kidney injury requiring no treatment and pleural effusion requiring thoracentesis. He continued to recover, and he was ready to be discharged to home with [facility] home care on postoperative day #7. He received written and verbal instruction regarding his medications, activity restrictions, signs and symptoms requiring physician notification, and follow-up appointments. COMPLICATIONS: The patient experienced postoperative blood loss anemia, paroxysmal atrial fibrillation, kidney injury, and pleural effusion all of which were treated accordingly. Patient Condition at Discharge: Stable Plan - Discharge Summary Discharge Rx Participant: Yes New Discharge Prescriptions: New Aspirin 325 mg PO DAILY #14 tab Amiodarone [Cordarone] 400 mg PO BID #40 tab Atorvastatin [Lipitor] 40 mg PO DAILY #14 tab Melatonin 3 mg PO HS PRN tablet PRN Reason: Insomnia Pantoprazole [Protonix] 40 mg PO AC-BRKFST #14 tablet. Furosemide [Lasix] 20 mg PO DAILY #14 tab Metoprolol Tartrate [Lopressor] 50 mg PO BID #28 tab Clopidogrel [Plavix] 75 mg PO DAILY #14 tab Sennosides-Docusate Sodium [Senokot-S] 2 each PO HS PRN tab PRN Reason: Constipation Continue Acetaminophen Tab [Tylenol] 650 mg PO Q6H PRN PRN Reason: Pain Discontinued Losartan [Cozaar] 25 mg PO HS Discharge Medication List Acetaminophen Tab [Tylenol] 650 mg PO Q6H PRN 12/06/20 [History] Amiodarone [Cordarone] 400 mg PO BID #40 tab 02/06/21 [Rx] Aspirin 325 mg PO DAILY #14 tab 02/06/21 [Rx] Atorvastatin [Lipitor] 40 mg PO DAILY #14 tab 02/06/21 [Rx] Clopidogrel [Plavix] 75 mg PO DAILY #14 tab 02/06/21 [Rx] Furosemide [Lasix] 20 mg PO DAILY #14 tab 02/06/21 [Rx] Melatonin 3 mg PO HS PRN tablet 02/06/21 [Rx] Metoprolol Tartrate [Lopressor] 50 mg PO BID #28 tab 02/06/21 [Rx] Pantoprazole [Protonix] 40 mg PO AC-BRKFST #14 tablet.dr 02/06/21 [Rx] Sennosides-Docusate Sodium [Senokot-S] 2 each PO HS PRN tab 02/06/21 [Rx] Follow up Appointment(s)/Referral(s): dAeline Plascencia NPC [Nurse Practitioner] - 02/10/21 11:00 am Joseph Galindo MD [STAFF PHYSICIAN] - 2 Weeks (Office will call with appointment) [facility]hab [facility],Cardiac [NON-STAFF] - 4 Weeks [facility] [NON-STAFF] - 1-2 Days Destinee Mccurdy NPC [Nurse Practitioner] - 03/01/21 2:45 pm Alex rOtiz MD [STAFF PHYSICIAN] - 02/28/21 2:15 pm Bradly Lee DO [STAFF PHYSICIAN] - 10 Days [facility] [REFERRING] - 02/09/21 10:30 am Ambulatory/Diagnostic Orders: Complete Blood Count w/diff [LAB.AMB] Time Frame: 02/08/21, Facility: [facility], Location: Laboratory [facility] Comprehensive Metabolic Panel [LAB.AMB] Time Frame: 02/08/21, Facility: [facility], Location: Laboratory [facility] Activity/Diet/Wound Care/Special Instructions: DISCHARGE INSTRUCTIONS: 1. No driving for 4 weeks, or until physician gives their ok. 2. The patient should sleep in their own bed, no medical bed needed. 3. Stairs are not an issue. If the bedroom is upstairs, it is advised that the patient go up at night and down in the morning for the first week. Go slowly, using handrail and take 1 step at a time. 4. JESSICA hose are to be worn for 30 days or until physician discontinues. 5. Heart hugger is to be worn 100% of the time until physician discontinues.(except when showering) 6. No lifting, pushing, or pulling more than 10 pounds for 12 weeks. The physician will advise of any restriction changes. 7. The patient is expected to continue the prescribed walking program. 8. Continue pain control per as needed orders. 9. Continue with incentive spirometry and splinting/heart hugger until otherwise directed by the physician. 10. Must shower daily using liquid antibacterial soap and a separate white washcloth for each individual incision. 11. Routine sternal incision care. No powders, lotions, ointments on incisions. No dressings are necessary on incisions unless they are draining. Dermabond tape is to remain on sternal incision until surgeon follow-up. 12. Please call surgeon/HAND HEEL SEAT FITTER for temp greater than 101 F or purulent drainage from incisions. 13. All prescriptions given by surgeon for 30 days. Refills need to be filled through signal fitter/primary care physician. 14. A Red armband has been placed on the patient. It should be worn for 30 days post surgery and will be removed by the cardiac surgeons. If an ER visit is necessary, please make sure the number on the Red armband is called. 15. You have been referred to and are expected to begin Cardiac Rehab in approximately 4-6 weeks. HOME HEALTH SERVICES TO PROVIDE: RN SKILLED HOME CARE SERVICES FOR POST-OP SURGICAL PATIENTS WITH THE FOLLOWING: Coronary Artery Bypass Surgery (CABG), Mitral Valve Replacement/Repair ( MVR), Aortic Valve Replacement/Repair (AVR) RN TO CONTINUE EDUCATION FROM ``ROAD TO A HEALTH HEART PATIENT EDUCATION MANUAL (GIVEN TO PATIENT IN THE HOSPITAL) MEDICATION RECONCILIATION WITH EDUCATION NEEDED ON FIRST HOME VISIT EMPHASIZE IMPORTANCE OF WEARING BREAST SUPPORT/HEART HUGGER ENCOURAGE USE OF INCENTIVE SPIROMETER 10 X EVERY HOUR WHILE AWAKE ENCOURAGE UTILIZATION OF LOWER EXTREMITY COMPRESSION STOCKINGS/JESSICA HOSE and ELEVATE LEGS ABOVE LEVEL OF HEART WHILE AT REST. ENCOURAGE AMBULATION 3-5x/day INCREASING TOLERATES, WHILE AVOIDING EXTREMES IN TEMPERATURE FREQUENCY: RN TO OPEN THE PATIENT WITHIN 24 HOURS OF DISCHARGE FROM THE HOSPITAL WITH [place]LEHEALTH [place] AT [facility] [place]ISIT 2-3 X A WEEK FOR 4 WEEKS ESTABLISHED BY PATIENT NEEDS. LABORATORY: CBC, CMP TO BE DRAWN ON THE THIRD DAY HOME, (RAN STAT) FAX RESULTS TO [phone]. TELEHEALTH PARAMETERS: WEIGHT: NOTIFY MD OF WEIGHT GAIN OF 2 LBS IN 24 HOURS OR 5 LBS IN ONE WEEK HR: NOTIFY MD OF HR <55 BPM OR HR>100 BPM BP: NOTIFY MD IF BP <90/55 OR BP>140/100 O2 SAT: NOTIFY MD IF PO2<93% ON ROOM AIR SEND TELEHEALTH REPORT TO HOOKER INSPECTOR AND CARDIOVASCULAR SURGEON THE FIRST WEEK OF CARE AND THEN BI-WEEKLY. PLEASE ADDITIONALLY COMMUNICATE ANY ABNORMALS AND NEW FINDINGS TO THE SURGEONS OFFICE. For any questions or concerns please call director external communications Adeline @ or Raffy @ Discharge Disposition: HOME WITH HOME HEALTH SERVICES
--- NOTE | 2021-02-06 18:13 | P.PN ---
Progress Note - Text Progress Note Date: 02/06/21 - Chief Complaint Valvular surgery Consultation: This is a pleasant 70-year-old patient who follows with Dr. Paul Crowell. Patient has undergone bioprosthetic aortic valve replacement/annuloplasty for mitral valve replacement. Currently in the ICU. 2 mediastinal chest tubes in place. Sinus rhythm. Patient had previously undergone a JOSE that showed: 3-4+ mitral regurgitation, mitral valve flow prolapse of the posterior leaf left and a possibly ruptured chordae. Moderate aortic stenosis with the area of 1.32 cm with a negative bubble study. Cardiac catheterization was unremarkable. Chronic stable medical conditions include some hard of hearing, obstructive sleep apnea does not use CPAP, some memory impairment. Patient has developed acute kidney injury. Today: About 200 mL left-sided pleural synthesis of turbid fluid was obtained. Per Dr. Cheema. Postprocedure patient feeling well. Breathing remains stable. Oral intake fair. Has been up and about. at the bedside. Review of systems: Was done for constitutional, cardiovascular, GI, pulmonary. relevant finding as above Active Medications Acetaminophen (Acetaminophen Tab 325 Mg Tab) 650 mg PO Q4HR PRN PRN Reason: Fever and/ or Pain Last Admin: 02/06/21 06:20 Dose: 650 mg Documented by: Albuterol/Ipratropium (Ipratropium-Albuterol 3 Ml Neb) 3 ml INHALATION RT-Q2H PRN PRN Reason: Shortness Of Breath Or Wheezing Albuterol/Ipratropium (Ipratropium-Albuterol 3 Ml Neb) 3 ml INHALATION RT-QID [facility] Last Admin: 02/06/21 15:40 Dose: Not Given Documented by: Amiodarone HCl (Amiodarone 200 Mg Tab) 400 mg PO BID [facility] Last Admin: 02/06/21 08:56 Dose: 400 mg Documented by: Aspirin (Aspirin 325 Mg Tab) 325 mg PO DAILY [facility] Last Admin: 02/06/21 08:56 Dose: 325 mg Documented by: Atorvastatin Calcium (Atorvastatin 40 Mg Tab) 40 mg PO DAILY [facility] Last Admin: 02/06/21 08:56 Dose: 40 mg Documented by: Benzocaine/Menthol (Benzocaine/Menthol Lozeng 1 Each Lozenge) 1 each MUCOUS MEM Q2H PRN PRN Reason: Sore Throat Last Admin: 02/01/21 17:17 Dose: 1 each Documented by: Bisacodyl (Bisacodyl 10 Mg Supp) 10 mg RECTAL DAILY PRN PRN Reason: Constipation Last Admin: 02/02/21 15:35 Dose: 10 mg Documented by: Clopidogrel Bisulfate (Clopidogrel 75 Mg Tab) 75 mg PO DAILY [facility] Last Admin: 02/06/21 08:56 Dose: 75 mg Documented by: Heparin Sodium (Porcine) (Heparin Sodium,Porcine/Pf 5,000 Unit/0.5 Ml Syringe) 5,000 unit SQ Q8HR [facility] Last Admin: 02/06/21 16:44 Dose: Not Given Documented by: Amiodarone HCl 150 mg/ (Dextrose/Water) 103 mls @ 618 mls/hr IV .Q10M PRN; Protocol PRN Reason: A.FIB/FLUTTER Insulin Aspart (Insulin Aspart (Novolog) 100 Unit/Ml Vial) 0 unit SQ ACHS [facility]; Protocol Last Admin: 02/06/21 16:56 Dose: Not Given Documented by: Magnesium Hydroxide (Magnesium Hydroxide 2,400 Mg/10 Ml Cup) 2,400 mg PO BID PRN PRN Reason: Constipation Last Admin: 02/03/21 08:09 Dose: 2,400 mg Documented by: Melatonin (Melatonin 3 Mg Tablet) 3 mg PO HS PRN PRN Reason: Insomnia Last Admin: 02/05/21 23:18 Dose: 3 mg Documented by: Metoclopramide HCl (Metoclopramide 5 Mg/Ml 2 Ml Vial) 10 mg IVP Q4H PRN PRN Reason: Nausea And Vomiting Last Admin: 02/03/21 20:06 Dose: 10 mg Documented by: Metoprolol Tartrate (Metoprolol Tartrate 50 Mg Tab) 50 mg PO BID [facility] Last Admin: 02/06/21 08:56 Dose: 50 mg Documented by: Miscellaneous Information (Potassium Replacement Protocol 1 Each Misc) 1 each MISCELLANE DAILY PRN; Protocol PRN Reason: Per Protocol Miscellaneous Information (Magnesium Replacement Protocol 1 Each Misc) 1 each MISCELLANE DAILY PRN; Protocol PRN Reason: Per Protocol Miscellaneous Information (Phosphorus Replacement Protoco 1 Each Misc) 1 each MISCELLANE DAILY PRN; Protocol PRN Reason: Per Protocol Ondansetron HCl (Ondansetron 4 Mg/2 Ml Vial) 4 mg IVP Q6HR PRN PRN Reason: Nausea And Vomiting Last Admin: 01/31/21 08:30 Dose: 4 mg Documented by: Pantoprazole Sodium (Pantoprazole 40 Mg Tablet) 40 mg PO AC-BRKFST [facility] Last Admin: 02/06/21 06:19 Dose: 40 mg Documented by: Senna/Docusate Sodium (Sennosides-Docusate Sodium 1 Each Tab) 2 each PO HS [facility] Last Admin: 02/05/21 21:07 Dose: 2 each Documented by: Sodium Chloride (Sodium Chloride 0.9% Flush 10 Ml Syringe) 10 ml IV BID [facility] Last Admin: 02/06/21 09:32 Dose: Not Given Documented by: Past medical history to include: Mild Memory impairment, 3-4+ mitral valve regurgitation with posterior leaflet prolapse, moderate aortic stenosis, obstructive sleep apnea does not use CPAP, short term memory loss, hard of hearing, Social history: Patient stopped smoking in 1970. No alcohol. . Family history: Reviewed, noncontributory to presentation Physical examination: VITAL SIGNS: 97.9, 80, 18, 140/68, 95% room air GENERAL: Sitting up comfortable EYES: Pupils equal. Conjunctiva pale. HEENT: External appearance of nose and ears normal, oral cavity grossly normal. NECK: JVD unable to assess; masses not palpable. HEART: First and second heart sounds are normal; no edema. LUNGS: Respiratory rate normal decreased breath sounds. ABDOMEN: Soft, nontender, liver spleen not palpable, no masses palpable. PSYCH: AO - times three. Mood and affect normal INVESTIGATIONS, reviewed in the clinical context: February 06: CBC 7.1 hemoglobin 8.8 potassium 4.5 creatinine 1.4 to February 05: Hemoglobin 8.9 creatinine 1.41 Chest x-ray film personally reviewed by me shows: Bilateral pleural effusion February 04: Hemoglobin 8.9 creatinine 1.33 magnesium 2.7 UA: Negative Renal ultrasound: Unremarkable February 03: WBC 8.7 hemoglobin 9.2 platelets 140 potassium 4.9 creatinine 1.35 February 02: WBC 9.7 hemoglobin 9.5 platelets 102 potassium 4.7 creatinine 1.35 February 01: WBC 13.1 hemoglobin 9.6 platelets 86 BUN 27 creatinine 1.39 January 31: WBC 14.6 hemoglobin 12.5 platelets 117 potassium 4 creatinine 0.67 WBC 8.5 hemoglobin 11.5 platelets 97 Potassium 3.6 creatinine 0.71 albumin 2.3 Chest x-ray: Small amount of pneumomediastinum, soft tissue emphysema along the soft tissue left neck, postsurgical changes course interstitium Labs from 01/20/2021: Hemoglobin 14.1 platelets 226 Assessment and plan: -Bioprosthetic aortic valve replacement for moderate aortic stenosis with the preoperative area of 1.2 cm -Mitral valvular repair with annuloplasty for mitral regurgitation 3-4+, posterior leaflet prolapse, possible ruptured cord -Mild Cognitive impairment -Chronic hard of hearing -Acute postprocedure blood loss anemia, as expected from surgery Follow H&H -Dilutional thrombocytopenia, following surgery Follow H&H -Essential hypertension Cozaar, Lopressor. Follow closely -Acute kidney injury, ATN possibly cardiorenal. Creatinine has gone from 0.67- 1.39 1.41. Avoid nephrotoxic agents. Cozaar discontinued by cardiothoracic surgery. -Bilateral pleural effusion, postsurgical Left-sided 200 mL of pleural fluid removed today. Continue current medication treatment plan. Increase activity as tolerated. Care was discussed with the patient. Patient to follow-up with nephrology. Questions answered. Thank you Dr. Ortiz
== END 2021-02-06 18:12 | disposition home health service (06) | DRG 219 ==
LOC: 2ORMAIN 01-30 05:40 → 2SICU 01-30 13:18 → 3SCARD 02-03 21:48
PROVIDERS: ADMIT Thoracic Surgery (Cardiothoracic Vascular Surgery); ATTEND Thoracic Surgery (Cardiothoracic Vascular Surgery)
PROC: 5A1221Z Performance of Cardiac Output, Continuous (ICD-10-PCS; principal; 2021-01-30 08:00)
PROC: 02L70CK Occlusion of Left Atrial Appendage with Extraluminal Device, Open Approach (ICD-10-PCS; principal; 2021-01-30 08:00)
PROC: 02RF08Z Replacement of Aortic Valve with Zooplastic Tissue, Open Approach (ICD-10-PCS; principal; 2021-01-30 08:00)
PROC: B246ZZ4 Ultrasonography of Right and Left Heart, Transesophageal (ICD-10-PCS; principal; 2021-01-30 08:00)
PROC: 02UG0JZ Supplement Mitral Valve with Synthetic Substitute, Open Approach (ICD-10-PCS; principal; 2021-01-30 08:00)
PROC: 0W9B3ZZ Drainage of Left Pleural Cavity, Percutaneous Approach (ICD-10-PCS; 2021-02-06)
DX: I08.0 Rheumatic disorders of both mitral and aortic valves (principal); N17.0 Acute kidney failure with tubular necrosis; J90 Pleural effusion, not elsewhere classified; J98.11 Atelectasis; E87.1 Hypo-osmolality and hyponatremia; D62 Acute posthemorrhagic anemia; H91.90 Unspecified hearing loss, unspecified ear; I10 Essential (primary) hypertension; I48.0 Paroxysmal atrial fibrillation; S16.1XXA Strain of muscle, fascia and tendon at neck level, initial encounter; G47.33 Obstructive sleep apnea (adult) (pediatric); D69.59 Other secondary thrombocytopenia; I25.10 Atherosclerotic heart disease of native coronary artery without angina pectoris; G31.84 Mild cognitive impairment of uncertain or unknown etiology; K59.00 Constipation, unspecified; Z79.02 Long term (current) use of antithrombotics/antiplatelets; Z79.82 Long term (current) use of aspirin; Z79.899 Other long term (current) drug therapy; Z82.5 Family history of asthma and other chronic lower respiratory diseases; E87.70 Fluid overload, unspecified; Z82.49 Family history of ischemic heart disease and other diseases of the circulatory system; Z87.891 Personal history of nicotine dependence; Z95.1 Presence of aortocoronary bypass graft; Z88.0 Allergy status to penicillin
CPT/HCPCS: 71045; 71046; 76604; 76770; 80048; 80053; 81003; 82330; 82805; 83735; 84132; 85025; 85027; 85520; 85610; 85730; 86850; 86891; 86900; 86901; 86920; 88305; 88311; 93308; 94002; 94640; 94760

== ENCOUNTER → 2021-01-20 | Outpatient (CLI) | payer OTHER ==
[2021-01-20 08:41] LABS: HCT 43.8 % (39.0-53.0); HGB 14.1 gm/dL (13.0-17.5); MCH 29.8 pg (25.0-35.0); MCHC 32.2 g/dL (31.0-37.0); MCV 92.6 fL (80.0-100.0); Mean Platelet Volume 6.6; Platelet Count 226 k/uL (150-450); RBC 4.73 m/uL (4.30-5.90); RDW 13.1 % (11.5-15.5); WBC 4.6 k/uL (3.8-10.6)
[2021-01-20 08:52] LABS: Albumin 4.2 g/dL (3.5-5.0); Potassium 4.2 mmol/L (3.5-5.1); Total Bilirubin 0.4 mg/dL (0.2-1.3); Total Protein 6.8 g/dL (6.3-8.2)
[2021-01-20 09:07] LABS: Partial Thromboplastin Time 26.2 sec (22.0-30.0); Prothrombin Time 10.7 sec (9.0-12.0)
[2021-01-20 09:55] LABS: Appearance,Urine Clear (Clear); Bilirubin,Urine Negative (Negative); Blood,Urine Negative (Negative); Color,Urine Light Yellow; Glucose,Urine (UA) Negative (Negative); Ketones,Urine Negative (Negative); Leukocyte Esterase,Urine Negative (Negative); Nitrite,Urine Negative (Negative); Protein,Urine Negative (Negative); Specific Gravity,Urine 1.012 (1.001-1.035); Urobilinogen,Urine <2.0 mg/dL (<2.0)
== END | disposition home or self-care (01) ==
LOC: LABPAT 08:02
PROVIDERS: ATTEND Thoracic Surgery (Cardiothoracic Vascular Surgery)
DX: I35.0 Nonrheumatic aortic (valve) stenosis (principal); I34.0 Nonrheumatic mitral (valve) insufficiency
CPT/HCPCS: 36415; 80053; 81003; 85027; 85610; 85730; 87070; 87086

== ENCOUNTER → 2021-02-23 | Outpatient (CLI) | payer OTHER ==
--- NOTE | 2021-02-23 10:45 | XR ---
EXAMINATION TYPE: XR chest 2V DATE OF EXAM: 02/23/2021 COMPARISON: NONE TECHNIQUE: PA and lateral views submitted. HISTORY: Pleural effusion FINDINGS: Interstitial pattern with bilateral consolidation and pleural effusion. No sizable pneumothorax. Post operative changes. Heart size stable. Arthropathy of the shoulders. IMPRESSION: 1. Bilateral lower lobe infiltrate and small effusion stable. Mild central venous congestion not excl uded.
== END | disposition home or self-care (01) ==
LOC: RADXRMAIN 10:14
PROVIDERS: ATTEND Internal Medicine Interventional Cardiology
DX: J90 Pleural effusion, not elsewhere classified (principal); R91.8 Other nonspecific abnormal finding of lung field
CPT/HCPCS: 71046

== ENCOUNTER → 2021-03-02 | Day surgery (SDC) | payer OTHER ==
[~2021-03-02] MED LIST changes: -ALPRAZolam 0.25 MG TAB PO PRN; -ALPRAZolam 0.5 MG TAB PO PRN; -ASPIRIN 325 MG TAB PO STA; -ATORVASTATIN 80 MG TAB PO STA; -HEPARIN SODIUM,PORCINE 10,000 UNIT in SODIUM CHLORIDE 0.9% 1,000 ML IRRIGATION PRN; -HEPARIN SODIUM,PORCINE 2,500 UNIT in SODIUM CHLORIDE 0.9% 250 ML IRRIGATION PRN; -NITROGLYCERIN SL TABS 0.4 MG TAB SUBLINGUAL PRN; -SODIUM CHLORIDE 0.9% 1,000 ML in EMPTY BAG 1 BAG IV ONE; +SODIUM CHLORIDE 0.9% 500 ML 500 ML in EMPTY BAG 1 BAG IV PRN
[2021-03-02 11:34] VITALS: BP 149/87; PULSE 80; RESP 16; TEMP 97.6
--- NOTE | 2021-03-02 13:20 | XR ---
EXAMINATION TYPE: XR chest 1V portable DATE OF EXAM: 03/02/2021 Comparison: 02/23/2021 Clinical History: 70 year-old male POST right thoracentesis Findings: Median sternotomy wires are present with post-CABG changes. Left heart margin remains obscured by adj acent pleural parenchymal opacity. As compared to 02/23/2021, there is an increased, now moderate left pleural effusion extending to the mid lung level. Patient's previous moderate right effusion has decr eased, now [id number] in size. Pulmonary within normal limits. No appreciable pneumothorax. Impression: 1. Now small to moderate right pleural effusion, decreased from 02/23/2021. No appreciable pneumothorax . 2. Increased, now moderate left pleural effusion extending to the midlung level.
--- NOTE | 2021-03-09 12:00 | P.PCN ---
Date of Procedure: 03/02/21 Preoperative Diagnosis: Right-sided pleural effusion Postoperative Diagnosis: Right-sided pleural effusion Procedure(s) Performed: Thoracentesis Anesthesia: local Surgeon: Sheldon Cheema Estimated Blood Loss (ml): 0 Pathology: none sent Condition: stable Disposition: same day Operative Findings: A time out was performed and the chest x-ray was reviewed, the appropriate side was confirmed and marked. My hands were washed immediately prior to the procedure. I wore a surgical cap, mask with protective eyewear, sterile gown and sterile gloves throughout the procedure. The patient was prepped and draped in a sterile manner using chlorhexidine scrub after the appropriate level was percussed and confirmed by ultrasound. 1% lidocaine was used to anesthesize the skin, subcutaneous tissue, superior aspect of the rib periosteum and parietal pleura. A finder needle was then introduced over the superior aspect of the rib to locate the pleural fluid; 2colored fluid was aspirated at a depth of approximately 2 cm. A 10-blade scalpel was used to villa the skin at the insertion site. The [id number] needle was then introduced through the skin incision into the pleural space using negative aspiration pressure and the red colometric indicator to confirm appropriate positioning of the needle. The thoracentesis catheter was then threaded without difficulty. 1000 ml of turbid colored fluid was removed without difficulty. The catheter was then removed. No immediate complications were noted during the procedure. A post-procedure chest x-ray is pending at the time of this note. The fluid willnot be sent for studies. Estimated blood loss is 0cc
== END ==
LOC: PROCWHC3 10:50
PROVIDERS: ATTEND Internal Medicine Critical Care Medicine
DX: J90 Pleural effusion, not elsewhere classified (principal); Z88.0 Allergy status to penicillin
CPT/HCPCS: 32554; 71045

== ENCOUNTER → 2021-03-02 | Outpatient (CLI) | payer OTHER | END | disposition home or self-care (01) | DX: J90 Pleural effusion, not elsewhere classified (principal) ==

== ENCOUNTER → 2021-03-03 | Day surgery (SDC) | payer OTHER ==
[2021-03-03 12:50] VITALS: BP 126/77; PULSE 80; RESP 18; TEMP 98.6
--- NOTE | 2021-03-03 13:22 | P.PCN ---
Date of Procedure: 03/03/21 Operative Findings: Preoperative Diagnosis: Left-sided pleural effusion Postoperative Diagnosis: Left -sided pleural effusion Procedure(s) Performed: Thoracentesis Anesthesia: local Surgeon: Sheldon Cheema Estimated Blood Loss (ml): 0 Pathology: none sent Condition: stable Disposition: same day Operative Findings: A time out was performed and the chest x-ray was reviewed, the appropriate side was confirmed and marked. My hands were washed immediately prior to the procedure. I wore a surgical cap, mask with protective eyewear, sterile gown and sterile gloves throughout the procedure. The patient was prepped and draped in a sterile manner using chlorhexidine scrub after the appropriate level was percussed and confirmed by ultrasound. 1% lidocaine was used to anesthesize the skin, subcutaneous tissue, superior aspect of the rib periosteum and parietal pleura. A finder needle was then introduced over the superior aspect of the rib to locate the pleural fluid; 2colored fluid was aspirated at a depth of approximately 2 cm. A 10-blade scalpel was used to villa the skin at the insertion site. The [id number]-[id number] needle was then introduced through the skin incision into the pleural space using negative aspiration pressure and the red colometric indicator to confirm appropriate positioning of the needle. The thoracentesis catheter was then threaded without difficulty. 2000 ml of turbid colored fluid was removed without difficulty. The catheter was then removed. No immediate complications were noted during the procedure. A post-procedure chest x-ray is showed no PTX. The fluid willnot be sent for studies. Estimated blood loss is 0cc
--- NOTE | 2021-03-03 13:53 | XR ---
EXAMINATION TYPE: XR chest 1V portable DATE OF EXAM: 03/03/2021 COMPARISON: 03/02/2021 HISTORY: Left thoracentesis TECHNIQUE: Single frontal view of the chest is obtained. FINDINGS: There is trace left pleural effusion. Moderate right pleural effusion with adjacent airspa ce opacity. Mild left airspace opacity. No pneumothorax is seen. Status post median sternotomy with v alvular replacement. Heart size is obscured. IMPRESSION: 1. Near complete resolution of left pleural effusion. No left pneumothorax. 2. Moderate right pleural effusion has increased since prior exam. 3. Mild bibasilar airspace opacities suggestive of atelectasis or pneumonitis. 4. Status post median sternotomy. 5. Valvular prosthesis.
== END ==
LOC: PROCWHC3 12:36
PROVIDERS: ATTEND Internal Medicine Critical Care Medicine
DX: J90 Pleural effusion, not elsewhere classified (principal); Z98.890 Other specified postprocedural states
CPT/HCPCS: 32554; 71045

== ENCOUNTER → 2021-03-24 | Outpatient (CLI) | payer OTHER ==
[2021-03-24 17:20] LABS: HCT 35.5 % (39.0-53.0); Hypochromasia Slight; MCH 31.4 pg (25.0-35.0); MCHC 33.3 g/dL (31.0-37.0); MCV 94.4 fL (80.0-100.0); Mean Platelet Volume 7.1; Platelet Count 311 k/uL (150-450); RBC 3.77 m/uL (4.30-5.90); RDW 14.6 % (11.5-15.5); WBC 6.4 k/uL (3.8-10.6)
[2021-03-24 17:21] LABS: HGB 11.8 gm/dL (13.0-17.5)
[2021-03-25 04:36] LABS: African American GFR (CKD) 70.6 (60.0-200.0); Anion Gap 7.8 mmol/L (4.00-12.00); BUN/Creat Ratio 18.33 Ratio (12.00-20.00); Calcium 8.7 mg/dL (8.7-10.3); Carbon Dioxide 27.2 mmol/L (21.6-31.8); Non-African American GFR(CKD) 60.9 (60.0-200.0); Potassium 4.8 mmol/L (3.5-5.5)
== END | disposition home or self-care (01) ==
LOC: LABMAIN 16:55
PROVIDERS: ATTEND Internal Medicine
DX: I10 Essential (primary) hypertension (principal); Z98.890 Other specified postprocedural states
CPT/HCPCS: 36415; 80048; 85027

== ENCOUNTER → 2021-04-10 | Outpatient (CLI) | payer OTHER ==
[2021-04-10 07:54] LABS: African American GFR (CKD) >90 (>60 ml/min/1.73 sqM); Blood Urea Nitrogen 16 mg/dL (9-20); Non-African American GFR(CKD) 81 (>60 ml/min/1.73 sqM)
--- NOTE | 2021-04-10 09:34 | CT ---
EXAMINATION TYPE: CT chest w con DATE OF EXAM: 04/10/2021 COMPARISON: None HISTORY: Pleural effusions Post Op per patient. CT DLP: 514 mGycm Automated exposure control for dose reduction was used. CONTRAST: CT scan of the chest is performed with IV Contrast, patient injected with 100 mL of Isovue 300. FINDINGS: LUNGS: The lungs are grossly clear, there is no concerning parenchymal mass or nodule identified. Mod erate right-sided pleural effusion with maximal AP dimension of 4.1 cm. Smaller left-sided pleural ef fusion with maximal AP dimension of about 2.1 cm. Compressive basilar atelectasis right lower lobe. T he tracheobronchial tree is patent. MEDIASTINUM: There are no greater than 1 cm hilar or mediastinal lymph nodes. No pericardial effusi on is seen. Thoracic aorta is of normal caliber. The heart is not enlarged. UPPER ABDOMEN: No significant abnormality appreciated. OTHER: No additional significant abnormality is seen. IMPRESSION: Bilateral pleural effusions right greater than left with right basilar compressive atelectasis.
== END | disposition home or self-care (01) ==
LOC: RADCTMAIN 07:04
PROVIDERS: ATTEND Internal Medicine Critical Care Medicine
DX: Z01.818 Encounter for other preprocedural examination (principal); J90 Pleural effusion, not elsewhere classified
CPT/HCPCS: 82565; 84520; 71260; 36415; Q9967

== ENCOUNTER → 2021-04-13 | Day surgery (SDC) | payer OTHER ==
[2021-04-13 10:27] VITALS: RESP 16; TEMP 98
--- NOTE | 2021-04-13 11:26 | P.PCN ---
Date of Procedure: 04/13/21 Operative Findings: Right-sided pleural effusion Postoperative Diagnosis: Right-sided pleural effusion Procedure(s) Performed: Thoracentesis Anesthesia: local Surgeon: Sheldon Cheema Estimated Blood Loss (ml): 0 Pathology: none sent Condition: stable Disposition: same day Operative Findings: A time out was performed and the chest x-ray was reviewed, the appropriate side was confirmed and marked. My hands were washed immediately prior to the procedure. I wore a surgical cap, mask with protective eyewear, sterile gown and sterile gloves throughout the procedure. The patient was prepped and draped in a sterile manner using chlorhexidine scrub after the appropriate level was percussed and confirmed by ultrasound. 1% lidocaine was used to anesthesize the skin, subcutaneous tissue, superior aspect of the rib periosteum and parietal pleura. A finder needle was then introduced over the superior aspect of the rib to locate the pleural fluid; 2colored fluid was aspirated at a depth of approximately 2 cm. A 10-blade scalpel was used to villa the skin at the insertion site. The [id number] needle was then introduced through the skin incision into the pleural space using negative aspiration pressure and the red colometric indicator to confirm appropriate positioning of the needle. The thoracentesis catheter was then threaded without difficulty. 1300 ml of turbid colored fluid was removed without difficulty. The catheter was then removed. No immediate complications were noted during the procedure. A post-procedure chest x-ray is pending at the time of this note. The fluid willnot be sent for studies. Estimated blood loss is 0cc
--- NOTE | 2021-04-13 12:15 | XR ---
EXAMINATION TYPE: XR chest 1V DATE OF EXAM: 04/13/2021 COMPARISON: 03/03/2021 HISTORY: Right-sided thoracentesis TECHNIQUE: Single frontal view of the chest is obtained. FINDINGS: There is a right-sided pneumothorax measuring approximately 20%. No mediastinal deviation. Small left pleural effusion seen. Postsurgical changes with mild cardiomegaly. Arthropathy of the sh oulders with diffuse osteopenia. IMPRESSION: 1. Right-sided pneumothorax with resolution of pleural fluid. Pneumothorax measures approximately 20% with no mediastinal deviation. 2. COPD with small left pleural effusion.
[2021-04-13 12:29] VITALS: BP 137/87; PULSE 82
--- NOTE | 2021-04-13 12:57 | P.PN ---
Progress Note - Text Progress Note Date: 04/13/21 Postprocedure chest x-ray shows a loculated right-sided pneumothorax. This is most likely a trapped lung as the patient had chronic pleural effusion. Post thoracentesis, the patient felt better and the patient does not have experience any shortness of breath. Pulse ox was 97%. Hemodynamically stable. No pleurisy. No chest pain. I asked the patient to leave and come back to my office around 3 PM for a repeat chest x-ray to make sure the pneumothorax itself is stable. If things remain unchanged, the patient will see him back in the office early next week for another chest x-ray. No evidence of any tension. This is probably related to Lung. We'll continue to follow.
[2021-04-13 22:14] LABS: Appearance,BF Hazy; Color,BF Yellow; Nucleated Cells, Body Fluid 81 /uL; RBC, Body Fluid 406 /uL
[2021-04-13 22:16] LABS: Mononuclear WBC,Body Fluid 90 %; Polynuclear WBC,Body Fluid 10 %; Total Cells Counted,Body Fluid 100
[2021-04-14 16:19] LABS: Glucose, BF Source Pleural Fluid; Glucose, Body Fluid 82 mg/dL; LDH, Body Fluid Source Pleural Fluid; Total Protein, Body Fluid 4600 mg/dL
== END ==
LOC: PROCWHC3 10:09
PROVIDERS: ATTEND Internal Medicine Critical Care Medicine
DX: J90 Pleural effusion, not elsewhere classified (principal); Z88.0 Allergy status to penicillin; Z79.899 Other long term (current) drug therapy; Z79.82 Long term (current) use of aspirin; I48.91 Unspecified atrial fibrillation; G47.33 Obstructive sleep apnea (adult) (pediatric); I10 Essential (primary) hypertension; I08.0 Rheumatic disorders of both mitral and aortic valves; J44.9 Chronic obstructive pulmonary disease, unspecified
CPT/HCPCS: 32554; 71045; 82945; 83615; 84157; 87070; 87075; 87102; 87116; 87205; 87206; 87252; 87496; 87498; 87502; 87529; 87634; 87798; 88108; 88305; 89050

== ENCOUNTER → 2021-06-15 | Outpatient (CLI) | payer OTHER | END | disposition home or self-care (01) | LOC: LABWHC1 13:34 | PROVIDERS: ATTEND Internal Medicine Interventional Cardiology | DX: E05.90 Thyrotoxicosis, unspecified without thyrotoxic crisis or storm (principal) | CPT/HCPCS: 36415; 84443 ==

== ENCOUNTER → 2022-12-07 | Outpatient (CLI) | payer OTHER ==
--- NOTE | 2022-12-07 13:07 | US ---
EXAMINATION TYPE: US carotid duplex BILAT DATE OF EXAM: 12/07/2022 COMPARISON: NONE CLINICAL HISTORY: R42 DIZZINESS AND GIDDINESS. TECHNIQUE: Carotid duplex ultrasound examination. Indirect Doppler criteria was utilized. FINDINGS: EXAM MEASUREMENTS: RIGHT: Peak Systolic Velocity (PSV) cm/sec ----- Right CCA: 60.9 ----- Right ICA: 85.3 ----- Right ECA: 91.9 ICA/CCA ratio: 1.4 RIGHT: End Diastole cm/sec ----- Right CCA: 16.1 ----- Right ICA: 21.5 ----- Right ECA: 7.3 LEFT: Peak Systolic Velocity (PSV) cm/sec ----- Left CCA: 55.9 ----- Left ICA: 56.7 ----- Left ECA: 97.4 ICA/CCA ratio: 1.0 LEFT: End Diastole cm/sec ----- Left CCA: 13.2 ----- Left ICA: 19.6 ----- Left ECA: 9.5 VERTEBRALS (direction of flow): Right Vertebral: Antegrade Left Vertebral: Antegrade Rhythm: Normal GUYLINE OPERATOR NOTES: Bilateral intimal thickening with moderate plaque at bilateral bulbs extending int o the ICAs. No significant stenosis. Diminshed left vertebral waveform. IMPRESSION: Less than 50% stenosis of the bilateral carotid bifurcations. Criteria for Assigning % of Stenosis / Diameter reduction (Estimation based on the indirect measurements of the internal carotid artery velocities (ICA PSV). 1. Normal (no stenosis)=ICA PSV < 125 cm/s: ratio < 2.0: ICA EDV<40 cm/s. 2. Less than 50% stenosis=ICA PSV < 125 cm/s: ratio < 2.0: ICA EDV<40 cm/s. 3. 50 to 69% stenosis=ICA PSV of 125 to 230 cm/s: ration 2.0 ? 4.0: ICA EDV 40-100 cm/s. 4. Greater than 70% stenosis to near occlusion= ICA PSV > 230 cm/s: ratio > 4.0: ICA EDV > 100 cm/s. 5. Near occlusion= ICA PSV velocities may be low or undetectable: variable ratio and ICA EDV. 6. Total occlusion=unable to detect flow.
== END | disposition home or self-care (01) ==
LOC: RADUSWWP 10:46
PROVIDERS: ATTEND Family Medicine
DX: I65.23 Occlusion and stenosis of bilateral carotid arteries (principal); R42 Dizziness and giddiness
CPT/HCPCS: 93880

== ENCOUNTER → 2023-11-20 | Outpatient (CLI) | payer OTHER ==
--- NOTE | 2023-11-20 12:59 | CA ---
Transthoracic Echo Report Name: Eloy Aguilar Age: 73 Gender: M : 1950 Exam Date: 11/20/2023 11:09 Exam Location: [facility] Ht (in): 66 Wt (lb): 145 Ordering Physician: Darnell King DO Attending/Referring Phys: Paul Max PAC Jackscrew Worker Catrachito Prajapati RDCS Procedure CPT: Indications: Z95.2 presence of prosthetic heart valve Cardiac Hx: Technical Quality: Contrast 1: Total Dose (mL): Contrast 2: Total Dose (mL): MEASUREMENTS (Male / Female) Normal Values 2D ECHO LV Diastolic Diameter PLAX 4.1 cm 4.2 - 5.9 / 3.9 - 5.3 cm LV Systolic Diameter PLAX 2.4 cm IVS Diastolic Thickness 1.0 cm 0.6 - 1.0 / 0.6 - 0.9 cm LVPW Diastolic Thickness 1.1 cm 0.6 - 1.0 / 0.6 - 0.9 cm LV Relative Wall Thickness 0.5 LVOT Diameter 1.7 cm Aortic Root Diameter 3.3 cm LA Systolic Diameter LX 5.2 cm 3.0 - 4.0 / 2.7 - 3.8 cm LV Diastolic Volume MOD BP 67.2 cm??? 67 - 155 / 56 - 104 cm??? LV Systolic Volume MOD BP 24.2 cm??? 22 - 58 / 19 - 49 cm??? LV Ejection Fraction MOD BP 64.0 % >= 55 % LV Cardiac Index MOD BP 1494.2 cm???/min???m??? LV Diastolic Volume MOD 4C 70.9 cm??? LV Systolic Volume MOD 4C 27.8 cm??? LV Ejection Fraction MOD 4C 60.8 % LV Cardiac Index MOD 4C 1498.7 cm???/min???m??? LV Diastolic Length 4C 7.7 cm LV Systolic Length 4C 5.3 cm LV Diastolic Volume MOD 2C 67.8 cm??? LV Systolic Volume MOD 2C 24.0 cm??? LV Ejection Fraction MOD 2C 64.6 % LV Cardiac Index MOD 2C 1522.1 cm???/min???m??? LV Diastolic Length 2C 7.6 cm LV Systolic Length 2C 5.3 cm LA Volume 76.8 cm??? 18 - 58 / 22 - 52 cm??? LA Volume Index 43.7 cm???/m??? 16 - 28 cm???/m??? DOPPLER AV Peak Velocity 234.1 cm/s AV Peak Gradient 21.9 mmHg AV Mean Velocity 173.9 cm/s AV Mean Gradient 13.2 mmHg AV Velocity Time Integral 57.0 cm LVOT Peak Velocity 127.3 cm/s LVOT Peak Gradient 6.5 mmHg LVOT Velocity Time Integral 28.7 cm LVOT Stroke Volume 62.7 cm??? LVOT Stroke Volume Index 36.0 ml/m??? LVOT Cardiac Index 2180.0 cm???/min???m??? AV Area Cont Eq vti 1.1 cm??? AV Area Cont Eq pk 1.2 cm??? MV Peak Velocity 199.5 cm/s MV Peak Gradient 15.9 mmHg MV Mean Velocity 107.8 cm/s MV Mean Gradient 5.9 mmHg MV Velocity Time Integral 62.7 cm Mitral E Point Velocity 179.5 cm/s Mitral A Point Velocity 134.7 cm/s Mitral E to A Ratio 1.3 MV Deceleration Time 503.2 ms TR Peak Velocity 272.6 cm/s TR Peak Gradient 29.7 mmHg PV Peak Velocity 119.6 cm/s PV Peak Gradient 5.7 mmHg FINDINGS Left Ventricle Left ventricular ejection fraction is estimated 55-60 %. Normal Left ventricular size, wall thickness, with no obvious regional wall motion abnormalities. Right Ventricle Normal right ventricular size. Right ventricular systolic pressure estimated at 36 mmhg. Right Atrium Normal right atrial size. Left Atrium Moderately increased left atrial diameter. Mitral Valve Mitral valve annuloplasty, mitral valve peak gradient is estimated at 15.91mmHg and mean gradient is estimated at 5.93mmHg. trace regurgitation Aortic Valve Bioprosthetic aortic valve, not well-visualized, no evidence of regurgitation, with a peak velocity of 2.31 m/s, peak gradient 21.36 mmHg, mean gradient 13.22mmHg. Tricuspid Valve Mild to moderate tricuspid regurgitation.structurally normal tricuspid valve. Pulmonic Valve No pulmonic regurgitation. Pericardium No pericardial effusion. Aorta Normal size aortic root. CONCLUSIONS Normal left ventricle size and systolic function Mitral valve annuloplasty with trace regurgitation Bioprosthetic aortic valve, not well-visualized with a mean gradient of 13 mmHg and no evidence of malfunction Mild to moderate tricuspid regurgitation with mild pulmonary hypertension Previewed by: Dr. Glendy Tello MD (Electronically Signed) Final Date: 20 November 2023 12:58
== END | disposition home or self-care (01) ==
LOC: RADECHMAIN 10:51
PROVIDERS: ATTEND Family Medicine
DX: I34.0 Nonrheumatic mitral (valve) insufficiency (principal); I36.1 Nonrheumatic tricuspid (valve) insufficiency; I27.20 Pulmonary hypertension, unspecified; Z95.2 Presence of prosthetic heart valve
CPT/HCPCS: 93306

== ENCOUNTER → 2024-12-17 | Outpatient (CLI) | payer OTHER ==
--- NOTE | 2024-12-17 16:51 | CA ---
Transthoracic Echo Report Name: Eloy Aguilar Age: 74 Gender: M : 1950 Exam Date: 12/17/2024 13:52 Exam Location: [facility] Ht (in): 66 Wt (lb): 145 Ordering Physician: Darnell King DO Attending/Referring Phys: Paul Max PAC Matlab Developer Mariam Buitrago RDCS Procedure CPT: Indications: Z95.2 presence of prosthetic heart valve Cardiac Hx: Technical Quality: Fair Contrast 1: Total Dose (mL): Contrast 2: Total Dose (mL): MEASUREMENTS (Male / Female) Normal Values 2D ECHO LV Diastolic Diameter PLAX 3.2 cm 4.2 - 5.9 / 3.9 - 5.3 cm LV Systolic Diameter PLAX 1.9 cm IVS Diastolic Thickness 1.3 cm 0.6 - 1.0 / 0.6 - 0.9 cm LVPW Diastolic Thickness 1.4 cm 0.6 - 1.0 / 0.6 - 0.9 cm LV Relative Wall Thickness 0.8 RV Internal Dim ED PLAX 2.2 cm LVOT Diameter 1.8 cm LA Systolic Diameter LX 4.2 cm 3.0 - 4.0 / 2.7 - 3.8 cm LV Diastolic Volume MOD BP 32.8 cm??? 67 - 155 / 56 - 104 cm??? LV Systolic Volume MOD BP 11.3 cm??? 22 - 58 / 19 - 49 cm??? LV Ejection Fraction MOD BP 65.4 % >= 55 % LV Cardiac Index MOD BP 954.2 cm???/min???m??? LV Diastolic Volume MOD 4C 44.5 cm??? LV Systolic Volume MOD 4C 14.8 cm??? LV Ejection Fraction MOD 4C 66.7 % LV Cardiac Index MOD 4C 1316.8 cm???/min???m??? LV Diastolic Length 4C 6.9 cm LV Systolic Length 4C 5.6 cm LV Diastolic Volume MOD 2C 22.9 cm??? LV Systolic Volume MOD 2C 8.9 cm??? LV Ejection Fraction MOD 2C 61.3 % LV Cardiac Index MOD 2C 624.0 cm???/min???m??? LV Diastolic Length 2C 6.4 cm LV Systolic Length 2C 5.7 cm LA Volume 77.8 cm??? 18 - 58 / 22 - 52 cm??? LA Volume Index 44.3 cm???/m??? 16 - 28 cm???/m??? M-MODE Aortic Root Diameter MM 2.7 cm LA Systolic Diameter MM 4.8 cm LA Ao Ratio MM 1.8 DOPPLER AV Peak Velocity 269.4 cm/s AV Peak Gradient 29.0 mmHg AV Mean Velocity 193.5 cm/s AV Mean Gradient 17.2 mmHg AV Velocity Time Integral 52.2 cm LVOT Peak Velocity 134.7 cm/s LVOT Peak Gradient 7.3 mmHg LVOT Velocity Time Integral 28.3 cm LVOT Stroke Volume 75.5 cm??? LVOT Stroke Volume Index 43.3 ml/m??? LVOT Cardiac Index 3353.0 cm???/min???m??? AV Area Cont Eq vti 1.4 cm??? AV Area Cont Eq pk 1.3 cm??? MV Peak Velocity 182.1 cm/s MV Peak Gradient 13.3 mmHg MV Mean Velocity 120.1 cm/s MV Mean Gradient 6.7 mmHg MV Velocity Time Integral 56.9 cm MV Area PHT 2.1 cm??? Mitral E Point Velocity 151.6 cm/s Mitral A Point Velocity 156.1 cm/s Mitral E to A Ratio 1.0 MV Deceleration Time 357.5 ms TR Peak Velocity 239.1 cm/s TR Peak Gradient 22.9 mmHg FINDINGS Left Ventricle Left ventricular ejection fraction is estimated at 55-60 %. Normal left ventricular systolic function with no obvious regional wall motion abnormalities. Left ventricular cavity size normal. Mildly increased left ventricular wall thickness. Right Ventricle Mild right ventricular dilatation. Normal right ventricular free wall motion. Right ventricular systolic pressure within normal limits. Right Atrium Normal right atrial size. Left Atrium Moderately increased left atrial volume. Mildly increased left atrial area. Mitral Valve An annuloplasty ring noted in the mitral position. MV peak PG 13.3 mmHg and mean PG 6.7 mmHg. Trace mitral regurgitation. Aortic Valve Normally functioning bioprosthetic aortic valve with a peak velocity of 2.7m/s, peak gradient 29mmHg, mean gradient 17.2mmHg. No aortic regurgitation. Tricuspid Valve Structurally normal tricuspid valve. Mild tricuspid regurgitation. No tricuspid stenosis. Pulmonic Valve Structurally normal pulmonic valve. No pulmonic stenosis. Pericardium No pericardial or pleural effusion. Aorta Normal size aortic root and proximal ascending aorta. CONCLUSIONS 1. Normal left ventricular size and systolic function 2. Mitral valve annuloplasty with trace mitral regurgitation and mean gradient of 7 mmHg 3. Bioprosthetic aortic valve with a mean gradient of 17 mmHg and no evidence of regurgitation 4. Mild tricuspid regurgitation Previewed by: Dr. Glendy Tello MD (Electronically Signed) Final Date: 17 December 2024 16:50
== END | disposition home or self-care (01) ==
LOC: RADECHMAIN 13:40
PROVIDERS: ATTEND Family Medicine
DX: I08.1 Rheumatic disorders of both mitral and tricuspid valves (principal); Z95.2 Presence of prosthetic heart valve
CPT/HCPCS: 93306